=== PATIENT | male | born 1965 | race Caucasian/White ===

== ENCOUNTER 2022-07-21 02:33 | Day surgery (SDC) | payer OTHER, SELFPAY ==
[2022-07-19 10:35] VITALS: BMI 27.1
--- NOTE | 2022-07-19 10:56 | PC.NURSE ---
Report to the Outpatient Waiting Room, entrance under the green pavilion located off [facility], at time 0730 on date 07/21/22. OR Time: 0930. - You and your visitor will be asked to self-screen and do not enter if you have any COVID symptoms. - Only one visitor and NO children visitors are allowed at this time. - The patient visitor is requested to leave or wait in car when not with patient due to restrictions. - A mask is required within the hospital. Patients may have clear liquids (water, carbonated beverages, clear teas, apple juice) until 3 hours prior to surgery with a maximum of 20 ounces. - No food from midnight until time of surgery Take the following medications with a SIP of water the morning of surgery: GABAPENTIN, PAIN PILL (IF NEEDED) Medications to discontinue per physician: VITAMINS/SUPPLEMENTS Date to take last dose: NO MORE UNTIL AFTER SURGERY STOP MELOXICAM PER DR. WEINSTEIN'S INSTRUCTIONS Please no make-up, nail latvian, hairspray, perfume, deodorant, or body powder the day of surgery. No jewelry (including any body piercings) or valuables the day of surgery, leave them at home. Please take a shower or bath the night before, or the morning of, surgery with an antibacterial soap. Wear comfortable, loose fitting clothing. - Jewelry must be removed prior to entering the operating room. Rings and piercings that are not removed may be cut off. - The hospital will not accept responsibility for valuables. - Please leave all valuables, including medications, at home the day of surgery. If you are going home after surgery, a licensed concrete mixing truck driver must drive you home. - NO public transportation without another adult. - We recommend that an adult stay with you for 24 hours following discharge. - We also recommend that you do not drive, make important decision, drink alcoholic beverages, or take any drugs that were not prescribed by your health care provider for at least 24 hours after your discharge time. Follow any additional instructions given to you from your surgeon. If you or anyone in your household have experienced Covid symptoms in the past week, please notify your surgeon or the nurse liaison at the phone number below for possible testing. Telephone instructions given to PT - ANGELA FRANCO and asked if any additional questions and then verbalized understanding. Patient advised to call surgeon office or pre surgery nurse liaison [phone] if any additional questions.
--- NOTE | 2022-07-20 13:22 | WPDANESEPPF ---
Anes - Initial Pre Proc Eval Procedure: Operation Date: 07/21/22 07:30 Proposed Procedures p Posterior Lumbar Interbody Fusion L4-L5, L5-S1 with Intra Operative Monitoring - Tejal Masterson MD Date/Time: 07/20/22 13:22 Surgeon: Tejal Masterson MD Pre Op Diagnosis: spondylosis without myeopathy or radiculopathy Patient Data Age: 56 Gender: M Height: 1.83 m Weight: 90.72 kg Allergies Allergy/AdvReac Type Severity Reaction Status Date / Time typhoid vaccine Allergy Severe Hives Verified 07/21/22 07:00 Home Medications Medication Instructions Recorded Confirmed Type amitriptyline 50 mg tablet 50 mg PO HS 07/19/22 07/19/22 History atorvastatin 40 mg tablet 40 mg PO HS 07/19/22 07/19/22 History cholecalciferol (vitamin D3) 50 50 mcg PO DAILY 07/19/22 07/19/22 History mcg (2,000 unit) tablet (Vitamin D3) dapagliflozin 10 mg tablet 10 mg PO DAILY 07/19/22 07/19/22 History (Farxiga) dulaglutide 3 mg/0.5 mL 3 mg subcut WEEKLY 07/19/22 07/19/22 History subcutaneous pen injector (Trulicity) gabapentin 600 mg tablet 600 mg PO TID 07/19/22 07/19/22 History hydrocodone 10 mg-acetaminophen 1 tablet PO BID PRN Pain 07/19/22 07/19/22 History 325 mg tablet isosorbide mononitrate 30 mg 30 mg PO DAILY 07/19/22 07/19/22 History tablet,extended release 24 hr lidocaine 5 % topical ointment 1 applic topical HS 07/19/22 07/19/22 History lisinopril 20 mg tablet 20 mg PO DAILY 07/19/22 07/19/22 History magnesium 250 mg tablet 500 mg PO HS 07/19/22 07/19/22 History magnesium oxide 400 mg PO HS 07/19/22 07/19/22 History melatonin 10 mg tablet 10 mg PO HS 07/19/22 07/19/22 History meloxicam 15 mg tablet 15 mg PO HS 07/19/22 07/19/22 History metformin 1,000 mg tablet 1,000 mg PO BID 07/19/22 07/19/22 History multivitamin 1 tablet PO DAILY 07/19/22 07/19/22 History nitroglycerin 0.4 mg sublingual 0.4 mg sublingual PRN PRN Chest 07/19/22 07/19/22 History tablet Pain pantoprazole 40 mg tablet,delayed 40 mg PO DAILY 07/19/22 07/19/22 History release pioglitazone 15 mg tablet (Actos) 15 mg PO HS 07/19/22 07/19/22 History potassium 99 mg tablet 99 mg PO DAILY 07/19/22 07/19/22 History tizanidine 4 mg tablet 4 mg PO HS 07/19/22 07/19/22 History Patient hx anesthesia problems: none Family hx anesthesia problems: none Results Review: All pre-operative results and documents have been reviewed as part of the pre-operative evaluation. [facility] Past Medical History Medical History (Updated 07/20/22 @ 13:23 by Campos Clement MD) Arthritis Chronic narcotic use Diabetes HTN (hypertension) Hyperlipidemia PONV (postoperative nausea and vomiting) Social History Social History Smoking packs per day: 3 Smoking cigarettes per day: 60.0 Years smoked: 25 Smoking pack-years: 75.00 Smoking status: Former smoker Tobacco type: cigarettes Smoking end date: 10/23/03 Alcohol intake: current Alcohol use details: RARELY Substance use: never Substance use type: does not use Living arrangements: with family Spiritual care concerns: No Anes - Eval Final PreProcedure Day of Procedure 07/20/22 13:22 Patient weight: overweight Heart: regular rate and rhythm Lungs: clear to auscultation and normal air movement Airway: Mallampati scale class II Neurological: alert and oriented Last oral intake: >/= 8 hours ASA classification: III Emergent: no Anesthetic plan: proceed Anesthesia type and monitoring: general ETT Results Review: All pre-operative results and documents have been reviewed as part of the pre-operative evaluation. Informed Consent: The patient's anesthetic plan and its attendant risks and benefits were discussed with the patient/family/POA. Questions were solicited and answers provided to the satisfaction of the patient/family/POA.
--- NOTE | 2022-07-20 15:48 | PCCCNOTE ---
Phone call to [employer] to verify authorization, left phone # for a return. Return call received from Valerie Padilla confirms approved outpatient auth [id number] 11-08-21 through 07/21/22. Reference for the call is the Authorization #.
[2022-07-21] VITALS (15 sets, daily range): BP systolic 104–144; BP diastolic 38–81; PULSE 72–87; RESP 10–20; TEMP 36.1–36.6; O2SAT 94–100
--- NOTE | ~2022-07-21 | XR_ITS ---
EXAMINATION: XR fluoroscopy no charge DATE: 07/21/2022 09:53 INDICATION: Lumbar fusion. TECHNIQUE: 4 intraoperative fluoroscopic views of the lumbar spine were obtained. I was not present. Fluoroscopy exposure time was 55 seconds. COMPARISON: Lumbar spine MRI 12/07/2006 FINDINGS: There are changes of posterior fusion procedure from L4 to S1 with pedicle screws. IMPRESSION: 1. Posterior fusion procedure from L4 to S1. Reviewed, dictated and finalized at location A.
[2022-07-21] MEDS: LACTATED RINGERS 1,000 ML 30 ML IV CONT ×2 (06:50→10:25)
[2022-07-21 06:59] LABS: Glucose Point of Care 155 mg/dl (65-105)
--- NOTE | 2022-07-21 07:36 | PM.IMHP ---
H&P: HPI History of Present Illness Date/Time: 07/21/22 07:36 Chief Complaint: Patient is a 56 year old male with a history of a prior lumbar decompression surgery L4-5 and L5-S1. He has had persistent radicular pain in the setting of recurrent foraminal stenosis and presents for repeat decompression and fusion L4-5 and L5-S1. No changes since my office visit note. Right leg pain predominates Review of Systems Review of Systems: none save those documented in the H&P [facility] Past Medical History Medical History (Updated 07/21/22 @ 07:39 by Tejal Masterson MD) Arthritis Chronic narcotic use Diabetes HTN (hypertension) Hyperlipidemia PONV (postoperative nausea and vomiting) Social History Social History Smoking packs per day: 3 Smoking cigarettes per day: 60.0 Years smoked: 25 Smoking pack-years: 75.00 Smoking status: Former smoker Tobacco type: cigarettes Smoking end date: 10/23/03 Alcohol intake: current Alcohol use details: RARELY Substance use: never Substance use type: does not use Living arrangements: with family Spiritual care concerns: No Meds Home Medications and Allergies Home Medications Medication Instructions Recorded Confirmed Type amitriptyline 50 mg tablet 50 mg PO HS 07/19/22 07/21/22 History atorvastatin 40 mg tablet 40 mg PO HS 07/19/22 07/21/22 History cholecalciferol (vitamin D3) 50 50 mcg PO DAILY 07/19/22 07/21/22 History mcg (2,000 unit) tablet (Vitamin D3) dapagliflozin 10 mg tablet 10 mg PO DAILY 07/19/22 07/21/22 History (Farxiga) dulaglutide 3 mg/0.5 mL 3 mg subcut WEEKLY 07/19/22 07/21/22 History subcutaneous pen injector (Trulicity) gabapentin 600 mg tablet 600 mg PO TID 07/19/22 07/21/22 History hydrocodone 10 mg-acetaminophen 1 tablet PO BID PRN Pain 07/19/22 07/21/22 History 325 mg tablet isosorbide mononitrate 30 mg 30 mg PO DAILY 07/19/22 07/21/22 History tablet,extended release 24 hr lidocaine 5 % topical ointment 1 applic topical HS 07/19/22 07/21/22 History lisinopril 20 mg tablet 20 mg PO DAILY 07/19/22 07/21/22 History magnesium 250 mg tablet 500 mg PO HS 07/19/22 07/21/22 History magnesium oxide 400 mg PO HS 07/19/22 07/21/22 History melatonin 10 mg tablet 10 mg PO HS 07/19/22 07/21/22 History meloxicam 15 mg tablet 15 mg PO HS 07/19/22 07/21/22 History metformin 1,000 mg tablet 1,000 mg PO BID 07/19/22 07/21/22 History multivitamin 1 tablet PO DAILY 07/19/22 07/21/22 History nitroglycerin 0.4 mg sublingual 0.4 mg sublingual PRN PRN Chest 07/19/22 07/21/22 History tablet Pain pantoprazole 40 mg tablet,delayed 40 mg PO DAILY 07/19/22 07/21/22 History release pioglitazone 15 mg tablet (Actos) 15 mg PO HS 07/19/22 07/21/22 History potassium 99 mg tablet 99 mg PO DAILY 07/19/22 07/21/22 History tizanidine 4 mg tablet 4 mg PO HS 07/19/22 07/21/22 History Allergies Allergy/AdvReac Type Severity Reaction Status Date / Time typhoid vaccine Allergy Severe Hives Verified 07/21/22 07:00 Vital Signs Vital Signs - 24 hr 07/21/22 06:38 Temperature 96.9 F L Pulse Rate 72 Respiratory Rate 20 Blood Pressure 144/67 H Pulse Oximetry 100 Oxygen Delivery Room Air Exam Narrative: Awake, alert, oriented x 3 Speech CF GUILLE EOMI Face= TML MAEW with good strength Prior incision CDI RRR CTA Soft NTND Assessment and Plan Assessment and plan (1) Lumbar spondylosis: Code(s): M47.816 - Spondylosis without myelopathy or radiculopathy, lumbar region Status: Acute Plan 56 year old male with recurrent right greater than left lower extremity pain in the setting of lumbar spondylosis most pronunced L4-5 and L5-S1 - plan is for repeat lumbar decompression and fusion L4-S1. Please see my scanned note for more extensive discussion as to indications, risks and recovery from surgery. Anticipated stay of 24-48 hours
--- NOTE | 2022-07-21 07:40 | WPDHPUPDATE1 ---
History and Physical Update Update Date/Time: 07/21/22 07:40 History and Physical has been reviewed, including an updated exam of the patient. There are NO changes in the patient's condition. Risks, benefits, and alternatives have been discussed and questions answered. Patient agrees to proceed with procedure.
[2022-07-21] MEDS: ceFAZolin 2 GM/D5W 50 ML 2 GM/50 ML BAG IVPB (07:46)
[2022-07-21] MEDS: LIDO 1%/EPINEPHRINE 1:100,000 50 ML VIAL INFILTRATE (08:35)
[2022-07-21] MEDS: VANCOMYCIN HCL 1,000 MG VIAL 1000 MG TOPICAL (09:38)
--- NOTE | 2022-07-21 10:03 | W.PM.PROC2 ---
Procedure Note - Detailed Date of Procedure 07/21/22 Pre-op Diagnosis spondylosis without myeopathy or radiculopathy Post-op Diagnosis Same Procedure Performed posterior lumbar decompression and instrumented posterolateral fusion L4-S1 Surgeon Tejal Masterson MD Community Fundraiser eJd Churchill MD Anesthesia General Indications This is a very pleasant 56-year-old male who has undergone a previous L4-S1 decompression. He has had her current radicular symptoms not responded to nonsurgical measures. He presents for repeat lumbar decompression L4-5 L5-S1 with instrumented posterolateral fusion. Please see my scanned office visit note for detailed discussions regarding the indications, risks, and recovery from surgery. Description of Procedure The patient was brought into the operating room. He was intubated in a supine position by Anesthesia. All monitoring and access was obtained. The patient was turned into a prone position on the William table. Again all extremities were padded. Intraoperative monitoring was established. The patient was turned over to the surgical team. The L4-L5 and S1 levels were confirmed with intraoperative fluoroscopy. The patient's back was prepped and draped in a sterile fashion. Final time-out was performed. The patient's prior incision was opened and extended using a 10. Blade scalpel. Dissection was carried down to the level of the spinous processes. The L3 and S1 spinous processes were identified. The defects from the prior prior L4-5 and L5-S1 decompressions were identified. Dissection was carried down using Bovie electric cautery. The lamina of L3 was identified bilaterally and taken out to the level of the L3-4 joint. This was exposed to avail the L4 pedicle. Dissection was further carried down to the L4-5 and L5-S1 joints. The facet complexes bilaterally were exposed. The transverse processes of L4, L5, and S1 were dissected. Intraoperative fluoroscopy was again brought into the field and the level was confirmed with L4-L5 and S1 identified. The remaining superior L4 lamina was dissected. The pars were dissected bilaterally. Once the dissection was complete the plan was made for placement of pedicle screws. Using intraoperative fluoroscopy 1st at L4 then 5 and then S1 the overlying facet complex was removed using a Leksell rongeur. The cancellous bone was identified. Pedicle finer was passed to 45 mm using fluoroscopy as a guide. The hole was tapped and appropriate placement was confirmed. A 6.5 x 45 mm screw was passed at each level 1st on the left and then on the right. Confirmation with intraoperative monitoring was performed. Each screw was stimulated and the threshold was above any concerning level. There is no suggestion of breach. Attention was then turned to the decompression portion of the procedure. A distractor was placed at L5-S1. First on the right and then on the left the lateral pars and residual facet were drilled to decompress the neural foramen specifically targeting the exiting L5 nerve root. After drilling of this bone I dissected could be passed in the foramen was found to be patent. At the L4-5 level the medial facet was dissected and drilled to facilitate lateral recess decompression A distractor was placed again and 1st the daniel was placed on the right side, the patient's more symptomatic side. Distraction was performed across the pedicle screws and setscrews were placed. This was performed again on the left. A 7 minutes 70 mm daniel was placed on the right and an 80 mm daniel was placed on the left. Particularly on the right, the patient's symptomatic side, distraction was performed and the set screws were secured and a torque wrench was used to perform final tightening both on the right and the left. The wound was copiously irrigated and hemostasis was achieved. The patient's own bone mixed with bone chips cancellous bone chips as well as I Factor bone growth faculty support coordinator were packed int
[2022-07-21 10:41] LABS: Glucose Point of Care 192 mg/dl (65-105)
--- NOTE | 2022-07-21 11:01 | SUR.PHASEI ---
1100: Simple mask removed.
[2022-07-21] MEDS: fentaNYL CITRATE INJ (*CRX) 100 MCG/2 ML VIAL 25 MCG IV PUSH ×4 (11:13→11:42)
[2022-07-21] MEDS: KCL 20 MEQ/D5/0.45% SOD CHL 1,000 ML 100 ML IV CONT (12:36)
[2022-07-21] MEDS: EMPAGLIFLOZIN 25 MG TABLET PO (13:01)
[2022-07-21] MEDS: GABAPENTIN 300 MG CAPSULE 600 MG PO ×2 (13:01→17:10)
[2022-07-21] MEDS: PANTOPRAZOLE 40 MG TABLET PO (13:02)
[2022-07-21] MEDS: ISOSORBIDE MONONITRATE 30 MG TAB.ER.24H PO (13:02)
[2022-07-21] MEDS: lisinopriL 20 MG TABLET PO (13:02)
[2022-07-21] MEDS: HYDROcodone/acetaminophen (*CRX) 10-325 MG TABLET 1 TAB PO ×3 (13:03→22:47)
[2022-07-21] MEDS: HYDROcodone/acetaminophen (*CRX) 5-325 MG TABLET 1 TAB PO ×2 (15:22→19:50)
[2022-07-21] MEDS: metFORMIN HCL 500 MG TABLET 1000 MG PO (17:11)
[2022-07-21] MEDS: DOCUSATE SODIUM 100 MG CAPSULE PO (19:54)
[2022-07-21] MEDS: ATORVASTATIN 40 MG TABLET PO (19:54)
[2022-07-21] MEDS: AMITRIPTYLINE HCL 25 MG TABLET 50 MG PO (19:55)
[2022-07-21] MEDS: MELATONIN 5 MG TABLET 10 MG PO (19:55)
[2022-07-21] MEDS: MAGNESIUM OXIDE 400 MG TABLET PO ×3 (19:55→20:02)
[2022-07-21] MEDS: PIOGLITAZONE HCL 15 MG TAB PO (19:55)
[2022-07-22 04:00] VITALS: BP 109/59; PULSE 70; RESP 20; TEMP 36.6; O2SAT 98
[2022-07-22] MEDS: HYDROcodone/acetaminophen (*CRX) 10-325 MG TABLET 1 TAB PO ×2 (06:47→11:54)
[2022-07-22] MEDS: ISOSORBIDE MONONITRATE 30 MG TAB.ER.24H PO (08:39)
[2022-07-22] MEDS: GABAPENTIN 300 MG CAPSULE 600 MG PO ×2 (08:39→12:22)
[2022-07-22] MEDS: DOCUSATE SODIUM 100 MG CAPSULE PO (08:39)
[2022-07-22] MEDS: CHOLECALCIFEROL 1,000 UNITS TABLET 2000 UNITS PO (08:39)
[2022-07-22] MEDS: EMPAGLIFLOZIN 25 MG TABLET PO (08:39)
[2022-07-22] MEDS: lisinopriL 20 MG TABLET PO (08:39)
[2022-07-22] MEDS: MULTIVITAMINS THERAPEUTIC TAB (*BKC) 1 TABLET PO (08:39)
[2022-07-22] MEDS: metFORMIN HCL 500 MG TABLET 1000 MG PO (08:39)
[2022-07-22] MEDS: HYDROcodone/acetaminophen (*CRX) 5-325 MG TABLET 1 TAB PO ×2 (09:39→15:06)
[2022-07-22] MEDS: BISACODYL 10 MG SUPPOSITORY RECTAL (09:40)
[2022-07-22] MEDS: PANTOPRAZOLE 40 MG TABLET PO (10:35)
--- NOTE | 2022-07-22 12:53 | WPDPN ---
Progress Note: A&P Assessment and Plan (1) Lumbar spondylosis: Code(s): M47.816 - Spondylosis without myelopathy or radiculopathy, lumbar region Status: Acute Plan Mr. Pearson is doing very well after surgery Anticipate d/c to home later today Follow up in 2 weeks for staple removal Subjective Date/time seen: 07/22/22 12:53 Review of Systems Review of Systems: patient notes resolution of right and left lower extremity pain still with sensory symptoms in LLE Mobilizing with PT - ambulated well in [place] Exam Narrative: Awake, alert, oriented x 3 Speech CF GUILLE EOMI Face= TML MAEW with good strength Incision CDI Objective Data Vital Signs Vital Signs: Vital Signs - 24 hr 07/21/22 13:10 07/21/22 14:10 07/21/22 15:08 Temperature 97.7 F 97.7 F 97.7 F Pulse Rate 80 82 80 Respiratory Rate 14 14 14 Blood Pressure 138/66 136/68 134/66 Pulse Oximetry 99 98 97 Oxygen Delivery 07/21/22 20:00 07/21/22 23:08 07/22/22 04:00 Temperature 97.8 F 97.9 F Pulse Rate 80 77 70 Respiratory Rate 14 16 20 Blood Pressure 115/63 109/59 L Pulse Oximetry 97 94 98 Oxygen Delivery Room Air 07/22/22 09:00 Temperature Pulse Rate Respiratory Rate Blood Pressure Pulse Oximetry Oxygen Delivery Room Air Intake/Output Intake/Output: Intake & Output 07/19/22 07/20/22 07/21/22 07/22/22 23:59 23:59 23:59 23:59 Intake Total 5060 222 Output Total 1960 Balance 3100 222 Meds/Results Medications: Active Medications Generic Name Dose Route Start Last Admin Trade Name Freq PRN Reason Stop Dose Admin Hydrocodone Bitart/Acetaminophen 1 tab 07/21/22 12:08 07/22/22 09:39 Hydrocodone/Acetaminophen (*Crx) 5-325 Mg Tablet PO 1 tab Q4H PRN Administration Mild Pain (1-3) Hydrocodone Bitart/Acetaminophen 1 tab 07/21/22 12:08 07/22/22 11:54 Hydrocodone/Acetaminophen (*Crx) 10-325 Mg Tablet PO 1 tab Q4H PRN Administration Moderate Pain (4-6) Al Hydrox/Mg Hydrox/Simethicone 20 ml 07/21/22 12:08 Mag Hydrox/Al Hydrox/Simeth 30 Ml Udc PO Q4H PRN Indigestion/Heartburn Amitriptyline HCl 50 mg 07/21/22 21:00 07/21/22 19:55 Amitriptyline Hcl 25 Mg Tablet PO 50 mg HS EDUARD Administration Atorvastatin Calcium 40 mg 07/21/22 21:00 07/21/22 19:54 Atorvastatin 40 Mg Tablet PO 40 mg HS EDUARD Administration Bisacodyl 10 mg 07/21/22 12:08 07/22/22 09:40 Bisacodyl 10 Mg Suppository RECTAL 10 mg DAILY PRN Administration Constipation Cyclobenzaprine HCl 10 mg 07/21/22 12:08 Cyclobenzaprine Hcl 10 Mg Tablet PO TID PRN Muscle Spasms Docusate Sodium 100 mg 07/21/22 21:00 07/22/22 08:39 Docusate Sodium 100 Mg Capsule PO 100 mg Q12HR EDUARD Administration Empagliflozin 25 mg 07/21/22 13:00 07/22/22 08:39 Empagliflozin 25 Mg Tablet PO 08/21/22 12:59 25 mg DAILY EDUARD Administration Gabapentin 600 mg 07/21/22 13:00 07/22/22 12:22 Gabapentin 300 Mg Capsule PO 600 mg TID EDUARD Administration Hydromorphone HCl 0.5 mg 07/21/22 12:08 Hydromorphone Hcl Inj (*Crx) 1 Mg/Ml Syr IV PUSH Q2H PRN Pain Rated 7-10 Isosorbide Mononitrate 30 mg 07/21/22 13:00 07/22/22 08:39 Isosorbide Mononitrate 30 Mg Tab.Er.24h PO 30 mg DAILY EDUARD Administration Lisinopril 20 mg 07/21/22 13:00 07/22/22 08:39 Lisinopril 20 Mg Tablet PO 20 mg DAILY EDUARD Administration Magnesium Oxide 400 mg 07/21/22 21:00 07/21/22 20:01 Magnesium Oxide 400 Mg Tablet PO 08/20/22 20:59 400 mg HS EDUARD Administration Melatonin 10 mg 07/21/22 21:00 07/21/22 19:55 Melatonin 5 Mg Tablet PO 10 mg HS EDUARD Administration Metformin HCl 1,000 mg 07/21/22 17:00 07/22/22 08:39 Metformin Hcl 500 Mg Tablet PO 1,000 mg BID EDUARD Administration Multivitamins Therapeutic 1 tablet 07/22/22 09:00 07/22/22 08:39 Multivitamins Therapeutic Tab (*Bkc) PO 1 tablet DAILY EDUARD Ad
[2022-07-22 14:35] VITALS: BP 112/68; PULSE 79; RESP 20; TEMP 36.5; O2SAT 97
== END 2022-07-22 15:47 | disposition home or self-care (01) ==
LOC: ANHSURGERY 06:31 → ANH2MED 12:11
PROVIDERS: Visit Provider Neurological Surgery
PROC: (CPT 22612; principal; 2022-07-21 07:30)
DX: M47.816 Spondylosis without myelopathy or radiculopathy, lumbar region (principal); I10 Essential (primary) hypertension; E11.9 Type 2 diabetes mellitus without complications; E78.5 Hyperlipidemia, unspecified; Z79.891 Long term (current) use of opiate analgesic; Z79.84 Long term (current) use of oral hypoglycemic drugs; Z79.899 Other long term (current) drug therapy; Z87.891 Personal history of nicotine dependence
CPT/HCPCS: 22630; 20930; 22840; 22632; 36415; 82948; 86850; 86900; 86901; 97161; 97165; 97530; 97535; 99199; A9270; C9290; J0131; J0690; J1100; J1170; J2250; J2405; J2704; J3010; J3370; J3480; J7030; J7120

== ENCOUNTER 2022-11-04 09:05 | Outpatient (CLI) | payer OTHER, SELFPAY ==
--- NOTE | ~2022-11-04 | XR_ITS ---
Lumbosacral Spine: AP and lateral views Clinical History: Pain Findings: There is posterior fusion from L4 through S1, with bilateral rods and transpedicular screws present, as well as probable L4-L5 laminectomy defects. Remaining osseous structures are otherwise u nremarkable. No acute fracture or subluxation. Remaining disc spaces are preserved. The sacroiliac lety ints are normally outlined. Impression: Postoperative changes from L4 through S1, as detailed above. No fracture or subluxation. Reviewed, dictated and finalized at location [] TRIMMER Impression: Postoperative changes from L4 through S1, as detailed above. No fracture or subluxation.
== END 2022-11-04 09:06 | disposition home or self-care (01) ==
PROVIDERS: Visit Provider Neurological Surgery
DX: M54.50 Low back pain, unspecified (principal)
CPT/HCPCS: 72100

== ENCOUNTER 2023-01-04 08:27 | Outpatient (CLI) | payer OTHER, SELFPAY ==
--- NOTE | ~2023-01-04 | XR_ITS ---
EXAMINATION: XR lumbar spine 2-3V DATE: 01/04/2023 08:48 INDICATION: Low back pain TECHNIQUE: AP and lateral views of the lumbar spine were obtained. COMPARISON: 11/04/2022 FINDINGS: There are changes of posterior fusion and laminectomy from L4 through S1. There are 2 mm of retrolisthesis of L4 on L5. Vertebral body alignment is otherwise normal. There is mild loss of inte rvertebral disc space height at L5-S1. Small degenerative osteophytes project from the anterior endpl ates of multiple vertebral bodies. There is no fracture. IMPRESSION: 1. Postsurgical changes of the lumbar spine without acute findings or significant interval change. Reviewed, dictated and finalized at location B. SPORTATION MANAGER IMPRESSION: 1. Postsurgical changes of the lumbar spine without acute findings or significa nt interval change.
== END 2023-01-04 08:28 | disposition home or self-care (01) ==
PROVIDERS: Visit Provider Nurse Practitioner Adult Health
DX: M54.50 Low back pain, unspecified (principal)
CPT/HCPCS: 72100

== ENCOUNTER 2025-02-24 11:58 | Outpatient (CLI) | payer OTHER, SELFPAY ==
[2025-02-24 12:40] LABS: Add Urine Microscopic? NO; Appearance Urine Clear (Clear); Bilirubin Urine Negative (Negative); Blood Urine Negative (Negative); Color Urine Yellow (Yellow); Glucose Urine UA 3+ mg/dL (Negative); Ketones Urine Negative (Negative); Leukocyte Esterase Ur Negative LEU/UL (Negative); Nitrate Urine Negative (Negative); Protein Urine Negative (Negative); Specific Grav Ur 1.021 (1.001-1.035); Urobilinogen Urine 0.2 mg/dL (<2.0); pH Urine 6.5 (5.0-9.0)
--- OUTSIDE RECORDS SUMMARY | 2025-02-24 13:46 | XMS_ITS | Clinical Summary ---
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 Name Role Phone RUBENS ODELL MD Primary Care Provider [phone] Reason for Visit and Chief Complaint The Chief Complaint is: Annual physical exam Problems Includes: Problems addressed during this encounter and other active Problems Current Visit Onset Date Resolved Date Provider Conditio n Status Hypercholesterolemia 06/01/2017 RUBENS ODELL MD Active Last Documented On 06/01/2017 12:41AM ; [facility] Note: Unchanged Irritable Bowel Syndrome 06/01/2017 DAMARIS ODELL MD Active Last Documented On 06/01/2017 12:41AM ; [facility] Note: Unchanged Benign Prostatic Hypertrophy Without Urinary Obstruction 06/01/2017 RUBENS ODELL MD Active Last Documented On 06/01/2017 12:41AM ; [facility] Note: Unchanged Congestive Heart Failure 06/01/2017 DAMARIS ODELL MD Active Last Documented On 06/01/2017 12:41AM ; [facility] Note: Unchanged Male Erectile Dysfunction 06/01/2017 MEET ODELL MD Active Last Documented On 06/01/2017 12:41AM ; [facility] Note: Unchanged Herniated Intervertebral Disc Lumbar 06/01/2017 RUBENS ODELL MD Active Last Documented On 06/01/2017 12:41AM ; [facility] Note: Unchanged Nicotine Dependence Cigarettes in Remission 06/01/2017 RUBENS ODELL MD Active Last Documented On 06/01/2017 12:41AM ; [facility] Note: Unchanged Diabetes Mellitus Type 2 - Uncomplicated, Controlled 09/18/2012 BUCKY DOUGHERTY M.D. Active Last Documented On 6 3:35PM ; [facility] Essential Hypertension Benign 09/18/2012 BUCKY DOUGHERTY M.D. Active Last Documented On 6 3:35PM ; [facility] Past Visits Onset Date Resolved Date Provider Condition Status Post Covid-19 Condition 02/22/2022 RUBENS ODELL MD Active Last Documented On 02/22/2022 8:35AM ; [facility] Note: Unchanged Lumbago 06/01/2017 RUBENS ODELL MD Active Last Documented On 06/01/2017 12:41AM ; [facility] Note: Unchanged Cardiomyopathy 06/01/2017 RUBENS BLACK MD Active Last Documented On 06/01/2017 12:41AM ; [facility] Note: Unchanged Plan of Treatment - Return to the clinic if condition worsens or new symptoms arise - Last Documented On 03/25/2024 3:51PM ; [facility] - Disposition - Last Documented On 03/25/2024 3:51PM ; [facility] Continue follow up with specialists [facility]: [facility] - Last Documented On 03/25/2024 3:51PM ; [facility] Pending Tests Order Diagnosis Results Due Ordering P rovider Lab *PSA SCREEN 03/25/24 BRENTON VILLAFANA PA-C Last Documented On 9:26AM ; [facility] Assessments Includes: Assessments from this encounter Findings - Routine adult history and physical (18-64 yrs) with abnormal findings [Z00.01 - Encounter for general adult medical examination with abnormal findings] - Last Documented On 03/25/2024 3:51PM ; [facility] Secondary Dx of - Last Documented On 03/25/2024 3:51PM ; [facility] - Congestive heart failure [I50.9 - Heart failure, unspecified] - Last Documented On 03/25/2024 3:51PM ; [facility] - Benign essential hypertension [I10 - Essential (primary) hypertension] - Last Documented On 03/25/2024 3:51PM ; [facility] - Irritable bowel syndrome [K58.8 - Other irritable bowel syndrome] - Last Documented On 03/25/2024 3:51PM ; [facility] - Benign prostatic hypertrophy without urinary obstruction [N40.0 - Benign prostatic hyperplasia without lower urinary tract symptoms] - Last Documented On 03/25/2024 3:51PM ; [facility] - Male erectile dysfunction [N52.9 - Male erectile dysfunction, unspecified] - Last Documented On 03/25/2024 3:51PM ; [facility] - Hypercholesterolemia [E78.00 - Pure hypercholesterolemia, unspecified] - Last Documented On 03/25/2024 3:51PM ; [facility] - Type 2 diabetes mellitus - uncomplicated, controlled [E11.9 - Type 2 diabetes mellitus without complications] - Last Documented On 03/25/2024 3:51PM ; [facility] - Herniated lumbar disc [M51.26 - Other intervertebral disc displacement, lumbar region] - Last Documented On 03/25/2024 3:51PM ; [facility] - Dependence on nicotine in cigarettes in remission [F17.211 - Nicotine dependence, cigarettes, in remission] 3 [id number] - Last Documented On 03/25/2024 3:51PM ; [facility] Medical Equipment - Implanted Devices Includes: Current Devices No Medical Equipment Recorded Medications Includes: Medications discussed during this encounter and other current Medications Discontinued / Stopped on this date on 12/25/2023 Tamsulosin HCl 0.4 MG Oral Capsule Provid er: Diagnosis: Last Documented On 03/25/2024 9:16AM By SARIKA JOHNSTON ; [facility] Flonase Allergy Relief 50 MCG/ACT Nasal Suspension Provider: BRENTON ROSALES PA-C Diagnosis: Chronic sinusiti s, unspecified Last Documented On 03/25/2024 9:16AM By SARIKA JOHNSTON ; [facility] Magnesium 500 MG Oral Tablet Provider: Diagnosis: Last Documented On 03/25/2024 9:15AM By SARIKA JOHNSTON ; [facility] Current Medications (continue as prescribed) DULoxetine HCl 30 MG Oral Capsule Delayed Release Particles 03/25/2024 - 03/20/2025 Provider: BRENTON BUSTAMANTE PA-C Diagnosis: Major depressive disorder, single episode, moderate One tablet daily Last Documented On 4 12:24PM By BRENTON BUSTAMANTE PA-C ; [facility] Tamsulosin HCl 0.4 MG Oral Capsule 03/25/2024 Provid er: Diagnosis: Last Documented On 03/25/2024 9:16AM By SARIKA JOHNSTON ; [facility] Propranolol HCl 20 MG Oral Tablet 03/25/2024 Provide r: Diagnosis: 2 pills tid Last Documented On 03/25/2024 9:17AM By SARIKA JOHNSTON ; [facility] Lisinopril 20 MG Oral Tablet 03/25/2024 - 03/20/2025 Provider: BRENTON SCHWAB CH, PA-C Diagnosis: TAKE 1 TABLET BY MOUTH DAILY Last Documented On 4 12:24PM By BRENTON BUSTAMANTE PA-C ; [facility] Flonase Allergy Relief 50 MCG/ACT Nasal Suspension 01/26/2024 Provider: BRENTON BUSTAMANTE PA-C Diagnosis: Acute nasopharyn gitis [common cold] 2 sprays each nostril once daily Last Documented On 03/25/2024 9:12AM By SARIKA JOHNSTON ; [facility] Ozempic (1 MG/DOSE) 2 MG/1.5 ML Subcutaneous Solution Pen-injector 12/25/2023 Provider: Diagnosis: ordred by endo Last Documented On 12/25/2023 2:54PM By SARIKA JOHNSTON ; [facility] Gabapentin 300 MG Oral Capsule 03/14/2023 Provider: Diagnosis: Last Documented On 03/14/2023 2:45PM By SARIKA JOHNSTON ; [facility] Lidocaine Oint & Men-Meth Paulo 5 & 3-10% External Therapy Pack 07/12/2022 Provider: Diagnosis: Last Documented On 07/12/2022 2:36PM By Freida ROMERO ; [facility] Magnesium Oxide 400 MG Oral Tablet 05/30/2022 Provid er: Diagnosis: ordered by cardiioogist Last Documented On 05/30/2022 11:43AM By SARIKA JOHNSTON ; [facility] Pioglitazone HCl 15 MG Oral Tablet 05/30/2022 Provid er: Diagnosis: Last Documented On 05/30/2022 11:21AM By SARIKA JOHNSTON ; [facility] Nitrostat 0.4 MG Sublingual Tablet Sublingual 04/27/20 Provider: Diagnosis: ordered by proprietary trader Last Documented On 04/27/2022 10:26AM By SARIKA JOHNSTON ; [facility] Atorvastatin Calcium 40 MG Oral Tablet 03/23/2022 Pr ovider: Diagnosis: Last Documented On 03/23/2022 9:29AM By SARIKA JOHNSTON ; [facility] Farxiga 10 MG Oral Tablet 03/23/2022 Provider: Diagnosis: Last Documented On 03/23/2022 9:28AM By SARIKA JOHNSTON ; [facility] Vitamin D 50 MCG (1999) Oral Capsule 01/24/2022 P rosudeepder: Diagnosis: Last Documented On 01/24/2022 9:40AM By SARIKA JOHNSTON ; [facility] Potassium 99 MG Oral Tablet 01/24/2022 Provider: Diagnosis: Last Documented On 01/24/2022 9:39AM By SARIKA JOHNSTON ; [facility] HYDROcodone-Acetaminophen 10-325 MG Oral Tablet 2021 Provider: Diagnosis: one or 2 at bedtimeordered by specialist Last Documented On 01/24/2022 9:42AM By SARIKA JOHNSTON ; [facility] Melatonin 10 MG Oral Tablet 09/05/2019 Provider: Diagnosis: Last Documented On 09/05/2019 10:26AM By AYAN ROMERO ; [facility] metFORMIN HCl 1000 MG TABS 12/15/2014 Provider: Diagnosis: Last Documented On 12/15/2014 9:34AM By AYAN ROMERO ; [facility] Multivitamins OR CAPS 10/10/2010 Provider: Diagnosis: Last Documented On 0 7:27PM By LULA PALACIOS PA-C ; [facility] OneTouch Ultra Blue STRP 04/15/2010 Provider: BUCKY DOUGHERTY M.D. Diagnosis: #90 WITH 3 REFILLS Last Documented On 04/15/2010 1:13PM By BUCKY DOUGHERTY MD ; [facility] Past Medications on file Amitriptyline HCl 50 MG Oral Tablet 02/13/2024 - 02/07/2025 Provider: BRENTON BUSTAMANTE PA-C Diagnosis: Other irritable bowel syndrome TAKE 1 TABLET BY MOUTH AT BEDTIME Last Documented On 4 11:41AM By BRENTON BUSTAMANTE PA-C ; [facility] tiZANidine HCl 4 MG Oral Tablet 02/07/2024 - 05/07/2024 Provider: YOLANDE PIRES Diagnosis: TAKE 1 TABLET BY MOUTH TWICE DAILY Last Documented On 4 12:41PM By YOLANDE NELSON-YOLANDA ; [facility] Medications Administered Includes: Administered Medications from this encounter No Administered Medications Recorded Vital Signs Includes: Vital Signs from this encounter Vital Name 03/25/2024 09:13A Blood Pressure Sitting R 120/68 BP Cuff Size Regular Pulse Rate-Sitting (bpm) 70 Respiration Rate (breaths/min) 18 Temp-Oral (F) 97.8 Height (in) 73 Weight (lb) 188 Body Mass Index 24.8 Body Surface Area 2.1 Oxygen Saturation (%) 98 Last Documented: On 03/25/2024 9:19AM ; [facility] Results Includes: Results discussed during this encounter No Results Recorded For Specified Dates History of Present Illness Includes: History of Present Illness from this encounter REHAN FRANCO is a 58 year old male. Source of patient information was patient. Patient is a 58 y/o male who presents for annual physical exam and evaluation.Patient is sees reverse unit operator, cardiaologist, urologist and neurologist routinely. REcently had labs done with specialist. Overall he is feeling fine. No new concerns or complaints. Requesting disability parking placard due to. - Allergy list reviewed - Medication list reviewed - No headache - No epistaxis - No chest pain or discomfort - No dyspnea - No abdominal pain - No diarrhea - No constipation - Tingling of the limbs - Numbness of the limbs - No dizziness - No sleep disturbances - A lesion on the feet right foot - No lesion on the feet Social History Description Last Updated Tobacco non-user 01/23/2024 Last Documented On 4 9:12AM ; [facility] Cigarette smoking: history 3 packs per d ay for 25 years 12/25/2023 Last Documented On 4 9:12AM ; [facility] Former smoker 12/25/2023 Last Documented On 4 9:12AM ; [facility] Stopped smoking years ago 2002 4 Last Documented On 4 9:12AM ; [facility] A previous job-related injury Had whipla sh dx years ago. NO isues since 06/01/2022 Last Documented On 4 9:12AM ; [facility] Social history unchanged 06/17/2020 Last Documented On 4 9:12AM ; [facility] Exercising erratically 05/09/2017 Last Documented On 4 9:12AM ; [facility] Smoking Status Unknown Procedures and Surgical History Includes: Procedures from this encounter Procedures Code Diagnosis Performing Provider Service L ocation Service Date plan of care reviewed and agreed to Last Documented On 4 9:36AM ; [facility] use of tobacco assessment performed 1000F Last Documented On 4 9:20AM ; [facility] no influenza immunization patient refuse d Last Documented On 4 9:20AM ; [facility] standardized depression screening: negative for symptoms 3351F Last Documented On 4 9:36AM ; [facility] review of medications documented 1160F Last Documented On 4 9:20AM ; [facility] screening for adult depression: impressi on and score eight Last Documented On 4 9:22AM ; [facility] screening for adult depression: impressi on and score two Last Documented On 4 9:36AM ; [facility] screening for adult depression: impressi on and score 0 Last Documented On 4 9:36AM ; [facility] standardized depression screening: posit patrick for symptoms Last Documented On 4 9:22AM ; [facility] Clinical summary provided to patient Last Documented On 4 9:36AM ; [facility] a colonoscopy was performed 01/12/2018 Last Documented On 4 3:50PM ; [facility] Medical History Includes: Medical History addressed during this encounter Description Last Updated History of complete colonoscopy 8 03/25/2024 Last Documented On 4 3:51PM ; [facility] Home blood sugar check performed bs 126 this am 03/25/2024 Last Documented On 4 3:51PM ; [facility] Home blood sugar check performed average 130 03/25/2024 Last Documented On 4 3:51PM ; [facility] Pt does not get blood pressure checked a t other facility 01/23/2024 Last Documented On 4 9:12AM ; [facility] APPENDECTOMY ~ING HERNIA R ~ NASAL SEPTAL DEVIATION REPAIR 2009 ~TONSILLECTOMY ~R ROTATOR CUFF 97, 12 ~R ELBOW 12 ~LAMINECTOMY L4-S1 10/201807/12/2022 Last Documented On 4 9:12AM ; [facility] Family History Includes: Family History addressed during this encounter No Family History Recorded Review of Systems Includes: Review of Systems from this encounter Systemic: No fever, no chills, and no recent weight change. Head: No headache. Otolaryngeal: No earache. Nasal discharge. No sore throat. Cardiovascular: No chest pain or discomfort. Pulmonary: No dyspnea. Cough. Gastrointestinal: No vomiting and no abdominal pain. Genitourinary: No dysuria. Musculoskeletal: As a chronic condition and joint stiffness as a chronic condition. Neurological: No dizziness and no fainting. Skin: No pruritus. Mental Status Includes: Mental Status from this encounter No Mental Status Recorded Functional Status Includes: Functional Status from this encounter No Functional Status Recorded Physical Exam Includes: Physical Exam from this encounter Allergies Includes: Active Allergies Substance Type Reaction Onset Date Resolved Date Statu s Typhoid Vaccine Allergy 07/09/2009 Act patrick Last Documented On 4 9:11AM ; [facility] Encounters Encounter Provider Location Date Check-In Time Check-Out Time Diagnosis CHECK UP BRENTON BUSTAMANTE PA-C [facility] 03/25/20 24 9:02AM 9:38AM Irritable Bowel Syndrome,Congestiv e Heart Failure,Essential Hypertension Benign,Herniated Intervertebral Disc Lumbar,Diabetes Mellitus Type 2 - Uncomplicated, Controlled,Benign Prostatic Hypertrophy Without Urinary Obstruction,Nicoti ne Dependence Cigarettes in Remission,Male Erectile Dysfunction,Routin e History & Physical Adult with Abnormal Findings,Hyperchol esterolemia Insurance Includes: Active Insurance Policies Plan Name Member ID Group # Subscriber Relationship Effect patrick Dates 1 - [employer] [id number] ANGELA FRANCO [facility] Clinical Notes Includes: Clinical Notes from this encounter * Progress note Date Encounter Last Documented by 03/25/2024 CHECK UP Last documented on 03/25/2024; 3:51 PM, BRENTON BUSTAMANTE PA-C; [facility] Active Problems & Conditions - N40.0 - Benign Prostatic Hypertrophy Without Urinary Obstruction - I42.9 - Cardiomyopathy - I50.9 - Congestive Heart Failure - E11.9 - Diabetes Mellitus Type 2 - Uncomplicated, Controlled - I10 - Essential Hypertension Benign - M51.26 - Herniated Intervertebral Disc Lumbar - E78.00 - Hypercholesterolemia - K58.8 - Irritable Bowel Syndrome - M54.5 - Lumbago - N52.9 - Male Erectile Dysfunction - F17.211 - Nicotine Dependence Cigarettes in Remission - U09.9 - Post Covid-19 Condition Chief Complaint The Chief Complaint is: Annual physical exam. History of Present Illness ANGELA FRANCO is a 58 year old male. Source of patient information was patient. Patient is a 58 y/o male who presents for annual physical exam and evaluation.Patient is sees reverse unit operator, cardiaologist, urologist and neurologist routinely. REcently had labs done with specialist. Overall he is feeling fine. No new concerns or complaints. Requesting disability parking placard due to. - Allergy list reviewed - Medication list reviewed - No headache - No epistaxis - No chest pain or discomfort - No dyspnea - No abdominal pain - No diarrhea - No constipation - Tingling of the limbs - Numbness of the limbs - No dizziness - No sleep disturbances - A lesion on the feet right foot - No lesion on the feet Current Medication - Amitriptyline HCl 50 MG Oral Tablet TAKE 1 TABLET BY MOUTH AT BEDTIME, 90 days, 3 refills - Atorvastatin Calcium 40 MG Oral Tablet One tablet daily 0 days, 0 refills - DULoxetine HCl 30 MG Oral Capsule Delayed Release Particles One tablet daily, 90 days, 3 refills - DULoxetine HCl 30 MG Oral Capsule Delayed Release Particles One tablet daily, 30 days, 2 refills - Farxiga 10 MG Oral Tablet One tablet daily 0 days, 0 refills - Flonase Allergy Relief 50 MCG/ACT Nasal Suspension 2 sprays each nostril once daily, 10 days, 0 refills - Gabapentin 300 MG Oral Capsule One tablet three times a day 0 days, 0 refills - HYDROcodone-Acetaminophen 10-325 MG Oral Tablet as directed one or 2 at bedtimeordered by specialist, 0 days, 0 refills - Lidocaine Oint & Men-Meth Paulo 5 & 3-10% External Therapy Pack 0 days, 0 refills - Lisinopril 20 MG Oral Tablet TAKE 1 TABLET BY MOUTH DAILY, 90 days, 3 refills - Lisinopril 20 MG Oral Tablet TAKE 1 TABLET BY MOUTH DAILY, 90 days, 1 refills - Magnesium Oxide 400 MG Oral Tablet One tablet daily ordered by cardiioogist, 0 days, 0 refills - Melatonin 10 MG Oral Tablet One tablet at bed time 0 days, 0 refills - metFORMIN HCl 1000 MG Tablet One tablet twice a day 0 days, 0 refills - Multivitamins Capsule 1-2 every 4-6 hours as needed 30 days, 0 refills - Nitrostat 0.4 MG Sublingual Tablet Sublingual as directed ordered by proprietary trader, 0 days, 0 refills - OneTouch Ultra Blue Strip as directed #90 WITH 3 REFILLS, 30 days, Prescribe As Needed. - Ozempic (1 MG/DOSE) 2 MG/1.5ML Subcutaneous Solution Pen-injector as directed ordred by endo, 0 days, 0 refills - Pioglitazone HCl 15 MG Oral Tablet One tablet daily 0 days, 0 refills - Potassium 99 MG Oral Tablet One tablet daily 0 days, 0 refills - Propranolol HCl 20 MG Oral Tablet as directed 2 pills tid, 0 days, 0 refills - Tamsulosin HCl 0.4 MG Oral Capsule One tablet twice a day 0 days, 0 refills - tiZANidine HCl 4 MG Oral Tablet TAKE 1 TABLET BY MOUTH TWICE DAILY, 90 days, 0 refills - Vitamin D 50 MCG (1999 [place]) Oral Capsule 1 capsule daily 0 days, 0 refills Past Medical/Surgical History Reported: Recent Events: Pt does not get blood pressure checked at other facility. Tests: Home blood sugar check performed average 130 and home blood sugar check performed bs 126 this am. APPENDECTOMY ING HERNIA R NASAL SEPTAL DEVIATION REPAIR 2009 TONSILLECTOMY R ROTATOR CUFF 97, 12 R ELBOW 12 LAMINECTOMY L4-S1 10/2018. Procedural: - Complete colonoscopy 01/12/2018 Social History Social history unchanged. Tobacco use: Cigarette smoking: history 3 packs per day for 25 years and former smoker stopped smoking years ago 2002. Habits: Exercising erratically. Work: A previous job-related injury Had whiplash dx years ago. NO isues since. Allergies - Typhoid Vaccine Review Of Systems Systemic: No fever, no chills, and no recent weight change. Head: No headache. Otolaryngeal: No earache. Nasal discharge. No sore throat. Cardiovascular: No chest pain or discomfort. Pulmonary: No dyspnea. Cough. Gastrointestinal: No vomiting and no abdominal pain. Genitourinary: No dysuria. Musculoskeletal: As a chronic condition and joint stiffness as a chronic condition. Neurological: No dizziness and no fainting. Skin: No pruritus. Physical Findings - Vitals taken 03/25/2024 09:13 am BP-Sitting R 120/68 mmHg BP Cuff Size Regular Pulse Rate-Sitting 70 bpm Respiration Rate 18 per min Temp-Oral 97.8 F Height 73 in Weight 188 lbs Body Mass Index 24.8 kg/m2 Body Surface Area 2.1 m2 Oxygen Saturation 98 % General Appearance: - Well developed. - Well nourished. - In no acute distress. Neck: Suppleness: - Neck demonstrated no decrease in suppleness. Eyes: General/bilateral: Pupils: - PERRLA. Ears: General/bilateral: External Auditory Canal: - External auditory meatus normal. Tympanic Membrane: - Normal. Nose: General/bilateral: Discharge: - No nasal discharge. Pharynx: Oropharynx: - Abnormal post nasal drip, otherwise normal. - Tonsils showed no abnormalities. Lymph Nodes: - Cervical lymph nodes were enlarged. - Left cervical lymph nodes were enlarged. - Anterior cervical lymph nodes were enlarged. Lungs: - Normal breath sounds/voice sounds. - No wheezing was heard. - No rhonchi were heard. - No rales/crackles were heard. Cardiovascular: Heart Rate And Rhythm: - Normal. Murmurs: - No murmurs were heard. Psychiatric: Psychiatric: Value PHQ9 score: 2 Skin: - General appearance was normal. Assessment - Routine adult history and physical (18-64 yrs) with abnormal findings [Z00.01 - Encounter for general adult medical examination with abnormal findings] Secondary Dx of - Congestive heart failure [I50.9 - Heart failure, unspecified] - Benign essential hypertension [I10 - Essential (primary) hypertension] - Irritable bowel syndrome [K58.8 - Other irritable bowel syndrome] - Benign prostatic hypertrophy without urinary obstruction [N40.0 - Benign prostatic hyperplasia without lower urinary tract symptoms] - Male erectile dysfunction [N52.9 - Male erectile dysfunction, unspecified] - Hypercholesterolemia [E78.00 - Pure hypercholesterolemia, unspecified] - Type 2 diabetes mellitus - uncomplicated, controlled [E11.9 - Type 2 diabetes mellitus without complications] - Herniated lumbar disc [M51.26 - Other intervertebral disc displacement, lumbar region] - Dependence on nicotine in cigarettes in remission [F17.211 - Nicotine dependence, cigarettes, in remission] 3 PPD [id number] Previous Tests Past Medical: Tests: A colonoscopy was performed 01/12/2018. Test Conclusions Feeling tired or little energy. was three (3)=Nearly every day. Poor appetite or overeating was 0 (0)=Not at all and no Thoughts you would would be better off or self-harm. was 0 (0)=Not at all. Lost interest or pleasure in doing things was two (2)=More than half the days. Feels bad about self or that they are a failure. was 0 (0)=Not at all. Restless or fidgety was one (1)=Several days. No difficulty concentrating was 0 (0)=Not at all. No problem falling asleep, staying asleep or sleeping too much was 0 (0)=Not at all. Feeling down, depressed, or hopeless in the last 2 weeks? 0 pt (0)=Not at all. Activities of daily living are somewhat difficult for the patient due to the depression symptoms, in the last 2 weeks, as identified in the PHQ-9 questionnaire. Therapy - Clinical summary provided to patient. - Plan of care reviewed and agreed to. Vaccinations - Did not receive dose of influenza virus vaccine - Did not receive dose of pneumococcal vaccine Plan StartCited - Encounter for screening for malignant neoplasm of prostate Lab: *PSA SCREEN EndCited StartCited - Other PHY ORDER/COMMENT can you get PSA done through Dr Salazar office . I didnt see result in note EndCited - Return to the clinic if condition worsens or new symptoms arise - Disposition Continue follow up with specialists DOCTORS HE SEES: [facility] Practice Management Use of tobacco assessment performed Review of medications documented; Standardized depression screening: negative for symptoms, positive for symptoms, for adult impression and score eight, impression and score two, and impression and score 0; No influenza immunization patient refused. Health Reminders - Assess Blood Pressure satisfied 03/25/2024. - Assess BMI satisfied 03/25/2024. - Assess Need for CT Lung Screen satisfied 03/25/2024. - Assess Tobacco Use satisfied 03/25/2024. - Blood Pressure Measurement satisfied 03/25/2024. - Colorectal Cancer Screening satisfied 01/12/2018. - Depression Screening satisfied 03/25/2024. - Flu Shot satisfied 03/25/2024. - Follow up plan for Depression Screening satisfied 03/25/2024. - Foot Exam satisfied 03/25/2024. gamal - Hemoglobin A1c satisfied 03/25/2024. - Lipid Panel--Annual satisfied 03/25/2024. - Smoking & Tobacco Cessation Intervention and Counseling satisfied 03/25/2024.
--- OUTSIDE RECORDS SUMMARY | 2025-02-24 13:46 | XMS_ITS ---
Author Organization [facility] Address [address] [place] [address] Care Team Providers Care Academic Specialist Name Role Phone Trever Bose Primary Care Provider Dr. Carlitos Ruth Unavailable [phone] Elizabet Schaeffer Unavailable [phone] REASON FOR VISIT Refills Medications Medication SIG (Take, Route, Frequency, Duration) Notes Start Date End Date Status Qulipta 60 MG 1 tablet Orally Once a day for 30 days 02/06/2025 Active Encounters Encounter Location Date Provider Diagnosis [facility] [address] [place] [address] 02/06/2025 Elizabet Schaeffer Plan Of Treatment Medication Medication Name Sig Start Date Stop Date Notes Qulipta 60 MG 1 tablet Orally Once a day for 30 days 02/06 Next Appt Details Provider Name:Elizabet eduardo, 05/29/2025 09:00:00 AM, [address], [address], Provider Name:Mi vicente, 05/29/2025 10:15:00 AM, [address], [address], Progress Notes * Michael FRANCO ADOB:[birth year] (59 yo M)Acc No.[id number]:02/06/2025 Patient: Michael GIFFORD :1965 A ge:59 Y S ex:Male Address:[address] [place] [id number] * Refills Start Qulipta Tablet, 60 MG, Orally, 30, 1 tablet, Once a day, 30 days, Refills=5 * true * Date: Generated for Cherrie le/Sudeep/Teaganitting on: 0 02/24/2025 01:46 PM CDT
--- OUTSIDE RECORDS SUMMARY | 2025-02-24 13:46 | XMS_ITS ---
Author Organization [facility] Address [address] [place] [address] Care Team Providers Care Jewelry Sales Associate Name Role Phone Trever Bose Primary Care Provider Dr. Carlitos [facility] [phone] REASON FOR VISIT Message Encounters Encounter Location Date Provider Diagnosis [facility] [address] [place] [address] 11/21/2024 Carlitos Canales Plan Of Treatment Next Appt Details Provider Name:Elizabet eduardo, 05/29/2025 09:00:00 AM, [address], [place], [address], Provider Name:Mi vicente, 05/29/2025 10:15:00 AM, [address], [place], [address], Progress Notes * Michael FRANCO ADOB:[birth year] (59 yo M)Acc No.[id number]:11/21/2024 Patient: Michael GIFFORD :1965 A ge:59 Y S ex:Male Address:[address], [place], [place] Subjective: * Chief Complaints: * M essage * Medical History: * Surgical History: * Hospitalization/Major Diagno stic Procedure: * Medications: Objective: * Vitals: * Physical Examination: Assessment: Plan: * Treatment: * Procedure Codes: * true * Date: Generated for Cherrie Laurent/Urban on: 0 02/24/2025 01:46 PM CDT
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
--- OUTSIDE RECORDS SUMMARY | 2025-02-24 13:47 | XMS_ITS | Referral Summary ---
Author Organization [facility] Medical Office Building B Address [address] [place] [id number] Care Team Providers Care Pad Hand Name Role Phone Trever Bose MD Primary Care Provider [phone] Denise West MD Unavailable [phone] Tejal Masterson MD Unavailable [phone] Nina Vale MD Unavailable [phone] Carlitos Canales MD Unavailable [phone] Carlitos Canales MD Unavailable [phone] Encounters Date Type Department Care Team Description 01/17/2025 2:00 PM EMPLOYEE OPERATIONS EXAMINER Procedure visit [facility] at [address] [place] [address] Keyla Yang Au.D. Tinnitus, bilateral (Primary Dx); Tinnitus of both ears 01/17/2025 Telephone [facility] Gastroenterology at [address] [place] [address] Freida Buitrago Prep Instructions 01/17/2025 1:30 PM EMPLOYEE OPERATIONS EXAMINER Office Visit [facility] - [address] [place] [address] Delmy Dodge, DO Keratin cyst (Primary Dx); Tinnitus of both ears 01/15/2025 Results Follow-Up [facility] - [address] [place] [address] Delmy Dodge, 01/14/2025 Results Follow-Up [facility] - [address] [place] [address] Delmy Dodge, DO 01/13/2025 12:47 PM EMPLOYEE OPERATIONS EXAMINER - 01/13/2025 11:59 PM EMPLOYEE OPERATIONS EXAMINER Hospital Encounter [facility] Radiology [address] [place] [address] Chronic sinusitis, unspecified location Discharge Disposition: Discharge to home or self care 01/08/2025 3:15 PM EMPLOYEE OPERATIONS EXAMINER - 01/08/2025 11:59 PM EMPLOYEE OPERATIONS EXAMINER Hospital Encounter [facility] [address] [place] [address] Mass of floor of mouth Discharge Disposition: Discharge to home or self care 01/08/2025 Orders Only [facility] [address] [facility] Medical Office Building [address], [address] [place] [phone] Delmy Franklin, [facility] Type 2 diabetes mellitus with diabetic polyneuropathy, without long-term current use of insulin (HCC) 01/08/2025 3:00 PM EMPLOYEE OPERATIONS EXAMINER Procedure visit [facility] - [address] [place] [address] Delmy Dodge, Mass of floor of mouth (Primary Dx) 12/25/2024 1:45 PM EMPLOYEE OPERATIONS EXAMINER Office Visit [facility] at [address] [place] [phone] Marisel Xavier MD Chest pain, unspecified type (Primary Dx); Mixed hyperlipidemia; Benign essential hypertension; Type 2 diabetes mellitus with diabetic polyneuropathy, without long-term current use of insulin (HCC) 12/12/2024 7:56 AM EMPLOYEE OPERATIONS EXAMINER - 12/12/2024 11:59 PM EMPLOYEE OPERATIONS EXAMINER Hospital Encounter [facility] [address] [place] [address] Discharge Disposition: Discharge to home or self care 12/12/2024 6:57 AM EMPLOYEE OPERATIONS EXAMINER - 12/12/2024 11:59 PM EMPLOYEE OPERATIONS EXAMINER Hospital Encounter [facility] Cardiology 1 [place] [address] Chest pain, unspecified type Discharge Disposition: Discharge to home or self care 12/12/2024 6:57 AM EMPLOYEE OPERATIONS EXAMINER - 12/12/2024 11:59 PM EMPLOYEE OPERATIONS EXAMINER Hospital Encounter [address] [address] Discharge Disposition: Discharge to home or self care 12/12/2024 6:57 AM EMPLOYEE OPERATIONS EXAMINER - 12/12/2024 11:59 PM EMPLOYEE OPERATIONS EXAMINER Hospital Encounter [address] [address] Chest pain, unspecified type Discharge Disposition: Discharge to home or self care 12/12/2024 6:57 AM EMPLOYEE OPERATIONS EXAMINER - 12/12/2024 11:59 PM EMPLOYEE OPERATIONS EXAMINER Hospital Encounter [facility] Cardiology [address] [place] [address] Chest pain, unspecified type Discharge Disposition: Discharge to home or self care 12/11/2024 9:45 AM EMPLOYEE OPERATIONS EXAMINER Office Visit [facility] - [facility] [address] [facility] [address] [place] [address] Delmy Dodge DO Chronic sinusitis, unspecified location (Primary Dx); Mass of floor of mouth from Last 3 Months Allergies Active Allergy Reactions Criticality Noted Date Comments Alpha Lipoic Acid Stomach upset Low 11/25/2011 Typhoid Vaccine Hives Medium 10/08/2009 Typhoid Vaccines Rash High 10/08/2009 Medications amitriptyline (ELAVIL) 50 mg tablet TAKE 1 TABLET AT BEDTIME. 10/08/20 Active magnesium oxide (MAG-OX) 400 mg (241.3 mg elemental magnesium) tabletIndications: hypomagnesemia,200 mg daily daily Active multivitamin tabletIndications: Vitamin Deficiency Prevention daily. 10/08/20 Active potassium gluconate 600 mg (99 mg) tablet daily. 10/08/20 Active cholecalciferol (VITAMIN D-3) 2,000 unit capsule daily. A ctive tiZANidine (ZANAFLEX) 4 mg tablet as needed 10/08/20 09 Active melatonin 10 mg tablet Take 1 tablet (10 mg total) by mouth nightly Active lancets (OneTouch Delica Lancets) 30 gauge [facility] Use Delica lancet to test blood sugars 4 x a day 400 each 3 07/28/20 21 Active lidocaine (XYLOCAINE) 5 % ointment APPLY TOPICALLY TO THE AFFECTED AREA THREE TIMES DAILY FOR 14 DAYS 03/30/20 22 Active nitroglycerin (NITROSTAT) 0.4 mg SL tablet 04/22/20 22 Active magnesium gluconate (MAGONATE) 500 mg (27 mg elemental) tablet Take 1 tablet (500 mg total) by mouth daily 05/30/20 22 Active gabapentin (NEURONTIN) 300 mg capsule 01/29/20 24 Active multivitamin with iron tablet Take 1 tablet by mouth daily Active DULoxetine DR (CYMBALTA) 30 mg capsule 01/23/20 24 Active HYDROcodone-acetam inophen (NORCO) 10-325 mg per tablet 01/23/20 24 Active tamsulosin (FLOMAX) 0.4 mg extended release capsule 03/06/20 24 Active dapagliflozin propanediol (Farxiga) 10 mg tabletIndications: Type 2 diabetes mellitus with diabetic polyneuropathy, without long-term current use of insulin (HCC) Take 1 tablet (10 mg total) by mouth daily 90 tablet 08/27/20 24 Active Nurtec ODT tablet,disintegrat ing 08/29/20 24 Active albuterol HFA (PROVENTIL HFA,VENTOLIN HFA,PROAIR HFA) 90 mcg/actuation inhaler 09/13/20 24 Active blood-glucose meter [facility] One Touch Verio IQ meter Use as directed 1 each 1 09/17/20 24 Active blood glucose diagnostic (OneTouch Verio test strips) strip CHECK BLOOD SUGAR 2 TIMES DAILY 200 strip 1 09/17/20 24 Active pioglitazone (ACTOS) 15 mg tabletIndications: type 2 diabetes mellitus Take 1 tablet (15 mg total) by mouth daily 90 tablet 3 09/27/20 24 025 Active metFORMIN (GLUCOPHAGE) 1,000 mg tabletIndications: Type 2 diabetes mellitus with diabetic polyneuropathy, without long-term current use of insulin (HCC) Take 1 tablet (1,000 mg total) by mouth 2 (two) times a day with meals 180 tablet 3 11/08/20 24 025 Active propranolol LA (INDERAL LA) 160 mg 24 hr capsule Take 1 capsule (160 mg total) by mouth daily Active budesonide-glycopy r-formoterol (Breztri Aerosphere) 160-9-4.8 mcg/actuation inhaler Inhale 2 puffs 2 (two) times a day Active semaglutide (OZEMPIC) 1 mg/dose (4 mg/3 mL) pen injector injectionIndicatio ns:type 2 diabetes mellitus Inject 1 mg under the skin every 7 days 9 mL 01/08/20 25 Active atorvastatin (LIPITOR) 40 mg tabletIndications: Type 2 diabetes mellitus with diabetic polyneuropathy, without long-term current use of insulin ([facility]),Mixed hyperlipidemia TAKE 1 TABLET BY MOUTH DAILY 90 tablet 3 02/10/20 25 Active atorvastatin (LIPITOR) 40 mg tabletIndications: Type 2 diabetes mellitus with diabetic polyneuropathy, without long-term current use of insulin ([facility]),Mixed hyperlipidemia TAKE 1 TABLET BY MOUTH DAILY 90 tablet 3 01/18/20 24 025 Discontin ued(Reord er) Active Problems Problem Noted Date Diagnosed Date Keratin cyst 01/17/2025 Assessment & Plan (01/17/2025 1:38 PM EMPLOYEE OPERATIONS EXAMINER): Continue increased fluid intake, continue twice daily mouth rinse and spits Tinnitus of both ears 01/17/2025 Assessment & Plan (01/19/2025 5:11 PM EMPLOYEE OPERATIONS EXAMINER): Hearing normal today, consider inflammation from other sources Chronic sinusitis 12/11/2024 Assessment & Plan (12/12/2024 7:44 AM EMPLOYEE OPERATIONS EXAMINER): Seeing Pulmonary prior to Allergy testing Will obtain allergy testing Avoid antihistamines until after skin testing CT Sinus Mass of floor of mouth 12/11/2024 Assessment & Plan (01/08/2025 3:08 PM EMPLOYEE OPERATIONS EXAMINER): Excision of tongue mass Risks and complications: Anesthesia, bleeding, infection, benign versus malignant pathology, recurrence of lesion, injury to arteries, nerves and veins, scarring and need for further treatment Extra fluids Avoid acidic foods and fluids for three days Tylenol or Ibuprofen for pain Assessment & Plan (12/12/2024 7:44 AM EMPLOYEE OPERATIONS EXAMINER): Excision in Office of Right floor of mouth mass Risks and complications: Anesthesia, bleeding, infection, benign versus malignant pathology, recurrence of lesion, injury to arteries, nerves and veins, scarring and need for further treatment Encounter for screening colonoscopy 09/25/2024 History of colonic polyps 09/25/2024 Hypomagnesemia 03/17/2023 Assessment & Plan (03/17/2023 7:42 AM CDT): -Continue OTC supplementation -Repeat Magnesium level Has immunity to COVID-19 virus 02/14/2022 Overview (06/08/2022): Moderna vaccine x 2; COVID infection November 2021 Assessment & Plan (08/29/2022 3:29 PM CDT): Fully vaccinated, eligible for booster. Planning to get it follow cardiology clearance in 11/2022. Assessment & Plan (06/08/2022 1:50 PM CDT): Fully vaccinated, COVID infection November 2021; eligible for booster. Assessment & Plan (02/14/2022 2:34 PM CDT): Vaccinated; COVID Nov 2021 - treated with infusion Personal history of COVID-19 02/14/2022 Overview (02/14/2022): Nov 2021 - treated with infusion Assessment & Plan (02/16/2022 9:46 AM CDT): Mildly symptomatic about 2 months ago. No apparent long-term affect on his glycemic control Leg cramps 05/22/2018 Assessment & Plan (05/24/2018 8:38 AM CDT): Possibly related to diabetes, but need to look at other metabolic factors Herniated lumbar intervertebral disc 06/01/2017 Overview (09/11/2020): Note: Unchanged Congestive heart failure 06/01/2017 Overview (09/11/2020): Note: Unchanged Cardiomyopathy 06/01/2017 Overview (09/11/2020): Note: Unchanged Assessment & Plan (08/29/2022 3:39 PM CDT): Continue to optimize glycemic control. Assessment & Plan (02/16/2022 9:40 AM CDT): Need optimal glycemic control, minimize risk of hypoglycemia. Benign prostatic hyperplasia without urinary obs truction 06/01/2017 Overview (09/11/2020): Note: Unchanged Shortness of breath 04/28/2015 Type 2 diabetes mellitus wit h diabetic polyneuropathy, without long-term current use of insulin 12/02/2013 Assessment & Plan (09/22/2024 8:26 PM EMPLOYEE OPERATIONS EXAMINER): Overall range seems a little high, and not testing very often. Needs f/u labs. Assessment & Plan (03/15/2024 8:43 PM CDT): Overall range seems appropriate, but needs f/u labs. Assessment & Plan (09/14/2023 1:22 PM CDT): -Currently taking oral agents and Trulicity -A1C on 09/14/23 was 7.9% -Will change Trulicity to Ozempic 1 mg weekly. Will follow with his response. -Discussed diet and activity modifications. -Advised to call with any concerns/complaints regarding glucose readings -Eye exam is up to date Assessment & Plan (03/17/2023 7:41 AM CDT): -Currently taking oral agents and Trulicity -A1C on 03/16/23 was 7.1% -Will continue same medication regimen for now -Discussed diet and activity modifications. -Advised to call with any concerns/complaints regarding glucose readings -Eye exam is up to date Assessment & Plan (08/29/2022 3:42 PM CDT): BGL & recent A1c well-controlled (6.8% on 07/06/2022) on metformin 1000 mg BID, Farxiga 10 mg, Trulicity 3 mg Q1W, & pioglitazone 15 mg. - Normal foot exam today - Cont current DM medication regimen - Refilled metformin - Due for DM eye exam Assessment & Plan (06/08/2022 1:49 PM CDT): Glucoses within a reasonable margin of safety. Need results of his labs from other doctors Assessment & Plan (02/16/2022 9:45 AM CDT): Glucoses slightly suboptimal, and he would benefit from increasing Trulicity. He also needs to check his sugars more often Assessment & Plan (03/31/2021 10:25 AM CDT): Glucoses within a reasonable margin of safety, but needs better diet and exercise. Also due for follow-up labs and due to see his PCP next week Assessment & Plan (09/11/2020 3:16 PM CDT): Clinically stable, doing well. Assessment & Plan (03/04/2020 9:37 AM CDT): He has cramps, potential side effects from his medications so needs some medication adjustments at this time. He can then keep me posted as to his glycemic control Assessment & Plan (10/02/2019 11:25 AM EMPLOYEE OPERATIONS EXAMINER): The patient has type 2 diabetes, currently using oral agents and Trulicity for his diabetes management. A1c at today's visit of October 02, 2019 was 7.3%. He misplaced his glucometer and states he has not been watching his diet. He states he has been feeling so good that he occasionally misses taking his Trulicity. Recommend that he resume taking all diabetes medications on a consistent basis. New prescription was sent for test strips and glucometer was given. He will start limiting the carbohydrates in his diet. Order was given for fasting lab work. He will follow- up in 3 months. Flu shot to be given today. Assessment & Plan (03/05/2019 12:35 PM CDT): The patient has type 2 diabetes, currently using oral agents along with Trulicity for his diabetes management. He has recovered well from back surgery in October, and is now able to be more active. His hemoglobin A1c at today's visit of March 05, 2019 is 6.9%. His home glucose readings are stable. At this time recommend that he continue the same medications. His eye exam is up-to-date. Routine labs are all up-to-date, therefore no labs were ordered at today's visit. He will return for scheduled follow-up with Dr. West in May 2019. Assessment & Plan (12/04/2018 12:27 PM EMPLOYEE OPERATIONS EXAMINER): A1C at today's visit on 12/04/18 was 6.9%. He had back surgery in October and has had difficulty maintaining his diet during this time and has been rather sedentary. He will be starting physical therapy next week, and will be getting more active. He states this in turn will help his diet. Will continue same medications at this time, as I anticipate that his lifestyle changes will lower blood sugars further. Neuropathic symptoms have markedly improved since his back surgery, and his gabapentin is being tapered off. Will follow up with myself and Dr. West in 3 months and 6 months, depending on availability of appointments. Assessment & Plan (05/24/2018 8:34 AM CDT): Within a reasonable level of control Vitamin D deficiency 05/30/2012 Assessment & Plan (09/22/2024 8:27 PM EMPLOYEE OPERATIONS EXAMINER): Continue long-term supplement and recheck level. Assessment & Plan (03/15/2024 8:42 PM CDT): Continue long-term supplement and recheck level. Assessment & Plan (08/29/2022 3:39 PM CDT): Continue long-term supplement Assessment & Plan (06/08/2022 1:48 PM CDT): Continue long-term supplement Assessment & Plan (02/16/2022 9:41 AM CDT): Continue long-term supplement Assessment & Plan (03/31/2021 10:24 AM CDT): Continue chronic supplement and recheck level Assessment & Plan (09/11/2020 3:16 PM CDT): Continue long-term daily supplement Assessment & Plan (03/04/2020 9:37 AM CDT): Continue supplement Assessment & Plan (03/05/2019 12:35 PM CDT): Continue vitamin-D supplement. Assessment & Plan (05/24/2018 8:38 AM CDT): Continue supplement, but also need to check levels Peripheral nerve disease 02/08/2010 ED (erectile dysfunction) of organic origin 09/20 Mixed hyperlipidemia 10/08/2009 Assessment & Plan (09/22/2024 8:25 PM EMPLOYEE OPERATIONS EXAMINER): Continue statin, optimize glycemic control. Check levels. Assessment & Plan (03/15/2024 8:43 PM CDT): Continue statin, optimize glycemic control. Check levels. Assessment & Plan (09/12/2023 9:17 AM CDT): -Last lipid panel: TC 152, trig 69, HDL 48, LDL 90 on 03/17/23 -Continue same medical management Assessment & Plan (03/15/2023 10:55 AM CDT): -Continue same medical management Assessment & Plan (08/29/2022 3:41 PM CDT): Continue statin, optimize glycemic control. Check results of labs from his other doctors Assessment & Plan (06/08/2022 1:49 PM CDT): Continue statin, optimize glycemic control. Check results of labs from his other doctors Assessment & Plan (02/16/2022 9:40 AM CDT): Continue statin, optimize glycemic control Assessment & Plan (03/31/2021 10:24 AM CDT): Continue statin, optimize glycemic control Assessment & Plan (09/11/2020 3:15 PM CDT): Continue statin, diet and exercise. Assessment & Plan (03/04/2020 9:36 AM CDT): Continue statin, optimize glycemic control Assessment & Plan (10/02/2019 11:25 AM EMPLOYEE OPERATIONS EXAMINER): Continue atorvastatin. Tolerating without side effects. Assessment & Plan (03/04/2019 9:07 AM CDT): Continue statin. Tolerating without side effects. Assessment & Plan (11/28/2018 3:59 PM EMPLOYEE OPERATIONS EXAMINER): Last lipid panel on May 22, 2018 showed a total cholesterol of 164, triglycerides 198, HDL 41, LDL 83. Continue atorvastatin 20 mg nightly. Benign essential hypertension 10/08/2009 Assessment & Plan (09/14/2023 1:21 PM CDT): -BP today is 118/78 -Will continue same antihypertensive medications at this time. Assessment & Plan (03/17/2023 7:41 AM CDT): -BP today is 147/82 -Will continue same antihypertensive medications at this time. Assessment & Plan (10/02/2019 11:25 AM EMPLOYEE OPERATIONS EXAMINER): Blood pressure 141/89 today. Continue same medications. Continue to monitor. Assessment & Plan (03/04/2019 9:07 AM CDT): BP stable. Continue same medications. Assessment & Plan (11/28/2018 3:59 PM EMPLOYEE OPERATIONS EXAMINER): Blood pressure is currently stable. Continue same medications. Assessment & Plan (05/24/2018 8:37 AM CDT): Within target, on lisinopril Irritable bowel syndrome 10/08/2009 Spinal stenosis of lumbar re gion without neurogenic claudication 10/08/2009 Type 2 diabetes mellitus with diabetic dermatiti s 10/08/2009 Immunizations Immunization Administration Dates Next Due DTP 10/20/1968, 5,1963,11/20 Influenza, Quadrivalent, Leilani l Culture-based MDCK, Preservative Free, Antibiotic Free, Intramuscular 10/02/2019 Influenza, Trivalent, Preser vative Free, Intramuscular 10/21/2008 MMR 07/28/1992 Measles 01/23/1981,01/04/1965 Td, adsorbed 05/08/2008,05/31/1992,05/29/1982 Social History Tobacco Use Types Packs/Day Years Used Date Smoking Tobacco: Former Smokeless Tobacco: Never Tobacco Cessation:Counseling Given: No Sex and Gender Information Value Date Recorded Sex Assigned at Not on file Legal Sex Male 7:34 AM EMPLOYEE OPERATIONS EXAMINER Gender Identity Male 07/03/2023 9:10 AM CDT Sexual Orientation Not on file 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 file Not on file Not on file Last Filed Vital Signs Vital Sign Reading Time Taken Comments Blood Pressure 121/83 12/25/2024 1:33 PM EMPLOYEE OPERATIONS EXAMINER Pulse 71 12/25/2024 1:33 PM EMPLOYEE OPERATIONS EXAMINER Temperature 36.8 C (98.2 F) 09/14/2023 1:02 PM CDT Respiratory Rate 18 12/11/2024 9:46 AM EMPLOYEE OPERATIONS EXAMINER Oxygen Saturation 97% 12/11/2024 9:46 AM EMPLOYEE OPERATIONS EXAMINER Inhaled Oxygen Concentration - - Weight 91.6 kg (202 lb) 01/08/2025 2:46 PM EMPLOYEE OPERATIONS EXAMINER Height 182.9 cm (6' 0.01 ) 01/08/2025 2:46 PM CS T Body Mass Index 27.39 01/08/2025 2:46 PM EMPLOYEE OPERATIONS EXAMINER Plan of Treatment Upcoming Encounters Date Type Department Care Team (Late st Contact Info) Description 02/27/2025 7:30 AM CDT Hospital Encounter [facility] [address] [place] [address] Kailash Jones, [address] [place] [address] 02/27/2025 7:30 AM CDT - 02/27/2025 8:00 AM CDT Surgery [facility] [address] [place] [address] Kailash Jones DO [address] [place] [address] COLONOSCOPY Scheduled Procedures Name Priority Associated Diagnoses Date/Ti me COLONOSCOPY Encounter for screening colonoscopy History of colonic polyps 02/27/2025 7:30 AM CDT Procedures Procedure Name Priority Date/Time Associated Diagnosis Comments AUDIOGRAM Routine 01/17/2025 2:00 PM EMPLOYEE OPERATIONS EXAMINER Tinnitus, bilateral CT SINUS STEALTH WO CONTRAST Schedule Routine, Read Routine (OP Routine) 01/13/2025 1:06 PM EMPLOYEE OPERATIONS EXAMINER Chronic sinusitis, unspecified location SURGICAL PATHOLOGY Routine 01/08/2025 9: 20 AM EMPLOYEE OPERATIONS EXAMINER Mass of floor of mouth STRESS TEST FOR DUAL READ Schedule Routine, Read Routine (OP Routine) 12/12/2024 11:12 AM EMPLOYEE OPERATIONS EXAMINER Chest pain, unspecified type NM MPI SPECT (REST AND/OR STRESS) MULTIPLE STUDIES Schedule Routine, Read Routine (OP Routine) 12/12/2024 11:12 AM EMPLOYEE OPERATIONS EXAMINER Chest pain, unspecified type TRANSTHORACIC ECHO (TTE) COMPLETE W DOPPLER/CF WO CONTRAST Routine 12/12/2024 8:03 AM EMPLOYEE OPERATIONS EXAMINER Chest pain, unspecified type POCT HEMOGLOBIN A1C Routine 09/14/2023 1 :08 PM CDT Type 2 diabetes mellitus with diabetic polyneuropathy, without long-term current use of insulin (HCC) LIPID PANEL Routine 05/22/2018 11:03 AM CDT Type 2 diabetes mellitus with diabetic neuropathy, without long-term current use of insulin (HCC) Mixed hyperlipidemia ALBUMIN CREATININE RATIO, URINE Routine 05/22/2018 11:03 AM CDT Type 2 diabetes mellitus with diabetic neuropathy, without long-term current use of insulin (HCC) from Last 3 Months or Most Recently Relevant to Health Maintenance Results * AUDIOGRAM (01/17/2025 2:00 PM EMPLOYEE OPERATIONS EXAMINER) Narrative Keyla Yang Au.D. - 01/17/2025 2:00 PM EMPLOYEE OPERATIONS EXAMINER Keyla Yang Au.D. 01/17/2025 2:46 PM Audiogram Performed by: Keyla Yang Au.D. Authorized by: Delmy Dodge DO Delmy Dodge DO AUDIOLOGY SERVICES ORDERABLE S Final Result * CT Sinus Stealth WO Contrast (01/13/2025 1:06 PM EMPLOYEE OPERATIONS EXAMINER) Anatomical Region Laterality Modality Head N/A Computed Tomogra phy 01/13/2025 8:38 PM EMPLOYEE OPERATIONS EXAMINER Impressions 01/13/2025 8:38 PM EMPLOYEE OPERATIONS EXAMINER Mucosal thickening and mucus retention cysts seen in the right maxillary antrum. The remainder of the paranasal sinuses are normally aerated. Electronically signed by: Mariama Palomino M.D. Narrative 01/13/2025 8:38 PM EMPLOYEE OPERATIONS EXAMINER EXAMINATION: CT SINUS STEALTH WO CONTRAST HISTORY: The patient is a 59-year-old male who presents with chronic sinusitis. TECHNIQUE: Axial images were obtained through the paranasal sinuses with thin sections and viewed both in soft tissue and bone window settings. Following this, coronal and sagittal reconstructions were performed. FINDINGS: Axial images through the paranasal sinuses reveals a 13 mm sized mucus retention cyst in the right maxillary antrum with the left maxillary antrum, ethmoid air cells, sphenoid and frontal sinuses being normally aerated. No air-fluid levels seen. Images obtained in the coronal and sagittal planes reveals the ostiomeatal complexes bilaterally to be patent. Nasal septum midline in position. No swelling of the nasal turbinates. Procedure Note Mariama Palomino MD - 01/13/2025 EXAMINATION: CT SINUS STEALTH WO CONTRAST HISTORY: The patient is a 59-year-old male who presents with chronic sinusitis. TECHNIQUE: Axial images were obtained through the paranasal sinuses with thin sections and viewed both in soft tissue and bone window settings. Following this, coronal and sagittal reconstructions were performed. FINDINGS: Axial images through the paranasal sinuses reveals a 13 mm sized mucus retention cyst in the right maxillary antrum with the left maxillary antrum, ethmoid air cells, sphenoid and frontal sinuses being normally aerated. No air-fluid levels seen. Images obtained in the coronal and sagittal planes reveals the ostiomeatal complexes bilaterally to be patent. Nasal septum midline in position. No swelling of the nasal turbinates. IMPRESSION: Mucosal thickening and mucus retention cysts seen in the right maxillary antrum. The remainder of the paranasal sinuses are normally aerated. Electronically signed by: Mariama Palomino M.D. Delmy Dodge DO IM CT PROCEDURES Final Resu lt * Surgical pathology (01/08/2025 9:20 AM EMPLOYEE OPERATIONS EXAMINER) Tissue specimen (specimen) (Skin - Cyst / Tag / Debridement) 01/08/2025 9:20 AM EMPLOYEE OPERATIONS EXAMINER 01/10/2025 9:20 AM EMPLOYEE OPERATIONS EXAMINER Narrative PATHOLOGY CH - 01/13/2025 9:33 AM EMPLOYEE OPERATIONS EXAMINER EPIC results best viewed via link to PDF [facility] Department of Pathology [address] [place] [address] Note to Patients: This report may contain a detailed description of human tissue sent by a health care provider to the laboratory for pathologic evaluation. The content of this report is essential for diagnosis and may provide important critical findings. This information may be unfamiliar to patients to review without a medical professional present. It is advised that the patient review this report in the presence of a health care provider who can answer questions and explain the details. Final Report Patient Name: MICHAEL PEARSON [address]: [address] [place] [id number] Gender: M : 1965 (Age: 59) Service: Location: [facility] #: [id number] Patient Type: SPECIMEN Taken: 01/08/2025 Received: 01/10/2025 Accessioned: 01/10/2025 Reported: 01/13/2025 Physician(s):DELMY DODGE D.O. Diagnosis: Lesion, right floor of the mouth, biopsy: - Features suggestive of keratenous cyst Mohsen Whitfield M.D. Report Electronically Reviewed and Signed Out By Mohsen Whitfield M.D. 01/13/2025 09:33:22 Specimen(s) Received: A: Right floor of mouth Microscopic Description: Microscopic examination substantiates the above diagnosis. Clinical History: Lesin of floor of mouth Procedure: skin excision Gross Description: The specimen is submitted in a single formalin filled container labeled MICHAEL PEARSON and right floor of mouth mass . It is an intact cystic nodule measuring 3 mm. All in one cassette. Isaias Ferrara R.N., P.A./Carlitos Ivy M.D. REPORT IMAGES AND SCANNED DOCUMENTS, IF INCLUDED, ONLY VIEWABLE IN PDF VERSION OF REPORT The performance characteristics of some immunohistochemical stains, fluorescence in-situ hybridization tests and immunophenotyping by flow cytometry cited in this report (if any) were determined by the Surgical Pathology Department at [facility] as part of an ongoing water quality technician program and in compliance with federally mandated regulations drawn from the Clinical Laboratory Improvement Act of 1988 (CLIA '88). Some of these tests rely on the use of analyte specific reagents and are subject to specific labeling requirements by the US Food and Drug Administration. Such diagnostic tests may only be performed in a facility that is certified by the Department of Health and Human Services as a high complexity laboratory under CLIA '88. The FDA has determined that such clearance or approval is not necessary. This test is used for clinical purposes. It should not be regarded as investigational or for research. Nevertheless, federal rules concerning the medical use of analyte specific reagents require that the following disclaimer be attached to the report: This test was developed and its performance characteristics determined by the Surgical Pathology Department [facility]. It has not been cleared or approved by the U. S. Food and Drug Administration. Note for decalcified specimens: This assay has not been validated on decalcified tissues. Results should be interpreted with caution given the possibility of false negativity on decalcified specimens us Delmy Dodge DO LAB PATHOLOGY ORDERABLES Fin al Result PATHOLOGY [address] [place] [address] * NM MPI SPECT (Rest and/or Stress) Multiple Studies (12/12/2024 11:12 AM EMPLOYEE OPERATIONS EXAMINER) LV EF % CONS SCIMAGE Anatomical Region Laterality Modality Body N/A Nuclear Medicine 12/12/2024 7:28 AM EMPLOYEE OPERATIONS EXAMINER Narrative 12/14/2024 11:37 AM EMPLOYEE OPERATIONS EXAMINER [address] [address] [employer] Report Patient Name: MICHAEL PEARSON A : 1965 Study Date: 2024-12-12 7:28:26 AM Gender: M Tech: Ref Provider: MARISEL XAVIER Height(Cm): BSA: Weight(Kg): Order Provider: MARISEL XAVIER - PROCEDURES: Pharmacologic SPECT Report.: Myocardial perfusion imaging with Sestamibi SPECT at rest and post regadenoson (Lexiscan) infusion. INDICATIONS: R07.9 Chest pain, unspecified. FINDINGS: Perfusion: Normal perfusion imaging. LV Function: Global left ventricular function is normal. Left ventricular ejection fraction is 63 %. CONCLUSIONS: 1. Myocardial Perfusion: Normal rest and stress images. 2. Left ventricle: Normal size and systolic function (visually confirmed EF >50%). Electronically Signed By: Alfa Spencer MD, [facility] 2024-12-14 11:36:48 AM EMPLOYEE OPERATIONS EXAMINER Procedure Note Alfa Spencer MD - 12/14/[address] [place] [address] [employer] Report Patient Name: MICHAEL PEARSON A : 1965 Study Date: 2024-12-12 7:28:26 AM Gender: M Tech: Ref Provider: MARISEL XAVIER Height(Cm): BSA: Weight(Kg): Order Provider: MARISEL XAVIER - PROCEDURES: Pharmacologic SPECT Report.: Myocardial perfusion imaging with Sestamibi SPECT at rest and postregadenoson (Lexiscan) infusion. INDICATIONS: R07.9 Chest pain, unspecified. FINDINGS: Perfusion: Normal perfusion imaging. LV Function: Global left ventricular function is normal. Left ventricular ejectionfraction is 63 %. CONCLUSIONS: 1. Myocardial Perfusion: Normal rest and stress images. 2. Left ventricle: Normal size and systolic function (visually confirmedEF >50%). Electronically Signed By: Alfa Spencer MD, [facility] 2024-12-14 11:36:48 AM EMPLOYEE OPERATIONS EXAMINER Marisel Xavier MD [facility] PROCEDURES Final Re sult * Stress Test for Myocardial Perfusion (12/12/2024 11:12 AM EMPLOYEE OPERATIONS EXAMINER) LV EF % CONS SCIMAGE Anatomical Region Laterality Modality Nuclear Medicine 12/12/2024 9:15 AM EMPLOYEE OPERATIONS EXAMINER Narrative 12/12/2024 4:19 PM EMPLOYEE OPERATIONS EXAMINER [address] [place] [address] Lexiscan Report Patient Name: MICHAEL PEARSON A : 1965 Study Date: 12/12/2024 9:15:00 AM Gender: M Tech: jkh Ref Provider: MORENITA MARISEL Height(Cm): 183 BSA: 3.19 Weight(Kg): 200 Heart Rate: 135 Order Provider: MORENITA MARISEL PROCEDURES: Pharmacologic SPECT Report.: Myocardial perfusion imaging with Sestamibi SPECT at rest and post regadenoson (Lexiscan) infusion. INDICATIONS: Chest Pain and R07.9 Chest pain, unspecified. FINDINGS: Procedure Data: Resting HR 70 bpm Peak HR: 97 bpm Predicted Maximal HR 159 bpm Target HR: 135 bpm Percent Max Predicted HR Achieved: 61.01 % Baseline BP: 161/75 mmHg Peak BP: 132/70 mmHg Exercise Time: 00:11 Performed By: Kimberli carlson rn. Supervising Physician: The Supervising Physician is bertha howe. Reason for Termination: Lexiscan protocol complete. Resting ECG: Normal sinus rhythm at 67 beats per minute, normal axis. Post Pharm ECG: No diagnostic ST changes. Arrhythmia: No arrhythmias seen. Cardiac Symptoms With Stress: Symptoms with stress were None. Exam Interpreted: Read by . CONCLUSIONS: 1. Negative Lexiscan pharmacologic stress test for chest pain or EKG changes. 2. Nuclear images are pending and they will be reported separately. Electronically Signed By: Dr Bertha Howe 12/12/2024 4:18:11 PM EMPLOYEE OPERATIONS EXAMINER Procedure Note Bertha Howe MD - 12/12/[address] [place] [address] [employer] Report Patient Name: MICHAEL PEARSON A : 1965 Study Date: 12/12/2024 9:15:00 AM Gender: M Tech: jkh Ref Provider: MARISEL XAVIER Height(Cm): 183 BSA: 3.19 Weight(Kg): 200 Heart Rate: 135 Order Provider: MARISEL XAVIER PROCEDURES: Pharmacologic SPECT Report.: Myocardial perfusion imaging with Sestamibi SPECT at rest and postregadenoson (Lexiscan) infusion. INDICATIONS: Chest Pain and R07.9 Chest pain, unspecified. FINDINGS: Procedure Data: Resting HR 70 bpm Peak HR: 97 bpm Predicted Maximal HR 159 bpm Target HR: 135 bpm Percent Max Predicted HR Achieved: 61.01 % Baseline BP: 161/75 mmHg Peak BP: 132/70 mmHg Exercise Time: 00:11 Performed By: Kimberli carlson rn. Supervising Physician: The Supervising Physician is bertha howe. Reason for Termination: Lexiscan protocol complete. Resting ECG: Normal sinus rhythm at 67 beats per minute, normal axis. Post Pharm ECG: No diagnostic ST changes. Arrhythmia: No arrhythmias seen. Cardiac Symptoms With Stress: Symptoms with stress were None. Exam Interpreted: Read by . CONCLUSIONS: 1. Negative Lexiscan pharmacologic stress test for chest pain or EKGchanges. 2. Nuclear images are pending and they will be reported separately. Electronically Signed By: Dr Bertha Howe 12/12/2024 4:18:11 PM EMPLOYEE OPERATIONS EXAMINER us Marisel Xavier MD CV STRESS PROCEDURES Final Result * TRANSTHORACIC ECHO (TTE) COMPLETE W DOPPLER/CF WO CONTRAST (12/12/2024 8:03 AM EMPLOYEE OPERATIONS EXAMINER) LV EF % CONS SCIMAGE Anatomical Region Laterality Modality Ultrasound 12/12/2024 7:25 AM EMPLOYEE OPERATIONS EXAMINER Narrative 12/12/2024 3:31 PM EMPLOYEE OPERATIONS EXAMINER [address] [place] [address] Echocardiogram Report Patient Name: MICHAEL PEARSON A : 1965 Study Date: 12/12/2024 7:25:26 AM Gender: M Tech: AA Location: echo room 2 Ref Provider: MARISEL XAVIER Height(Cm): BSA: Weight(Kg): Quality: Good Order Provider: MARISEL XAVIER PROCEDURES: Echocardiographic Report: Transthoracic echocardiogram with complete 2D, M-Mode, and color Doppler examination. INDICATIONS: Chest Pain and R07.9 Chest pain, unspecified. MEASUREMENTS: 2D/MM Value Range Doppler Value Range EF Teich 2D 72.6 % [ 52.0 - 72.0 ] JEFRY Vmax 2.91 cm2 EF Mod BP 56 % [ 52 - 72 ] AV Mean PG 4 mmHg LVIDd 2D 4.51 cm [ 4.20 - 5.80 ] AV Peak Lex 1.44 m/s [ 1.00 - 1.70 ] LVIDs 2D 2.63 cm [ 2.50 - 4.00 ] AV VTI 31.48 cm LVPWd 2D 1.07 cm [ 0.60 - 1.00 ] LVOT Diam 2.22 cm IVSd 2D 1.23 cm [ 0.60 - 1.00 ] LVOT Peak Lex 1.08 m/s [ 0.70 - 1.10 ] LA Dimension MM 3.98 cm [ 3.00 - 4.00 ] LVOT VTI 23.16 cm AoR Diam MM 3.31 cm [ 3.10 - 3.70 ] MV E Peak Lex 0.83 m/s [ 0.60 - 1.30 ] ACS MM 1.72 cm [ 1.50 - 2.60 ] MV A Peak Lex 0.88 m/s [ 1.00 - 1.20 ] MV Mean PG 1 mmHg MV PHT 50 msec [ 20 - 100 ] MVA 3.40 MV Decel Time 202 msec [ 104 - 258 ] PV Peak Lex 1.70 m/s [ 0.40 - 0.80 ] OR Peak Lex 1.31 m/s TR Peak Lex 2.64 m/s [ 1.00 - 2.80 ] TR Peak PG 28 mmHg RVSP 33.00 mmHg [ 10.00 - 36.00 ] E` 0.08 m/s E/E` 10.60 [ <= 10.00 ] PA Pressure 5.00 mmHg [ 10.00 - 36.00 ] 2D/MM Value Range Doppler Value Range - FINDINGS: Atrial Septum: Normal atrial septum. Left Ventricle: Normal left ventricular systolic function with no focal wall motion abnormalities. Normal left ventricular size. Impaired diastolic relaxation Grade I. Ejection fraction is measured at 56 %. Left Atrium: The left atrium is normal in size. Right Ventricle: Normal right ventricular size. Normal right ventricular systolic function. Right Atrium: The right atrium is normal in size. Aortic Valve: Normal structure of the aortic valve. Mitral Valve: Mild mitral valve regurgitation. Pulmonic Valve: Normal structure of the pulmonic valve. Tricuspid Valve: Mild pulmonary hypertension based on right ventricular systolic pressure. Estimated peak RVSP is 40 mmHg. Mild tricuspid regurgitation. Pericardium: Normal pericardium with no significant pericardial effusion. Aorta: Normal aortic root. Sinus of Valsalva is normal. Aortic arch is normal. Descending aorta is normal. IVC: Normal size and normal respiratory collapse consistent with normal right atrial pressure (<5 mmHg). Pulmonary Artery: Normal pulmonary artery size. CONCLUSIONS: Normal left ventricular systolic function with no focal wall motion abnormalities. Normal left ventricular size. Impaired diastolic relaxation Grade I. Ejection fraction is measured at 56 %. Mild mitral valve regurgitation. Mild pulmonary hypertension based on right ventricular systolic pressure. Estimated peak RVSP is 40 mmHg. Mild tricuspid regurgitation. Electronically Signed By: Felton Hall MD 12/12/2024 3:30:44 PM EMPLOYEE OPERATIONS EXAMINER Procedure Note Felton Hall MD - 12/12/[address] [place] [address] Echocardiogram Report Patient Name: MICHAEL PEARSON A : 1965 Study Date: 12/12/2024 7:25:26 AM Gender: M Tech: Location: echo room 2 Ref Provider: MARISEL XAVIER Height(Cm): BSA: Weight(Kg): Quality: Good Order Provider: MARISEL XAVIER PROCEDURES: Echocardiographic Report: Transthoracic echocardiogram with complete 2D, M-Mode, and color Dopplerexamination. INDICATIONS: Chest Pain and R07.9 Chest pain, unspecified. MEASUREMENTS: 2D/MM Value Range Doppler ValueRange EF Teich 2D 72.6 % [ 52.0 - 72.0 ] JEFRY Vmax 2.91cm2 EF Mod BP 56 % [ 52 - 72 ] AV Mean PG 4 mmHg LVIDd 2D 4.51 cm [ 4.20 - 5.80 ] AV Peak Lex 1.44 m/s[ 1.00 - 1.70 ] LVIDs 2D 2.63 cm [ 2.50 - 4.00 ] AV VTI 31.48cm LVPWd 2D 1.07 cm [ 0.60 - 1.00 ] LVOT Diam 2.22cm IVSd 2D 1.23 cm [ 0.60 - 1.00 ] LVOT Peak Lex 1.08 m/s[ 0.70 - 1.10 ] LA Dimension MM 3.98 cm [ 3.00 - 4.00 ] LVOT VTI 23.16cm AoR Diam MM 3.31 cm [ 3.10 - 3.70 ] MV E Peak Lex 0.83 m/s[ 0.60 - 1.30 ] ACS MM 1.72 cm [ 1.50 - 2.60 ] MV A Peak Lex 0.88 m/s[ 1.00 - 1.20 ] MV Mean PG 1 mmHg MV PHT 50 msec [ 20 - 100 ] MVA 3.40 MV Decel Time 202 msec [ 104 - 258 ] PV Peak Lex 1.70 m/s [ 0.40 - 0.80 ] OR Peak Lex 1.31 m/s TR Peak Lex 2.64 m/s [ 1.00 - 2.80 ] TR Peak PG 28 mmHg RVSP 33.00 mmHg [ 10.00 - 36.00 ] E` 0.08 m/s E/E` 10.60 [ <= 10.00 ] PA Pressure 5.00 mmHg [ 10.00 - 36.00 ] 2D/MM Value Range Doppler ValueRange - FINDINGS: Atrial Septum: Normal atrial septum. Left Ventricle: Normal left ventricular systolic function with no focal wall motionabnormalities. Normal left ventricular size. Impaired diastolic relaxation Grade I. Ejectionfraction is measured at 56 %. Left Atrium: The left atrium is normal in size. Right Ventricle: Normal right ventricular size. Normal right ventricular systolicfunction. Right Atrium: The right atrium is normal in size. Aortic Valve: Normal structure of the aortic valve. Mitral Valve: Mild mitral valve regurgitation. Pulmonic Valve: Normal structure of the pulmonic valve. Tricuspid Valve: Mild pulmonary hypertension based on right ventricular systolic pressure.Estimated peak RVSP is 40 mmHg. Mild tricuspid regurgitation. Pericardium: Normal pericardium with no significant pericardial effusion. Aorta: Normal aortic root. Sinus of Valsalva is normal. Aortic arch is normal.Descending aorta is normal. IVC: Normal size and normal respiratory collapse consistent with normal rightatrial pressure (<5 mmHg). Pulmonary Artery: Normal pulmonary artery size. CONCLUSIONS: Normal left ventricular systolic function with no focal wall motionabnormalities. Normal left ventricular size. Impaired diastolic relaxation Grade I. Ejectionfraction is measured at 56 %. Mild mitral valve regurgitation. Mild pulmonary hypertension based on right ventricular systolic pressure.Estimated peak RVSP is 40 mmHg. Mild tricuspid regurgitation. Electronically Signed By: Felton Hall MD 12/12/2024 3:30:44 PM EMPLOYEE OPERATIONS EXAMINER us Marisel Xavier MD CV ECHO PROCEDURES Final R esult * POCT hemoglobin A1c (09/14/2023 1:08 PM CDT) Hemoglobin A1C, POC 7.9 % Blood 09/14/2023 1:08 PM CDT Poonam Martinez NP POINT OF CARE TEST ORDERABL ES Final Result * Microalbumin / creatinine ratio, urine, random (05/22/2018 11:03 AM CDT) Pathologist [facility] Microalbumin, ur <12.0 mcg/mL [facility] Creatinine, ur 48.90 mg/dL [facility] Microalbumin/cr eat ratio <24.5 0.1 - 29.9 mcg/mg Cr [facility] Urine 05/22/2018 11:0 3 AM CDT 05/22/2018 11:23 AM CDT Narrative [facility] - 05/22/2018 12:21 PM CDT us Denise West MD LAB URINE ORDERABLES Final Result [facility] Department [place] [address] * (ABNORMAL) Lipid panel (05/22/2018 11:03 AM CDT) Pathologist [facility] Cholesterol 164 30 - 200 mg/dL [facility] Comment: Interpretive Data Desirable: <200 mg/dL Borderline high: 200-239 mg/dL High: > or = 240 mg/dL Literature Reference: National Cholesterol Education Program (NCEP) Expert Panel on Detection, Evaluation, and Treatment of High Blood Cholesterol in Adults (Adult Treatment Panel III). Circulation 2004; 110:227. Current interpretive data was last revised on 2015. Triglycerides 198(H) 0 - 150 mg/dL [facility] Comment: Interpretive Data Desirable: < 150 mg/dL Borderline High: 150 - 199 mg/dL High: 200 - 499 mg/dL Very High: > or = 499 mg/dL Literature Reference: See Cholesterol Current interpretive data was last revised on 2015. HDL 41 >=40 mg/dL [facility] Comment: Interpretive Data Less than 40 mg/dL - low; A major risk factor for heart disease. Greater than or equal to 60 mg/dL - High; considered protective of heart disease. Literature Reference: See Cholesterol Current interpretive data was last revised on 2015. LDL, calculated 83 10 - 129 mg/dL [facility] Comment: Interpretive Data Optimal: < 100 mg/dL Near Optimal: 100 - 129 mg/dL Borderline High: 130 - 159 mg/dL High: 160 - 189 mg/dL Very high: > or = 190 mg/dL Literature Reference: See Cholesterol Current interpretive data was last revised on 2015. Non-HDL Cholesterol 123 mg/dL [facility] Comment: Interpretive Data When triglycerides are >200 mg/dL, non-HDL C is a secondary target of therapy, with a goal 30 mg/dL higher than the identified LDL-C goal. Reference: See Cholesterol Reference. Current interpretive data was last revised 2015. Blood specimen (specimen) 05/22/2018 11:03 AM CDT 05/22/2018 11:23 AM CDT Narrative [facility] - 05/22/2018 12:03 PM CDT These lab test should be done fasting. This means do not eat or drink for at least 12 hours prior to getting your blood drawn. Denise West MD LAB BLOOD ORDERABLES Final Result [facility] Department [place] [address] from Last 3 Months or Most Recently Relevant to Health Maintenance Insurance [facility] [id number] [facility] [id number] Care Teams Pad Hand Relationship Specialty Start Date End Date Trever Bose MD PCP - General 05/19/17 Denise West MD Referring Physician Endocrinology Diabetes & Metabolism 03/04/20 Tejal Masterson MD Consulting Physician Neurosurgery 02/14/22 Nina Vale MD Consulting Physician Cardiovascular Disease 06/08/22 Carlitos Canales MD [address] [place] [address] Referring Physician Neurology 03/14/24 Carlitos Canales MD [address] [place] [address] Referring Physician Neurology 12/11/24
--- OUTSIDE RECORDS SUMMARY | 2025-02-24 13:48 | XMS_ITS | Clinical Summary ---
Author Organization [facility] Address [address] [place] [address] Care Team Providers Care Ship Self Defense System Mk1 Operator Name Role Phone Trever Bose MD Primary Care Provider [phone] Allergies Active Allergy Reactions Criticality Noted Date Comments Typhoid Vaccines Rash High 10/08/2009 Medications HYDROcodone-acet aminophen (NORCO) 10-325 MG tablet Take 1 tablet by mouth daily as needed. 2 Active metFORMIN (GLUCOPHAGE) 1000 MG tablet Take 1 tablet by mouth daily. 1 Active nitroglycerin (NITROSTAT) 0.4 MG SL tablet Take 1 tablet by mouth as needed. 2 Active Multiple Vitamin (DAILY VITES) Tab Take 1 tablet by mouth daily. Active Potassium 99 MG tablet Take 1 tablet by mouth daily. 2 Active Cholecalciferol (VITAMIN D) 50 MCG (1999) Cap Take 1 tablet by mouth daily. 2 Active lisinopril (PRINIVIL) 10 MG tablet Take 20 mg by mouth daily. 2 Active Dapagliflozin Propanediol (FARXIGA) 10 MG Tab Take 1 tablet by mouth daily. 1 Active isosorbide mononitrate ER (IMDUR) 30 MG 24 hr tablet Take 1 tablet by mouth daily. 2 Active gabapentin (NEURONTIN) 600 MG tablet Take 1 tablet by mouth 3 (three) times daily. 2 Active pantoprazole EC (PROTONIX) 40 MG tablet Take 1 tablet by mouth daily. 2 Active meloxicam (MOBIC) 15 MG tablet Take 1 tablet by mouth daily. 2 Active Dulaglutide (TRULICITY) 3 MG/0.5ML Solution Pen-injector Inject 3 mg into the muscle weekly. 2 Active Magnesium 500 MG Tab Take 1 tablet by mouth daily. 2 Active magnesium oxide (MAG-OX) 400 MG tablet Take 1 tablet by mouth daily. 2 Active pioglitazone (ACTOS) 15 MG tablet Take 1 tablet by mouth daily. 2 Active atorvastatin (LIPITOR) 40 MG tablet Take 1 tablet by mouth daily. 2 Active lidocaine (XYLOCAINE) 5 % ointment Apply topically daily. 2 Active melatonin 10 MG tablet Take 1 tablet by mouth nightly. 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 Gender Identity Not on file Sexual Orientation Not on file Last Filed Vital Signs Vital Sign Reading Time Taken Comments Blood Pressure 134/72 06/20/2022 9:00 AM CDT Pulse 76 06/20/2022 9:00 AM CDT Temperature 36.3 C (97.4 F) 06/20/2022 9:00 AM CDT Respiratory Rate 18 06/20/2022 9:00 AM CDT Oxygen Saturation 100% 06/20/2022 9:00 AM CDT Inhaled Oxygen Concentration - - Weight 91.2 kg (201 lb 1 oz) 06/20/2022 9:00 AM CDT Height 182.9 cm (6') 06/20/2022 9:00 AM CDT Body Mass Index 27.27 06/20/2022 9:00 AM CDT Plan of Treatment Health Maintenance Due Date Last Done Comments Colorectal Cancer Screening Colonoscopy (10 Years) 1965 Annual Physical 1966 Hepatitis C 1981 DTaP, Tdap and Td Vaccines (5 - Tdap) 05/09/2008 05/08/2008, 05/31/1992, 05/29/1982, Additional history exists Zoster Vaccines (1 of 2) 2013 COVID-19 Vaccine (3 - season) 2024 12/29/2020, 12/01/2020 RSV Immunization or 60+ Years (1 - 1-dose 75+ series) 2038 Meningococcal B Vaccine Aged Out No l onger eligible based on patient's age to complete this topic Meningococcal Vaccine Aged Out No judy marine eligible based on patient's age to complete this topic Pneumococcal Vaccine: Pediatrics (0 to 5 Years) and At-Risk Patients (6 to 64 Years) Aged Out No longer eligible based on patient's age to complete this topic RSV Immunizations Under 20 Months Aged Out No longer eligible based on patient's age to complete this topic Insurance [employer] Care Teams Ship Self Defense System Mk1 Operator Relationship Specialty Start Date End Date Trever Bose MD PCP - General FAMILY PRACTICE 06/20/22
--- OUTSIDE RECORDS SUMMARY | 2025-02-24 13:48 | XMS_ITS | Clinical Summary ---
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 Name Role Phone RUBENS ODELL MD Primary Care Provider [phone] Reason for Visit and Chief Complaint CHART UPDATE Problems Includes: Problems addressed during this encounter and other active Problems All Visits Onset Date Resolved Date Provider Condition Status Post Covid-19 Condition 02/22/2022 JACQUI ODELL MD Active Last Documented On 02/22/2022 8:35AM ; [facility] Note: Unchanged Hypercholesterolemia 06/01/2017 RUBENS ODELL MD Active Last Documented On 06/01/2017 12:41AM ; [facility] Note: Unchanged Irritable Bowel Syndrome 06/01/2017 DAMARIS ODELL MD Active Last Documented On 06/01/2017 12:41AM ; [facility] Note: Unchanged Benign Prostatic Hypertrophy Without Urinary Obstruction 06/01/2017 RUBENS ODELL MD Active Last Documented On 06/01/2017 12:41AM ; [facility] Note: Unchanged Congestive Heart Failure 06/01/2017 DAMARIS ODELL MD Active Last Documented On 06/01/2017 12:41AM ; [facility] Note: Unchanged Male Erectile Dysfunction 06/01/2017 MEET ODELL MD Active Last Documented On 06/01/2017 12:41AM ; [facility] Note: Unchanged Lumbago 06/01/2017 RUBENS ODELL MD Active Last Documented On 06/01/2017 12:41AM ; [facility] Note: Unchanged Herniated Intervertebral Disc Lumbar 06/01/2017 RUBENS ODELL MD Active Last Documented On 06/01/2017 12:41AM ; [facility] Note: Unchanged Cardiomyopathy 06/01/2017 RUBENS ODELL MD Active Last Documented On 06/01/2017 12:41AM ; [facility] Note: Unchanged Nicotine Dependence Cigarettes in Remission 06/01/2017 RUBENS ODELL MD Active Last Documented On 06/01/2017 12:41AM ; [facility] Note: Unchanged Diabetes Mellitus Type 2 - Uncomplicated, Controlled 09/18/2012 BUCKY DOUGHERTY M.D. Active Last Documented On 6 3:35PM ; [facility] Essential Hypertension Benign 09/18/2012 BUCKY DOUGHERTY M.D. Active Last Documented On 6 3:35PM ; [facility] Plan of Treatment Pending Tests Order Diagnosis Results Due Ordering P rovider Lab *PSA SCREEN 03/25/24 BRENTON VILLAFANA PA-C Last Documented On 4 9:26AM ; [facility] Assessments Includes: Assessments from this encounter No Assessments Recorded Medical Equipment - Implanted Devices Includes: Current Devices No Medical Equipment Recorded Medications Includes: Medications discussed during this encounter and other current Medications Current Medications (continue as prescribed) DULoxetine HCl 30 MG Oral Capsule Delayed Release Particles 03/25/2024 - 03/20/2025 Provider: BRENTON BUSTAMANTE PA-C Diagnosis: Major depressive disorder, single episode, moderate One tablet daily Last Documented On 4 12:24PM By BRENTON BUSTAMANTE PA-C ; [facility] Tamsulosin HCl 0.4 MG Oral Capsule 03/25/2024 Provid er: Diagnosis: Last Documented On 03/25/2024 9:16AM By SARIKA JOHNSTON ; [facility] Propranolol HCl 20 MG Oral Tablet 03/25/2024 Provide r: Diagnosis: 2 pills tid Last Documented On 03/25/2024 9:17AM By SARIKA JOHNSTON ; [facility] Lisinopril 20 MG Oral Tablet 03/25/2024 - 03/20/2025 Provider: BRENTON SCHWAB CH, PA-C Diagnosis: TAKE 1 TABLET BY MOUTH DAILY Last Documented On 4 12:24PM By BRENTON BUSTAMANTE PA-C ; [facility] Flonase Allergy Relief 50 MCG/ACT Nasal Suspension 01/26/2024 Provider: BRENTON BUSTAMANTE PA-C Diagnosis: Acute nasopharyn gitis [common cold] 2 sprays each nostril once daily Last Documented On 03/25/2024 9:12AM By SARIKA JOHNSTON ; [facility] Ozempic (1 MG/DOSE) 2 MG/1.5 ML Subcutaneous Solution Pen-injector 12/25/2023 Provider: Diagnosis: ordred by endo Last Documented On 12/25/2023 2:54PM By SARIKA JOHNSTON ; [facility] Gabapentin 300 MG Oral Capsule 03/14/2023 Provider: Diagnosis: Last Documented On 03/14/2023 2:45PM By SARIKA JOHNSTON ; [facility] Lidocaine Oint & Men-Meth Paulo 5 & 3-10% External Therapy Pack 07/12/2022 Provider: Diagnosis: Last Documented On 07/12/2022 2:36PM By Freida ROMERO ; [facility] Magnesium Oxide 400 MG Oral Tablet 05/30/2022 Provid er: Diagnosis: ordered by cardiioogist Last Documented On 05/30/2022 11:43AM By SARIKA JOHNSTON ; [facility] Pioglitazone HCl 15 MG Oral Tablet 05/30/2022 Provid er: Diagnosis: Last Documented On 05/30/2022 11:21AM By SARIKA JOHNSTON ; [facility] Nitrostat 0.4 MG Sublingual Tablet Sublingual 04/27/20 Provider: Diagnosis: ordered by printing assistant Last Documented On 04/27/2022 10:26AM By SARIKA JOHNSTON ; [facility] Atorvastatin Calcium 40 MG Oral Tablet 03/23/2022 Pr ovider: Diagnosis: Last Documented On 03/23/2022 9:29AM By SARIKA JOHNSTON ; [facility] Farxiga 10 MG Oral Tablet 03/23/2022 Provider: Diagnosis: Last Documented On 03/23/2022 9:28AM By SARIKA JOHNSTON ; [facility] Vitamin D 50 MCG (1999 [place]) Oral Capsule 01/24/2022 P rosudeepder: Diagnosis: Last Documented On 01/24/2022 9:40AM By SARIKA JOHNSTON ; [facility] Potassium 99 MG Oral Tablet 01/24/2022 Provider: Diagnosis: Last Documented On 01/24/2022 9:39AM By SARIKA JOHNSTON ; [facility] HYDROcodone-Acetaminophen 10-325 MG Oral Tablet 2021 Provider: Diagnosis: one or 2 at bedtimeordered by specialist Last Documented On 01/24/2022 9:42AM By SARIKA JOHNSTON ; [facility] Melatonin 10 MG Oral Tablet 09/05/2019 Provider: Diagnosis: Last Documented On 09/05/2019 10:26AM By AYAN ROMERO ; [facility] metFORMIN HCl 1000 MG TABS 12/15/2014 Provider: Diagnosis: Last Documented On 12/15/2014 9:34AM By AYAN ROMERO ; [facility] Multivitamins OR CAPS 10/10/2010 Provider: Diagnosis: Last Documented On 0 7:27PM By LULA PALACIOS PA-C ; [facility] OneTouch Ultra Blue STRP 04/15/2010 Provider: BUCKY DOUGHERTY M.D. Diagnosis: #90 WITH 3 REFILLS Last Documented On 04/15/2010 1:13PM By BUCKY DOUGHERTY MD ; [facility] Past Medications on file Amitriptyline HCl 50 MG Oral Tablet 02/13/2024 - 02/07/2025 Provider: BRENTON BUSTAMANTE PA-C Diagnosis: Other irritable bowel syndrome TAKE 1 TABLET BY MOUTH AT BEDTIME Last Documented On 4 11:41AM By BRENTON BUSTAMANTE PA-C ; [facility] tiZANidine HCl 4 MG Oral Tablet 02/07/2024 - 05/07/2024 Provider: YOLANDE QUICK Diagnosis: TAKE 1 TABLET BY MOUTH TWICE DAILY Last Documented On 4 12:41PM By YOLANDE QUICK ; [facility] Medications Administered Includes: Administered Medications from this encounter No Administered Medications Recorded Results Includes: Results discussed during this encounter Hgb A1C Manual Lab Entry Ordered by BRENTON BUSTAMANTE PA-C on Collected: Reported: 09/14/2023 10:14 Last Documented On 4 9:16AM ; [facility] Reviewed by RUBENS ODELL MD on 01/23/2024; All test results are final unless otherwise noted. Hbg A1C 7.9 (4.0 - 6.0 % A1c) A (Abnormal) Last Documented On 3 10:14AM ; [facility] History of Present Illness Includes: History of Present Illness from this encounter No History of Present Illness Recorded Social History Description Last Updated Tobacco non-user 01/23/2024 Last Documented On 3 10:13AM ; [facility] A previous job-related injury Had whipla sh dx years ago. NO isues since 06/01/2022 Last Documented On 3 10:13AM ; [facility] Social history unchanged 06/17/2020 Last Documented On 3 10:13AM ; [facility] Exercising erratically 05/09/2017 Last Documented On 3 10:13AM ; [facility] Smoking Status Unknown Medical History Includes: Medical History addressed during this encounter Description Last Updated Home blood sugar check performed bs 138 this am 03/25/2024 Last Documented On 3 10:13AM ; [facility] APPENDECTOMY ~ING HERNIA R ~ NASAL SEPTAL DEVIATION REPAIR 2009 ~TONSILLECTOMY ~R ROTATOR CUFF 97, 12 ~R ELBOW 12 ~LAMINECTOMY L4-S1 10/201807/12/2022 Last Documented On 3 10:13AM ; [facility] Family History Includes: Family History addressed during this encounter No Family History Recorded Review of Systems Includes: Review of Systems from this encounter No Review of Systems Recorded Mental Status Includes: Mental Status from this encounter No Mental Status Recorded Functional Status Includes: Functional Status from this encounter No Functional Status Recorded Physical Exam Includes: Physical Exam from this encounter No Physical Exam Recorded Allergies Includes: Active Allergies Substance Type Reaction Onset Date Resolved Date Statu s Typhoid Vaccine Allergy 07/09/2009 Act patrick Last Documented On 4 9:11AM ; [facility] Encounters Encounter Provider Location Date Check-In Time Check-Out Time Diagnosis CHART UPDATE BRENTON BUSTAMANTE PA-C [facility] 3 10:12AM 11:59PM Insurance Includes: Active Insurance Policies Plan Name Member ID Group # Subscriber Relationship Effect patrick Dates 1 - [employer] [id number] ANGELA FRANCO Se Clinical Notes Includes: Clinical Notes from this encounter * Progress note Date Encounter Last Documented by 10/19/2023 CHART UPDATE Last documented on 10/19/2023; 10:33 AM, BRENTON BUSTAMANTE PA-C; [facility] Active Problems & Conditions - [...] Remission - U09.9 - Post Covid-19 Condition Current Medication - Amitriptyline HCl 50 MG Oral Tablet TAKE 1 TABLET BY MOUTH AT BEDTIME, 90 days, 3 refills - Atorvastatin Calcium 40 MG Oral Tablet One tablet daily 0 days, 0 refills - Farxiga 10 MG Oral Tablet One tablet daily 0 days, 0 refills - Gabapentin 300 MG Oral Capsule One tablet three times a day 0 days, 0 refills - HYDROcodone-Acetaminophen 10-325 MG Oral Tablet as directed one or 2 at bedtimeordered by specialist, 0 days, 0 refills - Lidocaine Oint & Men-Meth Paulo 5 & 3-10% External Therapy Pack 0 days, 0 refills - Magnesium 500 MG Oral Tablet [...] Sublingual Tablet Sublingual as directed ordered by printing assistant, 0 days, 0 refills - OneTouch Ultra Blue Strip as directed #90 WITH 3 REFILLS, 30 days, Prescribe As Needed. - Pioglitazone HCl 15 MG Oral Tablet One tablet daily 0 days, 0 refills - Potassium 99 MG Oral Tablet One tablet daily 0 days, 0 refills - tiZANidine HCl 4 MG Oral Tablet TAKE 1 TABLET BY MOUTH TWICE DAILY, 90 days, 1 refills - Trulicity 3 MG/0.5ML Subcutaneous Solution Pen-injector as directed once weekly, 0 days, 0 refills - Vitamin D 50 MCG (1999 [place]) Oral Capsule 1 capsule daily 0 days, 0 refills Past Medical/Surgical History Reported: Tests: Home blood sugar check performed bs 138 this am. APPENDECTOMY ING HERNIA R NASAL SEPTAL DEVIATION REPAIR 2009 TONSILLECTOMY R ROTATOR CUFF 97, 12 R ELBOW 12 LAMINECTOMY L4-S1 10/2018. Social History Social history unchanged. Tobacco use: Tobacco non-user. Habits: Exercising erratically. Work: A previous job-related injury Had whiplash dx years ago. NO isues since. Allergies - Typhoid Vaccine Previous Tests - Test: Hgb A1C Report Date: 09/14/2023 Hbg A1C 7.9 Abnormal Health Reminders - Assess Need for CT Lung Screen satisfied 10/19/2023. - Assess Tobacco Use satisfied 10/19/2023.
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
--- OUTSIDE RECORDS SUMMARY | 2025-02-24 13:48 | XMS_ITS ---
Author Organization [facility] Address [address] [place] [address] Phone Care Team Providers Care Newspaper Photographer Name Role Phone RUBENS ODELL MD Primary Care Provider [phone] Reason for Referral Date Encounter Description Provider Reason for Referral 08/29/13 SICK VISIT BUCKY DOUGHERTY M.D. Request Consultation By Specialist Problems Includes: Active, inactive, and resolved Problems All Visits Onset Date Resolved Date Provider Condition Status Post Covid-19 Condition 02/22/2022 JACQUI ODELL MD Active Last Documented On 02/22/2022 8:35AM ; [facility] Note: Unchanged Hypercholesterolemia 06/01/2017 RUBENS ODELL MD Active Last Documented On 06/01/2017 12:41AM ; [facility] Note: Unchanged Irritable Bowel Syndrome 06/01/2017 DAMARIS ODELL MD Active Last Documented On 06/01/2017 12:41AM ; [facility] Note: Unchanged Benign Prostatic Hypertrophy Without Urinary Obstruction 06/01/2017 RUBENS ODELL MD Active Last Documented On 06/01/2017 12:41AM ; [facility] Note: Unchanged Congestive Heart Failure 06/01/2017 DAMARIS ODELL MD Active Last Documented On 06/01/2017 12:41AM ; [facility] Note: Unchanged Male Erectile Dysfunction 06/01/2017 MEET ODELL MD Active Last Documented On 06/01/2017 12:41AM ; [facility] Note: Unchanged Lumbago 06/01/2017 RUBENS ODELL MD Active Last Documented On 06/01/2017 12:41AM ; [facility] Note: Unchanged Herniated Intervertebral Disc Lumbar 06/01/2017 RUBENS ODELL MD Active Last Documented On 06/01/2017 12:41AM ; [facility] Note: Unchanged Cardiomyopathy 06/01/2017 RUBENS ODELL MD Active Last Documented On 06/01/2017 12:41AM ; [facility] Note: Unchanged Nicotine Dependence Cigarettes in Remission 06/01/2017 RUBENS ODELL MD Active Last Documented On 06/01/2017 12:41AM ; [facility] Note: Unchanged Diabetes Mellitus Type 2 - Uncomplicated, Controlled 09/18/2012 BUCKY DOUGHERTY M.D. Active Last Documented On 6 3:35PM ; [facility] Essential Hypertension Benign 09/18/2012 BUCKY DOUGHERTY M.D. Active Last Documented On 6 3:35PM ; [facility] Plan of Treatment Findings Encounter Date Ordered disposition Continue follow up with specialists DOCTORS HE SEES: MARICHUY UROLOGY BETHANY REIS BINGEJesus PAIN MANAGMENT [place] [employer] CHECK UP with BRENTON BUSTAMANTE PA-C 03/25/2024 Last Documented On 4 3:51PM ; [facility] Ordered return to the clinic if condition worsens or new symptoms arise CHECK UP with BRENTON BUSTAMANTE PA-C 03/25/2024 Last Documented On 4 3:51PM ; [facility] Ordered patient will call r appointment as needed SICK VISIT with BRENTON BUSTAMANTE PA-C 01/26/2024 Last Documented On 4 11:27AM ; [facility] Ordered return to the clinic if condition worsens or new symptoms arise SICK VISIT with BRENTON BUSTAMANTE PA-C 01/26/2024 Last Documented On 4 11:27AM ; [facility] The options include close observation SI CK VISIT with BRENTON BUSTAMANTE PA-C 01/26/2024 Last Documented On 4 11:27AM ; [facility] Watch for signs/symptoms of infection, return to the clinic if seen SICK VISIT with BRENTON BUSTAMANTE PA-C 01/26/2024 Last Documented On 4 11:27AM ; [facility] Discuss ganglion cyst and tr eatment options. Patient states since it isn't causing much pain or issue he will wait on referral to ortho Since he quit smoking ovr 15 years ago, lung screening isn't needed per guidelines Meds started for depression. Refuses couseling at this time. Follow up in 3 months or sooner . Go to ER is suicidal/ homicidal PROBLEM VISIT with BRENTON BUSTAMANTE PA-C 12/25/2023 Last Documented On 4 8:28AM ; [facility] Ordered disposition Continue follow up with specialists DOCTORS HE SEES: MARICHUY UROLOGY BETHANY SIMEON KLUKA GI BINGER PAIN MANAGMENT [employer] Written order given to patient for CBC, CMP and lipd to be done with endocrine order PROBLEM VISIT with BRENTON BUSTAMANTE PA-C 12/25/2023 Last Documented On 4 8:28AM ; [facility] Ordered return to the clinic if condition worsens or new symptoms arise PROBLEM VISIT with BRENTON BUSTAMANTE PA-C 12/25/2023 Last Documented On 4 8:28AM ; [facility] Start 2 week trial of Flonas e nasal spray for nasal congestion. He already had an antibiotic and has no other signs of active bacterial infection. He will have labs done this week which will also help evaluate for presence of bacterial infection versus allergic rhinitis ANNUAL PHYSICAL EXAM with BRENTON BUSTAMANTE PA-C 03/14/2023 Last Documented On 3 3:38PM ; [facility] Ordered disposition Continue follow up with specialists DOCTORS HE SEES: MARICHUY UROLOGY BETHANY LOUUKA GI BINGER PAIN MANAGMENT [employer] Written order given to patient for CBC, CMP and lipd to be done with endocrine order ANNUAL PHYSICAL EXAM with BRENTON BUSTAMANTE PA-C 03/14/2023 Last Documented On 3 3:38PM ; [facility] Ordered return to the clinic if condition worsens or new symptoms arise ANNUAL PHYSICAL EXAM with BRENTON BUSTAMANTE PA-C 03/14/2023 Last Documented On 3 3:38PM ; [facility] Ordered home range of motion exercises P ROBLEM VISIT with BRENTON BUSTAMANTE PA-C 05/30/2022 Last Documented On 2 7:44AM ; [facility] Ordered moist heat PROBLEM VISIT with BRENTON Pereyra MAYRAICH PA-C 05/30/2022 Last Documented On 2 7:44AM ; [facility] Ordered return to the clinic if condition worsens or new symptoms arise PROBLEM VISIT with BRENTON Pereyra MAYRAICH PA-C 05/30/2022 Last Documented On 2 7:44AM ; [facility] Ordered avoid certain foods , avoid fatty fried foods Make a diary of pain and which food or activities may cause pain Take Omeprazole 20mg D or Pepcid 20 mg BID as needed for pain PROBLEM VISIT with BRENTON Pereyra MAYRAICH PA-C 04/27/2022 Last Documented On 2 4:29PM ; [facility] Ordered return to the clinic if condition worsens or new symptoms arise PROBLEM VISIT with BRENTON Pereyra MAYRAICH PA-C 04/27/2022 Last Documented On 2 4:29PM ; [facility] Ordered return to the clinic if condition worsens or new symptoms arise PROBLEM VISIT with BRENTON Pereyra MAYRAICH PA-C 04/07/2022 Last Documented On 2 1:22PM ; [facility] Ordered disposition Continue follow up with specialists DOCTORS HE SEES: MARICHUY UROLOGY BETHANY CHOE GI BINGER PAIN MANAGMENT [place] [employer] ANNUAL PHYSICAL EXAM with BRENTON Pereyra HAYLEEPRICH PA-C 03/23/2022 Last Documented On 2 10:08AM ; [facility] Ordered return to the clinic if condition worsens or new symptoms arise ANNUAL PHYSICAL EXAM with BRENTON Pereyra MAYRAICH PA-C 03/23/2022 Last Documented On 2 10:08AM ; [facility] Ordered patient will call fo r appointment as needed SICK VISIT with BRENTON Pereyra MAYRAICH PA-C 02/17/2022 Last Documented On 2 9:38AM ; [facility] Ordered return to the clinic if condition worsens or new symptoms arise SICK VISIT with BRENTON Pereyra MAYRAICH PA-C 02/17/2022 Last Documented On 2 9:38AM ; [facility] The options include close observation SI CK VISIT with BRENTON Roddy DIANNA PA-C 02/17/2022 Last Documented On 2 9:38AM ; [facility] Watch for signs/symptoms of infection, return to the clinic if seen SICK VISIT with BRENTON Pereyra DIANNA PA-C 02/17/2022 Last Documented On 2 9:38AM ; [facility] Ordered patient will call r appointment as needed SICK VISIT with YOLANDE MARIE [facility]- 11/15/2021 Last Documented On 1 7:54AM ; [facility] Ordered return to the clinic if condition worsens or new symptoms arise SICK VISIT with YOLANDE MARIE TACK PULLER MACHINE-BC 11/15/2021 Last Documented On 1 7:54AM ; [facility] Ordered return to the clinic if condition worsens or new symptoms arise SICK VISIT with BRENTON Roddy DIANNA PA-C 06/14/2021 Last Documented On 1 9:25AM ; [facility] Ordered return to the clinic if condition worsens or new symptoms arise SICK VISIT with BRENTON Pereyra DIANNA PA-C 04/26/2021 Last Documented On 1 10:26AM ; [facility] Ordered disposition - DOCTOR S HE SEES: MARICHUY UROLOGPatricia SIMEON KLDILMA IBS BINGER PAIN MANAGMENT [place] [employer] CHECK UP with BRENTON Roddy HAYLEEPRICH PA-C 03/31/2021 Last Documented On 1 8:03AM ; [facility] Ordered return to the clinic if condition worsens or new symptoms arise CHECK UP with BRENTON Roddy HAYLEEPRICH PA-C 03/31/2021 Last Documented On 1 8:03AM ; [facility] PLAN [Use for s.o.a.p. note free text] CHECK UP with BRENTONDEEPTHI BUSTAMANTE PA-C 03/31/2021 Last Documented On 1 8:03AM ; [facility] Ordered disposition - DOCTOR S HE SEES: MARICHUY UROLOGY GIDEONMICJOHN SIMEON KLUKA IBS BINGER PAIN MANAGMENT [place] [employer] CHECK UP with BRENTONDEEPTHI LEACHPRICH PA-C 06/17/2020 Last Documented On 0 8:03AM ; [facility] Ordered return to the clinic if condition worsens or new symptoms arise CHECK UP with BRENTON BUSTAMANTE PA-C 06/17/2020 Last Documented On 0 8:03AM ; [facility] PLAN [Use for s.o.a.p. note free text] CHECK UP with BRENTON LEACHPRICH PA-C 06/17/2020 Last Documented On 0 8:03AM ; [facility] Ordered return to the clinic if condition worsens or new symptoms arise PROBLEM VISIT with BRENTON LEACHPRICH PA-C 06/05/2020 Last Documented On 0 11:29AM ; [facility] Ordered return to the clinic if condition worsens or new symptoms arise SICK VISIT with BRENTON LEACHPRICH PA-C 03/23/2020 Last Documented On 0 2:44PM ; [facility] Ordered return to the clinic if condition worsens or new symptoms arise OFFICE SURGERY with BRENTON LEACHPRICH PA-C 11/08/2019 Last Documented On 9 11:15AM ; [facility] Ordered return to the clinic if condition worsens or new symptoms arise PROBLEM VISIT with BRENTON LEACHPRICH PA-C 09/19/2019 Last Documented On 9 8:44AM ; [facility] Ordered return to the clinic if condition worsens or new symptoms arise PROBLEM VISIT with BRENTON Pereyra HAYLEEPRICH PA-C 09/05/2019 Last Documented On 9 12:24PM ; [facility] Ordered return to the clinic if condition worsens or new symptoms arise SICK VISIT with BRENTON LEACHPRICH PA-C 05/10/2019 Last Documented On 9 5:43PM ; [facility] Ordered follow-up visit as n eeded with an office visit. SICK VISIT with BRENTON Pereyra HAYLEEPRICH PA-C 02/25/2019 Last Documented On 9 2:27PM ; [facility] Ordered return to the clinic if condition worsens or new symptoms arise SICK VISIT with BRENTON Pereyra HAYLEEPRICH PA-C 02/25/2019 Last Documented On 9 2:27PM ; [facility] Ordered patient will call fo r appointment as needed SICK VISIT with YOLANDE Armstrong BADARÍOCHRISTIAN TACK PULLER MACHINE-BC 11/09/2018 Last Documented On 8 1:26PM ; [facility] Ordered return to the clinic if condition worsens or new symptoms arise SICK VISIT with YOLANDE Armstrong BAALMAN TACK PULLER MACHINE-BC 11/09/2018 Last Documented On 8 1:26PM ; [facility] Ordered return to the clinic if condition worsens or new symptoms arise SICK VISIT with BRENTON Roddy DIANNA PA-C 10/15/2018 Last Documented On 8 3:19PM ; [facility] Ordered return to the clinic if condition worsens or new symptoms arise SICK VISIT with BRENTON Pereyra DIANNA PA-C 07/24/2018 Last Documented On 8 9:21AM ; [facility] Ordered patient will call fo r appointment as needed SICK VISIT with YOLANDE Patti CHISHOLMMELECIO TACK PULLER MACHINE-BC 02/28/2018 Last Documented On 8 1:40PM ; [facility] Ordered return to the clinic if condition worsens or new symptoms arise SICK VISIT with YOLANDE Patti CHISHOLMALMAN TACK PULLER MACHINE-BC 02/28/2018 Last Documented On 8 1:40PM ; [facility] Ordered patient will call fo r appointment as needed PROBLEM VISIT with YOLANDE Patti CHISHOLMALMAN TACK PULLER MACHINE-BC 09/29/2017 Last Documented On 7 2:36PM ; [facility] Ordered return to the clinic if condition worsens or new symptoms arise PROBLEM VISIT with YOLANDE Patti CHISHOLMALMAN TACK PULLER MACHINE-BC 09/29/2017 Last Documented On 7 2:36PM ; [facility] Ordered return to the clinic if condition worsens or new symptoms arise SICK VISIT with BRENTON BUSTAMANTE PA-C 09/07/2017 Last Documented On 7 3:55PM ; [facility] Ordered return to the clinic if condition worsens or new symptoms arise SICK VISIT with BRENTONDEEPTHI BUSTAMANTE PA-C 08/08/2017 Last Documented On 7 10:02AM ; [facility] Ordered disposition - DOCTOR S HE SEES: MARICHUY UROLOGY BETHANY CHOE IBS BINGER PAIN MANAGMENT [place] CHECK UP with RUBENS ODELL MD 05/09/2017 Last Documented On 7 12:44AM ; [facility] PLAN [Use for s.o.a.p. note free text] CHECK UP with RUBENS ODELL MD 05/09/2017 Last Documented On 7 12:44AM ; [facility] Ordered patient will call fo r appointment as needed PROBLEM VISIT with YOLANDE NELSON-YOLANDA 02/13/2017 Last Documented On 7 2:34PM ; [facility] Ordered return to the clinic if condition worsens or new symptoms arise PROBLEM VISIT with YOLANDE NELSON-YOLANDA 02/13/2017 Last Documented On 7 2:34PM ; [facility] Ordered return to the clinic if condition worsens or new symptoms arise PROBLEM VISIT with BRENTON BUSTAMANTE PA-C 08/22/2016 Last Documented On 6 4:13PM ; [facility] Clinical summary provided to patient. Pt will begin Augmentin 875 bid x 10 days and be referred to ENT for eval of recurrent sinusitis. Pt expresses verbal understanding of plan and agrees to same. Decrease farxiga to 5 mg daily (1/2 tab) SICK VISIT with BUCKY DOUGHERTY M.D. 12/01/2015 Last Documented On 6 3:38PM ; [facility] Clinical summary provided to patient. Pt will begin Augmentin 875 bid x 10 days. may need prednisone if pleual pain exacerbates.. Pt expresses verbal understanding of plan and agrees to same PROBLEM VISIT with BUCKY DOUGHERTY M.D. 04/06/2015 Last Documented On 5 3:39PM ; [facility] Ordered patient to call if p roblem develops SICK VISIT with BRENTON BUSTAMATNE PA-C 12/15/2014 Last Documented On 5 11:23AM ; [facility] Ordered return to the clinic if condition worsens or new symptoms arise SICK VISIT with BRENTON BUSTAMANTE PA-C 12/15/2014 Last Documented On 5 11:23AM ; [facility] Ordered return to the clinic if condition worsens or new symptoms arise SICK VISIT with BRENTON BUSTAMANTE PA-C 04/10/2014 Last Documented On 4 3:30PM ; [facility] Clinical summary provided to patient. Pt will begin levofloxacin 500 mg daily x 15 days. F/up prn. Pt expresses verbal understanding of plan and agrees to same SICK VISIT with BUCKY DOUGHERTY M.D. 12/23/2013 Last Documented On 4 3:01PM ; [facility] Order given for CBC< CMP, He m A1C, Lipids SICK VISIT with BRENTON BUSTAMANTE PA-C 09/03/2013 Last Documented On 3 4:04PM ; [facility] Ordered return to the clinic if condition worsens or new symptoms arise SICK VISIT with BRENTON BUSTAMANTE PA-C 09/03/2013 Last Documented On 3 4:04PM ; [facility] Ordered Clinical summary pro vided to patient SICK VISIT with BUCKY DOUGHERTY M.D. 08/29/2013 Last Documented On 3 2:46PM ; [facility] Ordered Transition in care, clinical summary provided SICK VISIT with BUCKY DOUGHERTY M.D. 08/29/2013 Last Documented On 3 2:46PM ; [facility] Ordered return to the clinic if condition worsens or new symptoms arise SICK VISIT with BRENTON BUSTAMANTE PA-C 01/14/2013 Last Documented On 3 1:20PM ; [facility] Ordered return to the clinic if condition worsens or new symptoms arise SICK VISIT with BRENTON BUSTAMANTE PA-C 09/18/2012 Last Documented On 2 2:39PM ; [facility] Pending Tests Order Diagnosis Results Due Ordering P rovider Lab *PSA SCREEN 03/25/24 BRENTONDEEPTHI VILLAFANA PA-C Last Documented On 4 9:26AM ; [facility] Referrals To Diagnosis General Surgery [facility] JOSEF SK IN Note: needs appt with [facility] for excision of moles Last Documented On 9 3:26PM ; [facility] Urologist [facility] TE STIS Note: needs to see Dr. 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[employer] Cardiomyopa thy, unspecified Note: previously seen, needs new referral Last Documented On 2 8:23AM ; [facility] Neurologist [facility] [address] [place] [address] Other specified forms of tremor Note: [facility] BUT IF JEHOVAH'S WITNESS O R IF WASH U HAS SOMETHING BACK THIS WAY INSTEAD OF AT [facility] Last Documented On 4 3:38PM ; [facility] Instructions to patient Watch for signs/symptoms of infection Last Documented On 4 11:19AM ; [facility] Watch for signs/symptoms of infection, return to the clinic if seen Last Documented On 4 11:19AM ; [facility] Recommend diet and exercise at least 30 min three times per week Last Documented On 4 4:08PM ; [facility] Recommend diet and exercise at least 30 min three times per week Last Documented On 3 3:20PM ; [facility] Reduced physical activity Last Documented On 2 7:43AM ; [facility] Go to the emergency room if condition worsens Last Documented On 2 7:43AM ; [facility] Watch for signs/symptoms of infection Last Documented On 2 4:26PM ; [facility] Recommend diet and exercise at least 30 min three times per week Last Documented On 2 9:43AM ; [facility] Watch for signs/symptoms of infection Last Documented On 2 9:35AM ; [facility] Watch for signs/symptoms of infection, return to the clinic if seen Last Documented On 2 9:35AM ; [facility] Go to the emergency room now - Due to Sx recommend further work up and evaluation in ER. Patient agress and will go to ER. Refuses Ambulance transfer. Understarnds risks of self transfer including MVA, Delay in care and Last Documented On 2 10:19AM ; [facility] Recommend diet and exercise at least 30 min three times per week Last Documented On 1 7:59AM ; [facility] Recommend diet and exercise at least 30 min three times per week Last Documented On 0 7:57AM ; [facility] Watch for signs/symptoms of infection Last Documented On 0 2:43PM ; [facility] Watch for signs/symptoms of infection Last Documented On 9 11:12AM ; [facility] Watch for signs/symptoms of infection Last Documented On 9 4:21PM ; [facility] Watch for signs/symptoms of infection Last Documented On 9 12:24PM ; [facility] Instructions for patient Last Documented On 8 10:12AM ; [facility] Recommend diet and exercise at least 30 min three times per week Last Documented On 7 12:31AM ; [facility] Go to the emergency room if condition worsens Last Documented On 6 4:12PM ; [facility] Education and Decision Aids were provided during visit for: Patient education about anti biotics: need to finish even if feeling better Last Documented On 1 8:46AM ; [facility] Patient education about anti biotics: need to finish even if feeling better Last Documented On 1 9:41AM ; [facility] Patient education about anti biotics: need to finish even if feeling better Last Documented On 9 5:41PM ; [facility] Patient education about anti biotics: need to finish even if feeling better Last Documented On 9 2:20PM ; [facility] Patient education about anti biotics: need to finish even if feeling better Last Documented On 7 3:55PM ; [facility] Patient education about anti biotics: need to finish even if feeling better Last Documented On 7 10:00AM ; [facility] Patient education about anti biotics: need to finish even if feeling better Last Documented On 5 9:50AM ; [facility] Patient education about anti biotics: need to finish even if feeling better Last Documented On 4 3:30PM ; [facility] Patient education about anti biotics: need to finish even if feeling better Last Documented On 3 4:03PM ; [facility] Patient education about anti biotics: need to finish even if feeling better Last Documented On 3 1:19PM ; [facility] Patient education about anti biotics: need to finish even if feeling better Last Documented On 2 2:39PM ; [facility] Assessments Includes: Assessments for all patient encounters Findings Encounter Date Benign essential hypertension CHECK UP with IMMANUEL BUSTAMANTE PA-C 03/25/2024 Last Documented On 4 3:51PM ; [facility] Benign prostatic hypertrophy without urinary obstruction CHECK UP with BRENTON BUSTAMANTE PA-C 03/25/2024 Last Documented On 4 3:51PM ; [facility] Congestive heart failure CHECK UP with BRENTON BUSTAMANTE PA-C 03/25/2024 Last Documented On 4 3:51PM ; [facility] 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 3 PPD [id number] CHECK UP with BRENTON BUSTAMANTE PA-C 03/25/2024 Last Documented On 4 3:51PM ; [facility] Herniated lumbar disc CHECK UP with BRENTON GUDINO PA-C 03/25/2024 Last Documented On 4 3:51PM ; [facility] [facility] Hypercholesterolemia CHECK UP with BRENTON MCDOWELL-C 03/25/2024 Last Documented On 4 3:51PM ; [facility] Irritable bowel syndrome CHECK UP with BRENTON BUSTAMANTE PA-C 03/25/2024 Last Documented On 4 3:51PM ; [facility] Male erectile dysfunction CHECK UP with BRENTON BUSTAMANTE PA-C 03/25/2024 Last Documented On 4 3:51PM ; [facility] Routine adult history and ph ysical (18-64 yrs) with abnormal findings Secondary Dx of [Z00.01 - Encounter for general adult medical examination with abnormal findings] CHECK UP with BRENTON BUSTAMANTE PA-C 03/25/2024 Last Documented On 4 3:51PM ; [facility] Type 2 diabetes mellitus - uncomplicated, controlled CHECK UP with BRENTON BUSTAMANTE PA-C 03/25/2024 Last Documented On 4 3:51PM ; [facility] Common cold SICK VISIT with BRENTON SCHWAB CH, PA-C 01/26/2024 Last Documented On 4 11:27AM ; [facility] Benign essential hypertension PROBLEM VISIT with RUBENS ODELL MD 01/23/2024 Last Documented On 4 3:08PM ; [facility] Cardiomyopathy PROBLEM VISIT with RUBENS BLACK MD 01/23/2024 Last Documented On 4 3:08PM ; [facility] 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 PROBLEM VISIT with RUBENS ODELL MD 01/23/2024 Last Documented On 4 3:08PM ; [facility] Hypercholesterolemia PROBLEM VISIT with RUBENS ODELL MD 01/23/2024 Last Documented On 4 3:08PM ; [facility] Irritable bowel syndrome PROBLEM VISIT with JACQUI ODELL MD 01/23/2024 Last Documented On 4 3:08PM ; [facility] Tremor PROBLEM VISIT with RUBENS BLACK MD 01/23/2024 Last Documented On 4 3:08PM ; [facility] Type 2 diabetes mellitus - u ncomplicated, controlled PROBLEM VISIT with RUBENS ODELL MD 01/23/2024 Last Documented On 4 3:08PM ; [facility] [F17.211 - Nicotine dependen ce, cigarettes, in remission] dependence on nicotine in cigarettes in remission 3 PPD 1980-2417. Quit over 15 years ago- screening not recommended PROBLEM VISIT with BRENTON BUSTAMANTE PA-C 12/25/2023 Last Documented On 4 8:28AM ; [facility] Ganglion of the right hand palm PROBLEM VISIT wi th BRENTON Roddy ZIPPRICH PA-C 12/25/2023 Last Documented On 4 8:28AM ; [facility] Moderate depression PROBLEM VISIT with BRENTON Roddy ZIPPRICH PA-C 12/25/2023 Last Documented On 4 8:28AM ; [facility] Actinic keratosis PROBLEM VISIT with BRENTON Roddy Z IPPRICH PA-C 07/03/2023 Last Documented On 3 4:38PM ; [facility] Left plantar warts PROBLEM VISIT with BRENTON Roddy ZIPPRICH PA-C 07/03/2023 Last Documented On 3 4:38PM ; [facility] Benign essential hypertension ANNUAL PHY SICAL EXAM with BRENTON Roddy ZIPPRICH PA-C 03/14/2023 Last Documented On 3 3:38PM ; [facility] Benign prostatic hypertrophy without urinary obstruction ANNUAL PHYSICAL EXAM with BRENTON Roddy ZIPPRICH PA-C 03/14/2023 Last Documented On 3 3:38PM ; [facility] Chronic recurrent sinusitis ANNUAL PHYSI OLESYA EXAM with BRENTON Roddy ZIPPRICH PA-C 03/14/2023 Last Documented On 3 3:38PM ; [facility] Congestive heart failure ANNUAL PHYSICAL EXAM wi th BRENTON Roddy ZIPPRICH PA-C 03/14/2023 Last Documented On 3 3:38PM ; [facility] 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 3 PPD 2226-4452 ANNUAL PHYSICAL EXAM with BRENTON D ZIPPRICH PA-C 03/14/2023 Last Documented On 3 3:38PM ; [facility] Herniated lumbar disc ANNUAL PHYSICAL EXAM with BRENTON D ZIPPRICH PA-C 03/14/2023 Last Documented On 3 3:38PM ; [facility] Hypercholesterolemia ANNUAL PHYSICAL EXAM with Sunni OSORIO Roddy ZIPPRICH PA-C 03/14/2023 Last Documented On 3 3:38PM ; [facility] Irritable bowel syndrome ANNUAL PHYSICAL EXAM wi th BRENTON D ZIPPRICH PA-C 03/14/2023 Last Documented On 3 3:38PM ; [facility] Male erectile dysfunction ANNUAL PHYSICA L EXAM with BRENTON BUSTAMANTE PA-C 03/14/2023 Last Documented On 3 3:38PM ; [facility] Routine adult history and ph ysical (18-64 yrs) with abnormal findings Secondary Dx of [Z00.01 - Encounter for general adult medical examination with abnormal findings] ANNUAL PHYSICAL EXAM with BRENTON BUSTAMANTE PA-C 03/14/2023 Last Documented On 3 3:38PM ; [facility] Type 2 diabetes mellitus - uncomplicated, controlled ANNUAL PHYSICAL EXAM with BRENTON BUSTAMANTE PA-C 03/14/2023 Last Documented On 3 3:38PM ; [facility] Benign essential hypertension PREOP EXAM with MEET ODELL MD 07/12/2022 Last Documented On 2 5:25AM ; [facility] Coronary artery disease PREOP EXAM with RUBENS ODELL MD 07/12/2022 Last Documented On 2 5:25AM ; [facility] 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 PREOP EXAM with RUBENS ODELL MD 07/12/2022 Last Documented On 2 5:25AM ; [facility] Hypercholesterolemia PREOP EXAM with RUBENS ALLEN MD 07/12/2022 Last Documented On 2 5:25AM ; [facility] Type 2 diabetes mellitus - u ncomplicated, controlled PREOP EXAM with RUBENS ODELL MD 07/12/2022 Last Documented On 2 5:25AM ; [facility] Neck strain on right side , upper trapez [S16.1XXA - Strain of muscle, fascia and tendon at neck level, initial encounter] PROBLEM VISIT with BRENTON BUSTAMANTE PA-C 05/30/2022 Last Documented On 2 7:44AM ; [facility] Right trapezius muscle strain PROBLEM VISIT with BRENTON NUNEZICH PA-C 05/30/2022 Last Documented On 2 7:44AM ; [facility] Assessment of RUQ abdominal pain PROBLEM VISIT with BRENTON BUSTAMANTE PA-C 04/27/2022 Last Documented On 2 4:29PM ; [facility] Corneal abrasion PROBLEM VISIT with BRENTONDEEPTHI LANDINICH PA-C 04/07/2022 Last Documented On 2 1:22PM ; [facility] Benign essential hypertension ANNUAL PHY SICAL EXAM with BRENTONDEEPTHI NUNEZICH PA-C 03/23/2022 Last Documented On 2 10:08AM ; [facility] Benign prostatic hypertrophy without urinary obstruction ANNUAL PHYSICAL EXAM with BRENTONDEEPTHI LEACHPRICH PA-C 03/23/2022 Last Documented On 2 10:08AM ; [facility] Cardiomyopathy ANNUAL PHYSICAL EXAM with CARLIN Gold Roddy LEACHPRICH PA-C 03/23/2022 Last Documented On 2 10:08AM ; [facility] Congestive heart failure ANNUAL PHYSICAL EXAM wi th BRENTONDEEPTHI LEACHPRICH PA-C 03/23/2022 Last Documented On 2 10:08AM ; [facility] 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 3 PPD 6141-8723 ANNUAL PHYSICAL EXAM with BRENTONDEEPTHI LEACHPRICH PA-C 03/23/2022 Last Documented On 2 10:08AM ; [facility] Herniated lumbar disc ANNUAL PHYSICAL EXAM with BRENTONDEPETHI LEACHPRICH PA-C 03/23/2022 Last Documented On 2 10:08AM ; [facility] Hypercholesterolemia ANNUAL PHYSICAL EXAM with M DEVON Roddy LEACHPRICH PA-C 03/23/2022 Last Documented On 2 10:08AM ; [facility] Irritable bowel syndrome ANNUAL PHYSICAL EXAM wi th BRENTON Roddy LEACHPRICH PA-C 03/23/2022 Last Documented On 2 10:08AM ; [facility] Male erectile dysfunction ANNUAL PHYSICA L EXAM with BRENTONDEEPTHI LEACHPRICH PA-C 03/23/2022 Last Documented On 2 10:08AM ; [facility] Routine adult history and ph ysical (18-64 yrs) with abnormal findings Secondary Dx of [Z00.01 - Encounter for general adult medical examination with abnormal findings] ANNUAL PHYSICAL EXAM with BRENTON LEACHPRICH PA-C 03/23/2022 Last Documented On 2 10:08AM ; [facility] Type 2 diabetes mellitus - uncomplicated, controlled ANNUAL PHYSICAL EXAM with BRENTON Roddy DIANNA CHAN 03/23/2022 Last Documented On 2 10:08AM ; [facility] Common cold SICK VISIT with BRENTON Pereyra JOSSELIN CASIANOC 02/17/2022 Last Documented On 2 9:38AM ; [facility] Atypical chest pain EMERGENCY ROOM FOLLO WUP-ESTABLISHED PT with RUBENS ODELL MD 01/25/2022 Last Documented On 2 8:35AM ; [facility] Benign essential hypertension EMERGENCY ROOM FOLLOWUP-ESTABLISHED PT with RUBENS ODELL MD 01/25/2022 Last Documented On 2 8:35AM ; [facility] Cardiomyopathy EMERGENCY ROOM FOLLO WUP-ESTABLISHED PT with RUBENS ODELL MD 01/25/2022 Last Documented On 2 8:35AM ; [facility] Headaches, tension EMERGENCY ROOM FOLLO WUP-ESTABLISHED PT with RUBENS ODELL MD 01/25/2022 Last Documented On 2 8:35AM ; [facility] Hypercholesterolemia EMERGENCY ROOM FOLL OWUP-ESTABLISHED PT with RUBENS ODELL MD 01/25/2022 Last Documented On 2 8:35AM ; [facility] Post COVID-19 condition EMERGENCY ROOM F OLLOWUP-ESTABLISHED PT with RUBENS ODELL MD 01/25/2022 Last Documented On 2 8:35AM ; [facility] Tremor EMERGENCY ROOM FOLLOWUP-ESTABLIS HED PT with RUBENS ODELL MD 01/25/2022 Last Documented On 2 8:35AM ; [facility] Type 2 diabetes mellitus - uncomplicated, controlled EMERGENCY ROOM FOLLOWUP-ESTABLISHED PT with RUBENS ODELL MD 01/25/2022 Last Documented On 2 8:35AM ; [facility] Atypical chest pain PROBLEM VISIT with BRENTONDEEPTHI BUSTAMANTE PA-C 01/24/2022 Last Documented On 2 3:03PM ; [facility] Fatigue PROBLEM VISIT with BRENTON Roddy HAYLEE VILLAFANA PA-C 01/24/2022 Last Documented On 2 3:03PM ; [facility] Other headache syndromes PROBLEM VISIT with IMMANUEL Pereyra ZIPPRICH PA-C 01/24/2022 Last Documented On 2 3:03PM ; [facility] Muscle weakness (generalized) SICK VISIT with JESSICA MARIE TACK PULLER MACHINE-BC 11/15/2021 Last Documented On 1 7:54AM ; [facility] Acute maxillary sinusitis SICK VISIT with CARLIN Pereyra ZIPPRICH PA-C 06/14/2021 Last Documented On 1 9:25AM ; [facility] Acute maxillary sinusitis SICK VISIT with LJISS A D ZIPPRICH PA-C 04/26/2021 Last Documented On 1 10:26AM ; [facility] Benign essential hypertension CHECK UP with IMMANUEL Pereyra ZIPPRICH PA-C 03/31/2021 Last Documented On 1 8:03AM ; [facility] Benign prostatic hypertrophy without urinary obstruction CHECK UP with BRENTON Roddy ZIPPRICH PA-C 03/31/2021 Last Documented On 1 8:03AM ; [facility] Cardiomyopathy CHECK UP with BRENTON Roddy ZIPPRICH PA-C 03/31/2021 Last Documented On 1 8:03AM ; [facility] Congestive heart failure CHECK UP with BRENTON D ZIPPRICH PA-C 03/31/2021 Last Documented On 1 8:03AM ; [facility] 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 3 PPD 5959-4324 CHECK UP with BRENTON Roddy ZIPPRICH PA-C 03/31/2021 Last Documented On 1 8:03AM ; [facility] Herniated lumbar disc CHECK UP with BRENTON D ZI PPRICH PA-C 03/31/2021 Last Documented On 1 8:03AM ; [facility] Hypercholesterolemia CHECK UP with BRENTON Roddy ZIP PRICH PA-C 03/31/2021 Last Documented On 1 8:03AM ; [facility] Irritable bowel syndrome CHECK UP with BRENTON D ZIPPRICH PA-C 03/31/2021 Last Documented On 1 8:03AM ; [facility] Left plantar warts CHECK UP with BRENTON D ZIPPR ICH PA-C 03/31/2021 Last Documented On 1 8:03AM ; [facility] Lumbago CHECK UP with BRENTON D ZIPPRICH PA-C 03/31/2021 Last Documented On 1 8:03AM ; [facility] Male erectile dysfunction CHECK UP with BRENTON D ZIPPRICH PA-C 03/31/2021 Last Documented On 1 8:03AM ; [facility] Routine adult history and ph ysical (18-64 yrs) with abnormal findings CHECK UP with BRENTON D ZIPPRICH PA-C 03/31/2021 Last Documented On 1 8:03AM ; [facility] Type 2 diabetes mellitus - uncomplicated, controlled CHECK UP with RBENTON D ZIPPRICH PA-C 03/31/2021 Last Documented On 1 8:03AM ; [facility] Benign essential hypertension CHECK UP with IMMANUEL SSA D ZIPPRICH PA-C 06/17/2020 Last Documented On 0 8:03AM ; [facility] Benign prostatic hypertrophy without urinary obstruction CHECK UP with BRENTON D ZIPPRICH PA-C 06/17/2020 Last Documented On 0 8:03AM ; [facility] Bilateral plantar warts CHECK UP with BRENTON D ZIPPRICH PA-C 06/17/2020 Last Documented On 0 8:03AM ; [facility] Cardiomyopathy CHECK UP with BRENTON D ZIPPRICH PA-C 06/17/2020 Last Documented On 0 8:03AM ; [facility] Congestive heart failure CHECK UP with BRENTON D ZIPPRICH PA-C 06/17/2020 Last Documented On 0 8:03AM ; [facility] 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 3 PPD 0140-2130 CHECK UP with BRENTON D ZIPPRICH PA-C 06/17/2020 Last Documented On 0 8:03AM ; [facility] Herniated lumbar disc CHECK UP with BRENTON D ZI PPRICH PA-C 06/17/2020 Last Documented On 0 8:03AM ; [facility] Hypercholesterolemia CHECK UP with BRENTON D ZIP PRICH PA-C 06/17/2020 Last Documented On 0 8:03AM ; [facility] Irritable bowel syndrome CHECK UP with BRENTON D ZIPPRICH PA-C 06/17/2020 Last Documented On 0 8:03AM ; [facility] Lumbago CHECK UP with BRENTON D ZIPPRICH PA-C 06/17/2020 Last Documented On 0 8:03AM ; [facility] Male erectile dysfunction CHECK UP with BRENTON D ZIPPRICH PA-C 06/17/2020 Last Documented On 0 8:03AM ; [facility] Routine adult history and ph ysical (18-64 yrs) without abnormal findings CHECK UP with BRENTON D ZIPPRICH PA-C 06/17/2020 Last Documented On 0 8:03AM ; [facility] Type 2 diabetes mellitus - uncomplicated, controlled CHECK UP with BRENTON D ZIPPRICH PA-C 06/17/2020 Last Documented On 0 8:03AM ; [facility] Bilateral plantar warts PROBLEM VISIT with TALITA SA D ZIPPRICH PA-C 06/05/2020 Last Documented On 0 11:29AM ; [facility] Warts of the right hand PROBLEM VISIT with TALITA SA D ZIPPRICH PA-C 06/05/2020 Last Documented On 0 11:29AM ; [facility] Allergic rhinitis due to pollen SICK VISIT with BRENTON D ZIPPRICH PA-C 03/23/2020 Last Documented On 0 2:44PM ; [facility] Warts of the right hand OFFICE SURGERY with IMMANUEL SSA D ZIPPRICH PA-C 11/08/2019 Last Documented On 9 11:15AM ; [facility] Warts of the right hand PROBLEM VISIT with TALITA SA D ZIPPRICH PA-C 09/19/2019 Last Documented On 9 8:44AM ; [facility] Actinic keratosis PROBLEM VISIT with BRENTON D Z IPPRICH PA-C 09/05/2019 Last Documented On 9 12:24PM ; [facility] Warts of the left hand PROBLEM VISIT with MELISS A D ZIPPRICH PA-C 09/05/2019 Last Documented On 9 12:24PM ; [facility] Acute otitis media of right ear SICK VISIT with BRENTON D ZIPPRICH PA-C 05/10/2019 Last Documented On 9 5:43PM ; [facility] Acute recurrent sinusitis SICK VISIT with MELISS A D ZIPPRICH PA-C 05/10/2019 Last Documented On 9 5:43PM ; [facility] Acute frontal sinusitis SICK VISIT with BRENTON D ZIPPRICH PA-C 02/25/2019 Last Documented On 9 2:27PM ; [facility] Sinusitis SICK VISIT with YOLANDE RAY TACK PULLER MACHINE-BC 11/09/2018 Last Documented On 8 1:26PM ; [facility] Acute frontal sinusitis SICK VISIT with BRENTON D ZIPPRICH PA-C 10/15/2018 Last Documented On 8 3:19PM ; [facility] Acute otitis media of left ear SICK VISIT with M DEVON D ZIPPRICH PA-C 10/15/2018 Last Documented On 8 3:19PM ; [facility] Acute frontal sinusitis SICK VISIT with BRENTON D ZIPPRICH PA-C 07/24/2018 Last Documented On 8 9:21AM ; [facility] Acute otitis media of left ear SICK VISIT with M DEVON D ZIPPRICH PA-C 07/24/2018 Last Documented On 8 9:21AM ; [facility] Arthralgia of left foot , st rain verse gout SICK VISIT with BRENTON D ZIPPRICH PA-C 07/24/2018 Last Documented On 8 9:21AM ; [facility] Lumbago * PHONE CALL with YOLANDE BLACK TACK PULLER MACHINE-BC 04/06/2018 Last Documented On 8 4:01PM ; [facility] Sinusitis SICK VISIT with YOLANDE RAY TACK PULLER MACHINE-BC 02/28/2018 Last Documented On 8 1:40PM ; [facility] Oral thrush PROBLEM VISIT with YOLANDE MARIE TACK PULLER MACHINE-BC 09/29/2017 Last Documented On 7 2:36PM ; [facility] Sinusitis PROBLEM VISIT with YOLANDE MARIE [facility] 09/29/2017 Last Documented On 7 2:36PM ; [facility] Acute pansinusitis SICK VISIT with BRENTON Pereyra HAYLEE VILLAFANA PA-C 09/07/2017 Last Documented On 7 3:55PM ; [facility] Acute recurrent sinusitis SICK VISIT with CARLIN Pereyra DIANNA PA-C 08/08/2017 Last Documented On 7 10:02AM ; [facility] Irritable bowel syndrome SICK VISIT with BRENTON Pereyra DIANNA PA-C 08/08/2017 Last Documented On 7 10:02AM ; [facility] Benign essential hypertension CHECK UP with JACQUI ODELL MD 05/09/2017 Last Documented On 7 12:44AM ; [facility] Benign prostatic hypertrophy without urinary obstruction CHECK UP with RUBENS ODELL MD 05/09/2017 Last Documented On 7 12:44AM ; [facility] Cardiomyopathy CHECK UP with RUBENS OEDLL MD 05/09/2017 Last Documented On 7 12:44AM ; [facility] Congestive heart failure CHECK UP with RUBENS ODELL MD 05/09/2017 Last Documented On 7 12:44AM ; [facility] 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 3 PPD 3100-6831 CHECK UP with RUBENS ODELL MD 05/09/2017 Last Documented On 7 12:44AM ; [facility] Herniated lumbar disc CHECK UP with RUBENS SOTO MD 05/09/2017 Last Documented On 7 12:44AM ; [facility] Hypercholesterolemia CHECK UP with RUBENS BLACK MD 05/09/2017 Last Documented On 7 12:44AM ; [facility] Irritable bowel syndrome CHECK UP with RUBENS ODELL MD 05/09/2017 Last Documented On 7 12:44AM ; [facility] Lumbago CHECK UP with RUBENS ODELL MD 05/09/2017 Last Documented On 7 12:44AM ; [facility] Male erectile dysfunction CHECK UP with RUBENS ODELL MD 05/09/2017 Last Documented On 7 12:44AM ; [facility] Routine adult history and ph ysical (18-64 yrs) without abnormal findings CHECK UP with RUBENS ODELL MD 05/09/2017 Last Documented On 7 12:44AM ; [facility] Type 2 diabetes mellitus - u ncomplicated, controlled CHECK UP with RUBENS ODELL MD 05/09/2017 Last Documented On 7 12:44AM ; [facility] Lumbago with sciatica PROBLEM VISIT with KATYA QUICK 02/13/2017 Last Documented On 7 2:34PM ; [facility] Tension-type headache PROBLEM VISIT with BRENTON CASIANOC 08/22/2016 Last Documented On 6 4:13PM ; [facility] Acute sinusitis SICK VISIT with BUCKY Rodríguez 12/01/2015 Last Documented On 6 3:38PM ; [facility] Benign essential hypertension SICK VISIT with PEDRO DOUGHERTY M.D. 12/01/2015 Last Documented On 6 3:38PM ; [facility] Type 2 diabetes mellitus - u ncomplicated, controlled SICK VISIT with BUCKY DOUGHERTY M.D. 12/01/2015 Last Documented On 6 3:38PM ; [facility] Acute sinusitis PROBLEM VISIT with BUCKY Romo M.D. 04/06/2015 Last Documented On 5 3:39PM ; [facility] Left-sided pleurisy PROBLEM VISIT with BUCKY SCHMIDT M.D. 04/06/2015 Last Documented On 5 3:39PM ; [facility] Pleurisy PROBLEM VISIT with BUCKY Romo M.D. 04/06/2015 Last Documented On 5 3:39PM ; [facility] Acute sinusitis SICK VISIT with BRENTON SCHWAB CH PA-C 12/15/2014 Last Documented On 5 11:23AM ; [facility] Tremor SICK VISIT with BRENTON MCDOWELL-C 12/15/2014 Last Documented On 5 11:23AM ; [facility] Acute sinusitis SICK VISIT with BRENTON Roddy ZIPPRI CH PA-C 04/10/2014 Last Documented On 4 3:30PM ; [facility] Acute sinusitis SICK VISIT with BUCKY Rodríguez 12/23/2013 Last Documented On 4 3:01PM ; [facility] Acute sinusitis SICK VISIT with BRENTON Pereyra ZIPPRI CH PA-C 09/03/2013 Last Documented On 3 4:04PM ; [facility] Acute sinusitis SICK VISIT with BUCKY Rodríguez 08/29/2013 Last Documented On 3 2:46PM ; [facility] Acute sinusitis SICK VISIT with BRENTON Roddy ZIPPRI CH PA-C 01/14/2013 Last Documented On 3 1:20PM ; [facility] Acute sinusitis SICK VISIT with BRENTON Roddy ZIPPRI CH PA-C 09/18/2012 Last Documented On 2 2:39PM ; [facility] Cat bite SICK VISIT with BUCKY Rodríguez 05/01/2012 Last Documented On 2 1:56PM ; [facility] Cellulitis SICK VISIT with BUCKY Rodríguez 05/01/2012 Last Documented On 2 1:56PM ; [facility] Rupture of the bicipital tendon PROBLEM VISIT wi BUCKY DOUGHERTY M.D. 11/15/2011 Last Documented On 1 2:07PM ; [facility] Rupture of the bicipital ten don of the right arm PROBLEM VISIT with BUCKY DOUGHERTY M.D. 11/15/2011 Last Documented On 1 2:07PM ; [facility] Acute sinusitis GENERAL OFFICE VISIT with BUCKY DOUGHERTY M.D. 08/03/2011 Last Documented On 1 11:10AM ; [facility] Warts GENERAL OFFICE VISIT with BUCKY DOUGHERTY M.D. 08/03/2011 Last Documented On 1 11:10AM ; [facility] Lateral epicondylitis INJECTION with BUCKY ENRIQUE M.D. 07/08/2011 Last Documented On 1 11:07AM ; [facility] Warts INJECTION with BUCKY Alvarenga 07/08/2011 Last Documented On 1 11:07AM ; [facility] Acute cystitis SICK VISIT with BUCKY Rodríguez 06/20/2011 Last Documented On 1 9:05AM ; [facility] Acute sinusitis PROBLEM VISIT with BUCKY Romo M.D. 02/16/2011 Last Documented On 1 10:18AM ; [facility] Hypotension PROBLEM VISIT with BUCKY Romo M.D. 02/16/2011 Last Documented On 1 10:18AM ; [facility] Lateral epicondylitis PROBLEM VISIT with BUCKY DOUGHERTY M.D. 02/16/2011 Last Documented On 1 10:18AM ; [facility] Acute sinusitis SICK VISIT with RUBENS ODELL MD 12/08/2010 Last Documented On 1 10:11AM ; [facility] Sinusitis WILL ALSO DO SOME MUCINEX, AND BECAUSE OF HIS OTHER EXTENSIVE MED ISSUES WE WILL TREAT WITH ABX FOR 14 DAYS INSTEAD OF TEN SICK VISIT with RUBENS ODELL MD 12/08/2010 Last Documented On 1 10:11AM ; [facility] Neoplasm of the descended testis PROBLEM VISIT w ith BUCKY DOUGHERTY M.D. 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 11/23/2010 Last Documented On 1 10:36AM ; [facility] Testicular neoplasm PROBLEM VISIT with BUCKY SCHMIDT M.D. 11/23/2010 Last Documented On 1 10:36AM ; [facility] Testicular neoplasm location PROBLEM VISIT with BUCKY DOUGHERTY M.D. 11/23/2010 Last Documented On 1 10:36AM ; [facility] Testicular neoplasm of uncer tain behavior PROBLEM VISIT with BUCKY DOUGHERTY M.D. 11/23/2010 Last Documented On 1 10:36AM ; [facility] Benign essential hypertension HOSPITAL F OLLOW UP EXAM with BUCKY DOUGHERTY M.D. 10/18/2010 Last Documented On 0 9:22AM ; [facility] Diabetes mellitus HOSPITAL FOLLOW UP EXAM with Roddy DOUGHERTY M.D. 10/18/2010 Last Documented On 0 9:22AM ; [facility] Arthritis HOSPITAL H&P with M LULA RANJITH VAN PA-C 10/11/2010 Last Documented On 0 10:48AM ; [facility] Hypertension HOSPITAL H&P with M LULA RANJITH VAN PA-C 10/11/2010 Last Documented On 0 10:48AM ; [facility] Type II diabetes mellitus HOSPITAL H&P with M LAURYN PALACIOS PA-C 10/11/2010 Last Documented On 0 10:48AM ; [facility] Working diagnosis of gastroenteritis HOS PITAL H&P with M LULA PHILIP PA-C 10/11/2010 Last Documented On 0 10:48AM ; [facility] Working diagnosis of hypomagnesemia HOSP ITAL H&P with M LULA PHILIP PA-C 10/11/2010 Last Documented On 0 10:48AM ; [facility] Working diagnosis of unstable angina HOS PITAL H&P with M LULA PHILIP PA-C 10/11/2010 Last Documented On 0 10:48AM ; [facility] Acute sinusitis SICK VISIT with BRENTON MCDOWELL-C 09/14/2010 Last Documented On 0 3:10PM ; [facility] Acute sinusitis PROBLEM VISIT with BUCKY Romo M.D. 03/18/2010 Last Documented On 0 3:31PM ; [facility] Benign essential hypertension PROBLEM VISIT with BUCKY DOUGHERTY M.D. 03/18/2010 Last Documented On 0 3:31PM ; [facility] Benign essential hypertension CHECK UP with KRISHNA DOUGHERTY M.D. 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 07/17/2009 Last Documented On 9 10:18AM ; [facility] Instructions Includes: Instructions for all patient encounters Instructions to patient Watch for signs/symptoms of infection Last Documented On 4 11:19AM ; [facility] Watch for signs/symptoms of infection, return to the clinic if seen Last Documented On 4 11:19AM ; [facility] Recommend diet and exercise at least 30 min three times per week Last Documented On 4 4:08PM ; [facility] Recommend diet and exercise at least 30 min three times per week Last Documented On 3 3:20PM ; [facility] Reduced physical activity Last Documented On 2 7:43AM ; [facility] Go to the emergency room if condition worsens Last Documented On 2 7:43AM ; [facility] Watch for signs/symptoms of infection Last Documented On 2 4:26PM ; [facility] Recommend diet and exercise at least 30 min three times per week Last Documented On 2 9:43AM ; [facility] Watch for signs/symptoms of infection Last Documented On 2 9:35AM ; [facility] Watch for signs/symptoms of infection, return to the clinic if seen Last Documented On 2 9:35AM ; [facility] Go to the emergency room now - Due to Sx recommend further work up and evaluation in ER. Patient agress and will go to ER. Refuses Ambulance transfer. Understarnds risks of self transfer including MVA, Delay in care and Last Documented On 2 10:19AM ; [facility] Recommend diet and exercise at least 30 min three times per week Last Documented On 1 7:59AM ; [facility] Recommend diet and exercise at least 30 min three times per week Last Documented On 0 7:57AM ; [facility] Watch for signs/symptoms of infection Last Documented On 0 2:43PM ; [facility] Watch for signs/symptoms of infection Last Documented On 9 11:12AM ; [facility] Watch for signs/symptoms of infection Last Documented On 9 4:21PM ; [facility] Watch for signs/symptoms of infection Last Documented On 9 12:24PM ; [facility] Instructions for patient Last Documented On 8 10:12AM ; [facility] Recommend diet and exercise at least 30 min three times per week Last Documented On 7 12:31AM ; [facility] Go to the emergency room if condition worsens Last Documented On 6 4:12PM ; [facility] Education and Decision Aids were provided during visit for: Patient education about anti biotics: need to finish even if feeling better Last Documented On 1 8:46AM ; [facility] Patient education about anti biotics: need to finish even if feeling better Last Documented On 1 9:41AM ; [facility] Patient education about anti biotics: need to finish even if feeling better Last Documented On 9 5:41PM ; [facility] Patient education about anti biotics: need to finish even if feeling better Last Documented On 9 2:20PM ; [facility] Patient education about anti biotics: need to finish even if feeling better Last Documented On 7 3:55PM ; [facility] Patient education about anti biotics: need to finish even if feeling better Last Documented On 7 10:00AM ; [facility] Patient education about anti biotics: need to finish even if feeling better Last Documented On 5 9:50AM ; [facility] Patient education about anti biotics: need to finish even if feeling better Last Documented On 4 3:30PM ; [facility] Patient education about anti biotics: need to finish even if feeling better Last Documented On 3 4:03PM ; [facility] Patient education about anti biotics: need to finish even if feeling better Last Documented On 3 1:19PM ; [facility] Patient education about anti biotics: need to finish even if feeling better Last Documented On 2 2:39PM ; [facility] Medical Equipment - Implanted Devices Includes: Current and historical Devices No Medical Equipment Recorded Medications Includes: Current and historical Medications Current Medications (continue as prescribed) DULoxetine HCl 30 MG Oral Capsule Delayed Release Particles 03/25/2024 - 03/20/2025 Provider: BRENTON BUSTAMANTE PA-C Diagnosis: Major depressive disorder, single episode, moderate One tablet daily Last Documented On 4 12:24PM By BRENTON BUSTAMANTE PA-C ; [facility] Tamsulosin HCl 0.4 MG Oral Capsule 03/25/2024 Provid er: Diagnosis: Last Documented On 03/25/2024 9:16AM By SARIKA JOHNSTON ; [facility] Propranolol HCl 20 MG Oral Tablet 03/25/2024 Provide r: Diagnosis: 2 pills tid Last Documented On 03/25/2024 9:17AM By SARIKA JOHNSTON ; [facility] Lisinopril 20 MG Oral Tablet 03/25/2024 - 03/20/2025 Provider: BRENTON SCHWAB CH, PA-C Diagnosis: TAKE 1 TABLET BY MOUTH DAILY Last Documented On 4 12:24PM By BRENTON BUSTAMANTE PA-C ; [facility] Flonase Allergy Relief 50 MCG/ACT Nasal Suspension 01/26/2024 Provider: BRENTON BUSTAMANTE PA-C Diagnosis: Acute nasopharyn gitis [common cold] 2 sprays each nostril once daily Last Documented On 03/25/2024 9:12AM By SARIKA JOHNSTON ; [facility] Ozempic (1 MG/DOSE) 2 MG/1.5 ML Subcutaneous Solution Pen-injector 12/25/2023 Provider: Diagnosis: ordred by endo Last Documented On 12/25/2023 2:54PM By SARIKA JOHNSTON ; [facility] Gabapentin 300 MG Oral Capsule 03/14/2023 Provider: Diagnosis: Last Documented On 03/14/2023 2:45PM By SARIKA JOHNSTON ; [facility] Lidocaine Oint & Men-Meth [place] 5 & 3-10% External Therapy Pack 07/12/2022 Provider: Diagnosis: Last Documented On 07/12/2022 2:36PM By Freida ROMERO ; [facility] Magnesium Oxide 400 MG Oral Tablet 05/30/2022 Provid er: Diagnosis: ordered by cardiioogist Last Documented On 05/30/2022 11:43AM By SARIKA JOHNSTON ; [facility] Pioglitazone HCl 15 MG Oral Tablet 05/30/2022 Provid er: Diagnosis: Last Documented On 05/30/2022 11:21AM By SARIKA JOHNSTON ; [facility] Nitrostat 0.4 MG Sublingual Tablet Sublingual 04/27/20 Provider: Diagnosis: ordered by transport assistant Last Documented On 04/27/2022 10:26AM By SARIKA JOHNSTON ; [facility] Atorvastatin Calcium 40 MG Oral Tablet 03/23/2022 Pr ovider: Diagnosis: Last Documented On 03/23/2022 9:29AM By SARIKA JOHNSTON ; [facility] Farxiga 10 MG Oral Tablet 03/23/2022 Provider: Diagnosis: Last Documented On 03/23/2022 9:28AM By SARIKA JOHNSTON ; [facility] Vitamin D 50 MCG (1999 [place]) Oral Capsule 01/24/2022 Gary aparicioder: Diagnosis: Last Documented On 01/24/2022 9:40AM By SARIKA JOHNSTON ; [facility] Potassium 99 MG Oral Tablet 01/24/2022 Provider: Diagnosis: Last Documented On 01/24/2022 9:39AM By SARIKA JOHNSTON ; [facility] HYDROcodone-Acetaminophen 10-325 MG Oral Tablet 2021 Provider: Diagnosis: one or 2 at bedtimeordered by specialist Last Documented On 01/24/2022 9:42AM By SARIKA JOHNSTON ; [facility] Melatonin 10 MG Oral Tablet 09/05/2019 Provider: Diagnosis: Last Documented On 09/05/2019 10:26AM By AYAN ROMERO ; [facility] metFORMIN HCl 1000 MG TABS 12/15/2014 Provider: Diagnosis: Last Documented On 12/15/2014 9:34AM By AYAN ROMERO ; [facility] Multivitamins OR CAPS 10/10/2010 Provider: Diagnosis: Last Documented On 0 7:27PM By LULA PALACIOS PA-C ; [facility] OneTouch Ultra Blue STRP 04/15/2010 Provider: BUCKY DOUGHERTY M.D. Diagnosis: #90 WITH 3 REFILLS Last Documented On 04/15/2010 1:13PM By BUCKY DOUGHERTY MD ; [facility] Past Medications on file Amitriptyline HCl 50 MG Oral Tablet 02/13/2024 - 02/07/2025 Provider: BRENTON BUSTAMANTE PA-C Diagnosis: Other irritable bowel syndrome TAKE 1 TABLET BY MOUTH AT BEDTIME Last Documented On 4 11:41AM By BRENTON BUSTAMANTE PA-C ; [facility] tiZANidine HCl 4 MG Oral Tablet 02/07/2024 - 05/07/2024 Provider: YOLANDE QUICK Diagnosis: TAKE 1 TABLET BY MOUTH TWICE DAILY Last Documented On 4 12:41PM By YOLANDE QUICK ; [facility] DULoxetine HCl 30 MG Oral Capsule Delayed Release Particles 12/25/2023 - 03/25/2024 Provider: BRENTON BUSTAMANTE PA-C Diagnosis: Major depressive disorder, single episode, moderate One tablet daily Last Documented On 4 12:22PM By BRENTON BUSTAMANTE PA-C ; [facility] Tamsulosin HCl 0.4 MG Oral Capsule 12/25/2023 - 2023 Provider: Diagnosis: Last Documented On 03/25/2024 9:16AM By SARIKA JOHNSTON ; [facility] Lisinopril 20 MG Oral Tablet 10/23/2023 - 03/25/2024 Provider: YOLANDE QUICK Diagnosis: TAKE 1 TABLET BY MOUTH DAILY Last Documented On 4 12:22PM By BRENTON BUSTAMANTE PA-C ; [facility] tiZANidine HCl 4 MG Oral Tablet 08/14/2023 - 02/07/2024 Provider: YOLANDE QUICK Diagnosis: TAKE 1 TABLET BY MOUTH TWICE DAILY Last Documented On 4 12:36PM By YOLANDE QUICK ; [facility] tiZANidine HCl 4 MG Oral Tablet 05/19/2023 - 08/14/2023 Provider: YOLANDE RAY [facility] Diagnosis: TAKE 1 TABLET BY MOUTH TWICE DAILY Last Documented On 3 8:32AM By YOLANDE MARIE [facility]- ; [facility] Flonase Allergy Relief 50 MCG/ACT Nasal Suspension 03/14/2023 - 03/25/2024 Provider: BRENTON BUSTAMANTE PA-C Diagnosis: Chronic sinusiti s, unspecified 2 sprays each nostril once daily Last Documented On 03/25/2024 9:16AM By SARIKA JOHNSOTN ; [facility] Amitriptyline HCl 50 MG Oral Tablet 03/07/2023 - 02/13/2024 Provider: BRENTON BUSTAMANTE PA-C Diagnosis: Other irritable bowel syndrome TAKE 1 TABLET BY MOUTH AT BEDTIME Last Documented On 4 11:24AM By BRENTON BUSTAMANTE PA-C ; [facility] Azithromycin 250 MG Oral Tablet 03/03/2023 - 03/14/2023 Provider: YOLANDE RAY [facility]- Diagnosis: 2 tabs on day 1, then 1 tab daily for 4 days. Last Documented On 03/14/2023 2:40PM By SARIKA JOHNSTON ; [facility] tiZANidine HCl 4 MG Oral Tablet 02/21/2023 - 05/19/2023 Provider: YOLANDE RAY [facility]- Diagnosis: TAKE 1 TABLET BY MOUTH TWICE DAILY Last Documented On 3 8:58AM By YOLANDE MARIE [facility] ; [facility] Lisinopril 20 MG Oral Tablet 02/08/2023 - 10/23/2023 Provider: YOLANDE RAY [facility] Diagnosis: One tablet daily Last Documented On 3 8:49AM By YOLANDE MARIE [employer]- ; [facility] Amitriptyline HCl 50 MG Oral Tablet 12/08/2022 - 03/07/2023 Provider: BRENTON BUSTAMANTE PA-C Diagnosis: Other irritable bowel syndrome TAKE 1 TABLET BY MOUTH AT BE DTIMENeeds apt for any additional refills Last Documented On 3 9:06AM By BRENTON BUSTAMANTE PA-C ; [facility] tiZANidine HCl 4 MG Oral Tablet 11/28/2022 - 02/21/2023 Provider: YOLANDE RAY [facility] Diagnosis: TAKE 1 TABLET BY MOUTH TWICE DAILY Last Documented On 3 2:16PM By YOLANDE MARIE [employer] [facility] ; [facility] tiZANidine HCl 4 MG Oral Tablet 09/16/2022 - 11/28/2022 Provider: YOLANDE RAY [facility]- Diagnosis: TAKE 1 TABLET BY MOUTH TWICE DAILY Last Documented On 3 8:45AM By YOLANDE MARIE [employer] ; [facility] Lisinopril 20 MG Oral Tablet 07/12/2022 - 03/14/2023 P rovider: Diagnosis: Last Documented On 03/14/2023 2:45PM By SARIKA JOHNSTON ; [facility] Amitriptyline HCl 50 MG Oral Tablet 06/30/2022 - 12/08/2022 Provider: BRENTON BUSTAMANTE PA-C Diagnosis: Other irritable bowel syndrome TAKE 1 TABLET BY MOUTH AT BEDTIME Last Documented On 3 9:05AM By BRENTON BUSTAMANTE PA-C ; [facility] tiZANidine HCl 4 MG Oral Tablet 06/08/2022 - 09/16/2022 Provider: YOLANDE RAY [facility] Diagnosis: TAKE 1 TABLET BY MOUTH TWICE DAILY Last Documented On 2 8:24AM By YOLANDE QUICK ; [facility] Pantoprazole Sodium 40 MG Or al Tablet Delayed Release 05/30/2022 - 03/14/2023 Provider: Diagnosis: Last Documented On 03/14/2023 2:46PM By SARIKA JOHNSTON ; [facility] predniSONE 10 MG Oral Tablet 05/30/2022 - 07/12/2022 Provider: BRENTON BUSTAMANTE PA-C Diagnosis: Strain of muscle , fascia and tendon at neck level, init One tablet twice a day Last Documented On 07/12/2022 2:34PM By Freida ROMERO ; [facility] Isosorbide Mononitrate ER 30 MG Oral Tablet Extended Release 24 Hour 05/30/2022 - 03/14/2023 Provider: Diagnosis: Last Documented On 03/14/2023 2:45PM By SARIKA JOHNSTON ; [facility] Magnesium 500 MG Oral Tablet 05/30/2022 - 03/25/2024 P rovider: Diagnosis: Last Documented On 03/25/2024 9:15AM By SARIKA JOHNSTON ; [facility] Tobramycin 0.3% Ophthalmic Solution 04/07/2022 - 05/30/2022 Provider: BRENTON BUSTAMANTE PA-C Diagnosis: Inj conjunctiva and corneal abrasion w/o fb, right eye, init as directed 2 gtts to affete d eye QID x 5-7 days Last Documented On 05/30/2022 11:19AM By SARIKA JOHNSTON ; [facility] Trulicity 3 MG/0.5ML Subcuta neous Solution Pen-injector 03/23/2022 - 12/25/2023 Provider: Diagnosis: once weekly Last Documented On 12/25/2023 2:54PM By SARIKA JOHNSTON ; [facility] Meloxicam 15 MG Oral Tablet 03/23/2022 - 03/14/2023 Pr ovider: Diagnosis: Last Documented On 03/14/2023 2:46PM By SARIKA JOHNSTON ; [facility] tiZANidine HCl 4 MG Oral Tablet 03/23/2022 - 06/08/2022 Provider: YOLANDE RAY [facility]- Diagnosis: TAKE 1 TABLET BY MOUTH TWICE DAILY Last Documented On 2 8:17AM By YOLANDE MARIE [employer]-YOLANDA ; [facility] Amitriptyline HCl 50 MG Oral Tablet 03/22/2022 - 06/30/2022 Provider: BRENTON BUSTAMANTE PA-C Diagnosis: Other irritable bowel syndrome TAKE 1 TABLET BY MOUTH AT BEDTIME Last Documented On 2 8:44AM By BRENTON BUSTAMANTE PA-C ; [facility] Flonase Allergy Relief 50 MCG/ACT Nasal Suspension 02/17/2022 - 03/23/2022 Provider: BRENTON BUSTAMANTE PA-C Diagnosis: Acute nasopharyn gitis [common cold] 2 sprays each nostril once daily Last Documented On 03/23/2022 9:25AM By SARIKA JOHNSTON ; [facility] Gabapentin 600 MG Oral Tablet 01/24/2022 - 03/14/2023 Provider: Diagnosis: Last Documented On 03/14/2023 2:45PM By SARIKA JOHNSTON ; [facility] tiZANidine HCl 4 MG Oral Tablet 12/22/2021 - 03/23/2022 Provider: YOLANDE RAY [facility] Diagnosis: TAKE 1 TABLET BY MOUTH TWICE DAILY Last Documented On 9:18AM By YOLANDE MARIE [facility] ; [facility] Azithromycin 250 MG Oral Tablet 11/17/2021 - 01/25/2022 Provider: YOLANDE RAY [facility]- Diagnosis: take as directed 2 tabs on d ay one then one tab on days 2-5 Last Documented On 01/25/2022 2:37PM By DAMARIS ODELL MD ; [facility] tiZANidine HCl 4 MG Oral Tablet 10/18/2021 - 12/22/2021 Provider: YOLANDE RAY [facility] Diagnosis: TAKE 1 TABLET BY MOUTH TWICE DAILY Last Documented On 10:50AM By [facility] ; [facility] Clarithromycin 500 MG Oral Tablet 06/14/2021 - 01/25/2022 Provider: BRENTON BUSTAMANTE PA-C Diagnosis: Acute maxillary sinusitis, unspecified One tablet twice a day Last Documented On 01/25/2022 2:38PM By DAMAIRS ODELL MD ; [facility] Amitriptyline HCl 50 MG Oral Tablet 06/10/2021 - 03/22/2022 Provider: BRENTON BUSTAMANTE PA-C Diagnosis: Other irritable bowel syndrome TAKE 1 TABLET BY MOUTH AT BEDTIME Last Documented On 9:21AM By BRENTON BUSTAMANTE PA-C ; [facility] tiZANidine HCl 4 MG Oral Tablet 05/21/2021 - 10/18/2021 Provider: [facility]ANDE [facility] Diagnosis: Low back pain TAKE 1 TABLET BY MOUTH TWICE DAILY Last Documented On 9:36AM By YOLANDE MARIE [facility] ; [facility] Flonase Allergy Relief 50 MCG/ACT Nasal Suspension 04/26/2021 - 03/23/2022 Provider: BRENTON BUSTAMANTE PA-C Diagnosis: Acute maxillary sinusitis, unspecified 2 sprays each nostril once daily Last Documented On 03/23/2022 9:25AM By SARIKA JOHNSTON ; [facility] Amoxicillin-Pot Clavulanate 875-125 MG Oral Tablet 04/26/2021 - 01/25/2022 Provider: BRENTON BUSTAMANTE PA-C Diagnosis: Acute maxillary sinusitis, unspecified One tablet twice a day Last Documented On 01/25/2022 2:37PM By DAMARIS ODELL MD ; [facility] HYDROcodone-Acetaminophen 5-325 MG Oral Tablet 0 03/31/2021 - 01/24/2022 Provider: Diagnosis: as needed - ordered by pain management Last Documented On 01/24/2022 9:41AM By SARIKA JOHNSTON ; [facility] Gabapentin 300 MG Oral Capsule 03/31/2021 - 01/24/2022 Provider: Diagnosis: Last Documented On 01/24/2022 9:42AM By SARIKA JOHNSTON ; [facility] Alfuzosin HCl ER 10 MG Oral Tablet Extended Release 24 Hour 03/31/2021 - 01/24/2022 Provider: Diagnosis: Last Documented On 01/24/2022 9:42AM By SARIKA JOHNSTON ; [facility] Amitriptyline HCl 50 MG Oral Tablet 03/09/2021 - 06/10/2021 Provider: BRENTON BUSTAMANTE PA-C Diagnosis: Other irritable bowel syndrome TAKE 1 TABLET BY MOUTH AT BEDTIME Last Documented On 4:26PM By BRENTON BUSTAMANTE PA-C ; [facility] tiZANidine HCl 4 MG Oral Tablet 09/11/2020 - 05/21/2021 Provider: YOLANDE RAY [facility]- Diagnosis: Low back pain TAKE 1 TABLET BY MOUTH TWICE DAILY Last Documented On 9:42AM By YOLANDE MARIE [facility] ; [facility] Amitriptyline HCl 50 MG Oral Tablet 09/10/2020 - 03/09/2021 Provider: BRENTON BUSTAMANTE PA-C Diagnosis: Other irritable bowel syndrome One tablet at bed time Last Documented On 1 1:30PM By BRENTON BUSTAMANTE PA-C ; [facility] tiZANidine HCl 4 MG Oral Tablet 06/12/2020 - 09/11/2020 Provider: YOLANDE RAY [facility] Diagnosis: Low back pain TAKE 1 TABLET BY MOUTH TWICE DAILY Last Documented On 0 8:14AM [facility] ; [facility] Amitriptyline HCl 50 MG Oral Tablet 06/12/2020 - 09/10/2020 Provider: BRENTON BUSTAMANTE PA-C Diagnosis: Other irritable bowel syndrome TAKE 1 TABLET BY MOUTH AT BEDTIME Last Documented On 0 8:55AM By BRENTON BUSTAMANTE PA-C ; [facility] Actos 15 MG Oral Tablet 06/05/2020 - 01/24/2022 Provid er: Diagnosis: Last Documented On 01/24/2022 9:42AM By SARIKA JOHNSTON ; [facility] Farxiga 5 MG Oral Tablet 03/23/2020 - 03/23/2022 Provi debora: Diagnosis: Last Documented On 03/23/2022 9:28AM By SARIKA JOHNSTON ; [facility] Xyzal Allergy 24HR 5 MG Oral Tablet 03/23/2020 - 05/30/2022 Provider: BRENTON SCHWAB CH, PA-C Diagnosis: Allergic rhiniti s due to pollen One tablet daily Last Documented On 05/30/2022 11:22AM By SARIKA JOHNSTON ; [facility] Amitriptyline HCl 50 MG Oral Tablet 03/16/2020 - 06/12/2020 Provider: BRENTON BUSTAMANTE PA-C Diagnosis: Other irritable bowel syndrome TAKE 1 TABLET BY MOUTH AT BEDTIME Last Documented On 0 10:28AM By BRENTON BUSTAMANTE PA-C ; [facility] tiZANidine HCl 4 MG Oral Tablet 03/16/2020 - 06/12/2020 Provider: YOLANDE RAY [facility] Diagnosis: Low back pain TAKE 1 TABLET BY MOUTH TWICE DAILY Last Documented On 0 8:38AM By YOLANDE QUICK ; [facility] tiZANidine HCl 4 MG Oral Tablet 12/16/2019 - 03/16/2020 [facility] Diagnosis: Low back pain TAKE 1 TABLET BY MOUTH TWICE DAILY Last Documented On 0 1:17PM By [facility] ; [facility] Amitriptyline HCl 50 MG Oral Tablet 09/16/2019 - 03/16/2020 Provider: BRENTON BUSTAMANTE PA-C Diagnosis: Other irritable bowel syndrome TAKE 1 TABLET BY MOUTH AT BEDTIME Last Documented On 0 8:47AM By BRENTON BUSTAMANTE PA-C ; [facility] tiZANidine HCl 4 MG Oral Tablet 09/16/2019 - 12/16/2019 Provider: YOLANDE RAY [facility] Diagnosis: Low back pain TAKE 1 TABLET BY MOUTH TWICE DAILY Last Documented On 0 10:03AM By YOLANDE QUICK ; [facility] Atorvastatin Calcium 20 MG Oral Tablet 09/05/2019 - Provider: Diagnosis: Last Documented On 03/23/2022 9:29AM By SARIKA JOHNSTON ; [facility] Alfuzosin HCl ER 10 MG Oral Tablet Extended Release 24 Hour 09/05/2019 - 03/31/2021 Provider: Diagnosis: two tabs at hs Last Documented On 03/31/2021 7:28AM By SARIKA JOHNSTON ; [facility] ProAir HFA 108 (90 Base)MCG/ACT Inhalation Aerosol Solution 06/05/2019 - 04/26/2021 Provider: YOLANDE RAY [facility] Diagnosis: 2 puffs inhaled every 4-6 ho urs as needed for shortness of breath. Last Documented On 04/26/2021 9:21AM By AYAN ROMERO ; [facility] Levaquin 750MG Oral Tablet 06/05/2019 - 04/26/2021 Provider: YOLANDE RAY [facility] Diagnosis: One tablet daily Last Documented On 04/26/2021 9:20AM By AYAN ROMERO ; [facility] Amoxicillin-Pot Clavulanate 875-125MG Oral Tablet 05/10/2019 - 04/26/2021 Provider: BRENTON BUSTAMANTE PA-C Diagnosis: Otitis media, unspecified, right ear One tablet twice a day Last Documented On 04/26/2021 9:20AM By AYAN ROMERO ; [facility] Flonase Allergy Relief 50MCG/ACT Nasal Suspension 05/10/2019 - 04/26/2021 Provider: BRENTON BUSTAMANTE PA-C Diagnosis: Acute recurrent sinusitis, unspecified 2 sprays each nostril once daily Last Documented On 04/26/2021 9:20AM By AYAN ROMERO ; [facility] Amitriptyline HCl 50MG Oral Tablet 05/06/2019 - 09/16/2019 Provider: BRENTON BUSTAMANTE PA-C Diagnosis: Other irritable bowel syndrome One tablet at bed time Last Documented On 9 12:39PM By BRENTON BUSTAMANTE PA-C ; [facility] tiZANidine HCl 4MG Oral Tablet 05/06/2019 - 09/16/2019 Provider: YOLANDE RAY [facility] Diagnosis: Low back pain TAKE 1 TABLET BY MOUTH TWICE DAILY Last Documented On 9 3:33PM By YOLANDE MARIE [facility] ; [facility] Flonase Allergy Relief 50MCG/ACT Nasal Suspension 02/25/2019 - 04/26/2021 Provider: BRENTON BUSTAMANTE PA-C Diagnosis: Acute frontal sinusitis, unspecified 2 sprays each nostril once daily Last Documented On 04/26/2021 9:20AM By AYAN ROMERO ; [facility] Augmentin 875-125MG Oral Tablet 02/25/2019 - 04/26/2021 Provider: BRENTON BUSTAMANTE PA-C Diagnosis: Acute frontal sinusitis, unspecified One tablet twice a day Last Documented On 04/26/2021 9:20AM By AYAN ROMERO ; [facility] TiZANidine HCl 4MG Oral Tablet 12/19/2018 - 05/06/2019 Provider: YOLANDE RAY [facility] Diagnosis: Low back pain One tablet twice a day Last Documented On 9 8:24AM By YOLANDE MARIE [facility] ; [facility] Azithromycin 250MG Oral Tablet 11/09/2018 - 02/25/2019 Provider: YOLANDE MARIE [facility] Diagnosis: Chronic sinusiti s, unspecified take as directed 2 tabs on d ay one then one tab on days 2-5 Last Documented On 02/25/2019 2:01PM By AYAN ROMERO ; [facility] Amitriptyline HCl 50MG Oral Tablet 11/06/2018 - 05/06/2019 Provider: BRENTON BUSTAMANTE PA-C Diagnosis: Other irritable bowel syndrome One tablet at bed time Last Documented On 9 1:08PM By BRENTON BUTSAMANTE PA-C ; [facility] Zithromax Z-Cricket 250MG Oral Tablet 10/15/2018 - 02/25/2019 Provider: BRENTON BUSTAMANTE PA-C Diagnosis: Otitis media, unspecified, left ear as directed Last Documented On 02/25/2019 2:01PM By AYAN ROMERO ; [facility] Szagvsqn-Rbqlvihvy-KG 1% Ara c Solution 07/24/2018 - 02/25/2019 Provider: BRENTON BUSTAMANTE PA-C Diagnosis: Otitis media, unspecified, left ear as directed 4-5 gtts TID x 7 days Last Documented On 02/25/2019 2:02PM By AYAN ROMERO ; [facility] Zithromax Z-Cricket 250MG Oral Tablet 07/24/2018 - 02/25/2019 Provider: BRENTON BUSTAMANTE PA-C Diagnosis: Acute frontal sinusitis, unspecified as directed Last Documented On 02/25/2019 2:02PM By AYAN ROMERO ; [facility] PredniSONE 20MG Oral Tablet 07/24/2018 - 02/25/2019 Provider: BRENTON BUSTAMANTE PA-C Diagnosis: Pain in left ank le and joints of left foot One tablet twice a day Last Documented On 02/25/2019 2:02PM By AYAN ROMERO ; [facility] Trulicity 1.5MG/0.5ML Subcut aneous Solution Pen-injector 07/24/2018 - 03/23/2022 Provider: Diagnosis: once a week injection Last Documented On 03/23/2022 9:30AM By SARIKA JOHNSTON ; [facility] Gabapentin 600MG Oral Tablet 07/24/2018 - 02/25/2019 Gary markusder: Diagnosis: Last Documented On 02/25/2019 2:07PM By AYAN ROMERO ; [facility] Augmentin 875-125MG Oral Tablet 06/15/2018 - 02/25/2019 Provider: YOLANDE NELSON-YOLANDA Diagnosis: One tablet twice a day Last Documented On 02/25/2019 2:01PM By AYAN ROMERO ; [facility] TiZANidine HCl 4MG Oral Tablet 04/06/2018 - 12/19/2018 Provider: YOLANDE NELSON-YOLANDA Diagnosis: Low back pain One tablet twice a day Last Documented On 9 4:41PM By YOLANDE QUICK ; [facility] TiZANidine HCl 4MG Oral Tablet 04/04/2018 - 04/06/2018 Provider: YOLANDE NELSON-YOLANDA Diagnosis: One tablet at bed time as needed Last Documented On 8 3:58PM By YOLANDE QUICK ; [facility] Augmentin 875-125MG Oral Tablet 02/28/2018 - 02/25/2019 Provider: YOLANDE NELSON-YOLANDA Diagnosis: One tablet twice a day Last Documented On 02/25/2019 2:01PM By AYAN ROMERO ; [facility] TiZANidine HCl 4MG Oral Tablet 11/28/2017 - 04/04/2018 Provider: BRENTON SCHWAB CH PA-C Diagnosis: One tablet at bed time as needed Last Documented On 8 1:38PM By YOLANDE QUICK ; [facility] Nystatin [id number] Mouth/Throat Suspension 09/29/2017 - 02/25/2019 Provider: YOLANDE QUICK Diagnosis: Candidal stomati tis 5 ml swish and swallow in [facility] 2 times daily until cleared. Last Documented On 02/25/2019 2:02PM By AYAN ROMERO ; [facility] Azithromycin 250MG Oral Tablet 09/29/2017 - 02/25/2019 Provider: YOLANDE MARIE [facility] Diagnosis: Chronic sinusiti s, unspecified take as directed 2 tabs on d ay one then one tab on days 2-5 Last Documented On 02/25/2019 2:01PM By AYAN ROMERO ; [facility] Augmentin 875-125MG Oral Tablet 09/07/2017 - 02/25/2019 Provider: BRENTON BUSTAMANTE PA-C Diagnosis: Acute pansinusit is, unspecified One tablet twice a day Last Documented On 02/25/2019 2:01PM By AYAN ROMERO ; [facility] Amitriptyline HCl 50MG Oral Tablet 08/08/2017 - 11/06/2018 Provider: BRENTON BUSTAMANTE PA-C Diagnosis: Other irritable bowel syndrome One tablet at bed time Last Documented On 8 2:06PM By BRENTON BUSTAMANTE PA-C ; [facility] Flonase Allergy Relief 50MCG/ACT Nasal Suspension 08/08/2017 - 02/25/2019 Provider: BRENTON BUSTAMANTE PA-C Diagnosis: Acute recurrent sinusitis, unspecified 2 sprays each nostril once daily Last Documented On 02/25/2019 2:01PM By AYAN ROMERO ; [facility] Augmentin 875-125MG Oral Tablet 08/08/2017 - 02/25/2019 Provider: BRENTON BUSTAMANTE PA-C Diagnosis: Acute recurrent sinusitis, unspecified One tablet twice a day Last Documented On 02/25/2019 2:01PM By AYAN ROMERO ; [facility] Hydrocodone-Acetaminophen 10-325MG Oral Tablet 0 08/08/2017 - 02/25/2019 Provider: Diagnosis: Last Documented On 02/25/2019 2:07PM By AYAN ROMERO ; [facility] GNP Potassium 99MG Oral Tablet 05/09/2017 - 01/24/2022 Provider: Diagnosis: Last Documented On 01/24/2022 9:43AM By SARIKA JOHNSTON ; [facility] Gabapentin 300MG Oral Capsule, conventional 05/09/2017 - 07/24/2018 Provider: Diagnosis: Last Documented On 07/24/2018 1:36PM By AYAN ROMERO ; [facility] Hydrocodone-Acetaminophen 5- 325MG Oral Tablet 02/13/2017 - 08/08/2017 Provider: YOLANDE MARIE [facility]- Diagnosis: Lumbago with sciatica, left side 2 tabs daily as needed for pain. Last Documented On 08/08/2017 9:18AM By AYAN ROMERO ; [facility] TiZANidine HCl 4 MG Tablet 09/20/2016 - 11/28/2017 Pro vider: BUCKY DOUGHERTY M.D. Diagnosis: as directed Last Documented On 8 8:40AM By BRENTON BUSTAMANTE PA-C ; [facility] Naprosyn 500 MG Tablet 08/26/2016 - 05/09/2017 Provider: BRENTON BUSTAMANTE PA-C Diagnosis: Tension-type hea dache, unspecified, not intractable One tablet twice a day Last Documented On 05/09/2017 10:40AM By DIONNE ROMERO ; [facility] Vitamin D3 2000 UNIT Capsule 08/22/2016 - 02/25/2019 P rovider: Diagnosis: Last Documented On 02/25/2019 2:01PM By AYAN ROMERO ; [facility] PredniSONE 20 MG Tablet 08/22/2016 - 05/09/2017 Provider: BRENTON BUSTAMANTE PA-C Diagnosis: Tension-type hea dache, unspecified, not intractable One tablet twice a day Last Documented On 05/09/2017 10:40AM By DIONNE ROMERO ; [facility] Co Q-10 100 MG Capsule 08/22/2016 - 02/25/2019 Provide r: Diagnosis: Last Documented On 02/25/2019 2:07PM By AYAN ROMERO ; [facility] Gabapentin 100 MG Capsule 08/22/2016 - 05/09/2017 Prov ider: Diagnosis: Last Documented On 05/09/2017 10:56AM By DIONNE ROMERO ; [facility] Bydureon 2 MG Pen-injector 08/22/2016 - 07/24/2018 Pro vider: Diagnosis: once a week Last Documented On 07/24/2018 1:37PM By AYAN ROMERO ; [facility] Magnesium 400 MG Tablet 08/22/2016 - 05/30/2022 Provid er: Diagnosis: Last Documented On 05/30/2022 11:20AM By SARIKA JOHNSTON ; [facility] Alfuzosin HCl ER 10 MG Table t Extended Release 24 Hour 08/22/2016 - 09/05/2019 Provider: Diagnosis: Last Documented On 09/05/2019 10:23AM By YAAN ROMERO ; [facility] Lisinopril 10 MG Tablet 08/22/2016 - 07/12/2022 Provid er: Diagnosis: Last Documented On 07/12/2022 2:35PM By Freida ROMERO ; [facility] Hydrocodone-Acetaminophen 5-325 MG Tablet 08/22/2016 - 05/09/2017 Provider: Diagnosis: tabletes at hs Last Documented On 05/09/2017 10:57AM By DIONNE ROMERO ; [facility] TiZANidine HCl 4 MG Tablet 03/03/2016 - 09/20/2016 Pro vider: BUCKY DOUGHERTY M.D. Diagnosis: TAKE 1/2 TABLET BY MOUTH TWI CE DAILY AND 1 TABLET AT BEDTIME NEEDED Last Documented On 09/20/2016 5:03PM By BUCKY DOUGHERTY MD ; [facility] Amoxicillin-Pot Clavulanate 875-125 MG Tablet 12/01/2015 - 05/09/2017 Provider: BUCKY DOUGHERTY M.D. Diagnosis: Acute recurrent pansinusitis One tablet twice a day Last Documented On 05/09/2017 10:31AM By DIONNE ROMERO ; [facility] Trulicity 1.5 MG/0.5ML Solution Pen-injector 6 - 08/22/2016 Provider: Diagnosis: Last Documented On 08/22/2016 3:59PM By AYAN ROMERO ; [facility] Farxiga 10 MG Tablet 12/01/2015 - 03/23/2020 Provider: Diagnosis: Last Documented On 03/23/2020 2:20PM By AYAN ROMERO ; [facility] TiZANidine HCl 4 MG Tablet 11/03/2015 - 03/03/2016 Pro vider: BRENTON BUSTAMANTE PA-Nia Diagnosis: TAKE 1/2 TABLET BY MOUTH TWI CE DAILY AND ONE TABLET BY MOUTH AT BEDTIME PRN Last Documented On 03/03/2016 8:15AM By BUCKY DOUGHERTY MD ; [facility] Amoxicillin-Pot Clavulanate 875-125 MG Tablet 08/04/2015 - 05/09/2017 Provider: BUCKY DOUGHERTY M.D. Diagnosis: Acute sinusitis, unspecified 1 BID Last Documented On 05/09/2017 10:31AM By DIONEN ROMERO ; [facility] TiZANidine HCl 4 MG Tablet 06/24/2015 - 11/03/2015 Provider: BRENTON SCHWAB CH, PA-C Diagnosis: Cellulitis NOS TAKE 1/2 TABLET BY MOUTH TWI CE DAILY AND ONE TABLET BY MOUTH AT BEDTIME Last Documented On 5 8:24AM By BRENTON BUSTAMANTE PA-C ; [facility] Amoxicillin-Pot Clavulanate 875-125 MG Tablet 04/06/2015 - 08/04/2015 Provider: BUCKY DOUGHERTY M.D. Diagnosis: ACUTE SINUSITIS NOS 1 BID 1 BID Last Documented On 08/04/2015 10:41AM By BUCKY DOUGHERTY MD ; [facility] Lisinopril 20 MG Tablet 04/06/2015 - 08/22/2016 Provid er: Diagnosis: Last Documented On 08/22/2016 3:57PM By AYAN ROMERO ; [facility] Uroxatral 10 MG Tablet, extended-release 24 hour 04/06/2015 - 08/22/2016 Provider: Diagnosis: Last Documented On 08/22/2016 3:59PM By AYAN ROMERO ; [facility] Flonase 50 MCG/ACT NA SUSP 12/15/2014 - 05/09/2017 Provider: BRENTON SCHWAB CH, PA-C Diagnosis: ACUTE SINUSITIS NOS Last Documented On 05/09/2017 10:32AM By DIONNE ROMERO ; [facility] Augmentin 875-125 MG OR TABS 12/15/2014 - 05/09/2017 Provider: BRENTON SCHWAB CH, PA-C Diagnosis: ACUTE SINUSITIS NOS Last Documented On 05/09/2017 10:32AM By DIONNE ROMERO ; [facility] Bydureon 2 MG SC SUSR 12/15/2014 - 12/01/2015 Provider : Diagnosis: Last Documented On 12/01/2015 3:05PM By Itzel ROMERO ; [facility] Amoxicillin-Pot Clavulanate 875-125 MG OR TABS 11/06/2014 - 04/06/2015 Provider: BUCKY DOUGHERTY M.D. Diagnosis: ACUTE SINUSITIS NOS Last Documented On 04/06/2015 3:39PM By BUCKY DOUGHERTY MD ; [facility]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 document type No Physical Exam Recorded Immunizations Includes: Immunizations in patient's chart Vaccine Dose # Date Site Reaction(s) Status Source COVID-19 Moderna 1 12/01/2020 Complete (Re ported) Patient Last Documented On 1 7:36AM ; [facility] COVID-19 Moderna 2 12/29/2020 Complete (Re ported) Patient Last Documented On 1 7:36AM ; [facility] Allergies Includes: Active, inactive, and resolved Allergies Substance Type Reaction Onset Date Resolved Date Statu s Typhoid Vaccine Allergy 07/09/2009 Act patrick Last Documented On 4 9:11AM ; [facility] Encounters Includes: Encounters from 02/25/2024 through 02/24/2025 Encounter Provider Location Date Check-In Time Check-Out Time Diagnosis CHECK UP BRENTON BUSTAMANTE PA-C [facility] 03/25/20 24 9:02AM 9:38AM Irritable Bowel Syndrome,Congestiv e Heart Failure,Essential Hypertension Benign,Herniated Intervertebral Disc Lumbar,Diabetes Mellitus Type 2 - Uncomplicated, Controlled,Benign Prostatic Hypertrophy Without Urinary Obstruction,Nicoti ne Dependence Cigarettes in Remission,Male Erectile Dysfunction,Routin e History & Physical Adult with Abnormal Findings,Hyperchol esterolemia Insurance Includes: Active Insurance Policies Plan Name Member ID Group # Subscriber Relationship Effect patrick Dates 1 - [employer] [id number] ANGELA FRANCO [facility] Clinical Notes Includes: Signed Clinical Notes starting from 12/09/2022 * Progress note Date Encounter Last Documented by 03/25/2024 CHECK UP Last documented on 03/25/2024; 3:51 PM, BRENTON BUSTAMANTE PA-C; [facility] Active Problems & Conditions - N40.0 - [...] annual physical exam and evaluation.Patient is sees director corporate, cardiaologist, urologist and neurologist routinely. REcently had [...] Sublingual Tablet Sublingual as directed ordered by transport assistant, 0 days, 0 refills - OneTouch [...] 0 refills - Vitamin D 50 MCG (2000 UT) Oral Capsule 1 capsule daily 0 [...] Nicotine dependence, cigarettes, in remission] 3 PPD [id number] Previous Tests Past Medical: Tests: A colonoscopy [...] Lab: *PSA SCREEN EndCited StartCited - Other [facility] ORDER/COMMENT can you get PSA done through Dr Salazar office . I didnt see result in note EndCited - Return to the clinic if condition worsens or new symptoms arise - Disposition Continue follow up with specialists DOCTORS HE SEES: [facility] RE[facility] BINGEJesus [facility] Practice Management Use [...] satisfied 03/25/2024. - Foot Exam satisfied 03/25/2024. hanish - Hemoglobin A1c satisfied 03/25/2024. - Lipid Panel--Annual satisfied 03/25/2024. - Smoking & Tobacco Cessation Intervention and Counseling satisfied 03/25/2024.
--- OUTSIDE RECORDS SUMMARY | 2025-02-24 13:48 | XMS_ITS | Clinical Summary ---
Author Organization [facility] Address [address], [address] [address] Phone Care Team Providers Care Maintainer Central Office Name Role Phone Trever Bose MD Primary Care Provider [phone] Allergies Active Allergy Reactions Criticality Noted Date Comments Typhoid Vaccines Hives 12/23/2015 Medications alfuzosin (UROXATRAL) 10 MG TABLET SR 24 HR 3 10/01/2015 Active tiZANidine (ZANAFLEX) 4 MG Tablet 0 11/03/2015 Active metFORMIN (GLUCOPHAGE) 1000 MG Tablet 1,000 mg 2 times daily. 2 11/16/2015 Active lisinopril (PRINIVIL, ZESTRIL) 10 MG Tablet 3 11/30/2015 Active gabapentin (NEURONTIN) 100 MG Capsule 300 mg 3 times daily. 3 09/30/2015 Active TRULICITY 1.5 MG/0.5ML Solution Pen-injector 3 11/25/2015 Active FARXIGA 10 MG Tablet daily. 6 12/17/2015 Active INVOKANA 300 MG Tablet 11 10/14/2015 Active atorvastatin (LIPITOR) 20 MG Tablet 3 12/17/2015 Active amoxicillin-clav ulanate (AUGMENTIN) 875-125 MG Tablet 12/01/2015 Active amitriptyline (ELAVIL) 50 MG Tablet Take 1 Tab by mouth nightly. 90 Tab 3 09/12/2017 Active POTASSIUM CHLORIDE PO Take 99 mg by mouth daily. Active Multiple Vitamin (ONE-A-DAY MENS PO) Take 1 Tab by mouth daily. Active Cholecalciferol (VITAMIN D-3 PO) Take 2,000 Int'l Units by mouth daily. Active magnesium oxide (MAG-OX) 400 MG Tablet Take 400 mg by mouth daily. Active HYDROcodone-acet aminophen (NORCO) 5-325 MG Tablet Take 1 Tab by mouth every 4 hours as needed for Pain. Active Family History * Patient is adopted Medical History Relation Name Comments No Known Problems Father No Known Problems Mother Leukemia/Lymphoma Other daughter Relation Name Status Comments Father Mother Other daughter Alive Social History Tobacco Use Types Packs/Day Years Used Date Smoking Tobacco: Former Cigarettes 3 26 Smokeless Tobacco: Former Quit: 10/23/2003 Tobacco Cessation:Counseling Given: No Alcohol Use Standard Drinks/Week Comments Yes 0 (1 standard drink = 0.6 oz pur e alcohol) Rarely Sex and Gender Information Value Date Recorded Sex Assigned at Not on file Legal Sex Male 12:24 AM CDT Gender Identity Not on file Sexual Orientation Not on file Last Filed Vital Signs Vital Sign Reading Time Taken Comments Blood Pressure 132/94 01/12/2018 9:18 AM ITEM PROCESSING CLERK Pulse 73 01/12/2018 9:18 AM ITEM PROCESSING CLERK Temperature 36 C (96.8 F) 01/12/2018 9:18 AM ITEM PROCESSING CLERK Respiratory Rate 20 01/12/2018 9:18 AM ITEM PROCESSING CLERK Oxygen Saturation 99% 01/12/2018 9:18 AM ITEM PROCESSING CLERK Inhaled Oxygen Concentration - - Weight 90.7 kg (200 lb) 01/12/2018 7:05 AM ITEM PROCESSING CLERK Height 182.9 cm (6') 01/12/2018 7:05 AM ITEM PROCESSING CLERK Body Mass Index 27.12 01/12/2018 7:05 AM ITEM PROCESSING CLERK Plan of Treatment Health Maintenance Due Date Last Done Comments Hepatitis C Virus (HCV) Screening 1965 TdaP Immunization 1965 Cologuard 2013 Immunochemical Fecal Occult Blood 2013 Pneumococcal Immunization (5 0+ years) (1 of 1 - PCV) 2013 Zoster Immunization (1 of 2) 2013 PSA Discussion 2018 Colonoscopy 01/12/2023 01/12/2018 Colorectal Cancer Screening 01/12/2023 Respiratory Syncytial Virus (RSV) Immunization (Adult) (1 - Risk 60-74 years 1-dose series) 2023 Influenza Immunization (#1) 2024 SARS-COV-2 Immunization ( season) 2024 01/12/2018 Hepatitis B Immunization Aged Out No longer eligible based on patient's age to complete this topic Meningococcal Immunization (ACWY) Aged Out No longer eligible based on patient's age to complete this topic Rotavirus Immunization Aged Out No lo nger eligible based on patient's age to complete this topic Insurance [employer] [facility] OA Care Teams Maintainer Central Office Relationship Specialty Start Date End Date Trever Bose MD [address] [place] [id number] PCP - General Family Medicine 01/11/18
--- OUTSIDE RECORDS SUMMARY | 2025-02-24 13:48 | XMS_ITS | Clinical Summary ---
Author Organization [facility] Address [address] [place] [address] Phone Care Team Providers Care Fire Technology Instructor Name Role Phone RUBENS ODELL MD Primary Care Provider [phone] Reason for Visit and Chief Complaint The Chief Complaint is: uncontrollable shaking on left side mostly but sometimes full body. Got really bad in the last 3 months. Has tested sugar during te episode of shaking and has been in 90's. Also gets right between the eyes painful headache for a month Problems Includes: Problems addressed during this encounter and other active Problems Current Visit Onset Date Resolved Date Provider Conditio n Status Hypercholesterolemia 06/01/2017 RUBENS ODELL MD Active Last Documented On 06/01/2017 12:41AM ; [facility] Note: Unchanged Irritable Bowel Syndrome 06/01/2017 DAMARIS ODELL MD Active Last Documented On 06/01/2017 12:41AM ; [facility] Note: Unchanged Cardiomyopathy 06/01/2017 RUBENS ODELL MD Active Last Documented On 06/01/2017 12:41AM ; [facility] Note: Unchanged Nicotine Dependence Cigarettes in Remission 06/01/2017 RUBENS ODELL MD Active Last Documented On 06/01/2017 12:41AM ; [facility] Note: Unchanged Diabetes Mellitus Type 2 - Uncomplicated, Controlled 09/18/2012 BUCKY DOUGHERTY M.D. Active Last Documented On 6 3:35PM ; [facility] Essential Hypertension Benign 09/18/2012 BUCKY DOUGHERTY M.D. Active Last Documented On 6 3:35PM ; [facility] Past Visits Onset Date Resolved Date Provider Condition Status Post Covid-19 Condition 02/22/2022 RUBENS ODELL MD Active Last Documented On 02/22/2022 8:35AM ; [facility] Note: Unchanged Benign Prostatic Hypertrophy Without Urinary Obstruction 06/01/2017 RUBENS ODELL MD Active Last Documented On 06/01/2017 12:41AM ; [facility] Note: Unchanged Congestive Heart Failure 06/01/2017 RUBENS ODELL MD Active Last Documented On 06/01/2017 12:41AM ; [facility] Note: Unchanged Male Erectile Dysfunction 06/01/2017 RUBENS ODELL MD Active Last Documented On 06/01/2017 12:41AM ; [facility] Note: Unchanged Lumbago 06/01/2017 RUBENS ODELL MD Active Last Documented On 06/01/2017 12:41AM ; [facility] Note: Unchanged Herniated Intervertebral Disc Lumbar 06/01/2017 RUBENS ODELL MD Active Last Documented On 06/01/2017 12:41AM ; [facility] Note: Unchanged Plan of Treatment Referrals To Diagnosis Neurologist [facility] [address] [place] [address] Other specified forms of tremor Note: [facility] BUT IF PROTESTANT O R IF [place] U HAS SOMETHING BACK THIS WAY INSTEAD OF AT MAIN [facility] Last Documented On 3:38PM ; [facility] Assessments Includes: Assessments from this encounter Findings - Cardiomyopathy [I42.9 - Cardiomyopathy, unspecified] - Last Documented On 01/30/2024 3:08PM ; [facility] - Benign essential hypertension [I10 - Essential (primary) hypertension] - Last Documented On 01/30/2024 3:08PM ; [facility] - Irritable bowel syndrome [K58.8 - Other irritable bowel syndrome] - Last Documented On 01/30/2024 3:08PM ; [facility] - Hypercholesterolemia [E78.00 - Pure hypercholesterolemia, unspecified] - Last Documented On 01/30/2024 3:08PM ; [facility] - Type 2 diabetes mellitus - uncomplicated, controlled [E11.9 - Type 2 diabetes mellitus without complications] - Last Documented On 01/30/2024 3:08PM ; [facility] - Tremor [G25.2 - Other specified forms of tremor] - Last Documented On 01/30/2024 3:08PM ; [facility] - Dependence on nicotine in cigarettes in remission [F17.211 - Nicotine dependence, cigarettes, in remission] - Last Documented On 01/30/2024 3:08PM ; [facility] Medical Equipment - Implanted Devices Includes: Current Devices No Medical Equipment Recorded Medications Includes: Medications discussed during this encounter and other current Medications Current Medications (continue as prescribed) DULoxetine HCl 30 MG Oral Capsule Delayed Release Particles 03/25/2024 - 03/20/2025 Provider: BRENTON BUSTAMANTE PA-C Diagnosis: Major depressive disorder, single episode, moderate One tablet daily Last Documented On 12:24PM By RBENTON BUSTAMANTE PA-C ; [facility] Tamsulosin HCl 0.4 MG Oral Capsule 03/25/2024 Provid er: Diagnosis: Last Documented On 03/25/2024 9:16AM By SARIKA JOHNSTON ; [facility] Propranolol HCl 20 MG Oral Tablet 03/25/2024 Provide r: Diagnosis: 2 pills tid Last Documented On 03/25/2024 9:17AM By SARIKA JOHNSTON ; [facility] Lisinopril 20 MG Oral Tablet 03/25/2024 - 03/20/2025 Provider: BRENTON SCHWAB CH, PA-C Diagnosis: TAKE 1 TABLET BY MOUTH DAILY Last Documented On 12:24PM By BRENTON BUSTAMANTE PA-C ; [facility] Flonase Allergy Relief 50 MCG/ACT Nasal Suspension 01/26/2024 Provider: BRENTON BUSTAMANTE PA-C Diagnosis: Acute nasopharyn gitis [common cold] 2 sprays each nostril once daily Last Documented On 03/25/2024 9:12AM By SARIKA JOHNSTON ; [facility] Ozempic (1 MG/DOSE) 2 MG/1.5 ML Subcutaneous Solution Pen-injector 12/25/2023 Provider: Diagnosis: ordred by endo Last Documented On 12/25/2023 2:54PM By SARIKA JOHNSTON ; [facility] Gabapentin 300 MG Oral Capsule 03/14/2023 Provider: Diagnosis: Last Documented On 03/14/2023 2:45PM By SARIKA JOHNSTON ; [facility] Lidocaine Oint & Men-Meth Paulo 5 & 3-10% External Therapy Pack 07/12/2022 Provider: Diagnosis: Last Documented On 07/12/2022 2:36PM By Freida ROMERO ; [facility] Magnesium Oxide 400 MG Oral Tablet 05/30/2022 Provid er: Diagnosis: ordered by cardiioogist Last Documented On 05/30/2022 11:43AM By SARIKA JOHNSTON ; [facility] Pioglitazone HCl 15 MG Oral Tablet 05/30/2022 Provid er: Diagnosis: Last Documented On 05/30/2022 11:21AM By SARIKA JOHNSTON ; [facility] Nitrostat 0.4 MG Sublingual Tablet Sublingual 04/27/20 22 Provider: Diagnosis: ordered by lead generation marketing manager Last Documented On 04/27/2022 10:26AM By SARIKA JOHNSTON ; [facility] Atorvastatin Calcium 40 MG Oral Tablet 03/23/2022 Pr ovider: Diagnosis: Last Documented On 03/23/2022 9:29AM By SARIKA JOHNSTON ; [facility] Farxiga 10 MG Oral Tablet 03/23/2022 Provider: Diagnosis: Last Documented On 03/23/2022 9:28AM By SARIKA JOHNSTON ; [facility] Vitamin D 50 MCG (1999 [place]) Oral Capsule 01/24/2022 P rovider: Diagnosis: Last Documented On 01/24/2022 9:40AM By SARIKA JOHNSTON ; [facility] Potassium 99 MG Oral Tablet 01/24/2022 Provider: Diagnosis: Last Documented On 01/24/2022 9:39AM By SARIKA JOHNSTON ; [facility] HYDROcodone-Acetaminophen 10-325 MG Oral Tablet 2021 Provider: Diagnosis: one or 2 at bedtimeordered by specialist Last Documented On 01/24/2022 9:42AM By SARIKA JOHNSTON ; [facility] Melatonin 10 MG Oral Tablet 09/05/2019 Provider: Diagnosis: Last Documented On 09/05/2019 10:26AM By AYAN ROMERO ; [facility] metFORMIN HCl 1000 MG TABS 12/15/2014 Provider: Diagnosis: Last Documented On 12/15/2014 9:34AM By AYAN ROMERO ; [facility] Multivitamins OR CAPS 10/10/2010 Provider: Diagnosis: Last Documented On 0 7:27PM By LULA PALACIOS PA-C ; [facility] OneTouch Ultra Blue STRP 04/15/2010 Provider: BUCKY DOUGHERTY M.D. Diagnosis: #90 WITH 3 REFILLS Last Documented On 04/15/2010 1:13PM By BUCKY DOUGHERTY MD ; [facility] Past Medications on file Amitriptyline HCl 50 MG Oral Tablet 02/13/2024 - 02/07/2025 Provider: BRENTON BUSTAMANTE PA-C Diagnosis: Other irritable bowel syndrome TAKE 1 TABLET BY MOUTH AT BEDTIME Last Documented On 4 11:41AM By BRENTON BUSTAMANTE PA-C ; [facility] tiZANidine HCl 4 MG Oral Tablet 02/07/2024 - 05/07/2024 Provider: YOLANDE RAY SMALL OFFSET PRINTER- Diagnosis: TAKE 1 TABLET BY MOUTH TWICE DAILY Last Documented On 4 12:41PM By YOLANDE MARIE SMALL OFFSET PRINTER-BC ; [facility] Medications Administered Includes: Administered Medications from this encounter No Administered Medications Recorded Vital Signs Includes: Vital Signs from this encounter Vital Name 01/23/2024 08:45A Blood Pressure Sitting L 120/64 BP Cuff Size Regular Pulse Rate-Sitting (bpm) 90 Pulse Rhythm Regular Respiration Rate (breaths/min) 17 Height (in) 73 Weight (lb) 187 Body Mass Index 24.7 Body Surface Area 2.1 Oxygen Saturation (%) 98 Last Documented: On 01/23/2024 8:49AM ; [facility] Results Includes: Results discussed during this encounter No Results Recorded For Specified Dates History of Present Illness Includes: History of Present Illness from this encounter REHAN FRANCO is a 58 year old male. - Medication list reviewed. - Headache. - Dizziness - An intention tremor - Transient involuntary movements Tremors The patient is a 58 years old male presenting today for a problem visit. He reports headaches which have been ongoing for the past month. He states that he had migraine headaches in the past. As per the patient, his headache episodes last for about an hour. He also reports tremors which have been progressively getting worse for the past 3 months. As per the patient, his tremor episodes lasts for a few seconds. The patient has a history of lumbago and has been receiving injections in his spine for the same. He routinely follows up with neurology. He has a history of diabetes mellitus type 2. He has been taking metformin and Ozempic. He checks his blood sugar at home. He routinely follows up with ophthalmology for vision checks. The patient has a family history of breast cancer in his sister. Social History Description Last Updated Tobacco non-user 01/23/2024 Last Documented On 4 3:08PM ; [facility] Smoking Status Unknown Procedures and Surgical History Includes: Procedures from this encounter Procedures Code Diagnosis Performing Provider Service L ocation Service Date plan of care reviewed and agreed to Last Documented On 4 9:13AM ; [facility] use of tobacco assessment performed 1000F Last Documented On 4 8:49AM ; [facility] review of medications documented 1160F Last Documented On 4 8:49AM ; [facility] Reviewed & agreed to staff entries. Last Documented On 4 9:13AM ; [facility] Clinical summary provided to patient Last Documented On 4 9:13AM ; [facility] Medical History Includes: Medical History addressed during this encounter Description Last Updated Home blood sugar check performed once a day 01/23/2024 Last Documented On 4 3:08PM ; [facility] Pt does not get blood pressure checked a t other facility 01/23/2024 Last Documented On 4 3:08PM ; [facility] Family History Includes: Family History addressed during this encounter No Family History Recorded Review of Systems Includes: Review of Systems from this encounter Encounter Background Information: Self monitoring blood glucose. Systemic: Recent weight change. No edema. Head: Headache. Eyes: No vision problems. Otolaryngeal: No earache, no nasal discharge, and no sore throat. Cardiovascular: Chest pain or discomfort. Chest pain not relieved by nitroglycerin. Pulmonary: No shortness of breath. No cough. Gastrointestinal: Normal appetite and no heartburn. No nausea, no vomiting, no abdominal pain, and no diarrhea. Genitourinary: No dysuria. Neurological: Dizziness, an intention tremor, and transient involuntary movements Tremors. Psychological: No sleep disturbances. Mental Status Includes: Mental Status from this encounter Description Oriented to time, place, and person Functional Status Includes: Functional Status from this encounter No Functional Status Recorded Physical Exam Includes: Physical Exam from this encounter Allergies Includes: Active Allergies Substance Type Reaction Onset Date Resolved Date Statu s Typhoid Vaccine Allergy 07/09/2009 Act patrick Last Documented On 4 9:11AM ; [facility] Encounters Encounter Provider Location Date Check-In Time Check-Out Time Diagnosis PROBLEM VISIT RUBENS ODELL MD [facility] 01/23/20 24 8:37AM 9:43AM Cardiomyopathy, Diabetes Mellitus Type 2 - Uncomplicated, Controlled,Esse ntial Hypertension Benign,Hypercho lesterolemia,Ni cotine Dependence Cigarettes in Remission,Irrit able Bowel Syndrome,Tremor Insurance Includes: Active Insurance Policies Plan Name Member ID Group # Subscriber Relationship Effect patrick Dates 1 - [employer] [id number] ANGELA FRANCO [facility] Clinical Notes Includes: Clinical Notes from this encounter * Progress note Date Encounter Last Documented by 01/23/2024 PROBLEM VISIT Last documented on 01/30/2024; 3:08 PM, RUBENS ODELL MD; [facility] Active Problems & Conditions - Benign Prostatic Hypertrophy Without Urinary Obstruction - Cardiomyopathy - Congestive Heart Failure - Diabetes Mellitus Type 2 - Uncomplicated, Controlled - Essential Hypertension Benign - Herniated Intervertebral Disc Lumbar - Hypercholesterolemia - Irritable Bowel Syndrome - Lumbago - Male Erectile Dysfunction - Nicotine Dependence Cigarettes in Remission - Post Covid-19 Condition Chief Complaint The Chief Complaint is: Uncontrollable shaking on left side mostly but sometimes full body. Got really bad in the last 3 months. Has tested sugar during te episode of shaking and has been in 90's. Also gets right between the eyes painful headache for a month. History of Present Illness ANGELA FRANCO is a 58 year old male. - Medication list reviewed. - Headache. - Dizziness - An intention tremor - Transient involuntary movements Tremors The patient is a 58 years old male presenting today for a problem visit. He reports headaches which have been ongoing for the past month. He states that he had migraine headaches in the past. As per the patient, his headache episodes last for about an hour. He also reports tremors which have been progressively getting worse for the past 3 months. As per the patient, his tremor episodes lasts for a few seconds. The patient has a history of lumbago and has been receiving injections in his spine for the same. He routinely follows up with neurology. He has a history of diabetes mellitus type 2. He has been taking metformin and Ozempic. He checks his blood sugar at home. He routinely follows up with ophthalmology for vision checks. The patient has a family history of breast cancer in his sister. Current Medication - Amitriptyline HCl 50 MG [...] Sublingual Tablet Sublingual as directed ordered by lead generation marketing manager, 0 days, 0 refills - OneTouch Ultra [...] facility. Tests: Home blood sugar check performed once a day. Social History Tobacco use: Tobacco non-user. Allergies - Typhoid Vaccine Review Of Systems Encounter Background Information: Self monitoring blood glucose. Systemic: Recent weight change. No edema. Head: Headache. Eyes: No vision problems. Otolaryngeal: No earache, no nasal discharge, and no sore throat. Cardiovascular: Chest pain or discomfort. Chest pain not relieved by nitroglycerin. Pulmonary: No shortness of breath. No cough. Gastrointestinal: Normal appetite and no heartburn. No nausea, no vomiting, no abdominal pain, and no diarrhea. Genitourinary: No dysuria. Neurological: Dizziness, an intention tremor, and transient involuntary movements Tremors. Psychological: No sleep disturbances. Physical Findings - Vitals taken 01/23/2024 08:45 am BP-Sitting L 120/64 mmHg 100 - 120/60 - 80 BP Cuff Size Regular Pulse Rate-Sitting 90 bpm 50 - 100 Pulse Rhythm Regular Respiration Rate 17 per min 18 - 26 Height 73 in 64 - 74 Weight 187 lbs 123 - 215 Body Mass Index 24.7 kg/m2 Body Surface Area 2.1 m2 Oxygen Saturation 98 % 93 - 100 General Appearance: - Well developed. - Well nourished. - In no acute distress. Lungs: - Normal breath sounds/voice sounds. - No wheezing was heard. - No rhonchi were heard. - No rales/crackles were heard. Cardiovascular: Heart Rate And Rhythm: - Normal. Murmurs: - No murmurs were heard. Abdomen: Auscultation: - Bowel sounds were normal. Palpation: - Abdominal non-tender. Neurological: - Oriented to time, place, and person. Motor: - Cogwheel rigidity was noted bilaterally BILAT BUT IS MORE PRONOUNCED ON LEFT THAN RIGHT UPPER EXT. - A bilateral intention tremor was seen. Assessment - Cardiomyopathy [I42.9 - Cardiomyopathy, unspecified] - Benign essential hypertension [I10 - Essential (primary) hypertension] - Irritable bowel syndrome [K58.8 - Other irritable bowel syndrome] - Hypercholesterolemia [E78.00 - Pure hypercholesterolemia, unspecified] - Type 2 diabetes mellitus - uncomplicated, controlled [E11.9 - Type 2 diabetes mellitus without complications] - Tremor [G25.2 - Other specified forms of tremor] - Dependence on nicotine in cigarettes in remission [F17.211 - Nicotine dependence, cigarettes, in remission] Therapy - Reviewed & agreed to staff entries. - Clinical summary provided to patient. - Plan of care reviewed and agreed to. Vaccinations - Did not receive dose of influenza virus vaccine - Did not receive dose of pneumococcal vaccine Discussed Based on the presentation of symptoms and physical examination, I suspected his symptoms are secondary to intention tremors. Informed the patient about Parkinson's tremors and intention tremors. Ordered blood and an MRI of the head. Diabetes mellitus type 2: Discussed the possible side effects and benefits of Trulicity and Ozempic with the patient. The patient understands and agrees with the plan. INTENTION TYPE TREMOR WITH DEFINITE WORSENING OF THE AMPLITUDE HE PERFORMS A TASK. WORSE LEFT THAN RIGHT BUT RIGHT HAS SOME LEVEL OF TREMOR AND HAS AFFECTED SOME BASIC SKILLS. Plan StartCited - Other specified forms of tremor Referral: Neurologist Instructions: [facility] BUT IF PROTESTANT OR IF WASH U HAS SOMETHING BACK THIS WAY INSTEAD OF AT MAIN CAMPUS Radiology @ other/MRI: MRI Brain w & w/o contrast EndCited Other Tom Mercedes scribing the following documents on behalf of Tamra Sanders MD. Practice Management Use of tobacco assessment performed Review of medications documented. Health Reminders - Assess Blood Pressure satisfied 01/23/2024. - Assess BMI satisfied 01/23/2024. - Assess Need for CT Lung Screen satisfied 01/23/2024. - Assess Tobacco Use satisfied 01/23/2024. - Blood Pressure Measurement satisfied 01/23/2024. - Flu Shot satisfied 01/23/2024.
--- OUTSIDE RECORDS SUMMARY | 2025-02-24 13:49 | XMS_ITS | Clinical Summary ---
Author Organization [facility] Address [address] [place] [address] Phone Care Team Providers Care Head Of Global Strategic Partnerships Name Role Phone Trever Bose MD Primary Care Provider [phone] Allergies Active Allergy Reactions Criticality Noted Date Comments Typhoid Vaccine Hives High 11/09/2020 Medications multivitamin (DAILY-MIMI) tablet Take 1 Tablet by mouth daily. Active POTASSIUM-99 ORAL Take by mouth. Activ e magnesium oxide (MAG-OX) 400 mg (241.3 mg magnesium) tablet Take 400 mg by mouth daily. Active cholecalciferol , vitamin D3, (VITAMIN D3 ORAL) Take by mouth. Activ e lisinopriL (PRINIVIL) 10 mg tablet Take 10 mg by mouth daily. Active dapagliflozin (Farxiga) 5 mg Tablet Take by mouth daily. Active metFORMIN (GLUCOPHAGE) 1,000 mg tablet Take 1,000 mg by mouth 2 times daily with meals. Active pioglitazone (ACTOS) 15 mg tablet Take 15 mg by mouth daily with breakfast. Active dulaglutide (Trulicity) 1.5 mg/0.5 mL injection Inject 1.5 mg by subcutaneous injection. Active amitriptyline (ELAVIL) 50 mg tablet Take 50 mg by mouth daily at bedtime. Active atorvastatin (LIPITOR) 20 mg tablet Take 20 mg by mouth daily at bedtime. Active tamsulosin (FLOMAX) 0.4 mg capsule Take 0.4 mg by mouth daily at bedtime. Active tiZANidine (ZANAFLEX) 4 mg Tablet Take 4 mg by mouth daily at bedtime. Active HYDROcodone-tamiko taminophen (NORCO) 5-325 mg tablet Take 1 Tablet by mouth every 8 hours as needed for Pain, Moderate. Active Social History Tobacco Use Types Packs/Day Years Used Date Smoking Tobacco: Former Cigarettes 3 25 Alcohol Use Standard Drinks/Week Comments Yes 0 (1 standard drink = 0.6 oz pur e alcohol) 4-5/YEAR Sex and Gender Information Value Date Recorded Sex Assigned at Not on file Legal Sex Male 9:02 AM [employer]UR [employer]ER Gender Identity Not on file Sexual Orientation Not on file Last Filed Vital Signs Vital Sign Reading Time Taken Comments Blood Pressure 145/91 01/07/2021 12:20 PM FUR [employer]ER Pulse 65 01/07/2021 12:20 PM [employer] Temperature 36 C (96.8 F) 01/07/2021 12:20 PM [employer]UR [employer]ER Respiratory Rate 14 01/07/2021 12:20 PM [employer]UR [employer]ER Oxygen Saturation 98% 01/07/2021 12:20 PM [employer]UR [employer]ER Inhaled Oxygen Concentration - - Weight 94.8 kg (209 lb) 01/07/2021 8:25 AM FUR FARMER Height 182.9 cm (6') 01/07/2021 8:25 AM FUR FARMER Body Mass Index 28.35 01/07/2021 8:25 AM FUR FARMER Plan of Treatment Health Maintenance Due Date Last Done Comments DIABETES ANNUAL FOOT EXAM 1981 DIABETES ANNUAL RETINAL EXAM 1981 DIABETES MICROALBUMIN ANNUAL SCREEN 1981 LDL CHOLESTEROL ANNUAL 1981 DTAP/TDAP/TD VACCINES (1 - Tdap) 1982 COLORECTAL SCREENING 2008 Colorectal Cancer Screening 2008 FIT-DNA Q 3 years 2008 FIT/FOBT Q 1 year 2008 Flex Sig/CT Colonography Q 5 years 2008 ZOSTER VACCINE (1 of 2) 2013 DIABETES HBA1C Q 6 MONTHS 03/11/2021 09/10/2020, RSV VACCINE (60+ or ) (1 - Risk 60-74 years 1-dose series) 2023 INFLUENZA VACCINE (#1) 2024 10/02/2019, 2007 Medical Devices Implanted Type [employer] Logistics Analyst Device Identifier Shelf Expiration Date Model / Serial / Lot Imp Prostate Urolift [id number] - [id number] Implanted:Qty: 4 on 01/07/2021 by Shekhar Bahena MD at [facility] Other N/A: Prostate NEOTRACT 08/24/2022 [id number] / / [id number] Insurance Advance Directives For more information, please contact: [phone] * Full Code (Latest Code Status on File) Date Activated Date Inactivated Comments 01/07/2021 9:02 AM 01/07/2021 2:46 PM Care Teams Head Of Global Strategic Partnerships Relationship Specialty Start Date End Date Trever Bose MD [address] [place] [phone] PCP - General Family Practice 11/12/20
--- OUTSIDE RECORDS SUMMARY | 2025-02-24 13:49 | XMS_ITS | Continuity of Care Document ---
Author Organization [facility] Address [address] [place] [id number] Phone Care Team Providers Care Hogshead Roller Name Role Phone Judy BLANCONISAAC, Tova Unavailable Unavailable Allergies, Adverse Reactions, Alerts Substance Reaction Status Criticality No Known Allergies Active No Inform ation Medications Medication Instructions Dosage Effective Dates (start - stop) Status Comments Actos 45 mg tablet take 1 tablet by ora l route every day 45 MG - Active tamsulosin 0.4 mg capsule take 2 capsule by oral route every day 1/2 hour following the same meal each day 0.8 MG - Active Ashton 5 mg-325 mg tablet take 1 tablet by oral route every 12 hours as needed for pain 1 tablet - Active Farxiga 10 mg tablet take 1 tablet by or al route every day in the morning 10 MG - Active atorvastatin 20 mg tablet take 1 tablet by oral route every day 20 MG - Active amitriptyline 50 mg tablet take 1 tablet by oral route every day at bedtime 50 MG - Active lisinopril 10 mg tablet take 2 Tablet by oral route every day 20 MG - Active Trulicity 1.5 mg/0.5 mL subcutaneous pen injector inject 0.5 milliliter by subcutaneous route every week in the abdomen, thigh, or upper arm rotating injection sites - Active metformin 1,000 mg tablet take 1 tablet by oral route 2 times every day with morning and evening meals 1000 MG - Active tizanidine 4 mg tablet take 1 tablet by oral route every 6 - 8 hours as needed not to exceed 3 doses in 24 hours 4 MG - Active Procedures Procedure Date Rapid COVID OFFICE/OUTPATIENT VISIT, EST OFFICE/OUTPATIENT VISIT, EST URINALYSIS NONAUTO W/O SCOPE Advance Directives Directive Yes / No Effective Date File Name No Information Encounters Encounter Description Practice Location Reason(s) For Visit Diagnoses Date Provider Providers Copied on Encounter [facility], [address] [place] [address], [facility], [phone] [place] No Information [phone] Judy Bernardo. [address] [place] [address]. tel:[phone] OFFICE/OUTPA TIENT VISIT, [facility], [address] [place] [address] tel:[phone] [place] COVID SYMPT (chief complaint) Encntr for obs for susp expsr to oth biolg agents ruled outUpper respiratory infection 0 Judy Bernardo. [address] [place] [address]. tel:[phone] OFFICE/OUTPA TIENT VISIT, [facility], [address] [place] [address] tel:[phone] [place] Sinus symptoms (acute) (chief complaint) UTI (chief complaint) Acute maxillary sinusitis, unspecifiedAcut e frontal sinusitis, unspecifiedDysu adam 201 9 Sonia Biggs. [address] [place] [address], . tel:[phone] Family History Family Member Type Diagnosis Age At Onset No Information Payers Payer name Insurance type Covered alliance party ID Authoriza tion(s) No Information Social History Type Description Quantity Date Captured Comments Alcohol Use Details Unknown Caffeine Use Details Unknown Tobacco Use Status No Information Smoking Status No Information Sex Male Chief Complaint And Reason For Visit No Information Reason For Referral Reason For Referral No Information Plan Of Treatment Date Type Action Status Goal Tdap. Due on due Goal Td vaccine. Due on 20 due Goal Influenza vaccine. Due on due Goal Lipid panel. Due on 020 due Goal FOBT. Due on due Goal Sigmoidoscopy. Due on due Goal Colonoscopy. Due on due Goal Depression screening. Due on due Goal Tdap. Due on due Goal Td vaccine. Due on 20 due Goal Influenza vaccine. Due on due Goal Lipid panel. Due on due Goal FOBT. Due on due Goal Depression screening. Due on due Goal Colonoscopy. Due on due Goal Sigmoidoscopy. Due on due Goal Tdap. Due on due Goal Td vaccine. Due on 19 due Goal FOBT. Due on due Goal Lipid panel. Due on due Goal Influenza vaccine. Due on due Goal Colonoscopy. Due on due Goal Sigmoidoscopy. Due on due Goal Depression screening. Due on due Patient Education COVID-19 Coronavirus Disease 2019 ~ completed Patient Education [place] Nasal Washes: Af ter Your Visit completed History Of Present Illness Encounter Date Complaint History Of Prese nt Illness COVID SYMPT The symptoms beg an 2 hours ago. sinus symptoms, scratchy throat, slight headache COVID SYMPT (comments) [place] today. Patient presents with his spouse who has similar symptoms. Tommy describes his symptoms as beginning this morning. He has no know exposure to COVID. He works at the [employer] and has many community exposures. He denies fever, cough, or shortness of breath. Did not receive the seasonal influenza vaccination. Sinus symptoms (acute) The sever ity of the problem is moderate. The problem has worsened. The symptoms are constant. Both sides are affected. Pertinent/initial symptoms include sinus congestion, sinus pain and sinus pressure. Tobacco cessation was discussed. Aggravating factors include dry air, leaning forward and lying down. Associated symptoms include cough, fever, headache, otalgia, postnasal drainage, sinus pressure and sore throat. Pertinent negatives include anosmia, dental disease, deviated septum, halitosis, immunosuppression, nasal drainage, nasal obstruction, orbital swelling, rhinorrhea or tooth pain. UTI Onset: 4 Days. S ymptoms are associated with diabetes. Aggravating factors include urination. Associated symptoms include dysuria, fatigue, fever, frequency and urgency. Functional Status Date Functional Assessmen t No Information Instructions Date Instruction Additional Infor radha Your rapid COVID cooper t and influenza test were negative. Based on your recent exposure and symptoms a COVID send-out test was performed that will take 2-4 days to get back. The clinic will call you with test results. During that time you should remain self-quarantined.Wipe frequently touched surfaces with antiseptic. Monitor your symptoms closely.You may take tylenol or ibuprofen for relief of your symptoms.Cepacol lozenges or spray, or a warm salt water gargle may help with your sore throat. Humidify your bedroom air with a vaporizer or humidifier. Hot steamy showers may help to loosen congestion. If you have any questions or concerns please call the clinic. If you become increasingly short of breath or are unable to catch your breath please go to the ER immediately or call 911. Related to Encntr for obs for susp expsr to ot biolg agents ruled out Patient instructed o n use of saline sprays. Related to Acute maxillary sinusitis, unspecified take medication as p rescribed , use humidifier Related to Acute maxillary sinusitis, unspecified Instructions given f or sinus irrigation. Related to Acute maxillary sinusitis, unspecified Assessments Type Assessment Date No Information Patient Care Teams Name Effective Dates (start - stop) Status Members No Information
--- OUTSIDE RECORDS SUMMARY | 2025-02-24 13:49 | XMS_ITS ---
Care Plan - [facility] Created on: February 24, 2025 SALVADORANGELA Asif : 1965 Sex: Male Author Organization [facility] Address [address] [place] [address] Phone Care Team Providers Care Operator Weapon Locating Radar Name Role Phone RUBENS ODELL MD Primary Care Provider [phone]
--- OUTSIDE RECORDS SUMMARY | 2025-02-24 13:49 | XMS_ITS | Clinical Summary ---
Author Organization [facility] Address [address] [place] [address] Phone Care Team Providers Care [employer] Name Role Phone RUBENS ODELL MD Primary Care Provider [phone] Reason for Visit and Chief Complaint The Chief Complaint is: Knot on palm of right hand base of little finger for 1 month, getting worse~Discuss possible depression ~Would like to have Ct lung screening done Problems Includes: Problems addressed during this encounter and other active Problems Current Visit Onset Date Resolved Date Provider Conditio n Status Nicotine Dependence Cigarettes in Remission 06/01/2017 RUBENS ODELL MD Active Last Documented On 06/01/2017 12:41AM ; [facility] Note: Unchanged Past Visits Onset Date Resolved Date Provider Condition Status Post Covid-19 Condition 02/22/2022 JACQUI ODELL MD Active Last Documented On 02/22/2022 8:35AM ; [facility] Note: Unchanged Hypercholesterolemia 06/01/2017 RUBENS ODELL MD Active Last Documented On 06/01/2017 12:41AM ; [facility] Note: Unchanged Irritable Bowel Syndrome 06/01/2017 DAMARIS ODELL MD Active Last Documented On 06/01/2017 12:41AM ; [facility] Note: Unchanged Benign Prostatic Hypertrophy Without Urinary Obstruction 06/01/2017 RUBENS DOELL MD Active Last Documented On 06/01/2017 12:41AM ; [facility] Note: Unchanged Congestive Heart Failure 06/01/2017 DAMARIS ODELL MD Active Last Documented On 06/01/2017 12:41AM ; [facility] Note: Unchanged Male Erectile Dysfunction 06/01/2017 TI HASEEB ODELL MD Active Last Documented On 06/01/2017 12:41AM ; [facility] Note: Unchanged Lumbago 06/01/2017 RUBENS ODELL MD Active Last Documented On 06/01/2017 12:41AM ; [facility] Note: Unchanged Herniated Intervertebral Disc Lumbar 06/01/2017 RUBENS ODELL MD Active Last Documented On 06/01/2017 12:41AM ; [facility] Note: Unchanged Cardiomyopathy 06/01/2017 RUBENS ODELL MD Active Last Documented On 06/01/2017 12:41AM ; [facility] Note: Unchanged Diabetes Mellitus Type 2 - Uncomplicated, Controlled 09/18/2012 BUCKY DOUGHERTY M.D. Active Last Documented On 6 3:35PM ; [facility] Essential Hypertension Benign 09/18/2012 BUCKY DOUGHERTY M.D. Active Last Documented On 6 3:35PM ; [facility] Plan of Treatment - Return to the clinic if condition worsens or new symptoms arise - Last Documented On 12/26/2023 8:28AM ; [facility] - Disposition - Last Documented On 12/26/2023 8:28AM ; [facility] Continue follow up with specialists DOCTORS HE SEES: [facility] Written order given to patient for CBC, CMP and lipd to be done with endocrine order Discuss ganglion cyst and treatment options. Patient states since it isn't causing much pain or issue he will wait on referral to ortho Since he quit smoking ovr 15 years ago, lung screening isn't needed per guidelines Meds started for depression. Refuses couseling at this time. Follow up in 3 months or sooner . Go to ER is suicidal/ homicidal. - Last Documented On 12/26/2023 8:28AM ; [facility] Pending Tests Order Diagnosis Results Due Ordering P jan Lab *PSA SCREEN 03/25/24 BRENTON VILLAFANA PA-C Last Documented On 9:26AM ; [facility] Instructions to patient Recommend diet and exercise at least 30 min three times per week Last Documented On 4 4:08PM ; [facility] Assessments Includes: Assessments from this encounter Findings - Ganglion of the right hand [M67.441 - Ganglion, right hand] palm - Last Documented On 12/26/2023 8:28AM ; [facility] - Dependence on nicotine in cigarettes in remission [F17.211 - Nicotine dependence, cigarettes, in remission] 3 PPD 5563-1194. Quit over 15 years ago- screening not recommended - Last Documented On 12/26/2023 8:28AM ; [facility] - Moderate depression [F32.1 - Major depressive disorder, single episode, moderate] - Last Documented On 12/26/2023 8:28AM ; [facility] Instructions Includes: Instructions from this encounter Instructions to patient Recommend diet and exercise at least 30 min three times per week Last Documented On 4 4:08PM ; [facility] Medical Equipment - Implanted Devices Includes: Current Devices No Medical Equipment Recorded Medications Includes: Medications discussed during this encounter and other current Medications Discontinued / Stopped on this date on 03/23/2022 Trulicity 3 MG/0.5ML Subcutaneous Solution Pen-injecto r Provider: Diagnosis: Last Documented On 12/25/2023 2:54PM By SARIKA WINTER Jeannette ; [facility] New / Renewed during this visit BRENTON BUSTAMANTE PA-C on 12/25/2023 DULoxetine HCl 30 MG Oral Capsule Delayed Release Particles Provider: BRENTON Alexis 30 day supply: 30 capsule, 2 refills Diagnosis: Major depressive disorder, single episode, moderate One tablet daily Pharmacy: [address] , [place], [address] - Last Documented On 4 12:22PM By BRENTON BUSTAMANTE PA-C ; [facility] Current Medications (continue as prescribed) DULoxetine HCl 30 MG Oral Capsule Delayed Release Particles 03/25/2024 - 03/20/2025 Provider: BRENTON BUSTAMANTE PA-C Diagnosis: Major depressive disorder, single episode, moderate One tablet daily Last Documented On 4 12:24PM By BRENTON BUSTAMANTE PA-C ; [facility] Tamsulosin HCl 0.4 MG Oral Capsule 03/25/2024 Provid er: Diagnosis: Last Documented On 03/25/2024 9:16AM By SARIKA JOHNSTON ; [facility] Propranolol HCl 20 MG Oral Tablet 03/25/2024 Provide r: Diagnosis: 2 pills tid Last Documented On 03/25/2024 9:17AM By SARIKA JOHNSTON ; [facility] Lisinopril 20 MG Oral Tablet 03/25/2024 - 03/20/2025 Provider: BRENTON SCHWAB CH, PA-C Diagnosis: TAKE 1 TABLET BY MOUTH DAILY Last Documented On 12:24PM By BRENTON BUSTAMANTE PA-C ; [facility] Flonase Allergy Relief 50 MCG/ACT Nasal Suspension 01/26/2024 Provider: BRENTON BUSTAMANTE PA-C Diagnosis: Acute nasopharyn gitis [common cold] 2 sprays each nostril once daily Last Documented On 03/25/2024 9:12AM By SARIKA JOHNSTON ; [facility] Ozempic (1 MG/DOSE) 2 MG/1.5 ML Subcutaneous Solution Pen-injector 12/25/2023 Provider: Diagnosis: ordred by endo Last Documented On 12/25/2023 2:54PM By SARIKA JOHNSTON ; [facility] Gabapentin 300 MG Oral Capsule 03/14/2023 Provider: Diagnosis: Last Documented On 03/14/2023 2:45PM By SARIKA JOHNSTON ; [facility] Lidocaine Oint & Men-Meth Paulo 5 & 3-10% External Therapy Pack 07/12/2022 Provider: Diagnosis: Last Documented On 07/12/2022 2:36PM By Freida ROMERO ; [facility] Magnesium Oxide 400 MG Oral Tablet 05/30/2022 Provid er: Diagnosis: ordered by cardiioogist Last Documented On 05/30/2022 11:43AM By SARIKA JOHNSTON ; [facility] Pioglitazone HCl 15 MG Oral Tablet 05/30/2022 Provid er: Diagnosis: Last Documented On 05/30/2022 11:21AM By SARIKA JOHNSTON ; [facility] Nitrostat 0.4 MG Sublingual Tablet Sublingual 04/27/20 Provider: Diagnosis: ordered by cylinder machine operator Last Documented On 04/27/2022 10:26AM By SARIKA JOHNSTON ; [facility] Atorvastatin Calcium 40 MG Oral Tablet 03/23/2022 Pr ovider: Diagnosis: Last Documented On 03/23/2022 9:29AM By SARIKA JOHNSTON ; [facility] Farxiga 10 MG Oral Tablet 03/23/2022 Provider: Diagnosis: Last Documented On 03/23/2022 9:28AM By SARIKA JOHNSTON ; [facility] Vitamin D 50 MCG (1999 [place]) Oral Capsule 01/24/2022 P rosudeepder: Diagnosis: Last Documented On 01/24/2022 9:40AM By SARIKA JOHNSTON ; [facility] Potassium 99 MG Oral Tablet 01/24/2022 Provider: Diagnosis: Last Documented On 01/24/2022 9:39AM By SARIKA JOHNSTON ; [facility] HYDROcodone-Acetaminophen 10-325 MG Oral Tablet 2021 Provider: Diagnosis: one or 2 at bedtimeordered by specialist Last Documented On 01/24/2022 9:42AM By SARIKA JOHNSTON ; [facility] Melatonin 10 MG Oral Tablet 09/05/2019 Provider: Diagnosis: Last Documented On 09/05/2019 10:26AM By AYAN ROMERO ; [facility] metFORMIN HCl 1000 MG TABS 12/15/2014 Provider: Diagnosis: Last Documented On 12/15/2014 9:34AM By AYAN ROMERO ; [facility] Multivitamins OR CAPS 10/10/2010 Provider: Diagnosis: Last Documented On 0 7:27PM By LULA PALACIOS PA-C ; [facility] OneTouch Ultra Blue STRP 04/15/2010 Provider: BUCKY DOUGHERTY M.D. Diagnosis: #90 WITH 3 REFILLS Last Documented On 04/15/2010 1:13PM By BUCKY DOUGHERTY MD ; [facility] Past Medications on file Amitriptyline HCl 50 MG Oral Tablet 02/13/2024 - 02/07/2025 Provider: BRENTON BUSTAMANTE PA-C Diagnosis: Other irritable bowel syndrome TAKE 1 TABLET BY MOUTH AT BEDTIME Last Documented On 11:41AM By BRENTON BUSTAMANTE PA-C ; [facility] tiZANidine HCl 4 MG Oral Tablet 02/07/2024 - 05/07/2024 Provider: YOLANDE RAY LAW CLERK- Diagnosis: TAKE 1 TABLET BY MOUTH TWICE DAILY Last Documented On 4 12:41PM By YOLANDE NELSON- ; [facility] Medications Administered Includes: Administered Medications from this encounter No Administered Medications Recorded Vital Signs Includes: Vital Signs from this encounter Vital Name 12/25/2023 02:45P Blood Pressure Sitting L 120/62 BP Cuff Size Regular Pulse Rate-Sitting (bpm) 97 Respiration Rate (breaths/min) 18 Temp-Oral (F) 98 Height (in) 73 Weight (lb) 197 Body Mass Index 26 Body Surface Area 2.1 Oxygen Saturation (%) 97 Last Documented: On 12/25/2023 2:50PM ; [facility] Results Includes: Results discussed during this encounter No Results Recorded For Specified Dates History of Present Illness Includes: History of Present Illness from this encounter REHAN FRANCO is a 58 year old male. Source of patient information was patient ? Allergy list reviewed ? Medication list reviewed - No headache - No epistaxis - No chest pain or discomfort - No dyspnea - No abdominal pain - No diarrhea - No constipation - Tingling of the limbs - Numbness of the limbs - No dizziness - Depression recently, since backpain has progressed and retired - Sleep disturbances - No lesion on the feet Social History Description Last Updated Tobacco non-user 01/23/2024 Last Documented On 4 2:45PM ; [facility] Cigarette smoking: history 3 packs per d ay for 25 years 12/25/2023 Last Documented On 4 8:28AM ; [facility] Former smoker 12/25/2023 Last Documented On 4 8:28AM ; [facility] Stopped smoking years ago 2002 4 Last Documented On 4 8:28AM ; [facility] A previous job-related injury Had whipla sh dx years ago. NO isues since 06/01/2022 Last Documented On 4 2:45PM ; [facility] Social history unchanged 06/17/2020 Last Documented On 4 2:45PM ; [facility] Exercising erratically 05/09/2017 Last Documented On 4 2:45PM ; [facility] Smoking Status Unknown Procedures and Surgical History Includes: Procedures from this encounter Procedures Code Diagnosis Performing Provider Service L ocation Service Date medication instruction Last Documented On 4 8:28AM ; [facility] plan of care reviewed and agreed to Last Documented On 4 4:08PM ; [facility] risks, benefits, and limitations discuss ed and understood Last Documented On 4 8:28AM ; [facility] use of tobacco assessment performed 1000F Last Documented On 4 2:51PM ; [facility] review of medications documented 1160F Last Documented On 4 4:08PM ; [facility] assessment of suicide risk performed Last Documented On 4 2:56PM ; [facility] screening for adult depression: impressi on and score eleven Last Documented On 4 2:56PM ; [facility] standardized depression screening: posit patrick for symptoms Last Documented On 4 2:56PM ; [facility] Clinical summary provided to patient Last Documented On 4 4:08PM ; [facility] a colonoscopy was performed 01/12/2018- Due for 5 year repeat. Pt aware and will make apt Last Documented On 4 4:08PM ; [facility] Medical History Includes: Medical History addressed during this encounter Description Last Updated Home blood sugar check performed bs 138 this am 03/25/2024 Last Documented On 4 2:45PM ; [facility] Home blood sugar check performed bs 126 this am 12/25/2023 Last Documented On 4 8:28AM ; [facility] APPENDECTOMY ~ING HERNIA R ~ NASAL SEPTAL DEVIATION REPAIR 2009 ~TONSILLECTOMY ~R ROTATOR CUFF 97, 12 ~R ELBOW 12 ~LAMINECTOMY L4-S1 10/201807/12/2022 Last Documented On 4 2:45PM ; [facility] Family History Includes: Family History addressed during this encounter No Family History Recorded Review of Systems Includes: Review of Systems from this encounter Systemic: No fever, no chills, and no recent weight change. Head: No headache. Cardiovascular: No chest pain or discomfort. Pulmonary: No dyspnea. Gastrointestinal: No vomiting and no abdominal pain. Genitourinary: No dysuria. Musculoskeletal: As a chronic condition and joint stiffness as a chronic condition. Neurological: No dizziness and no fainting. Skin: No pruritus. Mental Status Includes: Mental Status from this encounter Description Moderate depression Functional Status Includes: Functional Status from this encounter No Functional Status Recorded Physical Exam Includes: Physical Exam from this encounter Allergies Includes: Active Allergies Substance Type Reaction Onset Date Resolved Date Statu s Typhoid Vaccine Allergy 07/09/2009 Act patrick Last Documented On 4 9:11AM ; [facility] Encounters Encounter Provider Location Date Check-In Time Check-Out Time Diagnosis PROBLEM VISIT BRENTON BUSTAMANTE PA-C [facility] 12/25/19 24 2:30PM 3:10PM Depression Moderate,Nicot ine Dependence Cigarettes in Remission,Gang lion Right Hand Insurance Includes: Active Insurance Policies Plan Name Member ID Group # Subscriber Relationship Effect patrick Dates 1 - [employer] [id number] ANGELA FRANCO [facility] Clinical Notes Includes: Clinical Notes from this encounter * Progress note Date Encounter Last Documented by 12/25/2023 PROBLEM VISIT Last documented on 12/26/2023; 8:28 AM, BRENTON BUSTAMANTE PA-C; [facility] Active Problems & [...] Condition Chief Complaint The Chief Complaint is: Knot on palm of right hand base of little finger for 1 month, getting worse Discuss possible depression Would like to have Ct lung screening done. Reason For Visit Patient is a 57 y/o male who presents for mulitple complaints/ questions. He has a knot on the palm of his right hand. NOticed 1 month ago. tender at times. Noticed a decrease in desire to do things since back pain increase and he retired 6 months ago. Just wants to stay home. Feels down. Denies any suicidal/ homicidal thoughts asked him about getting lung screening. Smokes 3ppd for 25 years. Stopped in 2003m 21 years ago. No cough or SOB. History of Present Illness ANGELA FRANCO is a 58 year old male. Source of patient information was patient - Allergy list reviewed - Medication list reviewed - No headache - No epistaxis - No chest pain or discomfort - No dyspnea - No abdominal pain - No diarrhea - No constipation - Tingling of the limbs - Numbness of the limbs - No dizziness - Depression recently, since backpain has progressed and retired - Sleep disturbances - No lesion on the feet Current [...] Sublingual Tablet Sublingual as directed ordered by cylinder machine operator, 0 days, 0 refills - OneTouch Ultra [...] sugar check performed bs 138 this am and home blood sugar check performed bs [...] no recent weight change. Head: No headache. Cardiovascular: No chest pain or discomfort. Pulmonary: No dyspnea. Gastrointestinal: No vomiting and no abdominal pain. Genitourinary: No dysuria. Musculoskeletal: As a chronic condition and joint stiffness as a chronic condition. Neurological: No dizziness and no fainting. Skin: No pruritus. Physical Findings - Vitals taken 12/25/2023 02:45 pm BP-Sitting L 120/62 mmHg BP Cuff Size Regular Pulse Rate-Sitting 97 bpm Respiration Rate 18 per min Temp-Oral 98 F Height 73 in Weight 197 lbs Body Mass Index 26 kg/m2 Body Surface Area 2.1 m2 Oxygen Saturation 97 % General Appearance: - Well developed. - Well nourished. - In no acute distress. Neck: Suppleness: - Neck demonstrated no decrease in suppleness. Eyes: General/bilateral: Pupils: - PERRLA. Lungs: - Normal breath sounds/voice sounds. - No wheezing was heard. - No rhonchi were heard. - No rales/crackles were heard. Cardiovascular: Heart Rate And Rhythm: - Normal. Murmurs: - No murmurs were heard. Musculoskeletal System: Wrist: Right Wrist: - Other ganglion right wrist 0.5 cm to palm. mild tenderness. Skin: - General appearance was normal. Assessment - Ganglion of the right hand [M67.441 - Ganglion, right hand] palm - Dependence on nicotine in cigarettes in remission [F17.211 - Nicotine dependence, cigarettes, in remission] 3 PPD [id number]. Quit over 15 years ago- screening not recommended - Moderate depression [F32.1 - Major depressive disorder, single episode, moderate] Previous Tests Past Medical: Tests: A colonoscopy was performed 01/12/2018- Due for 5 year repeat. Pt aware and will make apt. Therapy - Risks, benefits, and limitations discussed and understood. - Medication instruction. - Assessment of suicide risk performed - Clinical summary provided to patient. - Plan of care reviewed and agreed to. Vaccinations - Did not receive dose of influenza virus vaccine - Did not receive dose of pneumococcal vaccine Counseling/Education - Recommend diet and exercise at least 30 min three times per week Plan StartCited - Major depressive disorder, single episode, moderate DULoxetine HCl 30 MG capsule One tablet daily, 30 days, 2 refills EndCited - Return to the clinic if condition worsens or new symptoms arise - Disposition Continue follow up with specialists DOCTORS HE SEES: [facility] Written order given to patient for CBC, CMP and lipd to be done with endocrine order Discuss ganglion cyst and treatment options. Patient states since it isn't causing much pain or issue he will wait on referral to ortho Since he quit smoking ovr 15 years ago, lung screening isn't needed per guidelines Meds started for depression. Refuses couseling at this time. Follow up in 3 months or sooner . Go to ER is suicidal/ homicidal. Practice Management Use of tobacco assessment performed Review of medications documented; Standardized depression screening: positive for symptoms and for adult impression and score eleven. Health Reminders - Assess Blood Pressure satisfied 12/25/2023. - Assess BMI satisfied 12/25/2023. - Assess Need for CT Lung Screen satisfied 12/25/2023. - Assess Tobacco Use satisfied 12/25/2023. - Blood Pressure Measurement satisfied 12/25/2023. - Depression Screening satisfied 12/25/2023. - Flu Shot satisfied 12/25/2023. - Follow Up Plan BMI Management satisfied 12/25/2023. - Follow up plan for Depression Screening satisfied 12/25/2023. User Defined 27 Has health concerns today. Has not been to the ER or hospitalized in the last 12 months.
[2025-02-25 12:38] LABS: ANA Cascade Screen NEGATIVE (NEGATIVE)
== END 2025-02-24 11:59 | disposition home or self-care (01) ==
PROVIDERS: Visit Provider Internal Medicine Critical Care Medicine
DX: R06.02 Shortness of breath (principal); R04.2 Hemoptysis; J67.9 Hypersensitivity pneumonitis due to unspecified organic dust; M31.0 Hypersensitivity angiitis
CPT/HCPCS: 36415; 81003; 83516; 86038; 86225; 86235

== ENCOUNTER 2025-03-10 13:39 | Outpatient (CLI) | payer OTHER, SELFPAY ==
--- NOTE | ~2025-03-10 | CT_ITS ---
CT Scan of the Chest without Contrast: Clinical Indication: Hemoptysis Technique: Contiguous sections were acquired throughout the chest without intravenous contrast. Dose reduction technique was used on this scan by utilizing automated exposure control and iterative recon struction technique. The dose-length product (DLP) was 253.17 mGy-cm. Findings: There is no evidence of any significant mediastinal, hilar or axillary lymphadenopathy. The mediastin al soft tissues appear normal. There is no evidence of pleural or pericardial effusion. The lungs are clear. No pulmonary nodules or infiltrates are noted. Images through the upper abdomen reveal no abnormalities. Impression: No significant abnormalities seen. Reviewed, dictated and finalized at location . Impression: No significant abnormalities seen.
--- OUTSIDE RECORDS SUMMARY | 2025-03-10 15:25 | XMS_ITS ---
Author Organization [facility] ([address]) Address [address] [place] [address] Care Team Providers Care Hadoop Software Engineer Name Role Phone Trever Bose Primary Care Provider Dr. Carlitos Ruth Unavailable [phone] Elizabet Schaeffer Unavailable [phone] REASON FOR VISIT Refills Medications Medication SIG (Take, Route, Frequency, Duration) Notes Start Date End Date Status Qulipta 60 MG 1 tablet Orally Once a day for 30 days 02/06/2025 Active Encounters Encounter Location Date Provider Diagnosis [address] [place] [address] 02/06/2025 Elizabet Schaeffer Plan Of Treatment Medication Medication Name Sig Start Date Stop Date Notes Qulipta 60 MG 1 tablet Orally Once a day for 30 days 02/06 Next Appt Details Provider Name:Elizabet eduardo, 05/29/2025 09:00:00 AM, [address], [place], [address], Provider Name:Mi vicente, 05/29/2025 10:15:00 AM, [address], [place], [address], Progress Notes * Michael FRANCO ADOB:[birth year] (59 yo M)Acc No.[id number]:02/06/2025 Patient: Michael GIFFORD :1965 A ge:59 Y S ex:Male Address:[address] [place] [id number] * Refills Start Qulipta Tablet, 60 MG, Orally, 30, 1 tablet, Once a day, 30 days, Refills=5 * true * Date: Generated for Cherrie le/Sudeep/Teaganitting on: 0 03/10/2025 03:25 PM CDT
--- OUTSIDE RECORDS SUMMARY | 2025-03-10 15:25 | XMS_ITS | Encounter Summary ---
Author Organization [facility] Address [address] [place] [address] Care Team Providers Care Electrician Supervisor Airplane Name Role Phone Trever Bose MD Primary Care Provider [phone] Denise West MD Unavailable [phone] Tejal Masterson MD Unavailable [phone] Nina Vale MD Unavailable [phone] Carlitos Canales MD Unavailable [phone] Carlitos Canales MD Unavailable [phone] Encounter Details Date Type Department Care Team (Late st Contact Info) Description 03/04/2025 Results Follow-Up [facility] Gastroenterology at [address] [place] [id number] Kailash Jones, [address] [place] [address] Social History Tobacco Use Types Packs/Day Years Used Date Smoking Tobacco: Former Smokeless Tobacco: Never Comments:Pt stopped smoking in 2002 AUDIT-C Answer Date Recorded Q1: How often do you have a drink containing alc ohol? Monthly or less 02/26/2025 Q2: How many drinks containi ng alcohol do you have on a typical day when you are drinking? 1 or 2 02/26/2025 Q3: How often do you have si x or more drinks on one occasion? Never 02/26/2025 Personal Safety Answer Date Recorded Have you ever been in or are you currently in a harmful physical or emotional relationship or is someone making you feel afraid or unsafe? 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 Not on file Not on file Not on file documented as of this encounter Plan of Treatment Not on file documented as of this encounter Visit Diagnoses Not on filedocumented in this encounter Care Teams Electrician Supervisor Airplane Relationship Specialty Start Date End Date Trever Bose MD PCP - General 05/19/17 Denise West MD Referring Physician Endocrinology Diabetes & Metabolism 03/04/20 Tejal Masterson MD Consulting Physician Neurosurgery 02/14/22 Nina Vale MD Consulting Physician Cardiovascular Disease 06/08/22 Carlitos Canales MD [address] [place] [address] Referring Physician Neurology 03/14/24 Carlitos Canales MD [address] [place], [place] [id number] Referring Physician Neurology 12/11/24 documented as of this encounter
--- OUTSIDE RECORDS SUMMARY | 2025-03-10 15:25 | XMS_ITS ---
Author Organization [facility] [place] ([address]) Address [address] [place] [address] Care Team Providers Care Wool Tamper Name Role Phone Trever Bose Primary Care Provider Dr. Carlitos Ruth [facility] [phone] REASON FOR VISIT Message Encounters Encounter Location Date Provider Diagnosis [facility] [address] [place] [address] 11/21/2024 Carlitos Canales Plan Of Treatment Next Appt Details Provider Name:Elizabet eduardo, 05/29/2025 09:00:00 AM, [address], [place], [address], Provider Name:Mi vicente, 05/29/2025 10:15:00 AM, [address], [place], [address], Progress Notes * Michael FRANCO ADOB:[birth year] (59 yo M)Acc No.[id number]:11/21/2024 Patient: Abbi Michael CAMARENA :1965 A ge:59 Y S ex:Male Address:[address], [place], [place] Subjective: * Chief Complaints: * M essage * Medical History: * Surgical History: * Hospitalization/Major Diagno stic Procedure: * Medications: Objective: * Vitals: * Physical Examination: Assessment: Plan: * Treatment: * Procedure Codes: * true * Date: Generated for Cherrie Laurent/Urban on: 0 03/10/2025 03:25 PM CDT
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
--- OUTSIDE RECORDS SUMMARY | 2025-03-10 15:26 | XMS_ITS | Referral Summary ---
Author Organization [facility] Medical Office Building B Address [address] [place] [address] Care Team Providers Care Trench Pipe Layer Helper Name Role Phone Trever Bose MD Primary Care Provider [phone] Denise West MD Unavailable [phone] Tejal Masterson MD Unavailable [phone] Nina Vael MD Unavailable [phone] Carlitos Canales MD Unavailable [phone] Carlitos Canales MD Unavailable [phone] Encounters Date Type Department Care Team Description 03/04/2025 Results Follow-Up [facility] Gastroenterology at [address] [place] [address] Kailash Jones DO 02/27/2025 7:37 AM CDT Anesthesia Event [address] [address] Rosas Merritt MD 02/27/2025 7:30 AM CDT - 02/27/2025 8:00 AM CDT Surgery [address] [address] Kailash Jones DO COLON BIOPSY 02/27/2025 6:46 AM CDT - 02/27/2025 8:44 AM CDT Hospital Encounter [facility] [address] [place] [address] Kailash Jones DO Encounter for screening colonoscopy; History of colonic polyps Discharge Disposition: Discharge to home or self care 01/17/2025 2:00 PM LIFTS AND CRANES INSPECTOR Procedure visit [facility] ENT Specialists at [address] [place] [address] Keyla Yang Au.D. Tinnitus, bilateral (Primary Dx); Tinnitus of both ears 01/17/2025 Telephone [facility] Gastroenterology at [address] [place] [address] Freida Buitrago Prep Instructions 01/17/2025 1:30 PM LIFTS AND CRANES INSPECTOR Office Visit [facility] ENT Specialists - [address] [place] [address] Delmy Dodge, Keratin cyst (Primary Dx); Tinnitus of both ears 01/15/2025 Results Follow-Up [facility] E[facility]ists - [address] [place] [address] Delmy Dodge, 01/14/2025 Results Follow-Up [facility] - [address] [place] [address] Delmy Dodge, DO 01/13/2025 12:47 PM LIFTS AND CRANES INSPECTOR - 01/13/2025 11:59 PM LIFTS AND CRANES INSPECTOR Hospital Encounter [facility] [place] [facility] [address] [place] [address] Chronic sinusitis, unspecified location Discharge Disposition: Discharge to home or self care 01/08/2025 3:15 PM LIFTS AND CRANES INSPECTOR - 01/08/2025 11:59 PM LIFTS AND CRANES INSPECTOR Hospital Encounter [address] [id number] Mass of floor of mouth Discharge Disposition: Discharge to home or self care 01/08/2025 Orders Only [facility] [address] [facility] Medical Office Building [address], [address] [place] [address] Delmy Franklin, head sulfide operator Type 2 diabetes mellitus with diabetic polyneuropathy, without long-term current use of insulin (HCC) 01/08/2025 3:00 PM LIFTS AND CRANES INSPECTOR Procedure visit [facility] ENT Specialists - [facility] [address] [facility] [address] [place] [address] Delmy Dodge, Mass of floor of mouth (Primary Dx) 12/25/2024 1:45 PM LIFTS AND CRANES INSPECTOR Office Visit [place] Senior Microstrategy Developer at [facility] [address] [facility] [address] [place] [address] Marisel Xavier MD Chest pain, unspecified type (Primary Dx); Mixed hyperlipidemia; Benign essential hypertension; Type 2 diabetes mellitus with diabetic polyneuropathy, without long-term current use of insulin ([facility]) 12/12/2024 7:56 AM LIFTS AND CRANES INSPECTOR - 12/12/2024 11:59 PM LIFTS AND CRANES INSPECTOR Hospital Encounter [address] [address] Discharge Disposition: Discharge to home or self care 12/12/2024 6:57 AM LIFTS AND CRANES INSPECTOR - 12/12/2024 11:59 PM LIFTS AND CRANES INSPECTOR Hospital Encounter [facility] [address] [place] [address] Chest pain, unspecified type Discharge Disposition: Discharge to home or self care 12/12/2024 6:57 AM LIFTS AND CRANES INSPECTOR - 12/12/2024 11:59 PM LIFTS AND CRANES INSPECTOR Hospital Encounter [address] [address] Discharge Disposition: Discharge to home or self care 12/12/2024 6:57 AM LIFTS AND CRANES INSPECTOR - 12/12/2024 11:59 PM LIFTS AND CRANES INSPECTOR Hospital Encounter [address] [address] Chest pain, unspecified type Discharge Disposition: Discharge to home or self care 12/12/2024 6:57 AM LIFTS AND CRANES INSPECTOR - 12/12/2024 11:59 PM LIFTS AND CRANES INSPECTOR Hospital Encounter [facility] [address] [place] [address] Chest pain, unspecified type Discharge Disposition: Discharge to home or self care 12/11/2024 9:45 AM LIFTS AND CRANES INSPECTOR Office Visit [facility]ists - [facility] [address] [place] [address] Delmy Dodge DO Chronic sinusitis, unspecified location [...] (ZANAFLEX) 4 mg tablet as needed 10/08/20 Active melatonin 10 mg tablet Take 1 tablet (10 mg total) by mouth nightly Active lancets (OneTouch Delica Lancets) 30 gauge [facility] Use Delica lancet to test blood sugars [...] total) by mouth daily 90 tablet 08/27/20 Active Nurtec ODT tablet,disintegrat ing 08/29/20 Active albuterol HFA (PROVENTIL HFA,VENTOLIN HFA,PROAIR HFA) 90 mcg/actuation inhaler 09/13/20 Active blood-glucose meter misc One Touch Verio IQ meter Use as directed 1 each 1 09/17/20 Active blood glucose diagnostic (OneTouch Verio test strips) strip CHECK BLOOD SUGAR 2 TIMES DAILY 200 strip 1 09/17/20 Active pioglitazone (ACTOS) 15 mg tabletIndications: type 2 diabetes mellitus Take 1 tablet (15 mg total) by mouth daily 90 tablet 3 09/27/20 24 025 Active metFORMIN (GLUCOPHAGE) 1,000 mg tabletIndications: Type 2 diabetes mellitus with diabetic polyneuropathy, without long-term current use of insulin ([facility]) Take 1 tablet (1,000 mg total) by [...] polyneuropathy, without long-term current use of insulin ([facility]),Mixed hyperlipidemia TAKE 1 TABLET BY MOUTH DAILY 90 tablet 3 02/10/20 25 Active magnesium citrate 100 mg tablet Take by mouth Ac tive atogepant (Qulipta) 60 mg tablet Take 60 mg by mouth daily Active atorvastatin (LIPITOR) 40 mg tabletIndications: Type 2 diabetes mellitus with diabetic polyneuropathy, without long-term current use of insulin ([facility]),Mixed hyperlipidemia TAKE 1 TABLET BY MOUTH DAILY 90 tablet 3 01/18/20 24 025 Discontin ued(Reord er) Active Problems Problem Noted Date Diagnosed Date Keratin cyst 01/17/2025 Assessment & Plan (01/17/2025 1:38 PM LIFTS AND CRANES INSPECTOR): Continue increased fluid intake, continue twice daily mouth rinse and spits Tinnitus of both ears 01/17/2025 Assessment & Plan (01/19/2025 5:11 PM LIFTS AND CRANES INSPECTOR): Hearing normal today, consider inflammation from other sources Chronic sinusitis 12/11/2024 Assessment & Plan (12/12/2024 7:44 AM LIFTS AND CRANES INSPECTOR): Seeing Pulmonary prior to Allergy testing Will obtain allergy testing Avoid antihistamines until after skin testing CT Sinus Mass of floor of mouth 12/11/2024 Assessment & Plan (01/08/2025 3:08 PM LIFTS AND CRANES INSPECTOR): Excision of tongue mass Risks and complications: Anesthesia, bleeding, infection, benign versus malignant pathology, recurrence of lesion, injury to arteries, nerves and veins, scarring and need for further treatment Extra fluids Avoid acidic foods and fluids for three days Tylenol or Ibuprofen for pain Assessment & Plan (12/12/2024 7:44 AM LIFTS AND CRANES INSPECTOR): Excision in Office of Right floor of [...] 12/02/2013 Assessment & Plan (09/22/2024 8:26 PM LIFTS AND CRANES INSPECTOR): Overall range seems a little high, and [...] control Assessment & Plan (10/02/2019 11:25 AM LIFTS AND CRANES INSPECTOR): The patient has type 2 diabetes, currently [...] 2019. Assessment & Plan (12/04/2018 12:27 PM LIFTS AND CRANES INSPECTOR): A1C at today's visit on 12/04/18 was [...] 05/30/2012 Assessment & Plan (09/22/2024 8:27 PM LIFTS AND CRANES INSPECTOR): Continue long-term supplement and recheck level. Assessment [...] 10/08/2009 Assessment & Plan (09/22/2024 8:25 PM LIFTS AND CRANES INSPECTOR): Continue statin, optimize glycemic control. Check levels. [...] control Assessment & Plan (10/02/2019 11:25 AM LIFTS AND CRANES INSPECTOR): Continue atorvastatin. Tolerating without side effects. Assessment & Plan (03/04/2019 9:07 AM CDT): Continue statin. Tolerating without side effects. Assessment & Plan (11/28/2018 3:59 PM LIFTS AND CRANES INSPECTOR): Last lipid panel on May 22, 2018 [...] time. Assessment & Plan (10/02/2019 11:25 AM LIFTS AND CRANES INSPECTOR): Blood pressure 141/89 today. Continue same medications. Continue to monitor. Assessment & Plan (03/04/2019 9:07 AM CDT): BP stable. Continue same medications. Assessment & Plan (11/28/2018 3:59 PM LIFTS AND CRANES INSPECTOR): Blood pressure is currently stable. 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 Not on file Not on file Not on file Last Filed Vital Signs Vital Sign Reading Time Taken Comments Blood Pressure 129/77 02/27/2025 8:30 AM CDT Pulse 71 02/27/2025 8:30 AM CDT Temperature 36.8 C (98.2 F) 02/27/2025 8:30 AM CDT Respiratory Rate 15 02/27/2025 8:30 AM CDT Oxygen Saturation 100% 02/27/2025 8:30 AM CDT Inhaled Oxygen Concentration - - Weight 90.9 kg (200 lb 6.4 oz) 02/27/2025 6:57 A M CDT Height 182.9 cm (6' 0.01 ) 02/27/2025 6:57 AM CD T Body Mass Index 27.17 02/27/2025 6:57 AM CDT Plan of Treatment Not on file Procedures Procedure Name Priority Date/Time Associated Diagnosis Comments SURGICAL PATHOLOGY STAT 02/27/2025 10:02 AM CDT Encounter for screening colonoscopy History of colonic polyps COLON BIOPSY 02/27/2025 7:25 AM CDT Encounter for screening colonoscopy History of colonic polyps COLONOSCOPY 02/27/2025 7:17 AM CDT POCT GLUCOSE DEVICE Routine 02/27/2025 7 :17 AM CDT AUDIOGRAM Routine 01/17/2025 2:00 PM LIFTS AND CRANES INSPECTOR Tinnitus, bilateral CT SINUS STEALTH WO CONTRAST Schedule Routine, Read Routine (OP Routine) 01/13/2025 1:06 PM LIFTS AND CRANES INSPECTOR Chronic sinusitis, unspecified location SURGICAL PATHOLOGY Routine 01/08/2025 9: 20 AM LIFTS AND CRANES INSPECTOR Mass of floor of mouth STRESS TEST FOR DUAL READ Schedule Routine, Read Routine (OP Routine) 12/12/2024 11:12 AM LIFTS AND CRANES INSPECTOR Chest pain, unspecified type NM MPI SPECT (REST AND/OR STRESS) MULTIPLE STUDIES Schedule Routine, Read Routine (OP Routine) 12/12/2024 11:12 AM LIFTS AND CRANES INSPECTOR Chest pain, unspecified type TRANSTHORACIC ECHO (TTE) COMPLETE W DOPPLER/CF WO CONTRAST Routine 12/12/2024 8:03 AM LIFTS AND CRANES INSPECTOR Chest pain, unspecified type POCT HEMOGLOBIN A1C [...] Recently Relevant to Health Maintenance Results * Surgical pathology (02/27/2025 10:02 AM CDT) Tissue (Polyp(s), colon/colorectal, esophageal, gastric) 02/27/2025 7:45 AM CDT Tissue specimen (specimen) (Polyp(s), colon/colorectal, esophageal, gastric) 02/27/2025 8:00 AM CDT Narrative PATHOLOGY [facility] ([facility]) - 03/03/2025 2:01 PM CDT EPIC results best viewed via link to PDF [facility] Department of Pathology [address] [place] [address] Note to Patients: This report may contain [...] Final Report Patient Name: MICHAEL PEARSON Address: [address] [place] [id number] Gender: M : 1965 (Age: 59) Service: Gastro Location: [facility] Hospital #: [id number] Patient Type: [facility] Taken: 02/27/2025 Received: 02/28/2025 Accessioned: 02/28/2025 Reported: 03/03/2025 Physician(s):Dr. Kialash Jones DJ CarlosO. Diagnosis: A. Colon, ascending, biopsies: - Tubular adenoma fragments (x2). - No evidence of high-grade dysplasia or malignancy. B. Rectum, biopsy: - Tubular adenoma. - No evidence of high-grade dysplasia or malignancy. Luis Slater MD Report Electronically Reviewed and Signed Out By Luis Slater MD 03/03/2025 14:01:59 Specimen(s) Received: A: Ascending colon polyp x 2 B: Rectum colon polyp x 1 Microscopic Description: A. Microscopic examination shows three polypoid fragments of colonic mucosa, two of which show adenomatous mucosal changes consistent with tubular adenoma fragments. There is no evidence of high-grade dysplasia or malignancy. B. Microscopic examination shows a polypoid fragment of rectal mucosa with adenomatous mucosal changes consistent with a tubular adenoma. There is no evidence of high-grade dysplasia or malignancy. Clinical History: Screening colonoscopy. History of colonic polyps. Colononoscopy. Gross Description: The specimen is submitted in two formalin containers labeled MICHAEL PEARSON . A. The first container is labeled ascending colon polyp x2 . It is 3 fragments of steinberg mucosa, 1-3 mm. All in A. B. The second container is labeled rectum colon polyp x1 . It is 1 fragment of steinberg mucosa, 4 mm. All in B. Luis Lacey/Dayami Irving M.D. REPORT IMAGES AND SCANNED DOCUMENTS, IF INCLUDED, ONLY VIEWABLE IN PDF VERSION OF REPORT The performance characteristics of some immunohistochemical stains, fluorescence in-situ hybridization tests and immunophenotyping by flow cytometry cited in this report (if any) were determined by the Surgical Pathology Department at [facility] [place] as part of an ongoing quality assurance intern program and in compliance with federally mandated [...] characteristics determined by the Surgical Pathology Department [facility]. It has not been cleared or approved by the U. S. Food and Drug Administration. Note for decalcified specimens: This assay has not been validated on decalcified tissues. Results should be interpreted with caution given the possibility of false negativity on decalcified specimens Kailash Jones DO LAB PATHOLOGY ORDERABLES Final Result Performing Organization Address City/State/[facility] Co de Phone Number PATHOLOGY [address] [address] * Colonoscopy (02/27/2025 7:17 AM CDT) Anatomical Region Laterality Modality Other Narrative Procedure Note Kailash Jones DO - 02/27/2025 7:17 AM CDT [facility] Patient Name: Michael Pearson Procedure Date: 02/27/2025 7:17 AM Date of : 1965 Admit Type: Outpatient Age: 59 Gender: Male Attending MD: Kailash Jones D.O. Note Status: Finalized Patient Profile: Refer to note in patient chart for documentation of history and physical. Procedure: Colonoscopy Indications: High risk colon cancer surveillance: Personalhistory of colonic polyps, Last colonoscopy: December2017 Referring MD: Trever Bose M.D. Providers: Kailash Jones D.O. Impression: - Preparation of the colon was fair. - Two 2 to 3 mm polyps in the ascending colon,removed with a jumbo cold forceps. Resected andretrieved. - Diverticulosis in the entire examined colon. - One 2 mm polyp in the rectum, removed with ajumbo cold forceps. Resected and retrieved. - Internal hemorrhoids. Recommendation: - Discharge patient to home. - Resume previous diet. - Continue present medications. - Await pathology results. - Repeat colonoscopy in 1 year for surveillance.Two day preparation. - Return to primary care physician PRN. Medicines: Monitored Anesthesia Care Complications: No immediate complications. Estimated Blood Loss: Estimated blood loss was minimal. Procedure: Pre-Anesthesia Assessment: - As per anesthesia. The benefits, risks and alternatives of theprocedure and sedation were discussed and informed consentwas obtained. All questions were answered. Please referto the signed informed consent document in the medical record. The bowel preparation used was Miralax and bisacodyl tablets via split dose instruction. The scope was passed under direct vision. The Pediatric Colonoscope PCF-H190L [id number] was introducedthrough the anus and advanced to the the cecum, identifiedby appendiceal orifice and ileocecal valve. The colonoscopy was performed without difficulty. The patient tolerated the procedure well. The qualityof the bowel preparation was fair. The ileocecalvalve, appendiceal orifice, and rectum werephotographed. Findings: The perianal and digital rectal examinations were normal. Two polyps were found in the ascending colon. The polyps were 2 to 3mm in size. These polyps were removed with a jumbo cold forceps.Resection and retrieval were complete. Scattered diverticula were found in the right and left colon. A 2 mm polyp was found in the rectum. The polyp was removed with ajumbo cold forceps. Resection and retrieval were complete. Internal hemorrhoids were found. The hemorrhoids were small. No additional abnormalities were found on retroflexion. Electronically signed by Kailash Jones M.D. Kailash Jones D.O. 02/27/2025 8:07:17 AM Number of Addenda: 0 Note Initiated On: 02/27/2025 7:17 AM Procedure Code(s): --- Professional --- 52552, Colonoscopy, flexible; with biopsy, single or multiple --- Technical --- 39095, Colonoscopy, flexible; with biopsy, single or multiple Diagnosis Code(s): --- Professional --- Z86.010, Personal history of colonic polyps K64.8, Other hemorrhoids D12.2, Benign neoplasm of ascending colon D12.8, Benign neoplasm of rectum K57.30, Diverticulosis of large intestine without perforation orabscess without bleeding --- Technical --- Z86.010, Personal history of colonic polyps K64.8, Other hemorrhoids D12.2, Benign neoplasm of ascending colon D12.8, Benign neoplasm of rectum K57.30, Diverticulosis of large intestine without perforation orabscess without bleeding CPT copyright 2020 [employer]. All rights reserved. The codes documented in this report are preliminary and upon lubricator granulator reviewmay be revised to meet current compliance requirements. Recognized by the [employer] for promoting quality in endoscopy Kailash Jones DO ENDOSCOPY PROCEDURES Final Res ult * POCT glucose (02/27/2025 7:17 AM CDT) Glucose, POC 117 70 - 199 mg/dL Blood 02/27/2025 7:17 AM CDT 02/27/2025 7:17 AM CDT Kailash Jones DO LAB POCT ORDERABLES - DEVICE F inal Result [facility] ([place]) [address] [facility] Department of Laboratories [place], [place] [id number] * AUDIOGRAM (01/17/2025 2:00 PM LIFTS AND CRANES INSPECTOR) Narrative Keyla Yang Au.D. - 01/17/2025 2:00 PM LIFTS AND CRANES INSPECTOR Keyla Yang Au.D. 01/17/2025 2:46 PM Audiogram Performed by: Keyla Yang Au.D. Authorized by: Delmy Dodge DO Delmy Dodge DO AUDIOLOGY SERVICES ORDERABLE S Final Result * CT Sinus Stealth WO Contrast (01/13/2025 1:06 PM LIFTS AND CRANES INSPECTOR) Anatomical Region Laterality Modality Head N/A Computed Tomogra phy 01/13/2025 8:38 PM LIFTS AND CRANES INSPECTOR Impressions 01/13/2025 8:38 PM LIFTS AND CRANES INSPECTOR Mucosal thickening and mucus retention cysts seen in the right maxillary antrum. The remainder of the paranasal sinuses are normally aerated. Electronically signed by: Mariama Palomino M.D. Narrative 01/13/2025 8:38 PM LIFTS AND CRANES INSPECTOR EXAMINATION: CT SINUS STEALTH WO CONTRAST HISTORY: [...] by: Mariama Palomino M.D. Delmy Dodge DO [facility] CT PROCEDURES Final Resu lt * Surgical pathology (01/08/2025 9:20 AM LIFTS AND CRANES INSPECTOR) Tissue specimen (specimen) (Skin - Cyst / Tag / Debridement) 01/08/2025 9:20 AM LIFTS AND CRANES INSPECTOR 01/10/2025 9:20 AM LIFTS AND CRANES INSPECTOR Narrative PATHOLOGY CH - 01/13/2025 9:33 AM LIFTS AND CRANES INSPECTOR EPIC results best viewed via link to PDF [facility] [place] Department of Pathology [address] [place] [address] Note to Patients: This report may [...] Final Report Patient Name: MICHAEL PEARSON Address: [address] [place] [id number] Gender: M : 1965 (Age: 59) Service: Location: [facility] : [id number] [facility] #: [id number] Patient Type: SPECIMEN Taken: 01/08/2025 Received: 01/10/2025 [...] determined by the Surgical Pathology Department at [facility] as part of an ongoing quality assurance intern program and in compliance with federally mandated [...] characteristics determined by the Surgical Pathology Department [facility]. It has not been cleared or approved by the U. S. Food and Drug Administration. Note for decalcified specimens: This assay has not been validated on decalcified tissues. Results should be interpreted with caution given the possibility of false negativity on decalcified specimens Delmy Dodge DO LAB PATHOLOGY ORDERABLES Fin al Result PATHOLOGY [address] [place] [address] * NM MPI SPECT (Rest and/or Stress) Multiple Studies (12/12/2024 11:12 AM LIFTS AND CRANES INSPECTOR) LV EF % CONS SCIMAGE Anatomical Region Laterality Modality Body N/A Nuclear Medicine 12/12/2024 7:2 8 AM LIFTS AND CRANES INSPECTOR Narrative 12/14/2024 11:37 AM LIFTS AND CRANES INSPECTOR [address] [address] [employer] Report Patient Name: MICHAEL PEARSON A : [...] >50%). Electronically Signed By: Alfa Spencer MD, [facility] 2024-12-14 11:36:48 AM LIFTS AND CRANES INSPECTOR Procedure Note Alfa Spencer MD - 12/14/[address] [address] [employer] Report Patient Name: MICHAEL PEARSON A : [...] >50%). Electronically Signed By: Alfa Spencer MD, [facility] 2024-12-14 11:36:48 AM LIFTS AND CRANES INSPECTOR Marisel Xavier MD IMG NM PROCEDURES Final Re sult * Stress Test for Myocardial Perfusion (12/12/2024 11:12 AM LIFTS AND CRANES INSPECTOR) LV EF % CONS SCIMAGE Anatomical Region Laterality Modality Nuclear Medicine 12/12/2024 9:15 AM LIFTS AND CRANES INSPECTOR Narrative 12/12/2024 4:19 PM LIFTS AND CRANES INSPECTOR [address] [address] [employer] Report Patient Name: MICHAEL PEARSON A : [...] By: Dr Bertha Howe 12/12/2024 4:18:11 PM LIFTS AND CRANES INSPECTOR Procedure Note Bertha Howe MD - 12/12/[address] [place] [address] [employer] Report Patient Name: MICHAEL PEARSON A [...] By: Dr Bertha Howe 12/12/2024 4:18:11 PM LIFTS AND CRANES INSPECTOR us Marisel Xavier MD CV STRESS PROCEDURES Final Result * TRANSTHORACIC ECHO (TTE) COMPLETE W DOPPLER/CF WO CONTRAST (12/12/2024 8:03 AM LIFTS AND CRANES INSPECTOR) LV EF % CONS SCIMAGE Anatomical Region Laterality Modality Ultrasound 12/12/2024 7:25 AM LIFTS AND CRANES INSPECTOR Narrative 12/12/2024 3:31 PM LIFTS AND CRANES INSPECTOR [address] [address] Echocardiogram Report Patient Name: MICHAEL PEARSON A [...] 1.70 m/s [ 0.40 - 0.80 ] CT Peak Lex 1.31 m/s TR Peak Lex [...] By: Felton Hall MD 12/12/2024 3:30:44 PM LIFTS AND CRANES INSPECTOR Procedure Note Felton Hall MD - 12/12/[address] [address] Echocardiogram Report Patient Name: MICHAEL PEARSON A [...] 1.70 m/s [ 0.40 - 0.80 ] CT Peak Lex 1.31 m/s TR Peak Lex [...] By: Felton Hall MD 12/12/2024 3:30:44 PM LIFTS AND CRANES INSPECTOR Marisel Xavier MD CV ECHO PROCEDURES Final R esult * POCT hemoglobin A1c (09/14/2023 1:08 PM CDT) [facility] Hemoglobin A1C, POC 7.9 % Blood 09/14/2023 1:08 PM CDT Result [facility] Poonam Martinez NP POINT OF CARE TEST ORDERABL ES Final Result * Microalbumin / creatinine ratio, urine, random (05/22/2018 11:03 AM CDT) [facility] Microalbumin, ur <12.0 mcg/mL [facility] Creatinine, ur 48.90 mg/dL [facility] Microalbumin/cr eat ratio <24.5 0.1 - 29.9 mcg/mg Cr [facility] Urine 05/22/2018 11:0 3 AM CDT 05/22/2018 11:23 AM CDT Narrative [facility] - 05/22/2018 12:21 PM CDT Denise West MD LAB URINE ORDERABLES Final Result [facility] [employer] [facility] Department [place] [address] * (ABNORMAL) Lipid panel (05/22/2018 11:03 AM CDT) [facility] Cholesterol 164 30 - 200 mg/dL [facility] Comment: Interpretive Data Desirable: <200 mg/dL Borderline high: 200-239 mg/dL High: > or = 240 mg/dL Literature Reference: National Cholesterol Education Program (NCEP) Expert Panel on Detection, Evaluation, and Treatment of High Blood Cholesterol in Adults (Adult Treatment Panel III). Circulation 2004; 110:227. Current interpretive data was last revised on 2015. Triglycerides 198(H) 0 - 150 mg/dL [facility] Comment: Interpretive Data Desirable: < 150 mg/dL Borderline High: 150 - 199 mg/dL High: 200 - 499 mg/dL Very High: > or = 499 mg/dL Literature Reference: See Cholesterol Current interpretive data was last revised on 2015. HDL 41 >=40 mg/dL [facility] Comment: Interpretive Data Less than 40 mg/dL - low; A major risk factor for heart disease. Greater than or equal to 60 mg/dL - High; considered protective of heart disease. Literature Reference: See Cholesterol Current interpretive data was last revised on 2015. LDL, calculated 83 10 - 129 mg/dL [facility] Comment: Interpretive Data Optimal: < 100 mg/dL Near Optimal: 100 - 129 mg/dL Borderline High: 130 - 159 mg/dL High: 160 - 189 mg/dL Very high: > or = 190 mg/dL Literature Reference: See Cholesterol Current interpretive data was last revised on 2015. Non-HDL Cholesterol 123 mg/dL [facility] Comment: Interpretive Data When triglycerides are >200 mg/dL, non-HDL C is a secondary target of therapy, with a goal 30 mg/dL higher than the identified LDL-C goal. Reference: See Cholesterol Reference. Current interpretive data was last revised 2015. Blood specimen (specimen) 05/22/2018 11:03 AM CDT 05/22/2018 11:23 AM CDT Narrative [facility] - 05/22/2018 12:03 PM CDT These lab test should be done fasting. This means do not eat or drink for at least 12 hours prior to getting your blood drawn. 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
--- OUTSIDE RECORDS SUMMARY | 2025-03-10 15:26 | XMS_ITS | Clinical Summary ---
Author Organization [facility] Address [address] [place] [address] Phone Care Team Providers Care Job Forwarder Name Role Phone RUBENS ODELL MD Primary Care Provider [phone] Reason for Visit and Chief Complaint The [...] Active Last Documented On 06/01/2017 12:41AM ; [facility] Note: Unchanged Irritable Bowel Syndrome 06/01/2017 DAMARIS ODELL MD Active Last Documented On 06/01/2017 12:41AM ; [facility] Note: Unchanged Cardiomyopathy 06/01/2017 RUBENS ODELL MD Active Last Documented On 06/01/2017 12:41AM ; [facility] Note: Unchanged Nicotine Dependence Cigarettes in Remission 06/01/2017 RUBENS ODELL MD Active Last Documented On 06/01/2017 12:41AM ; [facility] Note: Unchanged Diabetes Mellitus Type 2 - Uncomplicated, Controlled 09/18/2012 BUCKY DOUGHERTY M.D. Active Last Documented On 6 3:35PM ; [facility] Essential Hypertension Benign 09/18/2012 BUCKY DOUGHERTY M.D. Active Last Documented On 6 3:35PM ; [facility] Past Visits Onset Date Resolved Date Provider Condition Status Post Covid-19 Condition 02/22/2022 RUBENS ODELL MD Active Last Documented On 02/22/2022 8:35AM ; [facility] Note: Unchanged Benign Prostatic Hypertrophy Without Urinary Obstruction 06/01/2017 RUBENS ODELL MD Active Last Documented On 06/01/2017 12:41AM ; [facility] Note: Unchanged Congestive Heart Failure 06/01/2017 RUBENS ODELL MD Active Last Documented On 06/01/2017 12:41AM ; [facility] Note: Unchanged Male Erectile Dysfunction 06/01/2017 RUBENS ODELL MD Active Last Documented On 06/01/2017 12:41AM ; [facility] Note: Unchanged Lumbago 06/01/2017 RUBENS ODELL MD Active Last Documented On 06/01/2017 12:41AM ; [facility] Note: Unchanged Herniated Intervertebral Disc Lumbar 06/01/2017 RUBENS ODELL MD Active Last Documented On 06/01/2017 12:41AM ; [facility] Note: Unchanged Plan of Treatment Referrals To Diagnosis Neurologist [facility] [address] [place] [address] Other specified forms of tremor Note: [facility] BUT IF CATHOLIC O R IF [place] U HAS SOMETHING BACK THIS WAY INSTEAD OF AT [facility] Last Documented On 3:38PM ; [facility] Assessments Includes: Assessments from this encounter Findings - Cardiomyopathy [I42.9 - Cardiomyopathy, unspecified] - Last Documented On 01/30/2024 3:08PM ; [facility] - Benign essential hypertension [I10 - Essential (primary) hypertension] - Last Documented On 01/30/2024 3:08PM ; [facility] - Irritable bowel syndrome [K58.8 - Other irritable bowel syndrome] - Last Documented On 01/30/2024 3:08PM ; [facility] - Hypercholesterolemia [E78.00 - Pure hypercholesterolemia, unspecified] - Last Documented On 01/30/2024 3:08PM ; [facility] - Type 2 diabetes mellitus - uncomplicated, controlled [E11.9 - Type 2 diabetes mellitus without complications] - Last Documented On 01/30/2024 3:08PM ; [facility] - Tremor [G25.2 - Other specified forms of tremor] - Last Documented On 01/30/2024 3:08PM ; [facility] - Dependence on nicotine in cigarettes in remission [F17.211 - Nicotine dependence, cigarettes, in remission] - Last Documented On 01/30/2024 3:08PM ; [facility] Medical Equipment - Implanted Devices Includes: [...] On 12:24PM By BRENTON BUSTAMANTE PA-C ; [facility] Tamsulosin HCl 0.4 MG Oral Capsule 03/25/2024 Provid er: Diagnosis: Last Documented On 03/25/2024 9:16AM By SARIKA JOHNSTON ; [facility] Propranolol HCl 20 MG Oral Tablet 03/25/2024 Provide r: Diagnosis: 2 pills tid Last Documented On 03/25/2024 9:17AM By SARIKA JOHNSTON ; [facility] Lisinopril 20 MG Oral Tablet 03/25/2024 - 03/20/2025 Provider: BRENTON SCHWAB CH, PA-C Diagnosis: TAKE 1 TABLET BY MOUTH DAILY Last Documented On 12:24PM By BRENTON BUSTAMANTE PA-C ; [facility] Flonase Allergy Relief 50 MCG/ACT Nasal Suspension 01/26/2024 Provider: BRENTON BUSTAMANTE PA-C Diagnosis: Acute nasopharyn gitis [common cold] 2 sprays each nostril once daily Last Documented On 03/25/2024 9:12AM By SARIKA JOHNSTON ; [facility] Ozempic (1 MG/DOSE) 2 MG/1.5 ML Subcutaneous Solution Pen-injector 12/25/2023 Provider: Diagnosis: ordred by endo Last Documented On 12/25/2023 2:54PM By SARIKA JOHNSTON ; [facility] Gabapentin 300 MG Oral Capsule 03/14/2023 Provider: Diagnosis: Last Documented On 03/14/2023 2:45PM By SARIKA JOHNSTON ; [facility] Lidocaine Oint & Men-Meth Paulo 5 & 3-10% External Therapy Pack 07/12/2022 Provider: Diagnosis: Last Documented On 07/12/2022 2:36PM By Freida ROMERO ; [facility] Magnesium Oxide 400 MG Oral Tablet 05/30/2022 Provid er: Diagnosis: ordered by cardiioogist Last Documented On 05/30/2022 11:43AM By SARIKA JOHNSTON ; [facility] Pioglitazone HCl 15 MG Oral Tablet 05/30/2022 Provid er: Diagnosis: Last Documented On 05/30/2022 11:21AM By SARIKA JOHNSTON ; [facility] Nitrostat 0.4 MG Sublingual Tablet Sublingual 04/27/20 22 Provider: Diagnosis: ordered by cd mixer helper Last Documented On 04/27/2022 10:26AM By SARIKA JOHNSTON ; [facility] Atorvastatin Calcium 40 MG Oral Tablet 03/23/2022 Pr ovider: Diagnosis: Last Documented On 03/23/2022 9:29AM By SARIKA JOHNSTON ; [facility] Farxiga 10 MG Oral Tablet 03/23/2022 Provider: Diagnosis: Last Documented On 03/23/2022 9:28AM By SARIKA JOHNSTON ; [facility] Vitamin D 50 MCG (1999 UT) Oral Capsule 01/24/2022 P rovider: Diagnosis: Last Documented On 01/24/2022 9:40AM By SARIKA JOHNSTON ; [facility] Potassium 99 MG Oral Tablet 01/24/2022 Provider: Diagnosis: Last Documented On 01/24/2022 9:39AM By SARIKA JOHNSTON ; [facility] HYDROcodone-Acetaminophen 10-325 MG Oral Tablet 2021 Provider: Diagnosis: one or 2 at bedtimeordered by specialist Last Documented On 01/24/2022 9:42AM By SARIKA JOHNSTON ; [facility] Melatonin 10 MG Oral Tablet 09/05/2019 Provider: Diagnosis: Last Documented On 09/05/2019 10:26AM By AYAN ROMERO ; [facility] metFORMIN HCl 1000 MG TABS 12/15/2014 Provider: Diagnosis: Last Documented On 12/15/2014 9:34AM By AYAN ROMERO ; [facility] Multivitamins OR CAPS 10/10/2010 Provider: Diagnosis: Last Documented On 0 7:27PM By LULA PALACIOS PA-C ; [facility] OneTouch Ultra Blue STRP 04/15/2010 Provider: BUCKY DOUGHERTY M.D. Diagnosis: #90 WITH 3 REFILLS Last Documented On 04/15/2010 1:13PM By BUCKY DOUGHERTY MD ; [facility] Past Medications on file Amitriptyline HCl 50 MG Oral Tablet 02/13/2024 - 02/07/2025 Provider: BRENTON BUSTAMANTE PA-C Diagnosis: Other irritable bowel syndrome TAKE 1 TABLET BY MOUTH AT BEDTIME Last Documented On 4 11:41AM By BRENTON BUSTAMANTE PA-C ; [facility] tiZANidine HCl 4 MG Oral Tablet 02/07/2024 - 05/07/2024 Provider: YOLANDE RAY [facility] PROFESSIONAL- Diagnosis: TAKE 1 TABLET BY MOUTH TWICE DAILY Last Documented On 4 12:41PM By YOLANDE MARIE [facility] PROFESSIONAL-BC ; [facility] Medications Administered Includes: Administered Medications from [...] 98 Last Documented: On 01/23/2024 8:49AM ; [facility] Results Includes: Results discussed during this encounter [...] 01/23/2024 Last Documented On 4 3:08PM ; [facility] Smoking Status Unknown Procedures and Surgical History Includes: Procedures from this encounter Procedures Code Diagnosis Performing Provider Service L ocation Service Date plan of care reviewed and agreed to Last Documented On 4 9:13AM ; [facility] use of tobacco assessment performed 1000F Last Documented On 4 8:49AM ; [facility] review of medications documented 1160F Last Documented On 4 8:49AM ; [facility] Reviewed & agreed to staff entries. Last Documented On 4 9:13AM ; [facility] Clinical summary provided to patient Last Documented On 4 9:13AM ; [facility] Medical History Includes: Medical History addressed during this encounter Description Last Updated Home blood sugar check performed once a day 01/23/2024 Last Documented On 4 3:08PM ; [facility] Pt does not get blood pressure checked a t other facility 01/23/2024 Last Documented On 4 3:08PM ; [facility] Family History Includes: Family History addressed [...] patrick Last Documented On 4 9:11AM ; [facility] Encounters Encounter Provider Location Date Check-In Time Check-Out Time Diagnosis PROBLEM VISIT RUBENS ODELL MD [facility] 01/23/20 24 8:37AM 9:43AM Cardiomyopathy, Diabetes Mellitus Type 2 - Uncomplicated, Controlled,Esse ntial Hypertension Benign,Hypercho lesterolemia,Ni cotine Dependence Cigarettes in Remission,Irrit able Bowel Syndrome,Tremor Insurance Includes: Active Insurance Policies Plan Name Member ID Group # Subscriber Relationship Effect patrick Dates 1 - [employer] [id number] ANGELA FRANCO [facility] Clinical Notes Includes: Clinical Notes from this encounter * Progress note Date Encounter Last Documented by 01/23/2024 PROBLEM VISIT Last documented on 01/30/2024; 3:08 PM, RUBENS ODELL MD; [facility] Active Problems & Conditions - [...] Sublingual Tablet Sublingual as directed ordered by cd mixer helper, 0 days, 0 refills - OneTouch Ultra [...] specified forms of tremor Referral: Neurologist Instructions: [facility] BUT IF CATHOLIC OR IF WASH U HAS SOMETHING BACK [...]
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
--- OUTSIDE RECORDS SUMMARY | 2025-03-10 15:26 | XMS_ITS | Patient Health Record ---
Author Organization [facility] [facility] ([address]) Address [address] [place] [address] Care Team Providers Care Ship Captain Name Role Phone BoseTrever tsang Primary Care Provider UnavailDr. Carlitos Garcias Unavailable [phone] Isaiah Fajardo Unavailable [phone] Mi Jacome Unavailable [phone] [facility], Provider Unavailable Unavailab Elizabet Holm Unavailable [phone] Allergies Allergen (clinical drug ingredient) Drug/Non Drug Allergy documented on EMR Reaction Allergy Type Onset Date Status Vaccine product containing Salmonella enterica subspecies enterica serovar Typhi antigen (medicinal product) Typhoid Vaccines hives Drug Allergy Active Results Component Value Reference Range Notes Spirometry Reviewed date:09/13/2024 12:40:10 PM Interpretation:Abnormal - FVC significantly reduced Performing Lab: Notes/Report: Abnormal - FVC significantly reduced SpiroPreBronchodilator_FVC 3.45 SpiroPostBronchodilator_FEF2 5_75 2.53 SpiroPreBronchodilator_FEF25 _75 1.88 SpiroPreBronchodilator_FEV1 2.57 SpiroPrecentPredictionPost_F EF25_75 70.7 SpiroPrecentPredictionPost_F EV1 67.9 SpiroPrecentPredictionPost_F EV1_OVER_FVC 101.3 SpiroPrecentPredictionPost_F VC 67.1 SpiroPrecentPredictionPre_FE F25_75 52.5 SpiroPrecentPredictionPre_FE V1 65.6 SpiroPrecentPredictionPre_FE V1_OVER_FVC 96 SpiroPrecentPredictionPre_FV C 68.5 SpiroPredicted_FEF25_75 3.58 SpiroPreBronchodilator_FEV1_ OVER_FVC 74.48 SpiroPreBronchodilator_PEF 7.81 SpiroPostBronchodilator_FVC 3.38 SpiroPostBronchodilator_FEV1 2.66 SpiroPostBronchodilator_FEV1 _OVER_FVC 78.59 SpiroPostBronchodilator_PEF 7.97 SpiroPredicted_FVC 5.04 SpiroPredicted_FEV1 3.92 SpiroPredicted_FEV1_OVER_FVC 77.6 SpiroPredicted_PEF 9.1 RESPIRATORY ALLERGY PROFILE REGION VIII: [place], [place] Reviewed date:09/24/2024 07:41:37 AM Interpretation:Normal Performing Lab:NM, [facility], [address], [place], [address] SharonDeborah Drummond MD Notes/Report: NON-FASTING; NON-FASTING; NON-FASTING DERMATOPHAGOIDES PTERONYSSINUS (D1) IGE <0.10 CLASS 0 DERMATOPHAGOIDES FARINAE (D2) IGE <0.10 CLASS 0 PENICILLIUM NOTATUM (M1) IGE <0.10 CLASS 0 CLADOSPORIUM HERBARUM (M2) IGE <0.10 CLASS 0 ASPERGILLUS FUMIGATUS (M3) IGE <0.10 CLASS 0 ALTERNARIA ALTERNATA (M6) IGE <0.10 CLASS 0 COCKROACH (I6) IGE <0.10 CLASS 0 MAPLE (BOX ELDER) (T1) IGE <0.10 CLASS 0 MOUNTAIN CEDAR (T6) IGE <0.10 CLASS 0 WALNUT TREE (T10) IGE <0.10 CLASS 0 [place] (T11) IGE <0.10 CLASS 0 COTTON[place]OD (T14) IGE <0.10 CLASS 0 WHITE YOSSI (T15) IGE <0.10 CLASS 0 OAK (T7) IGE <0.10 CLASS 0 ELM (T8) IGE <0.10 CLASS 0 HICKORY/PECAN TREE (T22) IGE <0.10 CLASS 0 WHITE MULBERRY (T70) IGE <0.10 CLASS 0 BERMUDA GRASS (G2) IGE <0.10 CLASS 0 TREVER GRASS (G6) IGE <0.10 CLASS 0 COMMON RAGWEED (SHORT) (W1) IGE <0.10 CLASS 0 ROUGH PIGWEED (W14) IGE <0.10 CLASS 0 MONTENEGRIN THISTLE (W11) IGE <0.10 CLASS 0 ROUGH BOLTON ELDER (W16) IGE <0.10 CLASS 0 MOUSE URINE PROTEINS (E72) IGE <0.10 CLASS 0 IMMUNOGLOBULIN E 9 <LZ=667 kU/L CAT DANDER (E1) IGE <0.10 CLASS 0 DOG DANDER (E5) IGE <0.10 CLASS 0 IMMUNOGLOBULINS G/A/M Reviewed date:09/24/2024 04:23:26 PM Interpretation:Abnormal Performing Lab:[facility], [facility], [address], [place], [address] Sachin Drummond MD Notes/Report: NON-FASTING; NON-FASTING; NON-FASTING IMMUNOGLOBULIN A 217 47-310 mg/dL IMMUNOGLOBULIN G 678 740-6200 mg/dL IMMUNOGLOBULIN M 44 50-300 mg/dL S. PNEUMONIAE IGG AB, 23 SER OTYPES, S Reviewed date:09/24/2024 09:44:10 AM Interpretation:Abnormal Performing Lab:MYM, [facility], [address] [place], [place], [address] Yolanda Kiran M.D. Ph.D. Notes/Report: NON-FASTING; NON-FASTING; NON-FASTING INTERPRETATION Evaluation of the immune response following pneumococcal vaccination can be assessed by measuring serotype-specific Streptococcus pneumonia IgG antibodies. Either of the following conditions is consistent with a normal response to Streptococcus pneumonia vaccination: 1. When comparing pre and post-vaccination samples, antibody concentrations increased by at least 2-fold for either >50% of serotypes in children <6 years of age or >70% of serotypes for individuals >6 years of age. 2. In either a pre- or post-vaccination sample, antibody concentrations >=1.0 mcg/mL for either >50% of serotypes for children <6 years of age or >70% of serotypes for individuals >6 years of age. Results >=1.0 mcg/mL or those showing a >=2-fold change are consistent with an immune response, but are not necessarily sufficient to provide protection against infection. ADDITIONAL INFORMATION This test was developed and its performance characteristics determined by [facility] in a manner consistent with CLIA requirements. This test has not been cleared or approved by the U.S. Food and Drug Administration. SEROTYPE 1 (1) 0.2 >=1.0 mcg/mL SEROTYPE 2 (2) 3.3 >=1.0 mcg/mL SEROTYPE 3 (3) 0.2 >=1.0 mcg/mL SEROTYPE 4 (4) 0.4 >=1.0 mcg/mL SEROTYPE 5 (5) 0.6 >=1.0 mcg/mL SEROTYPE 8 (8) 1.4 >=1.0 mcg/mL SEROTYPE 9N (9) 0.9 >=1.0 mcg/mL SEROTYPE 12F (12) 0.9 >=1.0 mcg/mL SEROTYPE 14 (14) 0.2 >=1.0 mcg/mL SEROTYPE 17F (17) 1.2 >=1.0 mcg/mL SEROTYPE 19F (19) 2.3 >=1.0 mcg/mL SEROTYPE 20 (20) 4.1 >=1.0 mcg/mL SEROTYPE 22F (22) 3.2 >=1.0 mcg/mL SEROTYPE 23F (23) 1.4 >=1.0 mcg/mL SEROTYPE 6B (26) 0.9 >=1.0 mcg/mL SEROTYPE 10A (34) 10.5 >=1.0 mcg/mL SEROTYPE 11A (43) 0.6 >=1.0 mcg/mL SEROTYPE 7F (51) 2.1 >=1.0 mcg/mL SEROTYPE 15B (54) 2.7 >=1.0 mcg/mL SEROTYPE 18C (56) 0.9 >=1.0 mcg/mL SEROTYPE 19A (57) 1.1 >=1.0 mcg/mL SEROTYPE 9V (68) 0.3 >=1.0 mcg/mL SEROTYPE 33F (70) 3.3 >=1.0 mcg/mL INTERPRETATION Reviewed date:09/24/2024 07:49:37 AM Interpretation: Performing Lab:RAIZA, [facility], [address] [place], [address] Sachin Drummond MD Notes/Report: NON-FASTING; NON-FASTING; NON-FASTING INTERPRETATION Specific Level of Allergen IGE Class kU/L Specific IGE Antibody ----- --------- 0 <0.10 Absent/Undetectable 0/1 0.10-0.34 Very Low Level 1 0.35-0.69 Low Level 2 0.70-3.49 Moderate Level 3 3.50-17.4 High Level 4 17.5-49.9 Very High Level 5 50-100 Very High Level 6 >100 Very High Level The clinical relevance of allergen results of 0.10-0.34 kU/L are undetermined and intended for specialist use. Allergens denoted with a include results using one or more analyte specific reagents. In those cases, the test was developed and its analytical performance characteristics have been determined by [facility]. It has not been cleared or approved by the U.S. Food and Drug Administration. This assay has been validated pursuant to the CLIA regulations and is used for clinical purposes. H. INFLUENZAE TYPE B AB Reviewed date:09/24/2024 07:43:10 AM Interpretation:Normal Performing Lab:EZ, [facility],, [address] [place], [address] Christine Hansen MD,PhD,CAPRI Notes/Report: NON-FASTING; NON-FASTING; NON-FASTING HAEMOPHILUS INFLUENZA TYPE B ANTIBODY (IGG) 4.88 REFERENCE RANGE: > or = 1.00 mcg/mL INTERPRETIVE CRITERIA: <0.15 mcg/mL Nonprotective Antibody Level 0.15 - 0.99 mcg/mL Indeterminate for protective antibody > or = 1.00 mcg/mL Protective Antibody Level IgG antibody to polyribosylribitol phosphate (PRP), the capsular polysaccharide of Haemophilus influenzae type b, is measured in micrograms/mL (mcg/mL), based on correlations with a reference Keanu radioimmunoprecipitation assay (LILY). The exact level of antibody needed for protection from infection has not been clarified; values ranging from 0.15 mcg/mL to 1.00 mcg/mL have been reported. A four-fold increase in the PRP IgG antibody level between pre-vaccination and post-vaccination sera is considered evidence of effective immunization. TETANUS ANTITOXOID Reviewed date:09/24/2024 07:42:53 AM Interpretation:Normal Performing Lab:EZ, [facility],, [address] [place], [address] Christine Hansen MD,PhD,CAPRI Notes/Report: NON-FASTING; NON-FASTING; NON-FASTING TETANUS ANTITOXOID 1.67 REFERENCE RANGE: 0.10 IU/mL or greater Antibody levels > or = 0.10 IU/mL are considered protective. However, tetanus can still occur in some individuals with such antibody levels. These results should not be used to determine the necessity to administer antitoxin when clinically indicated. This test was developed and its analytical performance characteristics have been determined by [facility]. It has not been cleared or approved by FDA. This assay has been validated pursuant to the CLIA regulations and is used for clinical purposes. DIPHTHERIA ANTITOXOID Reviewed date:09/24/2024 07:42:36 AM Interpretation:Normal Performing Lab:[facility], [facility],, [address] [place], [address] Christine Hansen MD,PhD,CAPRI Notes/Report: NON-FASTING; NON-FASTING; NON-FASTING DIPHTHERIA ANTITOXOID 0.19 REFERENCE RANGE: 0.10 IU/mL or greater Interpretive Criteria <0.10 IU/mL Nonprotective Antibody Level > Or = 0.10 IU/mL Protective Antibody Level Antibody levels > or = 0.10 IU/mL are considered protective. After a primary series of three properly spaced diphtheria toxoid doses in adults or four doses in infants, a protective level of antitoxin (defined as > or = 0.10 IU of antitoxin/mL) is reached in more than 95% of immunized persons. This test was developed and its analytical performance characteristics have been determined by [facility]. It has not been cleared or approved by FDA. This assay has been validated pursuant to the CLIA regulations and is used for clinical purposes. Spirometry Reviewed date:10/10/2024 04:19:47 PM Interpretation:Abnormal - FVL Performing Lab: Notes/Report: Abnormal - FVL SpiroPreBronchodilator_FVC 3.69 SpiroPostBronchodilator_FEF2 5_75 0 SpiroPreBronchodilator_FEF25 _75 2.46 SpiroPreBronchodilator_FEV1 2.87 SpiroPrecentPredictionPost_F EF25_75 0 SpiroPrecentPredictionPost_F EV1 0 SpiroPrecentPredictionPost_F EV1_OVER_FVC 0 SpiroPrecentPredictionPost_F VC 0 SpiroPrecentPredictionPre_FE F25_75 69.3 SpiroPrecentPredictionPre_FE V1 73.8 SpiroPrecentPredictionPre_FE V1_OVER_FVC 100.3 SpiroPrecentPredictionPre_FV C 73.5 SpiroPredicted_FEF25_75 3.55 SpiroPreBronchodilator_FEV1_ OVER_FVC 77.68 SpiroPreBronchodilator_PEF 8.34 SpiroPostBronchodilator_FVC 0 SpiroPostBronchodilator_FEV1 0 SpiroPostBronchodilator_FEV1 _OVER_FVC 0 SpiroPostBronchodilator_PEF 0 SpiroPredicted_FVC 5.02 SpiroPredicted_FEV1 3.89 SpiroPredicted_FEV1_OVER_FVC 77.44 SpiroPredicted_PEF 9.06 STREPTOCOCCUS PNEUMONIAE AB (IGG) (23 SEROTYPES) Reviewed date:11/06/2024 09:44:10 AM Interpretation:Normal Performing Lab:EZ, [facility],, [address] [place], [address] Christine Hansen MD,PhD,CAPRI Notes/Report: SEROTYPE 1 (1) 5.0 SEROTYPE 2 (2) 11.6 SEROTYPE 3 (3) 0.4 SEROTYPE 4 (4) 0.8 SEROTYPE 5 (5) 42.4 SEROTYPE 8 (8) 3.8 SEROTYPE 9 (9N) 1.6 SEROTYPE 12 (12F) <0.3 SEROTYPE 14 (14) 2.2 SEROTYPE 17 (17F) 1.5 SEROTYPE 19 (19F) 2.0 SEROTYPE 20 (20) 6.4 SEROTYPE 22 (22F) 7.5 SEROTYPE 23 (23F) 2.7 SEROTYPE 26 (6B) 2.9 SEROTYPE 34 (10A) >77.0 SEROTYPE 43 (11A) 3.8 SEROTYPE 51 (7F) 21.3 SEROTYPE 54 (15B) 5.2 SEROTYPE 56 (18C) 11.8 SEROTYPE 57 (19A) 2.9 SEROTYPE 68 (9V) 0.5 SEROTYPE 70 (33F) 4.0 Serologic correlates of protection against pneumococcal disease have not been rigorously established for all patient populations. Published data and expert consensus (including WHO) suggest protection from invasive disease usually occurs at levels >or =0.3-0.50 mcg/mL for healthy children receiving pneumococcal conjugate vaccines. Higher titers may be necessary to protect from non-invasive infection (e.g., pneumonia, otitis, sinusitis). Expert opinion suggests that a cut-off of >= 1.3 mcg/mL may be a more relevant value to assess antibody responses after pneumococcal polysaccharide vaccines or for immunocompromised patients. In addition to antibody quantity, protection also depends on antibody avidity and opsonophagocytic activity. Some experts consider that post-vaccination (4-6 weeks) IgG seroconversion and/or 2- to 4-fold rise in IgG titers for >50% to 70% of vaccine serotypes demonstrates a normal post-vaccine serologic response. Persons with high initial serotype-specific titers may have less robust responses. [facility] uses a multi-analyte immunodetection (MAID) method. The method employs the Reocar flow cytometric system which measures multiple analytes simultaneously. The FDA standard reference serum 89-S is used as the calibration standard. Results are reported in mcg/mL. This assay detects all of the 23 of the serotypes in the 23-valent polysaccharide vaccine and 12 of the 13 serotypes in the 13-valent conjugate vaccine. This test was developed and its analytical performance characteristics have been determined by [facility]. It has not been cleared or approved by FDA. This assay has been validated pursuant to the CLIA regulations and used for clinical purposes. For additional information, please refer to http://education.Iagnosiss.c om/faq/FWX840 (This link is being provided for informational/ educational purposes only.) Reason For Referral No Information Medications Medication SIG (Take, Route, Frequency, Duration) Notes Start Date End Date Status metFORMIN HCl 1000 MG 1 tab(s) orally 2 times a day Active Atorvastatin Calcium 40 MG 1 tab(s) orally once a day Active tiZANidine HCl 4 MG 2 tab(s) orally every 8 hours Active Breztri Aerosphere 160-9-4.8 MCG/ACT 2 puffs Inhalation Twice a day for 30 days 10/11/2024 Active Qulipta 60 MG 1 tablet Orally Once a day for 30 days 02/06/2025 Active DULoxetine HCl 30 MG 1 cap(s) orally once daily Active Propranolol HCl ER 160 MG 1 CAP(S) ORALLY ONCE A DAY *Please review and pick correct strength-formula tion from gokit options. If intended option is not shown, discontinue and re-order from Quick Search* 04/16/2024 Active Amitriptyline HCl 50 MG 1 tab(s) orally once a day (at bedtime) Active Nurtec 75 MG 1 tablet Orally once every other day as PREVENTIVE 07/04/2024 Active AeroChamber MV - as directed for 30 days Any adult spacer Active Potassium Chloride 99 MG 1 TAB(S) ORALLY ONCE A DAY *Please review and pick correct strength-formula tion from gokit options. If intended option is not shown, discontinue and re-order from Quick Search* Active Albuterol Sulfate HFA 108 (90 Base) MCG/ACT 2 puffs as needed Inhalation every 4 hrs as per asthma action plan for 30 days Active Vitamin D3 50 MCG 1 TAB(S) ORALLY ONCE A DAY *Please review and pick correct strength-formula tion from gokit options. If intended option is not shown, discontinue and re-order from Quick Search* Active NURTEC ODT 75 MG 1 TAB(S) ORALLY ONCE for 30 DAYS *Please review for potential replacement for e-prescription and drug interaction check* 04/11/2024 Not-Taking Farxiga 10 MG 1 tab(s) orally once a day Active OZEMPIC 2 MG/1.5 ML (0.25 MG OR 0.5 MG DOSE) DIRECTED SUBCUTANEOUSLY ONCE A WEEK *Please review for potential replacement for e-prescription and drug interaction check* Not-Taking Pioglitazone HCl 15 MG 1 tab(s) orally once a day Active NURTEC ODT 75 MG 1 TAB(S) ORALLY ONCE *Please re view for potential replacement for e-prescription and drug interaction check* Not-Taking Melatonin 10 MG 1 cap(s) orally once a day (at bedtime) Active Gabapentin 300 MG 1 cap(s) orally twice daily Active Lidocaine 5 % 1 valentín applied topically 3 times a day Active Magnesium Citrate 100 MG 1 cap(s) orally once a day 400mg Active HYDROcodone-Acetami nophen 10-325 MG 1 tab(s) orally every 6 hours As needed Active Multivitamin - 1 tab(s) orally once a day Active Immunizations Vaccine Route Administration Date Status Comme nts NOC Pneumovax 23 IM Intramuscular 10/01/2024 Administered Problems Problem Type SNOMED Code ICD Code Onset Dates Problem Status W/U Status Risk Notes Problem Shortness of breath (395677919) Shortness of breath (R06.02) Active confirmed Problem Diabetic peripheral neuropathy associated with type 2 diabetes mellitus (2634181150889) Type 2 diabetes mellitus with diabetic neuropathy, unspecified (E11.40) Active confirmed Problem Polyneuropathy due to type 2 diabetes mellitus (401594295) Type 2 diabetes mellitus with diabetic polyneuropathy (E11.42) Active confirmed Problem Essential tremor (311864762) Essential tremor (G25.0) Active confirmed Problem Chronic migraine without aura, non-refractory (disorder) (983304423853084) Migraine without aura, not intractable, without status migrainosus (G43.009) Active confirmed Problem Migraine with aura (8515855) Migraine with aura, not intractable, without status migrainosus (G43.109) Active confirmed Problem Chronic migraine without aura, non-intractable (896201032651359) Chronic migraine without aura, not intractable, without status migrainosus (G43.709) Active confirmed Problem Chronic tension-type headache (182793358) Chronic tension-type headache, not intractable (G44.229) Active confirmed Problem Drug induced headache (138236237755923) Drug-induced headache, not elsewhere classified, not intractable (G44.40) Active confirmed Problem Essential hypertension (99596378) Essential (primary) hypertension (I10) Active confirmed Problem Chronic rhinitis (11543384) Chronic rhinitis (J31.0) Active confirmed Problem Chronic sinusitis (26393855) Chronic sinusitis, unspecified (J32.9) Active confirmed Problem Hypertrophy of nasal turbinates (99761575) Hypertrophy of nasal turbinates (J34.3) Active confirmed Problem Gastro-esophageal reflux disease without esophagitis (913494934) Gastro-esophageal reflux disease without esophagitis (K21.9) Active confirmed Problem Post-laminectomy syndrome (34077431) Postlaminectomy syndrome, not elsewhere classified (M96.1) Active confirmed Problem Chronic sinusitis (20752977) Other chronic sinusitis (J32.8) Active confirmed Problem Chronic cough (66902576) Chronic cough (R05.3) Active confirmed Vital Signs Respiratory Rate 17 /min 01/23/2025 Oximetry 99 % 01/23/2025 Blood pressure diastolic 79 mm Hg 01/23/2025 Height 72 in 01/23/2025 Blood pressure systolic 133 mm Hg 01/23/2025 Weight 203.2 lbs 01/23/2025 BMI 27.56 kg/m2 01/23/2025 Encounters Encounter Location Date Provider Diagnosis [address] [address] 05/04/2024 Provider [facility] Type 2 diabetes mellitus with diabetic polyneuropathy E11.42 and Migraine without aura, not intractable, without status migrainosus G43.[address] [address] 03/11/2024 Carlitos Canales Essential tremor G25 .0 ; Type 2 diabetes mellitus with diabetic polyneuropathy E11.42 ; Postlaminectomy syndrome, not elsewhere classified M96.1 and Migraine without aura, not intractable, without status migrainosus G43.009 [place] [address] [employer] [address] [place] [address] 04/11/2024 Carlitos Canales Essential tremor G25 .0 ; Type 2 diabetes mellitus with diabetic polyneuropathy E11.42 ; Postlaminectomy syndrome, not elsewhere classified M96.1 and Migraine without aura, not intractable, without status migrainosus G43.009 [place] [address] [employer] [address] [place] [phone] 07/04/2024 Carlitos Canales Migraine without aur a, not intractable, without status migrainosus G43.009 ; Chronic tension-type headache, not intractable G44.229 ; Drug-induced headache, not elsewhere classified, not intractable G44.40 ; Essential tremor G25.0 ; Type 2 diabetes mellitus with diabetic polyneuropathy E11.42 and Postlaminectomy syndrome, not elsewhere classified M96.1 [facility] [address] [place] [address] 09/05/2024 Elizabet Schaeffer Migraine without aur a, not intractable, without status migrainosus G43.009 ; Chronic tension-type headache, not intractable G44.229 ; Drug-induced headache, not elsewhere classified, not intractable G44.40 ; Essential tremor G25.0 ; Type 2 diabetes mellitus with diabetic polyneuropathy E11.42 and Postlaminectomy syndrome, not elsewhere classified M96.1 [facility] [address] [place] [phone] 09/12/2024 Mi Jacome Hypertrophy of nasal turbinates J34.3 ; Chronic sinusitis, unspecified J32.9 ; Chronic rhinitis J31.0 ; Chronic cough R05.3 and Essential (primary) hypertension I10 [address] [address] 10/01/2024 Isaiah Fajardo Encounter for immunization Z23 ; Encounter for antibody response examination Z01.84 and Other chronic sinusitis J32.[address] [address] 10/10/2024 Mi Jacome Chronic cough R05.3 ; Shortness of breath R06.02 ; Dyspnea, unspecified R06.00 ; Chronic sinusitis, unspecified J32.9 ; Hypertrophy of nasal turbinates J34.3 ; Chronic rhinitis J31.0 ; Other specified disorders of nose and nasal sinuses J34.89 and Essential (primary) hypertension I10 [address] [address] 10/31/2024 Elizabet Schaeffer Migraine without aur a, not intractable, without status migrainosus G43.009 ; Chronic tension-type headache, not intractable G44.229 ; Drug-induced headache, not elsewhere classified, not intractable G44.40 ; Essential tremor G25.0 ; Type 2 diabetes mellitus with diabetic polyneuropathy E11.42 and Postlaminectomy syndrome, not elsewhere classified M96.[address] [address] 01/23/2025 Elizabet Schaeffer Migraine without aur a, not intractable, without status migrainosus G43.009 ; Chronic tension-type headache, not intractable G44.229 ; Drug-induced headache, not elsewhere classified, not intractable G44.40 ; Essential tremor G25.0 ; Type 2 diabetes mellitus with diabetic polyneuropathy E11.42 and Postlaminectomy syndrome, not elsewhere classified M96.1 [facility] [address] [place] [phone] 04/16/2024 Carlitos Canales Essential tremor G25 .[address] [address] 08/19/2024 Carlitos Canales Essential tremor G25 .[address] [address] 09/09/2024 Elizabet Schaeffer Essential tremor G25 .[address] [address] 09/24/2024 Carlitos Canales Chronic cough R05.[address] [address] 10/24/2024 Elizabet Schaeffer Migraine without aur a, not intractable, without status migrainosus G43.009 [facility] [address] [place] [phone] 10/29/2024 Carlitos Canales [address] [address] 11/04/2024 Elizabet Schaeffer Essential tremor G25 .[address] [address] 11/06/2024 Carlitos Canales [facility] [address] [place] [phone] 11/21/2024 Carlitos Canales [address] [address] 02/06/2025 Elizabet Schaeffer Assessments Encounter Date Diagnosis (ICD Code) Assessment Notes Treatment Notes Treatment Clinical Notes Section Notes 03/11/2024 Type 2 diabetes mellitus with diabetic polyneuropathy (ICD-10 - E11.42) Glycemic control. 03/11/2024 Essential tremor (ICD-10 - G25.0) Discussed treatment. Start propranolol 20 mg 1/2 pill tid x 1 week, then 1 pill tid x 1 wk, then 2 pills tid. Then if tolerate we can change to a long-acting formulation. 04/11/2024 Type 2 diabetes mellitus with diabetic polyneuropathy (ICD-10 - E11.42) Continue gabapentin, amitriptyline, and duloxetine. Follow-up with Pain Management. 04/11/2024 Essential tremor (ICD-10 - G25.0) Propranolol ER 120 mg daily. 04/16/2024 Essential tremor (ICD-10 - G25.0) 05/04/2024 Type 2 diabetes mellitus with diabetic polyneuropathy (ICD-10 - E11.42) 07/04/2024 Migraine without aura, not intractable, without status migrainosus (ICD-10 - G43.009) -Abortive treatment plan: Extra Nurtec.-Preventiv e treatment plan: Nurtec every other day. -Educated the patient on migraine lifestyle recommendations. I recommended the following measures: avoid known triggers of migraine, drink > 100 fluid ounces of non-caffeinated fluid daily, limit caffeine to 2 servings/day, sleep 7-8 hours/night and address any sleep concerns with us and report symptoms of snoring or fatigue; healthy management of stress; avoid treating headaches more than 2 days/week with abortive medication unless approved in treatment plan; can take Riboflavin 400 mg and Magnesium 500 mg daily as supplements; keep scheduled follow-up appointments 07/04/2024 Chronic tension-type headache, not intractable (ICD-10 - G44.229) Educated patient regarding medication overuse headaches. Advised to avoid taking NSAIDs or acetaminophen > 15 days/month, triptans or DHE > 10 days/month, butalbital > 10 days/month to avoid rebound headaches. 08/19/2024 Essential tremor (ICD-10 - G25.0) 09/05/2024 Migraine without aura, not intractable, without status migrainosus (ICD-10 - G43.009) -Abortive treatment plan: Continue extra Nurtec. -Preventive treatment plan: Continue Nurtec qod. -Educated the patient on migraine lifestyle recommendations. I recommended the following measures: avoid known triggers of migraine, drink > 100 fluid ounces of non-caffeinated fluid daily, limit caffeine to 2 servings/day, sleep 7-8 hours/night and address any sleep concerns with us and report symptoms of snoring or fatigue; healthy management of stress; avoid treating headaches more than 2 days/week with abortive medication unless approved in treatment plan; can take Riboflavin 400 mg and Magnesium 500 mg daily as supplements; keep scheduled follow-up appointments 09/05/2024 Chronic tension-type headache, not intractable (ICD-10 - G44.229) Limit use of the OTC analgesics to 2 x weekly to avoid rebound headache. 09/09/2024 Essential tremor (ICD-10 - G25.0) 09/12/2024 Chronic sinusitis, unspecified (ICD-10 - J32.9) Tommy reports a history of chronic sinusitis since . He was previously managed by ENT Dr. Arroyo, reports being packed with antibiotic gauze and burning prior to 2009. He would undergo regularly cauterization. He reports nasal surgery in 2009 due to uncontrollable bleeding. He reports losing some sense of smell at that time. After that, sinus infections decreased, but never went away. Today, he reports sinus infections 5-6 times per year, requiring antibiotics and OCS if symptoms are not relieved by antibiotics, approximately 1-2 times per year. He reports PNA diagnosis in 1998, confirmed with Chest Xray, treated with antibiotics. Given recurrent infections, he meets the JMF criteria for modified PIDD workup. - Plan on obtaining modified PIDD work-up and plan on booster based on results. Patient declined Vitamin D level as he reports endocrinology manages heis vitamin level. Continue recs per endocrinology. 09/12/2024 Hypertrophy of nasal turbinates (ICD-10 - J34.3) Tommy reports daily headaches and daily ringing in ears. He also reports sinus congestion, occasional itchy/watery eyes, rhinorrhea and sneezing jags. Symptoms are more pronounced in Spring and Fall. Current treatment consists of Mucinex, Benadryl, OTC antihistamines, Sudafed, Flonase and occasional Afrin. He reports prior allergy testing in , reports positives to mold, oak pollen, cocklebur, some grasses, dust. He was never on allergen immunotherapy. - Patient is on Amitryptiline for IBS, which will block skin testing. He will need to hold for a minimum of 14 days, potentially over 30 days, for aeroallergen skin testing. - ImmunoCaps ordered for assessment of atopic disease. Consider selective aeroallergen skin testing based off results. - Recommend avoiding Benadryl due to crossing of BBB. Encouraged to avoid Afrin due to rebound congestion. 09/24/2024 Chronic cough (ICD-10 - R05.3) 10/01/2024 Encounter for immunization (ICD-10 - Z23) 10/01/2024 Encounter for antibody response examination (ICD-10 - Z01.84) 10/10/2024 Shortness of breath (ICD-10 - R06.02) As stated above. 10/10/2024 Chronic cough (ICD-10 - R05.3) Tommy reports history of cough thoughout the years, though denies lower airway issues today. Describes cough as daily, dry, non-productive. He admits to shortness of breath and coughing with exertion. He reports inhaler use due to bronchitis over the years, more when he was a heavy smoker and there was concerns for COPD. He reports several chemical exposures over the years. 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 He denies OCS for lower airways. He reports potential controller inhaler for 2 weeks in . He denies pulmonology evaluation. He is a former smoker, quit in 2002, approximately 25years and smoked up to 3 ppd. He reports numerous Chest Xray over the years, all normal and is managed by PCP Dr. Bose. He has had full cardiac workup due to chest pains and shortness of breath. Jonna Martinez initiated afte rinitial visit with some improvement, though patient feels it wears off by afternoon. Still with ongoing SOB and dyspnea on exertion. ACT 13 today. - Spirometry challenge at initial visit showed reduced FVC suggesting restriction, though TLC not measured. Reduced FEV1, normal FEV%. No improvement in FVC, post-BD, FEV1 improved by 90cc, representing a 3% change, not c/w ATS-defined criteria for asthma diagnosis. FVL shows scalloping on end-exhalation and inspiratory blunting. Advanced lung age. - Spirometry today showed reduced FVC, FEV1 suggesting mild restriction, though TLC not measured. Normal FEV%. FVL shows scalloping on exhalation and inspiratory blunting. Advanced lung age. - Will hold Anoro Ellipta and step-up to Breztri 2 puffs BID. Proper demonstration given. Samples given in office. Orders sent out. - Continue IRA use 2 puffs every 4-6 hours PRN. - AAP reviewed at length with patient. - Given, minimal improvement with Anoro Ellipta, recommend full PFTs and pulmonary evaluation at this time. Patient in agreement. Referral to be sent to Dr. Beckman. - Consider low-res CT given smoking history. - Follow-up after pulmonary evaluation. 10/24/2024 Migraine without aura, not intractable, without status migrainosus (ICD-10 - G43.009) 10/31/2024 Migraine without aura, not intractable, without status migrainosus (ICD-10 - G43.009) -Abortive treatment plan: Extra Nurtec. Gave samples of Zavzpret to be tried on days that the patient does not take Nurtec.-Preventiv e treatment plan: Continue Nurtec QOD.-Educated the patient on migraine lifestyle recommendations. I recommended the following measures: avoid known triggers of migraine, drink > 100 fluid ounces of non-caffeinated fluid daily, limit caffeine to 2 servings/day, sleep 7-8 hours/night and address any sleep concerns with us and report symptoms of snoring or fatigue; healthy management of stress; avoid treating headaches more than 2 days/week with abortive medication unless approved in treatment plan; can take Riboflavin 400 mg and Magnesium 500 mg daily as supplements; keep scheduled follow-up appointments 10/31/2024 Chronic tension-type headache, not intractable (ICD-10 - G44.229) Discussed hydration and stress reduction. 11/04/2024 Essential tremor (ICD-10 - G25.0) 01/23/2025 Migraine without aura, not intractable, without status migrainosus (ICD-10 - G43.009) -Abortive treatment plan: Continue Nurtec.-Preventiv e treatment plan: Gave samples of Qulipta. -Educated the patient on migraine lifestyle recommendations. I recommended the following measures: avoid known triggers of migraine, drink > 100 fluid ounces of non-caffeinated fluid daily, limit caffeine to 2 servings/day, sleep 7-8 hours/night and address any sleep concerns with us and report symptoms of snoring or fatigue; healthy management of stress; avoid treating headaches more than 2 days/week with abortive medication unless approved in treatment plan; can take Riboflavin 400 mg and Magnesium 500 mg daily as supplements; keep scheduled follow-up appointments 01/23/2025 Chronic tension-type headache, not intractable (ICD-10 - G44.229) Continue amitriptyline. Continue duloxetine. 01/23/2025 Drug-induced headache, not elsewhere classified, not intractable (ICD-10 - G44.40) Limit use of the OTC analgesics to two days per week or less. Educated patient regarding medication overuse headaches. Advised to avoid taking NSAIDs or acetaminophen > 15 days/month, triptans or DHE > 10 days/month, butalbital > 10 days/month to avoid rebound headaches. 10/31/2024 Drug-induced headache, not elsewhere classified, not intractable (ICD-10 - G44.40) Limit use of OTC analgesics to 2x per week or less. Advised patient not to take Excedrin and Aleve in the same day or exceed the maximum dose. Educated patient regarding medication overuse headaches. Advised to avoid taking NSAIDs or acetaminophen > 15 days/month, triptans or DHE > 10 days/month, butalbital > 10 days/month to avoid rebound headaches. 10/10/2024 Dyspnea, unspecified (ICD-10 - R06.00) As stated above. 10/01/2024 Other chronic sinusitis (ICD-10 - J32.8) 09/12/2024 Chronic rhinitis (ICD-10 - J31.0) As stated above. 09/05/2024 Drug-induced headache, not elsewhere classified, not intractable (ICD-10 - G44.40) Limit use of the OTC analgesics to 2 x weekly to avoid rebound headache. Educated patient regarding medication overuse headaches. Advised to avoid taking NSAIDs or acetaminophen > 15 days/month, triptans or DHE > 10 days/month, butalbital > 10 days/month to avoid rebound headaches. 04/11/2024 Postlaminectomy syndrome, not elsewhere classified (ICD-10 - M96.1) Continue gabapentin, amitriptyline, and duloxetine. Follow-up with Pain Management. 07/04/2024 Drug-induced headache, not elsewhere classified, not intractable (ICD-10 - G44.40) Educated patient regarding medication overuse headaches. Advised to avoid taking NSAIDs or acetaminophen > 15 days/month, triptans or DHE > 10 days/month, butalbital > 10 days/month to avoid rebound headaches. 03/11/2024 Postlaminectomy syndrome, not elsewhere classified (ICD-10 - M96.1) Can resume amitriptyline at prior dose. Continue gabapentin and duloxetine. Follow-up with Pain Management. 04/11/2024 Migraine without aura, not intractable, without status migrainosus (ICD-10 - G43.009) -Abortive treatment plan: Prescribe Nurtec ODT 75 mg for abortive treatment (not a triptan candidate as outlined in note). -Preventive treatment plan: Does not need prevention.-Educa jemima the patient on migraine lifestyle recommendations. I recommended the following measures: avoid known triggers of migraine, drink > 100 fluid ounces of non-caffeinated fluid daily, limit caffeine to 2 servings/day, sleep 7-8 hours/night and address any sleep concerns with us and report symptoms of snoring or fatigue; healthy management of stress; avoid treating headaches more than 2 days/week with abortive medication unless approved in treatment plan; can take Riboflavin 400 mg and Magnesium 500 mg daily as supplements; keep scheduled follow-up appointments 03/11/2024 Migraine without aura, not intractable, without status migrainosus (ICD-10 - G43.009) -Abortive treatment plan: Continue Nurtec as needed for migraine. -Educated the patient on migraine lifestyle recommendations. I recommended the following measures: avoid known triggers of migraine, drink > 100 fluid ounces of non-caffeinated fluid daily, limit caffeine to 2 servings/day, sleep 7-8 hours/night and address any sleep concerns with us and report symptoms of snoring or fatigue; healthy management of stress; avoid treating headaches more than 2 days/week with abortive medication unless approved in treatment plan; can take Riboflavin 400 mg and Magnesium 500 mg daily as supplements; keep scheduled follow-up appointments 05/04/2024 Migraine without aura, not intractable, without status migrainosus (ICD-10 - G43.009) 07/04/2024 Essential tremor (ICD-10 - G25.0) Continue current dose of Propranolol. 09/05/2024 Essential tremor (ICD-10 - G25.0) Increase propranolol 160 mg ER daily. Recommended weighted wrist bands and utensils. 09/12/2024 Chronic cough (ICD-10 - R05.3) Tommy reports history of cough thoughout the years, though denies lower airway issues today. Describes cough as daily, dry, non-productive. He admits to shortness of breath and coughing with exertion. He reports inhaler use due to bronchitis over the years, more when he was a heavy smoker and there was concerns for COPD. He reports several chemical exposures over the years. 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 He denies OCS for lower airways. He reports potential controller inhaler for 2 weeks in . He denies pulmonology evaluation. He is a former smoker, quit in 2002, approximately 25years and smoked up to 3 ppd. He reports numerous Chest Xray over the years, all normal and is managed by PCP Dr. Bose. He has had full cardiac workup due to chest pains and shortness of breath. - Given history and symptoms, spireomtry challenge was done today and showed - Will trial Anoro Ellipta 1 inhalation daily. Proper demonstration given. Samples given in office. - Will trial IRA use 2 puffs every 4-6 hours PRN. - AAP formulated and reviewed at length with patient. - Recommend full PFTs and pulmonary evaluation if minimal/no improvement in symptoms. - Consider low-res CT given smoking history. - Follow-up in 1 month for E&M, repeat spirometry 10/10/2024 Chronic sinusitis, unspecified (ICD-10 - J32.9) Tommy reports a history of chronic sinusitis since . He was previously managed by ENT Dr. Arroyo, reports being packed with antibiotic gauze and burning prior to 2009. He would undergo regularly cauterization. He reports nasal surgery in 2009 due to uncontrollable bleeding. He reports losing some sense of smell at that time. After that, sinus infections decreased, but never went away. Today, he reports sinus infections 5-6 times per year, requiring antibiotics and OCS if symptoms are not relieved by antibiotics, approximately 1-2 times per year. He reports PNA diagnosis in 1998, confirmed with Chest Xray, treated with antibiotics. Given recurrent infections, he met the F criteria for modified PIDD workup, showing IgG 657 and inadequate s. pneumo (09/11). - [id number] received on 10/01/24. Plan to obtain repeat titers after 4 weeks. Lab printed and given to patient. - Patient declined Vitamin D level as he reports endocrinology manages vitamin levels. Continue recs per endocrinology. 10/31/2024 Essential tremor (ICD-10 - G25.0) Continue propranolol 160 mg ER. 01/23/2025 Essential tremor (ICD-10 - G25.0) Continue propranolol 160 mg daily. Monitor BP at home. 01/23/2025 Type 2 diabetes mellitus with diabetic polyneuropathy (ICD-10 - E11.42) 10/10/2024 Hypertrophy of nasal turbinates (ICD-10 - J34.3) Tommy reports daily headaches and daily ringing in ears. He also reports sinus congestion, occasional itchy/watery eyes, rhinorrhea and sneezing jags. Symptoms are more pronounced in Spring and Fall. He reports prior allergy testing in , reports positives to mold, oak pollen, cocklebur, some grasses, dust. He was never on allergen immunotherapy. - Patient is on Amitryptiline for IBS, which will block skin testing. He will need to hold for a minimum of 14 days, potentially over 30 days, for aeroallergen skin testing. He reports holding for 2-3 weeks at this time, but admits to potentially taking other antihistamines and pain medication. - ImmunoCaps ordered for assessment of atopic disease - negative to all aeroallergens with Total IgE 9 suggesting low suspicion for atopic disease. - Recommend continuing to avoid Benadryl due to crossing of BBB. Encouraged to avoid Afrin due to rebound congestion. - Given ongoing dyspnea with exertion and shortness of breath with ACT 13, recommend pulmonary evaluation prior to skin testing. Patient would need to hold amitryptilline and all other antihistamines prior. Of note, patient would not be a candidate for immunotherapy at this time with low ACT and ongoing shortness of breath. - Continue with ENT evaluation as stated below. 10/31/2024 Type 2 diabetes mellitus with diabetic polyneuropathy (ICD-10 - E11.42) 09/12/2024 Essential (primary) hypertension (ICD-10 - I10) BP elevated today without symptoms of urgency or emergency. Continue serial checks and follow-up with PCP 09/05/2024 Type 2 diabetes mellitus with diabetic polyneuropathy (ICD-10 - E11.42) 07/04/2024 Type 2 diabetes mellitus with diabetic polyneuropathy (ICD-10 - E11.42) 07/04/2024 Postlaminectomy syndrome, not elsewhere classified (ICD-10 - M96.1) Continue Amitriptyline, Duloxetine, Gabapentin. F/u with Pain Management 09/05/2024 Postlaminectomy syndrome, not elsewhere classified (ICD-10 - M96.1) Follow up with Pain Management. Continue gabapentin, amitriptyline, duloxetine 10/10/2024 Chronic rhinitis (ICD-10 - J31.0) As stated above. 10/31/2024 Postlaminectomy syndrome, not elsewhere classified (ICD-10 - M96.1) Continue lumbar injections with pain management. 01/23/2025 Postlaminectomy syndrome, not elsewhere classified (ICD-10 - M96.1) Continue lumbar injections with pain management. 10/10/2024 Other specified disorders of nose and nasal sinuses (ICD-10 - J34.89) Evidence of nasal septum perforation on exam today. No recent nasal spray use in months. Reports attempting Nasacort per PCP in Spring 2023. Slated to see ENT Dr. Delmy Dodge. Encouraged to keep ENT visit. 10/10/2024 Essential (primary) hypertension (ICD-10 - I10) BP elevated today without symptoms of urgency or emergency. Continue serial checks and follow-up with PCP 09/12/2024 Other 10/10/2024 Other Plan Of Treatment Pending Test Test Name Order Date TETANUS ANTITOXOID ANTIBODY (EIA) 2023 DIPHTHERIA ANTITOXOID ANTIBODY HAEMOPHILUS INFLUENZAE B ANTIBODY, IGG 1 S. PNEUMONIAE IGG AB, 23 SEROTYPES, S Next Appt Details Provider Name:Elizabet eduardo, 05/29/2025 09:00:00 AM, [address] [employer], [address], [address], Provider Name:Mi vicente, 05/29/2025 10:15:00 AM, [address] [employer], [address], [place], [address], Insurance Providers Payer Name Payer Address Payer Phone Subscriber Number Group Number Insured Name Patient Relationship to Insured Coverage Start Date Coverage End Date [employer] [address] [place] [address] [id number] Michael Greer Self - patient is the insured Medical (General) History Medical History History ICD Code Gastro-esophageal reflux disease without esophagitis K21.9 Type 2 diabetes mellitus with diabetic n europathy, unspecified E11.40 Essential (primary) hypertension I10 Hyperlipidemia, unspecified E78.5 Other intervertebral disc degeneration, lumbar region M51.36 Surgical History Surgery Date(Month/Year) Lumbar spinal fusion L4-S1 Spinal Fusion L4-S1 07/21/2022 Spinal Laminetctomy 10/23/2018 Right elbow 03/20/2012 Right Shoulder rotor cuff 01/19/2012 Nasal & deviated septim 02/18/2010 Right shoulder rotor cuff & labrum 02/18 Apendectomy 03/20/1996 Right hingunial hernia 05/20/1986 Cyst Removal 01/08/2025 Hospitalization History Reason Date(Month/Year) Bacterial infection 10/20/2005
--- OUTSIDE RECORDS SUMMARY | 2025-03-10 15:26 | XMS_ITS | Clinical Summary ---
Author Organization [facility] Medical Office Building B Address [address] [place] [address] Care Team Providers Care Commercial Energy Rater Name Role Phone Trever Bose MD Primary Care Provider [phone] Denise West MD Unavailable [phone] Tejal Masterson MD Unavailable [phone] Nina Vale MD Unavailable [phone] Carlitos Canales MD Unavailable [phone] Carlitos Canales MD Unavailable [phone] Allergies Active Allergy Reactions Criticality Noted Date [...] Active lancets (OneTouch Delica Lancets) 30 gauge [facility] Use Delica lancet to test blood sugars [...] mcg/actuation inhaler 09/13/20 24 Active blood-glucose meter [facility] One Touch Verio IQ meter Use as [...] polyneuropathy, without long-term current use of insulin ([facility]),Mixed hyperlipidemia TAKE 1 TABLET BY MOUTH DAILY 90 tablet 3 02/10/20 25 Active magnesium citrate 100 mg tablet Take by mouth Ac tive atogepant (Qulipta) 60 mg tablet Take 60 mg by mouth daily Active atorvastatin (LIPITOR) 40 mg tabletIndications: Type 2 diabetes mellitus with diabetic polyneuropathy, without long-term current use of insulin ([facility]),Mixed hyperlipidemia TAKE 1 TABLET BY MOUTH DAILY 90 tablet 3 01/18/20 24 025 Discontin ued(Reord er) Active Problems Problem Noted Date Diagnosed Date Keratin cyst 01/17/2025 Assessment & Plan (01/17/2025 1:38 PM AUTO MECHANIC APPRENTICE): Continue increased fluid intake, continue twice daily mouth rinse and spits Tinnitus of both ears 01/17/2025 Assessment & Plan (01/19/2025 5:11 PM AUTO MECHANIC APPRENTICE): Hearing normal today, consider inflammation from other sources Chronic sinusitis 12/11/2024 Assessment & Plan (12/12/2024 7:44 AM AUTO MECHANIC APPRENTICE): Seeing Pulmonary prior to Allergy testing Will obtain allergy testing Avoid antihistamines until after skin testing CT Sinus Mass of floor of mouth 12/11/2024 Assessment & Plan (01/08/2025 3:08 PM AUTO MECHANIC APPRENTICE): Excision of tongue mass Risks and complications: Anesthesia, bleeding, infection, benign versus malignant pathology, recurrence of lesion, injury to arteries, nerves and veins, scarring and need for further treatment Extra fluids Avoid acidic foods and fluids for three days Tylenol or Ibuprofen for pain Assessment & Plan (12/12/2024 7:44 AM AUTO MECHANIC APPRENTICE): Excision in Office of Right floor of [...] 12/02/2013 Assessment & Plan (09/22/2024 8:26 PM AUTO MECHANIC APPRENTICE): Overall range seems a little high, and [...] control Assessment & Plan (10/02/2019 11:25 AM AUTO MECHANIC APPRENTICE): The patient has type 2 diabetes, currently [...] 2019. Assessment & Plan (12/04/2018 12:27 PM AUTO MECHANIC APPRENTICE): A1C at today's visit on 12/04/18 was [...] 05/30/2012 Assessment & Plan (09/22/2024 8:27 PM AUTO MECHANIC APPRENTICE): Continue long-term supplement and recheck level. Assessment [...] 10/08/2009 Assessment & Plan (09/22/2024 8:25 PM AUTO MECHANIC APPRENTICE): Continue statin, optimize glycemic control. Check levels. [...] control Assessment & Plan (10/02/2019 11:25 AM AUTO MECHANIC APPRENTICE): Continue atorvastatin. Tolerating without side effects. Assessment & Plan (03/04/2019 9:07 AM CDT): Continue statin. Tolerating without side effects. Assessment & Plan (11/28/2018 3:59 PM AUTO MECHANIC APPRENTICE): Last lipid panel on May 22, 2018 [...] time. Assessment & Plan (10/02/2019 11:25 AM AUTO MECHANIC APPRENTICE): Blood pressure 141/89 today. Continue same medications. Continue to monitor. Assessment & Plan (03/04/2019 9:07 AM CDT): BP stable. Continue same medications. Assessment & Plan (11/28/2018 3:59 PM AUTO MECHANIC APPRENTICE): Blood pressure is currently stable. Continue same medications. Assessment & Plan (05/24/2018 8:37 AM CDT): Within target, on lisinopril Irritable bowel syndrome 10/08/2009 Spinal stenosis of lumbar re gion without neurogenic claudication 10/08/2009 Type 2 diabetes mellitus with diabetic dermatiti s 10/08/2009 Encounters Date Type Department Care Team Description 03/04/2025 Results Follow-Up [facility] Gastroenterology at [address] [address] Kailash Jones, 02/27/2025 7:37 AM CDT Anesthesia Event [address] [address] Rosas Merritt MD 02/27/2025 7:30 AM CDT - 02/27/2025 8:00 AM CDT Surgery [address] [address] Kailash Jones, COLON BIOPSY 02/27/2025 6:46 AM CDT - 02/27/2025 8:44 AM CDT Hospital Encounter [address] [address] Kailash Jones, Encounter for screening colonoscopy; History of colonic polyps Discharge Disposition: Discharge to home or self care 01/17/2025 2:00 PM AUTO MECHANIC APPRENTICE Procedure visit [facility] ENT Specialists at [address] [phone] Keyla Yang Au.D. Tinnitus, bilateral (Primary Dx); Tinnitus of both ears 01/17/2025 1:30 PM AUTO MECHANIC APPRENTICE Office Visit [facility] ENT Specialists - [address] [phone] Delmy Dodge, Keratin cyst (Primary Dx); Tinnitus of both ears 01/17/2025 Telephone [facility] Gastroenterology at [address] [address] Freida Buitrago Prep Instructions 01/15/2025 Results Follow-Up [facility] ENT Specialists - [facility] [address] [facility] [address] [place] [address] Delmy Dodge, DO 01/14/2025 Results Follow-Up [facility] ENT Specialists - [address] [place] [address] Delmy Dodge, DO 01/13/2025 12:47 PM AUTO MECHANIC APPRENTICE - 01/13/2025 11:59 PM AUTO MECHANIC APPRENTICE Hospital Encounter [facility] and Radiology [address] [place] [address] Chronic sinusitis, unspecified location Discharge Disposition: Discharge to home or self care 01/08/2025 3:15 PM AUTO MECHANIC APPRENTICE - 01/08/2025 11:59 PM AUTO MECHANIC APPRENTICE Hospital Encounter [facility] [address] [place] [address] Mass of floor of mouth Discharge Disposition: Discharge to home or self care 01/08/2025 3:00 PM AUTO MECHANIC APPRENTICE Procedure visit [facility] ENT Specialists - [address] [place] [address] Delmy Dodge, DO Mass of floor of mouth (Primary Dx) 01/08/2025 Orders Only [facility] [address] [place] [address] Medical Office Building [address], [address] [place] [address] Delmy Franklin CPhT Type 2 diabetes mellitus with diabetic polyneuropathy, without long-term current use of insulin (HCC) 12/25/2024 1:45 PM AUTO MECHANIC APPRENTICE Office Visit [employer] Supervisor at [address] [place] [address] Marisel Xavier MD Chest pain, unspecified type (Primary Dx); Mixed hyperlipidemia; Benign essential hypertension; Type 2 diabetes mellitus with diabetic polyneuropathy, without long-term current use of insulin (HCC) 12/12/2024 7:56 AM AUTO MECHANIC APPRENTICE - 12/12/2024 11:59 PM AUTO MECHANIC APPRENTICE Hospital Encounter [facility] [address] [place] [address] Discharge Disposition: Discharge to home or self care 12/12/2024 6:57 AM AUTO MECHANIC APPRENTICE - 12/12/2024 11:59 PM AUTO MECHANIC APPRENTICE Hospital Encounter [facility] Card[facility] [address] [place] [address] Chest pain, unspecified type Discharge Disposition: Discharge to home or self care 12/12/2024 6:57 AM AUTO MECHANIC APPRENTICE - 12/12/2024 11:59 PM AUTO MECHANIC APPRENTICE Hospital Encounter [facility] [address] [place] [address] Discharge Disposition: Discharge to home or self care 12/12/2024 6:57 AM AUTO MECHANIC APPRENTICE - 12/12/2024 11:59 PM AUTO MECHANIC APPRENTICE Hospital Encounter [facility] [address] [place] [address] Chest pain, unspecified type Discharge Disposition: Discharge to home or self care 12/12/2024 6:57 AM AUTO MECHANIC APPRENTICE - 12/12/2024 11:59 PM AUTO MECHANIC APPRENTICE Hospital Encounter [facility] [address] [place] [address] Chest pain, unspecified type Discharge Disposition: Discharge to home or self care 12/11/2024 9:45 AM AUTO MECHANIC APPRENTICE Office Visit [facility] ENT Specialists - [facility] [address] [facility] [address] [place] [phone] Delmy Dodge, Chronic sinusitis, unspecified location (Primary Dx); Mass of floor of mouth from Last 3 Months Immunizations Immunization Administration Dates Next Due DTP 10/20/1968, 5,1963,11/20 Influenza, Quadrivalent, Leilani l Culture-based MDCK, Preservative Free, Antibiotic Free, Intramuscular 10/02/2019 Influenza, Trivalent, Preser vative Free, Intramuscular 10/21/2008 MMR 07/28/1992 Measles 01/23/1981,01/04/1965 Td, adsorbed 05/08/2008,05/31/1992,05/29/1982 Surgical History Surgery Date Site/Laterality Comments ROTATOR CUFF REPAIR Rotator Cuff Repair - 1997 (Added by TW Conv) ROTATOR CUFF REPAIR Rotator Cuff Repair - right (Added by TW Conv) ELBOW SURGERY Elbow Surgery - right (Added by [place] Conv) HERNIA REPAIR TONSILLECTOMY COLONOSCOPY APPENDECTOMY COLONOSCOPY 12/21/2017 - 01/17/2018 CYST REMOVAL 12/21/2024 - 01/17/2025 From under tongue Medical History Medical History Date Comments Gastroenteritis HLD (hyperlipidemia) (HFpEF) heart failure with preserved ejection fr action (HCC) DM (diabetes mellitus) (HCC) IBS (irritable bowel syndrome) Adenomatous colon polyp BPH (benign prostatic hyperplasia) Vitamin D deficiency Covid-19 ED (erectile dysfunction) HTN (hypertension) DDD (degenerative disc disease), lumbar Neuropathy Sinusitis PONV (postoperative nausea and vomiting) Social History Tobacco Use Types Packs/Day Years [...] on file Legal Sex Male 7:34 AM AUTO MECHANIC APPRENTICE Gender Identity Male 07/03/2023 9:10 AM CDT Sexual Orientation Not on file 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 file Not on file Not [...] 02/27/2025 6:57 AM CDT Plan of Treatment Health Maintenance Due Date Last Done Comments Depression Screening 1965 Hepatitis C Screening 1965 [...] Panel 05/22/2019 05/22/2018 Hemoglobin A1C 03/15/2024 09/14/2023, 04/2 05/2023, 02/14/2022, Additional history exists Covid-19 Vaccine (3 - 2023-2 5 season) 2024 12/29/2020, 12/01/2020 Influenza Vaccine (Season Ended) 2025 10/02/20, 10/21/2008 Colon Cancer Screening-Colonoscopy 02/27/2035 02/27/2025 Colon Cancer Screening-CT Colonography Discontinued 02/27/2025 Colon Cancer Screening-DNA Stool Discontinued 02/28/20 Colon Cancer Screening-FIT Discontinued 02/27/2025 Colon Cancer Screening-Sigmoidoscopy Discontinued 02/27/2025 Procedures Procedure Name Priority Date/Time Associated Diagnosis Comments SURGICAL PATHOLOGY STAT 02/27/2025 10:02 AM CDT Encounter for screening colonoscopy History of colonic polyps COLON BIOPSY 02/27/2025 7:25 AM CDT Encounter for screening colonoscopy History of colonic polyps COLONOSCOPY 02/27/2025 7:17 AM CDT POCT GLUCOSE DEVICE Routine 02/27/2025 7 :17 AM CDT AUDIOGRAM Routine 01/17/2025 2:00 PM AUTO MECHANIC APPRENTICE Tinnitus, bilateral CT SINUS STEALTH WO CONTRAST Schedule Routine, Read Routine (OP Routine) 01/13/2025 1:06 PM AUTO MECHANIC APPRENTICE Chronic sinusitis, unspecified location SURGICAL PATHOLOGY Routine 01/08/2025 9: 20 AM AUTO MECHANIC APPRENTICE Mass of floor of mouth STRESS TEST FOR DUAL READ Schedule Routine, Read Routine (OP Routine) 12/12/2024 11:12 AM AUTO MECHANIC APPRENTICE Chest pain, unspecified type NM MPI SPECT (REST AND/OR STRESS) MULTIPLE STUDIES Schedule Routine, Read Routine (OP Routine) 12/12/2024 11:12 AM AUTO MECHANIC APPRENTICE Chest pain, unspecified type TRANSTHORACIC ECHO (TTE) COMPLETE W DOPPLER/CF WO CONTRAST Routine 12/12/2024 8:03 AM AUTO MECHANIC APPRENTICE Chest pain, unspecified type POCT HEMOGLOBIN A1C [...] results best viewed via link to PDF [facility] Department of Pathology [address] [place] [id number] Note to Patients: This report may contain [...] Final Report Patient Name: MICHAEL PEARSON Address: [address] [place] [id number] Gender: M : 1965 (Age: 59) Service: Gastro Location: [facility] Hospital #: [id number] Patient Type: [facility] Taken: 02/27/2025 Received: 02/28/2025 Accessioned: 02/28/2025 Reported: 03/03/2025 Physician(s):Dr. Kailash Jones DJ CarlosO. Diagnosis: A. Colon, ascending, [...] determined by the Surgical Pathology Department at [facility] as part of an ongoing quality improvement consultant program and in compliance with federally mandated [...] characteristics determined by the Surgical Pathology Department [facility]. It has not been cleared or approved by the U. S. Food and Drug Administration. Note for decalcified specimens: This assay has not been validated on decalcified tissues. Results should be interpreted with caution given the possibility of false negativity on decalcified specimens Kailash Jones DO LAB PATHOLOGY ORDERABLES Final Result Performing Organization Address City/State/[facility] [[email or web address]] Co de Phone Number PATHOLOGY [address] [address] * Colonoscopy (02/27/2025 7:17 AM CDT) Anatomical Region Laterality Modality Other Narrative Procedure Note Kailash Jones DO - 02/27/2025 7:17 AM CDT [facility] Patient Name: Michael Pearson Procedure [...] under direct vision. The Pediatric Colonoscope PCF-[id number] was introducedthrough the anus and advanced to [...] 7:17 AM Procedure Code(s): --- Professional --- 96292, Colonoscopy, flexible; with biopsy, single or multiple --- Technical --- 46250, Colonoscopy, flexible; with biopsy, single or multiple [...] perforation orabscess without bleeding CPT copyright 2020 [employer]. All rights reserved. The codes documented in this report are preliminary and upon utilization review nurse reviewmay be revised to meet current compliance requirements. Recognized by the [employer] for promoting quality in endoscopy Kailash Jones DO ENDOSCOPY PROCEDURES Final Res ult * POCT glucose (02/27/2025 7:17 AM CDT) Glucose, POC 117 70 - 199 mg/dL Blood 02/27/2025 7:17 AM CDT 02/27/2025 7:17 AM CDT Kailash Jones DO LAB POCT ORDERABLES - DEVICE F inal Result [facility] [address] [facility] Department of Laboratories [place], [place] [id number] * AUDIOGRAM (01/17/2025 2:00 PM AUTO MECHANIC APPRENTICE) Narrative Keyla Yang Au.D. - 01/17/2025 2:00 PM AUTO MECHANIC APPRENTICE Keyla Yang Au.D. 01/17/2025 2:46 PM Audiogram Performed by: Keyla Yang Au.D. Authorized by: Delmy Dodge DO Delmy Dodge DO AUDIOLOGY SERVICES ORDERABLE S Final Result * CT Sinus Stealth WO Contrast (01/13/2025 1:06 PM AUTO MECHANIC APPRENTICE) Anatomical Region Laterality Modality Head N/A Computed Tomogra phy 01/13/2025 8:38 PM AUTO MECHANIC APPRENTICE Impressions 01/13/2025 8:38 PM AUTO MECHANIC APPRENTICE Mucosal thickening and mucus retention cysts seen in the right maxillary antrum. The remainder of the paranasal sinuses are normally aerated. Electronically signed by: Mariama Palomino M.D. Narrative 01/13/2025 8:38 PM AUTO MECHANIC APPRENTICE EXAMINATION: CT SINUS STEALTH WO CONTRAST HISTORY: [...] by: Mariama Palomino M.D. Delmy Dodge DO [facility] CT PROCEDURES Final Resu lt * Surgical pathology (01/08/2025 9:20 AM AUTO MECHANIC APPRENTICE) Tissue specimen (specimen) (Skin - Cyst / Tag / Debridement) 01/08/2025 9:20 AM AUTO MECHANIC APPRENTICE 01/10/2025 9:20 AM AUTO MECHANIC APPRENTICE Narrative PATHOLOGY CH - 01/13/2025 9:33 AM AUTO MECHANIC APPRENTICE EPIC results best viewed via link to PDF [facility] Department of Pathology [address] [place] [id number] Note to Patients: This report may [...] Final Report Patient Name: MICHAEL PEARSON Address: [address] [place] [id number] Gender: M : 1965 (Age: 59) Service: Location: [facility] : [id number] [facility] #: [id number] Patient Type: SPECIMEN Taken: 01/08/2025 Received: 01/10/2025 [...] determined by the Surgical Pathology Department at [facility] as part of an ongoing quality improvement consultant program and in compliance with federally mandated [...] characteristics determined by the Surgical Pathology Department [facility]. It has not been cleared or approved by the U. S. Food and Drug Administration. Note for decalcified specimens: This assay has not been validated on decalcified tissues. Results should be interpreted with caution given the possibility of false negativity on decalcified specimens Delmy Dodge DO LAB PATHOLOGY ORDERABLES Fin al Result PATHOLOGY [address] [place] [address] * NM MPI SPECT (Rest and/or Stress) Multiple Studies (12/12/2024 11:12 AM AUTO MECHANIC APPRENTICE) LV EF % CONS SCIMAGE Anatomical Region Laterality Modality Body N/A Nuclear Medicine 12/12/2024 7:28 AM AUTO MECHANIC APPRENTICE Narrative 12/14/2024 11:37 AM AUTO MECHANIC APPRENTICE [address] [address] [place] Report Patient Name: MICHAEL PEARSON A : [...] Electronically Signed By: Alfa Spencer MD, [facility] 2024-12-14 11:36:48 AM AUTO MECHANIC APPRENTICE Procedure Note Alfa Spencer MD - 12/14/[address] [place] [address] [place] Report Patient Name: MICHAEL PEARSON A : [...] Electronically Signed By: Alfa Spencer MD, [facility] 2024-12-14 11:36:48 AM AUTO MECHANIC APPRENTICE us Marisel Xavier MD IMG NM PROCEDURES Final Re sult * Stress Test for Myocardial Perfusion (12/12/2024 11:12 AM AUTO MECHANIC APPRENTICE) LV EF % CONS SCIMAGE Anatomical Region Laterality Modality Nuclear Medicine 12/12/2024 9:15 AM AUTO MECHANIC APPRENTICE Narrative 12/12/2024 4:19 PM AUTO MECHANIC APPRENTICE [address] [address] [facility] Report Patient Name: MICHAEL PEARSON A [...] By: Dr Bertha Howe 12/12/2024 4:18:11 PM AUTO MECHANIC APPRENTICE Procedure Note Bertha Howe MD - 12/12/[address] [place] [address] [facility] Report Patient Name: MICHAEL PEARSON A [...] By: Dr Bertha Howe 12/12/2024 4:18:11 PM AUTO MECHANIC APPRENTICE us Marisel Xavier MD CV STRESS PROCEDURES Final Result * TRANSTHORACIC ECHO (TTE) COMPLETE W DOPPLER/CF WO CONTRAST (12/12/2024 8:03 AM AUTO MECHANIC APPRENTICE) LV EF % CONS SCIMAGE Anatomical Region Laterality Modality Ultrasound 12/12/2024 7:25 AM AUTO MECHANIC APPRENTICE Narrative 12/12/2024 3:31 PM AUTO MECHANIC APPRENTICE [address] [address] Echocardiogram Report Patient Name: MICHAEL PEARSON A [...] 1.70 m/s [ 0.40 - 0.80 ] [place] Peak Lex 1.31 m/s TR Peak Lex [...] By: Felton Hall MD 12/12/2024 3:30:44 PM AUTO MECHANIC APPRENTICE Procedure Note Felton Hall MD - 12/12/[address] [address] Echocardiogram Report Patient Name: MICHAEL PEARSON A [...] 1.70 m/s [ 0.40 - 0.80 ] [place] Peak Lex 1.31 m/s TR Peak Lex [...] By: Felton Hall MD 12/12/2024 3:30:44 PM AUTO MECHANIC APPRENTICE Marisel Xavier MD CV ECHO PROCEDURES Final R esult * POCT hemoglobin A1c (09/14/2023 1:08 PM CDT) [facility] Hemoglobin A1C, POC 7.9 % Blood 09/14/2023 1:08 PM CDT Result [facility] Poonam Martinez NP POINT OF CARE TEST ORDERABL ES Final Result * Microalbumin / creatinine ratio, urine, random (05/22/2018 11:03 AM CDT) [facility] Microalbumin, ur <12.0 mcg/mL [facility] Creatinine, ur 48.90 mg/dL [facility] Microalbumin/cr eat ratio <24.5 0.1 - 29.9 mcg/mg Cr [facility] Urine 05/22/2018 11:0 3 AM CDT 05/22/2018 11:23 AM CDT Narrative [facility] - 05/22/2018 12:21 PM CDT Denise West MD LAB URINE ORDERABLES Final Result [facility] Department [place] [address] * (ABNORMAL) Lipid panel (05/22/2018 11:03 AM CDT) [facility] Cholesterol 164 30 - 200 mg/dL [facility] Comment: Interpretive Data Desirable: <200 mg/dL Borderline high: 200-239 mg/dL High: > or = 240 mg/dL Literature Reference: National Cholesterol Education Program (NCEP) Expert Panel on Detection, Evaluation, and Treatment of High Blood Cholesterol in Adults (Adult Treatment Panel III). Circulation 2004; 110:227. Current interpretive data was last revised on 2015. Triglycerides 198(H) 0 - 150 mg/dL [facility] Comment: Interpretive Data Desirable: < 150 mg/dL Borderline High: 150 - 199 mg/dL High: 200 - 499 mg/dL Very High: > or = 499 mg/dL Literature Reference: See Cholesterol Current interpretive data was last revised on 2015. HDL 41 >=40 mg/dL [facility] Comment: Interpretive Data Less than 40 mg/dL - low; A major risk factor for heart disease. Greater than or equal to 60 mg/dL - High; considered protective of heart disease. Literature Reference: See Cholesterol Current interpretive data was last revised on 2015. LDL, calculated 83 10 - 129 mg/dL [facility] Comment: Interpretive Data Optimal: < 100 mg/dL Near Optimal: 100 - 129 mg/dL Borderline High: 130 - 159 mg/dL High: 160 - 189 mg/dL Very high: > or = 190 mg/dL Literature Reference: See Cholesterol Current interpretive data was last revised on 2015. Non-HDL Cholesterol 123 mg/dL [facility] Comment: Interpretive Data When triglycerides are >200 mg/dL, non-HDL C is a secondary target of therapy, with a goal 30 mg/dL higher than the identified LDL-C goal. Reference: See Cholesterol Reference. Current interpretive data was last revised 2015. Blood specimen (specimen) 05/22/2018 11:03 AM CDT 05/22/2018 11:23 AM CDT Narrative [facility] - 05/22/2018 12:03 PM CDT These lab test should be done fasting. This means do not eat or drink for at least 12 hours prior to getting your blood drawn. Denise West MD LAB BLOOD ORDERABLES Final Result [facility] Department [place] [address] from Last 3 Months or Most Recently Relevant to Health Maintenance Insurance [facility] [id number] [facility] [id number] Advance Directives For more information, please contact: [phone] * Full Code (Latest Code Status on File) Date Activated Date Inactivated Comments 02/27/2025 6:53 AM 02/27/2025 12:44 PM * Full Code Date Activated Date Inactivated Comments 02/27/2025 6:53 AM 02/27/2025 6:53 AM Care Teams Commercial Energy Rater Relationship Specialty Start Date End Date Trever Bose MD PCP - General 05/19/17 Denise West MD Referring Physician Endocrinology Diabetes & Metabolism 03/04/20 Tejal Masterson MD Consulting Physician Neurosurgery 02/14/22 Nina Vale MD Consulting Physician Cardiovascular Disease 06/08/22 Carlitos Canales MD [address] [place] [address] Referring Physician Neurology 03/14/24 Carlitos Canales MD [address] [place] [address] Referring Physician Neurology 12/11/24
--- OUTSIDE RECORDS SUMMARY | 2025-03-10 15:26 | XMS_ITS | Clinical Summary ---
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
--- OUTSIDE RECORDS SUMMARY | 2025-03-10 15:27 | XMS_ITS | Continuity of Care Document ---
Author Organization [facility] Address [address] [place] [id number] Phone Care Team Providers Care Vp Clinical Research Name Role Phone Judy BLANCONISAAC, Tova Unavailable [...] meal each day 0.8 MG - Active [place] 5 mg-325 mg tablet take 1 tablet [...] Diagnoses Date Provider Providers Copied on Encounter [facility], [address] [place] [address], [facility], tel: [phone] [place] No Information [phone] Judy Bernardo. [address] [place] [address]. tel:[phone] OFFICE/OUTPA TIENT VISIT, [facility], [address] [place] [address] tel:[phone] [place] COVID SYMPT (chief complaint) Encntr for obs for susp expsr to oth biolg agents ruled outUpper respiratory infection 0 Judy Bernardo. [address] [place] [address]. tel:[phone] OFFICE/OUTPA TIENT VISIT, [facility], [address] [place] [address] tel:[phone] [place] Sinus symptoms (acute) (chief complaint) UTI (chief complaint) Acute maxillary sinusitis, unspecifiedAcut e frontal sinusitis, unspecifiedDysu adam [phone] Sonia Biggs. [address] [place] [address], . tel:[phone] Family History Family Member Type Diagnosis Age At Onset No Information Payers Payer name Insurance type Covered green party ID Authoriza tion(s) No Information Social [...] History Of Prese nt Illness COVID SYMPT (comments) Americo pompa today. Patient presents with his spouse who has similar symptoms. Tommy describes his symptoms as beginning this morning. He has no know exposure to COVID. He works at the [employer] and has many community exposures. He denies fever, cough, or shortness of breath. Did not receive the seasonal influenza vaccination. COVID SYMPT The symptoms beg an 2 hours ago. sinus symptoms, scratchy throat, slight headache UTI Onset: 4 Days. S ymptoms are associated with diabetes. Aggravating factors include urination. Associated symptoms include dysuria, fatigue, fever, frequency and urgency. Sinus symptoms (acute) The sever ity of [...] obstruction, orbital swelling, rhinorrhea or tooth pain. Functional Status Date Functional Assessmen t No Information Instructions Date Instruction Additional Infor gerchely Your rapid COVID cooper t and influenza [...] susp expsr to oth biolg agents ruled out Patient instructed o [...]
--- OUTSIDE RECORDS SUMMARY | 2025-03-10 15:27 | XMS_ITS ---
Author Organization [facility] [employer] [place] ([address]) Address [address] [place] [address] Care Team Providers Care Copy Preparer Name Role Phone Trever Bose Primary Care Provider Dr. Carlitos Ruth Unavailable [phone] Elizabet Schaeffer Unavailable [phone] Allergies Allergen (clinical drug ingredient) Drug/Non Drug Allergy documented on EMR Reaction Allergy Type Onset Date Status Vaccine product containing Salmonella enterica subspecies enterica serovar Typhi antigen (medicinal product) Typhoid Vaccines hives Drug Allergy Active REASON FOR VISIT Headache follow-up Medications Medication SIG (Take, Route, Frequency, Duration) Notes Start Date End Date Status Breztri Aerosphere 160-9-4.8 MCG/ACT 2 puffs Inhalation Twice a day for 30 days 10/11/2024 Active NURTEC ODT 75 MG 1 TAB(S) ORALLY ONCE for 30 DAYS *Please review for potential replacement for e-prescription and drug interaction check* 04/11/2024 Not-Taking OZEMPIC 2 MG/1.5 ML (0.25 MG OR 0.5 MG DOSE) DIRECTED SUBCUTANEOUSLY ONCE A WEEK *Please review for potential replacement for e-prescription and drug interaction check* Not-Taking NURTEC ODT 75 MG 1 TAB(S) ORALLY ONCE *Please re view for potential replacement for e-prescription and drug interaction check* Not-Taking Gabapentin 300 MG 1 cap(s) orally twice daily Active Potassium Chloride 99 MG 1 TAB(S) ORALLY ONCE A DAY *Please review and pick correct strength-formula tion from [employer] options. If intended option is not shown, discontinue and re-order from Quick Search* Active Vitamin D3 50 MCG 1 TAB(S) ORALLY ONCE A DAY *Please review and pick correct strength-formula tion from [employer] options. If intended option is not shown, discontinue and re-order from Quick Search* Active Farxiga 10 MG 1 tab(s) orally once a day Active Pioglitazone HCl 15 MG 1 tab(s) orally once a day Active Multivitamin - 1 tab(s) orally once a day Active metFORMIN HCl 1000 MG 1 tab(s) orally 2 times a day Active Atorvastatin Calcium 40 MG 1 tab(s) orally once a day Active tiZANidine HCl 4 MG 2 tab(s) orally every 8 hours Active Melatonin 10 MG 1 cap(s) orally once a day (at bedtime) Active Lidocaine 5 % 1 valentín applied topically 3 times a day Active DULoxetine HCl 30 MG 1 cap(s) orally once daily Active AeroChamber MV - as directed for 30 days Any adult spacer Active Albuterol Sulfate HFA 108 (90 Base) MCG/ACT 2 puffs as needed Inhalation every 4 hrs as per asthma action plan for 30 days Active Magnesium Citrate 100 MG 1 cap(s) orally once a day 400mg Active HYDROcodone-Acetami nophen 10-325 MG 1 tab(s) orally every 6 hours As needed Active Propranolol HCl ER 160 MG 1 CAP(S) ORALLY ONCE A DAY *Please review and pick correct strength-formula tion from [employer] options. If intended option is not shown, discontinue and re-order from Quick Search* 04/16/2024 Active Amitriptyline HCl 50 MG 1 tab(s) orally once a day (at bedtime) Active Nurtec 75 MG 1 tablet Orally once every other day as PREVENTIVE 07/04/2024 Active Vital Signs Blood pressure systolic 133 mm Hg 01/24/20 25 Blood pressure diastolic 79 mm Hg 025 Respiratory Rate 17 /min 01/23/2025 Height 72 in 01/23/2025 Weight 203.2 lbs 01/23/2025 BMI 27.56 kg/m2 01/23/2025 Oximetry 99 % 01/23/2025 Encounters Encounter Location Date Provider Diagnosis [facility] [place] [address] [address] 01/23/2025 Elizabet Schaeffer Migraine without aur a, not intractable, without status migrainosus G43.009 ; Chronic tension-type headache, not intractable G44.229 ; Drug-induced headache, not elsewhere classified, not intractable G44.40 ; Essential tremor G25.0 ; Type 2 diabetes mellitus with diabetic polyneuropathy E11.42 and Postlaminectomy syndrome, not elsewhere classified M96.1 Assessments Encounter Date Diagnosis (ICD Code) Assessment Notes Treatment Notes Treatment Clinical Notes Section Notes 01/23/2025 Migraine without aura, not intractable, without [...] > 10 days/month to avoid rebound headaches. 01/23/2025 Essential tremor (ICD-10 - G25.0) Continue propranolol 160 mg daily. Monitor BP at home. 01/23/2025 Type 2 diabetes mellitus with diabetic polyneuropathy (ICD-10 - E11.42) 01/23/2025 Postlaminectomy syndrome, not elsewhere classified (ICD-10 - M96.1) Continue lumbar injections with pain management. Plan Of Treatment Medication Medication Name Sig Start Date Stop Date Notes DULoxetine HCl 30 MG 1 cap(s) orally once daily Propranolol HCl ER 160 MG 1 CAP(S) ORALL Y ONCE A DAY 04/16/2024 *Please review and pick correct strength-formulation from [employer] options. If intended option is not shown, discontinue and re-order from Quick Search* Amitriptyline HCl 50 MG 1 tab(s) orally once a day (at bedtime) Nurtec 75 MG 1 tablet Orally once every other day 07/04/2024 Treatment Notes Assessment Notes Migraine without aura, not i ntractable, without status migrainosus -Abortive treatment plan: Continue Nurtec.-Preventive treatment plan: Gave samples of Qulipta. -Educated [...] daily as supplements; keep scheduled follow-up appointments Chronic tension-type headach e, not intractable Continue amitriptyline. Continue duloxetine. Drug-induced headache, not e lsewhere classified, not intractable Limit use of the OTC analgesics to two days per week or less. Educated patient regarding medication overuse headaches. Advised to avoid taking NSAIDs or acetaminophen > 15 days/month, triptans or DHE > 10 days/month, butalbital > 10 days/month to avoid rebound headaches. Essential tremor Continue propranolol 160 mg daily. Monitor BP at home. Postlaminectomy syndrome, no t elsewhere classified Continue lumbar injections with pain management. Next Appt Details Follow Up: , Reason: Evaluat ion and Management Provider Name:Elizabet eduardo, 05/29/2025 09:00:00 AM, [address], [place], [address], Provider Name:Mi vicente, 05/29/2025 10:15:00 AM, [address], [address], [place], [address], Progress Notes * Michael FRANCO ADOB:[birth year] (59 yo M)Acc No.[id number]:01/23/2025 Progress Notes Patient: Michael GIFFORD Provider: Cintia Schaeffer APRN :1965 A ge:59 Y S ex:Male Date:01/23/2025 Address:[address] [place], [place] [id number] Pcp:Trever Bose Subjective: * Chief Complaints: * H eadache follow-up * HPI: * Introduction: I had the pleasure of seeing Jw Franco, who presented for follow-up for migraine, chronic tension-type headache, MOH, tremors, Type 2 DM, failed back.? * Initial History: INITIAL VISIT HISTORY: He is a 58 year old man with h/o DM2, HLD, HTN, peripheral neuropathy, lumbar DDD s/p posterior spinal fusion L4-S1. Reviewed history. His main concern is that he has developed tremors. His secondary concern is for recurrent headaches. R egarding his tremors, he reports that he has always had a shake since his childhood/teenage years. He remembers having hands shaking in school. 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 So this is a chronic long-standing tremor. However, he reports that in the last 4 months the tremors have become more prominent, showing me an example of prominent, recurrent short-lived tremor of his left arm, which will last for a few minutes, can affect arm, or leg or whole body. He reports that he was having a lot more back pain around this time due to a back strain and also had been sleeping poorly, correlating with increased tremors. He uses a lot of caffeine everyday. He does not drink alcohol and cannot comment on whether alcohol reduces tremor. He is not sure if he is shaking more since taking duloxetine, but he does not believe so. He was adopted and does not know his family history; his children do not have tremors. Regarding his headaches, he reports a prior history of migraine. He now describes recurrent headaches that they are located between his eyes, usually but not always responsive to OTC analgesics; he did not endorse photosensitivity/phonosensitivity or nausea or dizziness and reports that these are different from his prior migraines, although he does report that these headaches still make him want to go lie down and can restrict activity. These are relatively infrequent, having about 1 day/week, or less. Other symptoms: Another symptom her reports is tinnitus. He also has chronic low pain and bilateral leg pain. He is under the care of Pain Management and takes duloxetine and gabapentin. He has failed back syndrome by history, which limits his physical activity, and he has reduced physical stamina. Finally, he reported a prior ED visit for angina and hypomagnesemia LAST VISIT HISTORY: Last visit was on . He reports that Nurtec has been effective but he has had 1-2 migraines per month that required additional abortive medications. The migraines occured on the days that he was not scheduled to take Nurtec. His tremors have been well controlled on the increased dose of propranolol. * Previous Impression & Plan: Notes Previous Diagnoses: 1. Migraine without aura, not intractable, without status migrainosus - G43.009 (Primary) 2. Chronic tension-type headache, not intractable - G44.229 3. Drug-induced headache, not elsewhere classified, not intractable - G44.40 4. Essential tremor - G25.0 5. Type 2 diabetes mellitus with diabetic polyneuropathy - E11.42 6. Postlaminectomy syndrome, not elsewhere classified - M96.1 Previous Recommendations: 1. Abortive: Extra Nurtec. Gave samples of Zavzpret to be tried on days that the patient does not take Nurtec. Preventive: Continue Nurtec QOD. 2. Discussed hydration and stress reduction. 3. L imit use of OTC analgesics to 2x per week or less. Advised patient not to take Excedrin and Aleve in the same day or exceed the maximum dose. Educated patient regarding medication overuse headaches. Advised to avoid taking NSAIDs or acetaminophen > 15 days/month, triptans or DHE > 10 days/month, butalbital > 10 days/month to avoid rebound headaches. 4. Continue propranolol 160 mg ER. 5. Continue lumbar injections with pain management. * Interval History: Notes Pharmacologic Treatment: Current abortive treatment: E xtra Nurtec (effective), Excedrin/Aleve, Zavzpret (effective) Previous abortive treatment: Ubrelvy (partially effective), The patient cannot take triptans due to h/o angina. OTC analgesics Current preventive treatment: N urtec qod (effective but needs additional doses for PRN), Propranolol 160 mg (he is on this for essential tremor, although has not clearly helped his migraines). Amitripyline, Duloxetine and Gabapentin (he is on all three of these medications for chronic spine pain, although they have not helped his migraines) Previous preventive treatment: N one Medication overuse: Not present Headache Frequency: Initial/baseline headache/migraine days/month: 4 Last visit headache/migraine days/month: 20-25 (mild)/1-2 Current headache/migraine days/month: 12-16 (mild)/1-2 Headache Scales: HIT-6: Current score: 58 . Prior score: 60 Interval History: Last visit was on 01/01/2024. He reports that he has been doing well on Nurtec qod for prevention but does need to take additional rescue medications when he has a headache on other days. He has had some side effects with the combination of propranolol, duloxetine, gabapentin and amitriptyline including low blood pressure and dizziness. He has been counseled to reduce the dose or wean off of these medications but does not want to do so at this time. His current propranolol dose has shown the most improvement in his tremors. . * ROS: A LLERGY: runny nose Y es. s cratchy throat Y es. i tchy eyes Y es. e ar fullness Y es. s inus congestion Y es. S PECIAL SENSES: Positve for n one. c ataracts N o. g laucoma?No. l oss of hearing N o. i tching in ears Y es. r inging in ears Y es.?loss of balance Y es. l oss of smell Y es. d ry eyes Y es. e xcessive tearing N o. i tching eyes Y es. l oss of taste N o. c onjunctivitis N o.?ear infections N o. C ONSTITUTIONAL: weight gain N o. l oss of appetite N o. f ever?No. w eakness Y es. w eight loss Y es. f atigue Y es. n ight sweats?Yes. P ositive for n one. E NT: cold N o. c ough Y es. e pistaxis Y es.?hearing loss N o. c hange in voice Y es. s ore throat Y es. r inging in ears Y es. s inus pain Y es. R ESPIRATORY: shortness of breath N o. c hest pain N o. c hest congestion N o. c ough N o. O PHTHALMOLOGY: itching Y es. s ensitivity to light N o. d ischarge N o. w atering Y es. s welling of the eyelids N o. r edness Y es.?diminished vision Y es. e ye irritation Y es. d rainage from eyes N o. b lurring of vision Y es. E NDOCRINOLOGY: fatigue Y es. p olydipsia Y es. p olyuria Y es. w eight loss Y es. s leep disturbance Y es. c old intolerance N o. h eat intolerance Y es. d iabetes Y es. P ositive for n one. C ARDIOLOGY: chest pain N o. p alpitations N o. l eg edema?No. d izziness N o. s hortness of breath N o. P ositive for n one. ? G ASTROENTEROLOGY: dysphagia Y es. a bdominal pain N o. n ausea?No. v omiting N o. c onstipation N o. d iarrhea N o. b lood in stool?No. i ndigestion N o. h emorrhoids Y es. P ositive for n one. ? U ROLOGY: difficulty urinating Y es. b lood in urine N o.?frequent urination Y es. u rinary incontinence N o. r ecurrent UTI N o. P ositive for n one. D ERMATOLOGY: rash N o. m ole Y es. l umps N o. d ry or sensitive skin Y es. h glenn (urticaria) N o. a cne N o. s kin cancer N o. N EUROLOGY: headache Y es. t ingling numbness Y es. s eizures N o. i nsomnia Y es. m hilton loss Y es. d izziness N o. g ait abnormality Y es. P ositive for n one. H EMATOLOGY/LYMPH: Positive for n one. M USCULOSKELETAL: joint swelling N o. j oint pain Y es. l eg cramps Y es. j oint stiffness Y es. s ciatica Y es. o steoporosis N o. f racture N o. c arpal tunnel N o. g out N o. P ositive for n one. ? P SYCHOLOGY: Positive for n one. d epression Y es. h igh stress level N o. s leep disturbances Y es. s uicidal ideation N o. e ating disorder N o. m ental or physical abuse N o. a nxiety N o. M GER REPRODUCTIVE: difficulty with erection N o. d iminished sexual drive?Yes. p enile discharge N o. i nfertility N o. * Medical History: * Surgical History: L umbar spinal fusion L4-S1 Spinal Fusion L4-S1 2Spinal Laminetctomy 10/23/2018Right elbow 03/20/2012Right Shoulder rotor cuff 01/19/2012Nasal & deviated septim 02/18/2010Right shoulder rotor cuff & labrum 02/18/1997Apendectomy 03/20/1996Right hingunial hernia 05/20/1986Cyst Removal 01/08/2025 * Hospitalization/Major Diagno stic Procedure: B acterial infection 10/20/2005 * Family History: F ather: No. M other: No. P aternal Grand Father: No. P aternal Grand Mother: No.?Maternal Grand Father: No. M aternal Grand Mother: No. S iblings: No. C hildren: Yes. He is adopted. * Social History: M arital Status What is your marital status? m arried A lcohol Screening Do you ever drink alcoholic beverages? Y es Number of drinks per occasion: 2 Frequency? Y early S moking Have you ever smoked tobacco: f ormer smoker Additional Findings: Tobacco Non-User E x-light cigarette smoker (1-9/day) How old were you when you started smoking? 1 5 How old were you when you quit smoking? 4 0 How many cigarettes a day did you smoke? 3 packs Are you a : f ormer smoker R ecreational drug use Have you ever used recreational drugs? N o D etails on consumption of certain products? Do you regularly consume products with aspartame; Equal or NutraSweet? Y es Do you regularly consume products with artificial coloring??Yes Have you ever noticed worsening of your rash with these food items? N o A re any of the following personal care products containing fragrance, dye or preservatives used regularly? Shampoo: Y es Conditioner: N o Soap: Y es Laundry Detergent: Y es Fabric Softener: Y es Deodorant: Y es Perfume, cologne, after shave: Y es Air freshners or other scented products: Y es Hair coloring dyes or rinses: N o Other: N o O ccupation Are you currenly employed? 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 Y es Are you currently a student? N o E nvironmental History Living environment: p rivate home,with pets,with relatives Where is the home located? [place] Age of home: 2 3 How long have you lived there? 5 years or more How many people live in the home? 2 H ome description Basement: Y es Any water damage in basement? N o Smokers in the home? N o Smokers outside the home? N o Air Conditioning? Y es Central Air? Y es Forced air heating? Y es Gas or electric? g as Fireplace? Y es Used how often? w inter months only Wood burning stove? N o Do you vacuum the home? Y es Air purification systems? N o Pillow and mattress dust-proof encasings? N o Do you use a humidifier? Y es Whole house or room? r oom humidifier Does it have a humidistat? N o Is it used year-round, seasonal, or as needed? a s needed Is the humidifier cleaned regularly? Y es Do you own any pets? Y es What kind(s)? (click all that apply) c ats,bird Where do your pets sleep? o utside,anywhere in the house Fabric softeners used? Y es Plants in the home? N o Is there carpeting in your bedroom? Y es Age of carpet? 2 3 Do you have [id number] carpeting? Y es What is the age of your mattress (years)? 1 8 What material(s) are used to manufacture your bedding and pillow? s ynthetic What is the age of your pillow (years)? 1 8 What material are your bedding items made of? s ynthetic Do you sleep with quilts or blankets or a duvet? Y es What material? s ynthetic How many cats? 1 How many birds? 2 3 F ormer smoker. No EtOH. * Medications: T akingAlbuterol Sulfate HFA 108 (90 Base) MCG/ACT Aerosol Solution 2 puffs as needed Inhalation every 4 hrs as per asthma action plan AeroChamber MV - Miscellaneous as directed Any adult spacerHYDROcodone-Acetaminophen 10-325 MG Tablet 1 tab(s) orally every 6 hours As neededMagnesium Citrate 100 MG Capsule 1 cap(s) orally once a day , Notes to Pharmacist: 400mgLidocaine 5 % Ointment 1 valentín applied topically 3 times a day Melatonin 10 MG Capsule 1 cap(s) orally once a day (at bedtime) tiZANidine HCl 4 MG Tablet 2 tab(s) orally every 8 hours Atorvastatin Calcium 40 MG Tablet 1 tab(s) orally once a day metFORMIN HCl 1000 MG Tablet 1 tab(s) orally 2 times a day Pioglitazone HCl 15 MG Tablet 1 tab(s) orally once a day Farxiga 10 MG Tablet 1 tab(s) orally once a day Vitamin D3 50 MCG TABLET 1 TAB(S) ORALLY ONCE A DAY , Notes to Pharmacist: *Please review and pick correct strength-formulation from [employer] options. If intended option is not shown, discontinue and re-order from Quick Search*Potassium Chloride 99 MG TABLET 1 TAB(S) ORALLY ONCE A DAY , Notes to Pharmacist: *Please review and pick correct strength-formulation from [employer] options. If intended option is not shown, discontinue and re-order from Quick Search*Multivitamin - Tablet 1 tab(s) orally once a day Amitriptyline HCl 50 MG Tablet 1 tab(s) orally once a day (at bedtime) DULoxetine HCl 30 MG Capsule Delayed Release Particles 1 cap(s) orally once daily Gabapentin 300 MG Capsule 1 cap(s) orally twice daily Breztri Aerosphere 160-9-4.8 MCG/ACT Aerosol 2 puffs Inhalation Twice a day Nurtec 75 MG Tablet Disintegrating 1 tablet Orally once every other day as PREVENTIVEPropranolol HCl ER 160 MG Capsule Extended Release 24 Hour 1 CAP(S) ORALLY ONCE A DAY , Notes to Pharmacist: *Please review and pick correct strength-formulation from [employer] options. If intended option is not shown, discontinue and re-order from Quick Search*Taking Albuterol Sulfate HFA 108 (90 Base) MCG/ACT Aerosol Solution 2 puffs as needed Inhalation every 4 hrs as per asthma action plan Taking AeroChamber MV - Miscellaneous as directed Any adult spacerTaking HYDROcodone-Acetaminophen 10-325 MG Tablet 1 tab(s) orally every 6 hours As neededTaking Magnesium Citrate 100 MG Capsule 1 cap(s) orally once a day , Notes to Pharmacist: 400mgTaking Lidocaine 5 % Ointment 1 valentín applied topically 3 times a day Taking Melatonin 10 MG Capsule 1 cap(s) orally once a day (at bedtime) Taking tiZANidine HCl 4 MG Tablet 2 tab(s) orally every 8 hours Taking Atorvastatin Calcium 40 MG Tablet 1 tab(s) orally once a day Taking metFORMIN HCl 1000 MG Tablet 1 tab(s) orally 2 times a day Taking Pioglitazone HCl 15 MG Tablet 1 tab(s) orally once a day Taking Farxiga 10 MG Tablet 1 tab(s) orally once a day Taking Vitamin D3 50 MCG TABLET 1 TAB(S) ORALLY ONCE A DAY , Notes to Pharmacist: *Please review and pick correct strength-formulation from [employer] options. If intended option is not shown, discontinue and re-order from Quick Search*Taking Potassium Chloride 99 MG TABLET 1 TAB(S) ORALLY ONCE A DAY , Notes to Pharmacist: *Please review and pick correct strength-formulation from [employer] options. If intended option is not shown, discontinue and re-order from Quick Search*Taking Multivitamin - Tablet 1 tab(s) orally once a day Taking Amitriptyline HCl 50 MG Tablet 1 tab(s) orally once a day (at bedtime) Taking DULoxetine HCl 30 MG Capsule Delayed Release Particles 1 cap(s) orally once daily Taking Gabapentin 300 MG Capsule 1 cap(s) orally twice daily Taking Breztri Aerosphere 160-9-4.8 MCG/ACT Aerosol 2 puffs Inhalation Twice a day Taking Nurtec 75 MG Tablet Disintegrating 1 tablet Orally once every other day as PREVENTIVETaking Propranolol HCl ER 160 MG Capsule Extended Release 24 Hour 1 CAP(S) ORALLY ONCE A DAY , Notes to Pharmacist: *Please review and pick correct strength-formulation from [employer] options. If intended option is not shown, discontinue and re-order from Quick Search*Not-Taking/PRNNURTEC ODT 75 MG TABLET, DISINTEGRATING 1 TAB(S) ORALLY ONCE , Notes to Pharmacist: *Please review for potential replacement for e-prescription and drug interaction check*OZEMPIC 2 MG/1.5 ML (0.25 MG OR 0.5 MG DOSE) SOLUTION DIRECTED SUBCUTANEOUSLY ONCE A WEEK , Notes to Pharmacist: *Please review for potential replacement for e-prescription and drug interaction check*NURTEC ODT 75 MG TABLET, DISINTEGRATING 1 TAB(S) ORALLY ONCE , Notes to Pharmacist: *Please review for potential replacement for e-prescription and drug interaction check*Medication List reviewed and reconciled with the patientNot-Taking/PRN NURTEC ODT 75 MG TABLET, DISINTEGRATING 1 TAB(S) ORALLY ONCE , Notes to Pharmacist: *Please review for potential replacement for e-prescription and drug interaction check*Not-Taking/PRN OZEMPIC 2 MG/1.5 ML (0.25 MG OR 0.5 MG DOSE) SOLUTION DIRECTED SUBCUTANEOUSLY ONCE A WEEK , Notes to Pharmacist: *Please review for potential replacement for e-prescription and drug interaction check*Not-Taking/PRN NURTEC ODT 75 MG TABLET, DISINTEGRATING 1 TAB(S) ORALLY ONCE , Notes to Pharmacist: *Please review for potential replacement for e-prescription and drug interaction check*Medication List reviewed and reconciled with the patient * Allergies: T yphoid Vaccines: hivesno[Allergies Verified] Objective: * Vitals: B P:133/79mm Hg, HR:70/min, RR:17/min, Pulse Oximetry:99%, Ht: 72 in, Wt: 203.2 lbs, BMI:27.56Index. * Examination: G eneral examination: General appearance: P leasant, well-developed, well-nourished. HEENT: N o papilledema. No tenderness to palpation over the greater occipital or supraorbital nerves bilaterally. Neurologic exam: A lert and oriented x 4. Fluent speech. Cranial nerves II-XII intact. Motor 5/5 strength in all extremities. Slight/mild action/postural tremor in the upper extremities. G ait normal.. Back: N o cervical or periscapular trigger points. ? Assessment: * Assessment: 1. M igraine without aura, not intractable, without status migrainosus - G43.009 (Primary) 2 . C hronic tension-type headache, not intractable - G44.229 3 .?Drug-induced headache, not elsewhere classified, not intractable - G44.40 4 . Essential tremor - G25.0 5 . T ype 2 diabetes mellitus with diabetic polyneuropathy - E11.42 6 . P ostlaminectomy syndrome, not elsewhere classified - M96.1? Plan: * Treatment: 2. C hronic tension-type headache, not intractable Continue Amitriptyline HCl Tablet, 50 MG, 1 tab(s), orally, once a day (at bedtime); C ontinue DULoxetine HCl Capsule Delayed Release Particles, 30 MG, 1 cap(s), orally, once daily. Notes:Continue amitriptyline. Continue duloxetine. 3. D rug-induced headache, not elsewhere classified, not intractable Notes:Limit use of the OTC analgesics to two days per week or less.Educated patient regarding medication overuse headaches. Advised to avoid taking NSAIDs or acetaminophen > 15 days/month, triptans or DHE > 10 days/month, butalbital > 10 days/month to avoid rebound headaches. 4. E ssential tremor Continue Propranolol HCl ER Capsule Extended Release 24 Hour, 160 MG, 1 CAP(S), ORALLY, ONCE A DAY, Notes to Pharmacist: *Please review and pick correct strength-formulation from Medispan options. If intended option is not shown, discontinue and re-order from Quick Search*. Notes:Continue propranolol 160 mg daily. Monitor BP at home. 5. P ostlaminectomy syndrome, not elsewhere classified Notes:Continue lumbar injections with pain management. * Procedure Codes: 9 6160 PT-FOCUSED HLTH RISK [id number] DOC MEDS VERIFIED W/PT OR [id number] Complex e/m visit add on * Follow Up: Jesus landry: Evaluation and Management * Billing Information: * Visit Code: 12392 Office Visit, Est Pt., Level 4. Modifiers: 25 * Procedure Codes: 92696 PT-FOCUSED HLTH RISK ASSMT. G8427 DOC MEDS VERIFIED W/PT OR RE. G2211 Complex e/m visit add on. * Sign off status: Completed true * Provider: Cintia Schaeffer APRN Date: 0 01/23/2025 Generated for Cherrie le/Sudeep/Teaganitting on: 0 03/10/2025 03:26 PM CDT History and Physical Notes * HPI (History of Present Illness) Category Sub-Category Detail Notes Category Notes *Introduction I had the pleasure of seeing Michael Franco, who presented for follow-up for migraine, chronic tension-type headache, MOH, tremors, Type 2 DM, failed back *Initial History INITIAL VISIT HISTORY: He is a 58 year old man with h/o DM2, HLD, HTN, peripheral neuropathy, lumbar DDD s/p posterior spinal fusion L4-S1. Reviewed history. His main concern is that he has developed tremors. His secondary concern is for recurrent headaches. Regarding his tremors, he reports that he has always had a shake since his childhood/teenage years. He remembers having hands shaking in school. 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 So this is a chronic long-standing tremor. However, he reports that in the last 4 months the tremors have become more prominent, showing me an example of prominent, recurrent short-lived tremor of his left arm, which will last for a few minutes, can affect arm, or leg or whole body. He reports that he was having a lot more back pain around this time due to a back strain and also had been sleeping poorly, correlating with increased tremors. He uses a lot of caffeine everyday. He does not drink alcohol and cannot comment on whether alcohol reduces tremor. He is not sure if he is shaking more since taking duloxetine, but he does not believe so. He was adopted and does not know his family history; his children do not have tremors. Regarding his headaches, he reports a prior history of migraine. He now describes recurrent headaches that they are located between his eyes, usually but not always responsive to OTC analgesics; he did not endorse photosensitivity/ phonosensitivity or nausea or dizziness and reports that these are different from his prior migraines, although he does report that these headaches still make him want to go lie down and can restrict activity. These are relatively infrequent, having about 1 day/week, or less. Other symptoms: Another symptom her reports is tinnitus. He also has chronic low pain and bilateral leg pain. He is under the care of Pain Management and takes duloxetine and gabapentin. He has failed back syndrome by history, which limits his physical activity, and he has reduced physical stamina. Finally, he reported a prior ED visit for angina and hypomagnesemia LAST VISIT HISTORY: Last visit was on 09/05/2024. He reports that Nurtec has been effective but he has had 1-2 migraines per month that required additional abortive medications. The migraines occured on the days that he was not scheduled to take Nurtec. His tremors have been well controlled on the increased dose of propranolol *Previous Impression & Plan Notes Previous Diagnoses:1. Migrai ne without aura, not intractable, without status migrainosus - G43.009 (Primary)2. Chronic tension-type headache, not intractable - G44.2293. Drug-induced headache, not elsewhere classified, not intractable - G44.404. Essential tremor - G25.05. Type 2 diabetes mellitus with diabetic polyneuropathy - E11.426. Postlaminectomy syndrome, not elsewhere classified - M96.1Previous Recommendations:1. Abortive: Extra Nurtec. Gave samples of Zavzpret to be tried on days that the patient does not take Nurtec. Preventive: Continue Nurtec QOD.2. Discussed hydration and stress reduction. 3. Limit use of OTC analgesics to 2x per week or less. Advised patient not to take Excedrin and Aleve in the same day or exceed the maximum dose. Educated patient regarding medication overuse headaches. Advised to avoid taking NSAIDs or acetaminophen > 15 days/month, triptans or DHE > 10 days/month, butalbital > 10 days/month to avoid rebound headaches. 4. Continue propranolol 160 mg ER. 5. Continue lumbar injections with pain management *Interval History Notes Pharmacologic Treatment: Cur rent abortive treatment: Extra Nurtec (effective), Excedrin/Aleve, Zavzpret (effective) Previous abortive treatment: Ubrelvy (partially effective), The patient cannot take triptans due to h/o angina. OTC analgesics Current preventive treatment: Nurtec qod (effective but needs additional doses for PRN), Propranolol 160 mg (he is on this for essential tremor, although has not clearly helped his migraines). Amitripyline, Duloxetine and Gabapentin (he is on all three of these medications for chronic spine pain, although they have not helped his migraines) Previous preventive treatment: None Medication overuse: Not present Headache Frequency: Initial/baseline headache/migraine days/month: 4 Last visit headache/migraine days/month: 20-25 (mild)/1-2 Current headache/migraine days/month: 12-16 (mild)/1-2 Headache Scales: HIT-6: Current score: 58 . Prior score: 60 Interval History: Last visit was on 10/31/2024. He reports that he has been doing well on Nurtec qod for prevention but does need to take additional rescue medications when he has a headache on other days. He has had some side effects with the combination of propranolol, duloxetine, gabapentin and amitriptyline including low blood pressure and dizziness. He has been counseled to reduce the dose or wean off of these medications but does not want to do so at this time. His current propranolol dose has shown the most improvement in his tremors. Examination Category Sub-Category Detail Notes Category Not es General examination HEENT: No papillede ma. No tenderness to palpation over the greater occipital or supraorbital nerves bilaterally General appearance: Pleasant, well-devel oped, well-nourished Neurologic exam: Alert and oriented x 4. Fluent speech. Cranial nerves II-XII intact. Motor 5/5 strength in all extremities. Slight/mild action/postural tremor in the upper extremities. Gait normal. Back: No cervical or peris capular trigger points
--- OUTSIDE RECORDS SUMMARY | 2025-03-10 15:27 | XMS_ITS | Clinical Summary ---
Author Organization [facility] Address [address], [address] [address] Phone Care Team Providers Care Fork Truck Operator Name Role Phone Trever Bose MD Primary Care Provider [phone] Allergies Active Allergy Reactions Criticality Noted Date [...] Comments Blood Pressure 132/94 01/12/2018 9:18 AM LAW REPORTER Pulse 73 01/12/2018 9:18 AM LAW REPORTER Temperature 36 C (96.8 F) 01/12/2018 9:18 AM LAW REPORTER Respiratory Rate 20 01/12/2018 9:18 AM LAW REPORTER Oxygen Saturation 99% 01/12/2018 9:18 AM LAW REPORTER Inhaled Oxygen Concentration - - Weight 90.7 kg (200 lb) 01/12/2018 7:05 AM LAW REPORTER Height 182.9 cm (6') 01/12/2018 7:05 AM LAW REPORTER Body Mass Index 27.12 01/12/2018 7:05 AM LAW REPORTER Plan of Treatment Health Maintenance Due Date [...] patient's age to complete this topic Insurance [employer] [facility] OA Care Teams Fork Truck Operator Relationship Specialty Start Date End Date Trever Bose MD [address] [place] [id number] PCP - General Family Medicine 01/11/18
--- OUTSIDE RECORDS SUMMARY | 2025-03-10 15:27 | XMS_ITS | Clinical Summary ---
Author Organization [facility] Address [address] [place] [address] Phone Care Team Providers Care Usability Engineer Name Role Phone Trever Bose MD Primary Care Provider [phone] Allergies Active Allergy Reactions Criticality Noted Date [...] on file Legal Sex Male 9:02 AM CREDIT CONTROL MANAGER Gender Identity Not on file Sexual Orientation Not on file Last Filed Vital Signs Vital Sign Reading Time Taken Comments Blood Pressure 145/91 01/07/2021 12:20 PM CREDIT CONTROL MANAGER Pulse 65 01/07/2021 12:20 PM CREDIT CONTROL MANAGER Temperature 36 C (96.8 F) 01/07/2021 12:20 PM CREDIT CONTROL MANAGER Respiratory Rate 14 01/07/2021 12:20 PM CREDIT CONTROL MANAGER Oxygen Saturation 98% 01/07/2021 12:20 PM CREDIT CONTROL MANAGER Inhaled Oxygen Concentration - - Weight 94.8 kg (209 lb) 01/07/2021 8:25 AM CREDIT CONTROL MANAGER Height 182.9 cm (6') 01/07/2021 8:25 AM CREDIT CONTROL MANAGER Body Mass Index 28.35 01/07/2021 8:25 AM CREDIT CONTROL MANAGER Plan of Treatment Health Maintenance Due Date [...] 10/02/2019, 2007 Medical Devices Implanted Type Area Vice President Supply Chain Device Identifier Shelf Expiration Date Model / Serial / Lot Imp Prostate Urolift [id number] - [id number] Implanted:Qty: 4 on 01/07/2021 by Shekhar Bahena MD at [facility] Other N/A: Prostate NEOTRACT 08/24/2022 [id number] / / [id number] Insurance Advance Directives For more information, please contact: [phone] * Full Code (Latest Code Status on File) Date Activated Date Inactivated Comments 01/07/2021 9:02 AM 01/07/2021 2:46 PM Care Teams Usability Engineer Relationship Specialty Start Date End Date Trever Bose MD [address] [place] [phone] PCP - General Family Practice 11/12/20
--- OUTSIDE RECORDS SUMMARY | 2025-03-10 15:27 | XMS_ITS ---
Care Plan - [facility] Created on: March 10, 2025 SALVADOR ANGELA Asif : 1965 Sex: Male Author Organization [facility] Address [address] [place] [address] Phone Care Team Providers Care Topper Packer Name Role Phone RUBENS ODELL MD Primary Care Provider [phone]
--- OUTSIDE RECORDS SUMMARY | 2025-03-10 15:28 | XMS_ITS | Clinical Summary ---
Author Organization [facility] Address [address] [place] [address] Phone Care Team Providers Care Rock Climbing Instructor Name Role Phone RUBENS ODELL MD Primary Care Provider [phone] Reason for Visit and Chief Complaint The [...] Active Last Documented On 06/01/2017 12:41AM ; [facility] Note: Unchanged Past Visits Onset Date Resolved Date Provider Condition Status Post Covid-19 Condition 02/22/2022 JACQUI ODELL MD Active Last Documented On 02/22/2022 8:35AM ; [facility] Note: Unchanged Hypercholesterolemia 06/01/2017 RUBENS ODELL MD Active Last Documented On 06/01/2017 12:41AM ; [facility] Note: Unchanged Irritable Bowel Syndrome 06/01/2017 DAMAIRS ODELL MD Active Last Documented On 06/01/2017 12:41AM ; [facility] Note: Unchanged Benign Prostatic Hypertrophy Without Urinary Obstruction 06/01/2017 RUBENS ODELL MD Active Last Documented On 06/01/2017 12:41AM ; [facility] Note: Unchanged Congestive Heart Failure 06/01/2017 DAMARIS ODELL MD Active Last Documented On 06/01/2017 12:41AM ; [facility] Note: Unchanged Male Erectile Dysfunction 06/01/2017 TI HASEEB ODELL MD Active Last Documented On 06/01/2017 12:41AM ; [facility] Note: Unchanged Lumbago 06/01/2017 RUBENS ODELL MD Active Last Documented On 06/01/2017 12:41AM ; [facility] Note: Unchanged Herniated Intervertebral Disc Lumbar 06/01/2017 RUBENS ODELL MD Active Last Documented On 06/01/2017 12:41AM ; [facility] Note: Unchanged Cardiomyopathy 06/01/2017 RUBENS ODELL MD Active Last Documented On 06/01/2017 12:41AM ; [facility] Note: Unchanged Diabetes Mellitus Type 2 - Uncomplicated, Controlled 09/18/2012 BUCKY DOUGHERTY M.D. Active Last Documented On 6 3:35PM ; [facility] Essential Hypertension Benign 09/18/2012 BUCKY DOUGHERTY M.D. Active Last Documented On 6 3:35PM ; [facility] Plan of Treatment - Return to the clinic if condition worsens or new symptoms arise - Last Documented On 12/26/2023 8:28AM ; [facility] - Disposition - Last Documented On 12/26/2023 8:28AM ; [facility] Continue follow up with specialists [facility] [...] - Last Documented On 12/26/2023 8:28AM ; [facility] Pending Tests Order Diagnosis Results Due Ordering P jan Lab *PSA SCREEN 03/25/24 BRENTON VILLAFANA PA-C Last Documented On 9:26AM ; [facility] Instructions to patient Recommend diet and exercise at least 30 min three times per week Last Documented On 4 4:08PM ; [facility] Assessments Includes: Assessments from this encounter Findings - Ganglion of the right hand [M67.441 - Ganglion, right hand] palm - Last Documented On 12/26/2023 8:28AM ; [facility] - Dependence on nicotine in cigarettes in remission [F17.211 - Nicotine dependence, cigarettes, in remission] 3 PPD 7220-9591. Quit over 15 years ago- screening not recommended - Last Documented On 12/26/2023 8:28AM ; [facility] - Moderate depression [F32.1 - Major depressive disorder, single episode, moderate] - Last Documented On 12/26/2023 8:28AM ; [facility] Instructions Includes: Instructions from this encounter Instructions to patient Recommend diet and exercise at least 30 min three times per week Last Documented On 4 4:08PM ; [facility] Medical Equipment - Implanted Devices Includes: Current Devices No Medical Equipment Recorded Medications Includes: Medications discussed during this encounter and other current Medications Discontinued / Stopped on this date on 03/23/2022 Trulicity 3 MG/0.5ML Subcutaneous Solution Pen-injecto r Provider: Diagnosis: Last Documented On 12/25/2023 2:54PM By SARIKA WINTER Jeannette ; [facility] New / Renewed during this visit BRENTON BUSTAMANTE PA-C on 12/25/2023 DULoxetine HCl 30 MG Oral Capsule Delayed Release Particles Provider: BRENTON Alexis 30 day supply: 30 capsule, 2 refills Diagnosis: Major depressive disorder, single episode, moderate One tablet daily Pharmacy: [address] , [place], [address] - Last Documented On 4 12:22PM By BRENTON BUSTAMANTE PA-C ; [facility] Current Medications (continue as prescribed) DULoxetine HCl 30 MG Oral Capsule Delayed Release Particles 03/25/2024 - 03/20/2025 Provider: BRENTON BUSTAMANTE PA-C Diagnosis: Major depressive disorder, single episode, moderate One tablet daily Last Documented On 4 12:24PM By BRENTON BUSTAMANTE PA-C ; [facility] Tamsulosin HCl 0.4 MG Oral Capsule 03/25/2024 Provid er: Diagnosis: Last Documented On 03/25/2024 9:16AM By SARIKA JOHNSTON ; [facility] Propranolol HCl 20 MG Oral Tablet 03/25/2024 Provide r: Diagnosis: 2 pills tid Last Documented On 03/25/2024 9:17AM By SARIKA JOHNSTON ; [facility] Lisinopril 20 MG Oral Tablet 03/25/2024 - 03/20/2025 Provider: BRENTON SCHWAB CH, PA-C Diagnosis: TAKE 1 TABLET BY MOUTH DAILY Last Documented On 12:24PM By BRENTON BUSTAMANTE PA-C ; [facility] Flonase Allergy Relief 50 MCG/ACT Nasal Suspension 01/26/2024 Provider: BRENTON BUSTAMANTE PA-C Diagnosis: Acute nasopharyn gitis [common cold] 2 sprays each nostril once daily Last Documented On 03/25/2024 9:12AM By SARIKA JOHNSTON ; [facility] Ozempic (1 MG/DOSE) 2 MG/1.5 ML Subcutaneous Solution Pen-injector 12/25/2023 Provider: Diagnosis: ordred by endo Last Documented On 12/25/2023 2:54PM By SARIKA JOHNSTON ; [facility] Gabapentin 300 MG Oral Capsule 03/14/2023 Provider: Diagnosis: Last Documented On 03/14/2023 2:45PM By SARIKA JOHNSTON ; [facility] Lidocaine Oint & Men-Meth Paulo 5 & 3-10% External Therapy Pack 07/12/2022 Provider: Diagnosis: Last Documented On 07/12/2022 2:36PM By Freida ROMERO ; [facility] Magnesium Oxide 400 MG Oral Tablet 05/30/2022 Provid er: Diagnosis: ordered by cardiioogist Last Documented On 05/30/2022 11:43AM By SARIKA JOHNSTON ; [facility] Pioglitazone HCl 15 MG Oral Tablet 05/30/2022 Provid er: Diagnosis: Last Documented On 05/30/2022 11:21AM By SARIKA JOHNSTON ; [facility] Nitrostat 0.4 MG Sublingual Tablet Sublingual 04/27/20 Provider: Diagnosis: ordered by computer game programmer Last Documented On 04/27/2022 10:26AM By SARIKA JOHNSTON ; [facility] Atorvastatin Calcium 40 MG Oral Tablet 03/23/2022 Pr ovider: Diagnosis: Last Documented On 03/23/2022 9:29AM By SARIKA JOHNSTON ; [facility] Farxiga 10 MG Oral Tablet 03/23/2022 Provider: Diagnosis: Last Documented On 03/23/2022 9:28AM By SARIKA JOHNSTON ; [facility] Vitamin D 50 MCG (1999 [place]) Oral Capsule 01/24/2022 P rosudeepder: Diagnosis: Last Documented On 01/24/2022 9:40AM By SARIKA JOHNSTON ; [facility] Potassium 99 MG Oral Tablet 01/24/2022 Provider: Diagnosis: Last Documented On 01/24/2022 9:39AM By SARIKA JOHNSTON ; [facility] HYDROcodone-Acetaminophen 10-325 MG Oral Tablet 2021 Provider: Diagnosis: one or 2 at bedtimeordered by specialist Last Documented On 01/24/2022 9:42AM By SARIKA JOHNSTON ; [facility] Melatonin 10 MG Oral Tablet 09/05/2019 Provider: Diagnosis: Last Documented On 09/05/2019 10:26AM By AYAN ROMERO ; [facility] metFORMIN HCl 1000 MG TABS 12/15/2014 Provider: Diagnosis: Last Documented On 12/15/2014 9:34AM By AYAN ROMERO ; [facility] Multivitamins OR CAPS 10/10/2010 Provider: Diagnosis: Last Documented On 0 7:27PM By LULA PALACIOS PA-C ; [facility] OneTouch Ultra Blue STRP 04/15/2010 Provider: BUCKY DOUGHERTY M.D. Diagnosis: #90 WITH 3 REFILLS Last Documented On 04/15/2010 1:13PM By BUCKY DOUGHERTY MD ; [facility] Past Medications on file Amitriptyline HCl 50 MG Oral Tablet 02/13/2024 - 02/07/2025 Provider: BRENTON BUSTAMANTE PA-C Diagnosis: Other irritable bowel syndrome TAKE 1 TABLET BY MOUTH AT BEDTIME Last Documented On 11:41AM By BRENTON BUSTAMANTE PA-C ; [facility] tiZANidine HCl 4 MG Oral Tablet 02/07/2024 - 05/07/2024 Provider: YOLANDE RAY GAME WARDEN- Diagnosis: TAKE 1 TABLET BY MOUTH TWICE DAILY Last Documented On 4 12:41PM By YOLANDE NELSON- ; [facility] Medications Administered Includes: [...] 97 Last Documented: On 12/25/2023 2:50PM ; [facility] Results Includes: Results discussed during this [...] 01/23/2024 Last Documented On 4 2:45PM ; [facility] Cigarette smoking: history 3 packs per d ay for 25 years 12/25/2023 Last Documented On 4 8:28AM ; [facility] Former smoker 12/25/2023 Last Documented On 4 8:28AM ; [facility] Stopped smoking years ago 2002 4 Last Documented On 4 8:28AM ; [facility] A previous job-related injury Had whipla sh dx years ago. NO isues since 06/01/2022 Last Documented On 4 2:45PM ; [facility] Social history unchanged 06/17/2020 Last Documented On 4 2:45PM ; [facility] Exercising erratically 05/09/2017 Last Documented On 4 2:45PM ; [facility] Smoking Status Unknown Procedures and Surgical History Includes: Procedures from this encounter Procedures Code Diagnosis Performing Provider Service L ocation Service Date medication instruction Last Documented On 4 8:28AM ; [facility] plan of care reviewed and agreed to Last Documented On 4 4:08PM ; [facility] risks, benefits, and limitations discuss ed and understood Last Documented On 4 8:28AM ; [facility] use of tobacco assessment performed 1000F Last Documented On 4 2:51PM ; [facility] review of medications documented 1160F Last Documented On 4 4:08PM ; [facility] assessment of suicide risk performed Last Documented On 4 2:56PM ; [facility] screening for adult depression: impressi on and score eleven Last Documented On 4 2:56PM ; [facility] standardized depression screening: posit patrick for symptoms Last Documented On 4 2:56PM ; [facility] Clinical summary provided to patient Last Documented On 4 4:08PM ; [facility] a colonoscopy was performed 01/12/2018- Due for 5 year repeat. Pt aware and will make apt Last Documented On 4 4:08PM ; [facility] Medical History Includes: Medical History addressed during this encounter Description Last Updated Home blood sugar check performed bs 138 this am 03/25/2024 Last Documented On 4 2:45PM ; [facility] Home blood sugar check performed bs 126 this am 12/25/2023 Last Documented On 4 8:28AM ; [facility] APPENDECTOMY ~ING HERNIA R ~ NASAL SEPTAL DEVIATION REPAIR 2009 ~TONSILLECTOMY ~R ROTATOR CUFF 97, 12 ~R ELBOW 12 ~LAMINECTOMY L4-S1 10/201807/12/2022 Last Documented On 4 2:45PM ; [facility] Family History Includes: Family History [...] patrick Last Documented On 4 9:11AM ; [facility] Encounters Encounter Provider Location Date Check-In Time Check-Out Time Diagnosis PROBLEM VISIT BRENTON BUSTAMANTE PA-C [facility] 12/25/19 24 2:30PM 3:10PM Depression Moderate,Nicot ine Dependence Cigarettes in Remission,Gang lion Right Hand Insurance Includes: Active Insurance Policies Plan Name Member ID Group # Subscriber Relationship Effect patrick Dates 1 - [employer] [id number] ANGELA FRANCO [facility] Clinical Notes Includes: Clinical Notes from this encounter * Progress note Date Encounter Last Documented by 12/25/2023 PROBLEM VISIT Last documented on 12/26/2023; 8:28 AM, BRENTON BUSTAMANTE PA-C; [facility] Active Problems & [...] Sublingual Tablet Sublingual as directed ordered by computer game programmer, 0 days, 0 refills - OneTouch Ultra [...] Nicotine dependence, cigarettes, in remission] 3 PPD 3347-6414. Quit over 15 years ago- screening not [...]
--- NOTE | 2025-03-11 16:44 | WPDPFTINT ---
PFT Procedure Performed PFT Procedure Performed Spirometry with Pre/Post Bronchodilator Plethysmography (Lung Vol) Diffusing Cap (DLCO) Flow Vol Loop PFT Interpretation DOS: 03/10/2025 REQUESTING: Kamala Beckman MD REASON FOR TESTING: Chronic cough, shortness of breath PULMONARY FUNCTION TESTS Results are reliable and reproducible. Repeatability of spirometry FEV1 maneuver pre and post bronchodilator is Grade A. Donovan: GLI 2012 reference equations were used. Spirometry: The pre-bronchodilator FEV1 is 2.71, 72% predicted, decreased. The pre-bronchodilator FVC is 3.36 L, 68%, decreased. The FEV1/FVC ratio is 81%. After bronchodilator, the FEV1 is 3.00 L, 79%, +11%. After bronchodilator, the FVC is 3.73 L, 76%, +11%. The FEV1/FVC ratio is 80%. Lung volumes: The total lung capacity is 5.66 L, 76%, decreased. The residual volume is 2.27 L, 95%. The RV/TLC is 40%. FRC is 2.58 L, 66%, low end of normal. Airway resistance is normal. Diffusion: DLCO is 23.1, 80%. The DLCO/VA is 4.68, 114%. Flow volume loop: The flow volume loop shows a restrictive pattern. IMPRESSION: This study shows a mild decrease in both FE V1 and FVC with a preserved FEV1/FVC ratio, non statistically significant increase after bronchodilator administration, mild restrictive impairment, normal diffusion capacity. Lack of response to bronchodilator should not preclude use if clinically indicated. No prior studies to compare. Kamala Beckman MD
--- NOTE | 2025-03-11 16:53 | WPDSIXMINUTE ---
Six Minute Walk Procedure Procedure Performed Pulmonary Stress Test (6 min walk) Six Minute Walk Six Minute Walk: DOS: 03/10/2025 REQUESTING: Kamala Beckman MD REASON FOR TESTING: Chronic cough, shortness of breath SIX MINUTE WALK This test was conducted per ATS guidelines. The initial saturation was 96%, and initial heart rate was 74 beats per minute. The patient walked without stopping, completing 320 m/1050 ft. The saturation at the end of testing was 95%, and the heart rate was 89 beats per minute His dyspnea/fatigue score was 1 at the start of testing, 2 at the end of testing. The lowest saturation during testing was 92% at 4 minutes. The highest heart rate was 91 beats per minute at 5 minutes.. IMPRESSION: This is a normal study. The patient did not require supplemental oxygen with exertion. Kamala Beckman MD
== END 2025-03-10 13:40 | disposition home or self-care (01) ==
LOC: ANHPFT 13:41
PROVIDERS: Visit Provider Internal Medicine Critical Care Medicine
DX: R04.2 Hemoptysis (principal)
CPT/HCPCS: 71250